=== PATIENT | male | born 1940 | race Caucasian/White ===

== ENCOUNTER → 2017-07-08 | Outpatient (CLI) | payer MEDICARE ==
[2017-07-08 13:17] LABS: Basophils % (A) 0 %; Eosinophils # (A) 0.2 k/uL (0-0.7); Eosinophils % (A) 3 %; HCT 44.3 % (39.0-53.0); Lymphocytes # (A) 0.7 k/uL (1.0-4.8); Lymphocytes % (A) 9 %; MCH 31.7 pg (25.0-35.0); MCHC 31.5 g/dL (31.0-37.0); MCV 100.6 fL (80.0-100.0); Macrocytosis Slight; Mean Platelet Volume 7.2; Monocytes # (A) 0.6 k/uL (0-1.0); Monocytes % (A) 7 %; Neutrophils # (A) 6.5 k/uL (1.3-7.7); Neutrophils % (A) 80 %; Platelet Count 235 k/uL (150-450); RDW 14.3 % (11.5-15.5); WBC 8.2 k/uL (3.8-10.6)
[2017-07-08 13:33] LABS: Albumin 4.2 g/dL (3.5-5.0); Anion Gap 12 mmol/L; Blood Urea Nitrogen 13 mg/dL (9-20); C Reactive Protein 16.4 mg/L (<10.0); Calcium 9.6 mg/dL (8.4-10.2); Carbon Dioxide 26 mmol/L (22-30); Chloride 103 mmol/L (98-107); Glucose 91 mg/dL (74-99); Potassium 4.2 mmol/L (3.5-5.1); Sodium 141 mmol/L (137-145)
[2017-07-08 14:55] LABS: Erythrocyte Sedimentation Rate 19 mm/hr (0-15)
[2017-07-08 21:26] LABS: Hemoglobin A1C 5.5 % (4.0-6.0)
== END | disposition home or self-care (01) ==
LOC: LABWHC1 12:10
PROVIDERS: ATTEND Orthopaedic Surgery
DX: Z01.818 Encounter for other preprocedural examination (principal); E55.9 Vitamin D deficiency, unspecified; N39.0 Urinary tract infection, site not specified; M12.9 Arthropathy, unspecified; D64.9 Anemia, unspecified; Z13.1 Encounter for screening for diabetes mellitus
CPT/HCPCS: 36415; 80048; 82040; 82652; 83036; 85025; 85652; 86140; 87070

== ENCOUNTER → 2019-01-30 | Day surgery (SDC) | payer MEDICARE ==
[2019-01-27 10:17] VITALS: BMI 29.5
[~2019-01-30] MED LIST: CLINDAMYCIN 600 MG in DEXTROSE 5% IN WATER 50 ML IVPB ONE; HYDROcodone/APAP 5-325MG 1 EACH TAB PO ONE; HYDROmorphone 0.5 MG/0.5 ML SYRINGE IVP PRN; LACTATED RINGERS 1,000 ML IV SCH; LIDOCAINE 1% 20 ML VIAL (10MG/ML) FOR IV START SQ ONE; MIDAZOLAM 2 MG/2 ML VIAL IV PRN; MIDAZOLAM 2 MG/2 ML VIAL ONE; OFLOXACIN 0.3% OTIC DROPS 5 ML BTL LEFT EAR ONE; ONDANSETRON 4 MG/2 ML VIAL IVP ONE; PROPOFOL 10 MG/ML 20 ML VIAL IV ONE; Pre Op ABX Message 1 EACH MISC MISCELLANE ONE; fentaNYL (PF) 50 MCG/ML 2 ML AMP ONE
--- NOTE | 2019-01-30 01:24 | HP ---
HISTORY AND PHYSICAL CHIEF COMPLAINT: Fluid in the left ear. HISTORY OF PRESENT ILLNESS: This patient is a 78-year-old male who was recently seen in my office stating that his left ear felt plugged. The patient stated that when he talks, it sounds as if he has his head under water. 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 The patient was tried on a course of antibiotics and oral steroids. Upon returning to the office, clinical examination revealed he still had fluid in the left middle ear space and it was recommended that he undergo a left myringotomy with insertion of ventilation tubes under IV sedation with MAC. PAST MEDICAL HISTORY: Past medical history reveals that the patient has: ALLERGIES: TO PENICILLIN AND IODINE. MEDICATIONS: Current medications include: Duloxetine, lamotrigine, clonazepam. REVIEW OF SYSTEMS: Reveals the cardiovascular is negative. Metabolic/Endocrine is negative and that the remainder of the review of systems is essentially unremarkable. PREVIOUS SURGERIES: Previous surgeries include tonsillectomy, adenoidectomy, left hip replacement, right knee replacement, hemorrhoidectomy, colonoscopy, and bilateral cataract surgery. PHYSICAL EXAMINATION: This patient is a pleasant 78-year-old male who was alert and cooperative. HEENT examination: The patient is normocephalic. Examination of the right ear is unremarkable. Left ear reveals the left tympanic membrane is dull with fluid in the left middle ear space. Pupils equal, round, react to light and accommodation. Extraocular movements within normal limits. Intranasal examination reveals moderate to severe septal deviation with compensatory hypertrophy of the inferior turbinates and a moderate amount of mucus on the mucous membranes and draining down the posterior pharynx. Examination of oropharynx, cranial nerves 2 through 12 and the remainder of the head and neck exam are all within normal limits. Chest/ cardiovascular: Both lung crump are clear to percussion and auscultation. Patient is in regular sinus rhythm. S1, S2 are present without evidence any murmurs S3s or S4. Peripheral pulses are bilaterally symmetrical and within normal limits. Abdomen: There is no evidence any masses megaly or tenderness. Abdomen soft. Skin is unremarkable. Musculoskeletal/neurological and all within normal limits rectal examination exam is deferred at this time because the patient has this done on a regular basis at his family physician's office. The remainder of physical exam is unremarkable. IMPRESSION: Chronic left serous otitis media. PLAN: The patient is scheduled undergo a left myringotomy with insertion of ventilation tubes under IV sedation with MAC in the a.m. Attention RNs in the pre-surgical area: I have ordered for this patient to receive 600 mg of clindamycin and in all directions. Clindamycin IV to be given once an intravenous line has been established. This is because the patient has had a hip replacement and also a knee replacement. If the pharmacy department sends a different medication, I put a different pre-surgical prophylactic antibiotic to the pre-surgical area for this patient, that order should be cancelled and that particular medication should be returned to the pharmacy and make sure that the patient's account is credited appropriately. I have discussed the risks, benefits and alternative therapies for the above-mentioned procedure and for both sedation/analgesia as well as necessary blood product administration, if indicated, as they pertain to this patient. The patient has indicated his or her understanding and acceptance of the risks and procedures discussed. MMMARGE / IVONNE: [id number] /
[2019-01-30 08:59] VITALS: TEMP 97.3
[2019-01-30 11:10] VITALS: BP 92/62; PULSE 68; RESP 17
--- NOTE | 2019-01-31 22:32 | OP ---
OPERATIVE REPORT DATE OF SURGERY: 01/30/2019. PREOPERATIVE DIAGNOSIS: Chronic left serous otitis media. POSTOPERATIVE DIAGNOSIS: Chronic left serous otitis media. ANESTHESIA: General anesthesia. OPERATIVE PROCEDURE: Left myringotomy with insertion of an Activent ventilation tube. SURGEON: Dr. Villa. COMPLICATIONS: None. OPERATIVE PROCEDURE: The patient is placed on operating table in the supine position. After uneventful induction and mask inhalation anesthesia, satisfactory general anesthesia was obtained. Next the patient's left ear was draped in usual customary fashion. Next, using the Zeiss operating microscope and a #3 aural speculum, the left external auditory canal was cleansed of all wax and debris. Next, inspection of the ear revealed the patient had a significant amount of fluid in the left middle ear space and therefore using the myringotomy knife, an incision was made in the anterior inferior quadrant of the left tympanic membrane. The middle ear space was suctioned free of all fluid and a 1.1 mm Activent Herlinda bobbin type ventilation tube was inserted through the previously made myringotomy incision without difficulty. At this point, the procedure was terminated. There were no intraoperative complications. The patient tolerated procedure well and was returned to the recovery room in satisfactory condition. MMODL / IJN: [id number] /
== END | disposition home or self-care (01) ==
LOC: OR 08:27
PROVIDERS: ATTEND Otolaryngology
DX: H65.22 Chronic serous otitis media, left ear (principal); N40.0 Benign prostatic hyperplasia without lower urinary tract symptoms; M06.9 Rheumatoid arthritis, unspecified; F39 Unspecified mood [affective] disorder; K21.9 Gastro-esophageal reflux disease without esophagitis; Z96.651 Presence of right artificial knee joint; Z96.642 Presence of left artificial hip joint; Z97.2 Presence of dental prosthetic device (complete) (partial); Z98.42 Cataract extraction status, left eye; Z98.41 Cataract extraction status, right eye; Z91.041 Radiographic dye allergy status; Z79.899 Other long term (current) drug therapy; Z88.0 Allergy status to penicillin; Z91.048 Other nonmedicinal substance allergy status
CPT/HCPCS: 69436; J2250; J2405; J3010; J2704

== ENCOUNTER → 2020-06-30 | Outpatient (CLI) | payer MEDICARE ==
--- NOTE | 2020-06-30 12:40 | FL ---
EXAMINATION TYPE: FL barium swallow DATE OF EXAM: 06/30/2020 COMPARISON: None HISTORY: Dysphasia TECHNIQUE: Double air-contrast technique is utilized to evaluate the esophagus. FINDINGS: 1.05 minutes of fluoroscopy time Images: 8 Esophagus dilates to normal caliber has normal contour to the gastroesophageal junction. Gastroesopha geal junction opens to normal caliber. There appears to be complete stripping the esophageal bolus th e horizontal drinking position. A few tertiary contractions were evident during the examination marycruz tible with mild presbyesophagus. IMPRESSION: 1. Mild presbyesophagus. 2. No suspicious defect to account for dysphagia.
== END | disposition home or self-care (01) ==
LOC: RADUSWWP 11:06
PROVIDERS: ATTEND Otolaryngology
DX: K22.8 Other specified diseases of esophagus (principal)
CPT/HCPCS: 74220

== ENCOUNTER → 2020-07-20 | Outpatient (CLI) | payer MEDICARE ==
--- NOTE | 2020-07-21 18:46 | MR ---
EXAMINATION TYPE: MR tmj wo con DATE OF EXAM: 07/20/2020 COMPARISON: None HISTORY: George otalgia, subluxation, hearing loss CONTRAST: Performed utilizing 0 mL intravenous Gadavist gadolinium contrast. TECHNIQUE: Multiplanar, multiecho imaging on a 3.0 Emily magnet is performed through the temporomandi bular junctions. Close and open-mouth views were obtained. Findings: Temporomandibular junctions in closed mouth position appear normal. The meniscus is in normal positio n. There is some exaggerated anterior subluxation in the last step wide open mouth position. However, th is subluxes posteriorly normally with closing mouth. There is milder exaggerated in the last step wide open mouth position with the right condyle. This ca ptures the meniscus normally with posterior subluxation with closing mouth. IMPRESSIONS: 1. With wide open mouth position there appears to be exaggerated anterior subluxation anterior to the mandibular junction especially noted on the left but also present on the right. 2. There appears to be recapture of the menisci with closing of the mouth and more normal positioning during the stepwise opening imaging.
== END | disposition home or self-care (01) ==
LOC: RADMRIMAIN 11:37
PROVIDERS: ATTEND Otolaryngology
DX: S03.03XA Dislocation of jaw, bilateral, initial encounter (principal)
CPT/HCPCS: 70336

== ENCOUNTER → 2021-08-30 | Outpatient (CLI) | payer MEDICARE ==
--- NOTE | 2021-08-31 00:06 | MR ---
EXAMINATION TYPE: MR brain and iac wo/w con DATE OF EXAM: 08/30/2021 COMPARISON: None HISTORY: Lightheaded, dizziness, frequent falls. CONTRAST: Standard multiplanar, multisequence MRI departmental protocol images were obtained without contrast a nd with 8.5 mL intravenous Gadavist gadolinium contrast. There is cerebral cortical atrophy. There is no mass effect or midline shift. There is no evidence of intracranial hemorrhage. Brainstem is intact. There is some linear increased signal in the periventr icular white matter adjacent to the ventricles. This measures up to 5 mm in thickness. The corpus cari losum shows mild thinning. There is no evidence of orbital mass. Sella turcica appears normal. The internal auditory canals appear normal. Acoustic nerve and vestibular nerve appear normal. There is no evidence of cerebellopontine angle mass. Cerebellum is intact. Contrast images show no pathologic enhancement. There is increased fluid signal in the right mastoid sinuses consistent with sinusitis. 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 No evidence of cortical infarct. There is evidence for some right-madeline ed mastoiditis.
== END | disposition home or self-care (01) ==
LOC: RADMRIMAIN 15:52
PROVIDERS: ATTEND Otolaryngology
DX: G31.9 Degenerative disease of nervous system, unspecified (principal); G91.9 Hydrocephalus, unspecified
CPT/HCPCS: 70553; A9585

== ENCOUNTER → 2021-11-10 | Outpatient (CLI) | payer MEDICARE ==
[~2021-11-10] MED LIST changes: -CLINDAMYCIN 600 MG in DEXTROSE 5% IN WATER 50 ML IVPB ONE; -HYDROcodone/APAP 5-325MG 1 EACH TAB PO ONE; -HYDROmorphone 0.5 MG/0.5 ML SYRINGE IVP PRN; -LACTATED RINGERS 1,000 ML IV SCH; -LIDOCAINE 1% 20 ML VIAL (10MG/ML) FOR IV START SQ ONE; -MIDAZOLAM 2 MG/2 ML VIAL IV PRN; -MIDAZOLAM 2 MG/2 ML VIAL ONE; -OFLOXACIN 0.3% OTIC DROPS 5 ML BTL LEFT EAR ONE; -ONDANSETRON 4 MG/2 ML VIAL IVP ONE; -PROPOFOL 10 MG/ML 20 ML VIAL IV ONE; -Pre Op ABX Message 1 EACH MISC MISCELLANE ONE; +REGADENOSON 0.4 MG/5 ML SYRINGE IV PRN; -fentaNYL (PF) 50 MCG/ML 2 ML AMP ONE
[2021-11-10 09:23] LABS: ALT 12 U/L (4-49); AST 25 U/L (17-59); African American GFR (CKD) 59 (>60 ml/min/1.73 sqM); Albumin 3.8 g/dL (3.5-5.0); Albumin/Globulin Ratio 1.2; Alkaline Phosphatase 80 U/L (38-126); Anion Gap 12 mmol/L; Blood Urea Nitrogen 21 mg/dL (9-20); Carbon Dioxide 21 mmol/L (22-30); Chloride 108 mmol/L (98-107); Globulin 3.2 g/dL; Glucose 101 mg/dL (74-99); Non-African American GFR(CKD) 51 (>60 ml/min/1.73 sqM); Potassium 4.1 mmol/L (3.5-5.1); Sodium 141 mmol/L (137-145); Total Bilirubin 0.4 mg/dL (0.2-1.3)
--- NOTE | 2021-11-10 12:59 | NM ---
EXAMINATION TYPE: NM stress lexiscan cardiolite DATE OF EXAM: 11/10/2021 COMPARISON: NONE HISTORY: History of tobacco use in the past presents with difficulty breathing and palpitations. Hist ory of family heart attack in dad and prior catheterization per patient. TECHNIQUE: After the intravenous administration of 9.5 mCi Tc 99m Sestamibi - Cardiolite resting SPE CT images acquired 45 minutes post injection. The patient received 0.4mg Lexiscan, 24.8 mCi Tc 99m Sestamibi - Stress images obtained [address] injection FINDINGS: Review of stress and rest SPECT images demonstrates some suggested diminished radiotracer uptake in t he inferior wall mid segment with lateral extension and lateral wall apex on stress and rest images f avoring artifact over old infarct. No convincing evidence for reversible ischemia. Gated analysis sh ows normal wall motion with an estimated left ventricular ejection fraction of 63 %. IMPRESSION: No scintigraphic evidence for reversible ischemia.
[2021-11-10 14:54] LABS: Basophils # (A) 0.12 X 10*3/uL (0.00-0.10); Basophils % (A) 0.9 %; Eosinophils # (A) 0.58 X 10*3/uL (0.04-0.35); Eosinophils % (A) 4.5 %; HCT 36.4 % (39.6-50.0); HGB 11.6 g/dL (13.0-17.0); Immature Grans, Automated 0.5 %; Lymphocytes # (A) 1.39 X 10*3/uL (0.90-5.00); Lymphocytes % (A) 10.9 %; MCH 29.4 pg (27.0-32.0); MCHC 31.9 g/dL (32.0-37.0); MCV 92.4 fL (80.0-97.0); Mean Platelet Volume 10.1 fL (9.5-12.2); Monocytes # (A) 1.08 X 10*3/uL (0.20-1.00); Monocytes % (A) 8.5 %; NRBC Per 100 WBC 0 /100 WBCS (0.0-0.0); Neutrophils # (A) 9.54 X 10*3/uL (1.80-7.70); Neutrophils % (A) 74.7 %; Platelet Count 371 X 10*3/uL (140-440); RBC 3.94 X 10*6/uL (4.40-5.60); RDW 15.1 % (11.5-14.5); WBC 12.78 X 10*3/uL (4.50-10.00)
[2021-11-10 15:13] LABS: Chol/HDL Ratio 6.17 Ratio; LDL Cholesterol,Calculated 105.7 mg/dL (0.0-131.0)
--- NOTE | 2021-11-10 18:17 | CA ---
Lexiscan Nuclear Stress Test Report Name: Topher Talavera Exam Date: 11/10/2021 10:23 Exam Location: [facility] Ht (in): 70 Wt (lb): 203 BSA: 2.10 Ordering Phys: Derick Martinez MD Referring Phys: Michelle,, Technologist: KARELY,, Age: 80 Gender: M : 1940 Procedure CPT: Indications: R06.02 COUGH ICD-10 Codes: Patient History: SOB, PALPITATIONS, FAMILY HISTORY, CATHERIZATION Medications: DULOXETINE,,,,,, FOLIC ACID,,,,,, CLONAZEPAM,,,,,, LEFLUNOMIDE,,,,,, ANTIVERT,,,,,, LAMOTRIGINE,,,,,, VIT D3,,,,,, B12,,,,,, MULTIVITAMIN,,,,, Meds past 24 hrs: Pretest Chest Pain: STRESS TEST Lexiscan Protocol Exercise Duration (min:sec): 01:[address] Depressions (mm): Angina Score: Shine Score: Resting HR (bpm): 77 Peak HR (bpm): 89 Resting BP (mmHg): 128 / 79 Peak BP (mmHg): 120 / 71 MPHR: 142 Target HR: 121 % MPHR: 63 METS: 1.0 Total Dose: Peak Dose: Atropine: Double Product: 21278 BP Response: Stress Termination: Completion of Infusion Stress Symptoms: NAUSEA,CHEST PRESSURE,HEADACHE Stress Summary: ECG ANALYSIS Resting ECG: Stress ECG: CONCLUSIONS Nondiagnostic electrocardiogram stress testing response to Lexiscan Please follow-up on the Cardiolite portion Dr. Giovanni Bunn MD (Electronically Signed) Final Date: 10 Nov 2021 18:16
== END | disposition home or self-care (01) ==
LOC: RADNMMAIN 08:00
PROVIDERS: ATTEND Internal Medicine
DX: R06.02 Shortness of breath (principal)
CPT/HCPCS: 93017; 80061; 80053; 84443; 85025; 78452; A9500; J2785

== ENCOUNTER → 2021-12-15 | Outpatient (CLI) | payer MEDICARE ==
--- NOTE | 2021-12-15 14:54 | US ---
EXAMINATION TYPE: US kidneys/renal and bladder DATE OF EXAM: 12/15/2021 COMPARISON: NONE CLINICAL HISTORY: N18.31 CHRONIC KIDNEY DISEASE, STAGE 3A. EXAM MEASUREMENTS: Right Kidney: 11.1 x 5.5 x 5.2 cm Left Kidney: 10.9 x 5.7 x 5.4 cm Right Kidney: wnl as seen Left Kidney: Superior area, lobulation vs. mass, measured at 2.0 x 2.1 x 2.3cm Bladder: wall at 4mm There is no evidence for hydronephrosis at this point in time. No nephrolithiasis is seen. The urin paulette bladder is anechoic. Bilateral ureteral jets are seen. IMPRESSION: Probable lobulation upper pole left kidney or mass is difficult to exclude. Consider contrast-enhance d CT of the kidneys are further evaluation.
== END | disposition home or self-care (01) ==
LOC: RADUSWWP 13:53
PROVIDERS: ATTEND Internal Medicine
DX: N18.31 Chronic kidney disease, stage 3a (principal)
CPT/HCPCS: 76770

== ENCOUNTER → 2022-01-15 | Outpatient (CLI) | payer MEDICARE ==
--- NOTE | 2022-01-15 12:12 | MR ---
MR kidney with and without contrast HISTORY: Abnormal ultrasound Multiplanar multisequence and postcontrast images obtained through the kidneys, patient received 10 c c Gadavist IV. Correlation to ultrasound kidneys 12/15/2021. There is motion on the exam The upper pole the left kidney showing a questionable mass on ultrasound shows no evident mass. There are some parapelvic cysts within the kidneys. Symmetric excretion is noted. There is no retroperiton eal adenopathy. Circumaortic left renal vein is noted. Adrenal glands are normal. Liver shows multiple T2 bright foci consistent with subcentimeter cysts, l iver is enlarged. Lung bases show no effusion. Spleen is normal. Pancreas shows no abnormality. No abnormal enhancement following contrast administration. Gallbladder is normal. Aorta is not aneurysmal. No evident bowel obstruction. Degenerative disc changes, spinal curvature noted incidentally within the visualized spine. IMPRESSION: No evident solid renal mass.
== END | disposition home or self-care (01) ==
LOC: RADMRIMAIN 08:32
PROVIDERS: ATTEND Internal Medicine
DX: Q63.1 Lobulated, fused and horseshoe kidney (principal)
CPT/HCPCS: 74183; A9585

== ENCOUNTER 2022-04-12 12:51 | Emergency (ER) | payer MEDICARE ==
--- NOTE | 2022-04-12 13:38 | ED ---
Fall HPI - General Chief Complaint: Fall Stated Complaint: fall Time Seen by Provider: 04/12/22 12:58 Source: patient, RN notes reviewed Mode of arrival: wheelchair Limitations: no limitations - History of Present Illness Initial Comments: This a 81-year-old male presents emergency Department chief complaint of a fall. Patient states he fell one week ago going up the steps. He states he fell a few steps complaint left hip pain. Patient had 2 prior surgeries to his left hip states she's been able to get around but states is painful. Patient has s econdary fall striking his head with no loss conscious. His tetanus is up-to-date. Patient states he has had an and table. Patient denies any neck pain on extreme back pain. His complaint right shoulder discomfort in which she fell on the stretcher in the fall. No chest pain no abdominal pain. - Related Data Home Medications Medication Instructions Recorded Confirmed Albuterol Inhaler [Ventolin Hfa 1 - 2 puff INHALATION RT-Q6H PRN 04/12/22 04/12/22 Inhaler] Aspirin EC [Ecotrin Low Dose] 81 mg PO DAILY 04/12/22 04/12/22 Azithromycin [Zithromax] 500 mg PO DIRECTED 04/12/22 04/12/22 Cyanocobalamin (Vitamin B-12) 1,000 mcg PO DAILY 04/12/22 04/12/22 [Vitamin B-12] DULoxetine HCL [Cymbalta] 30 mg PO HS 04/12/22 04/12/22 DULoxetine HCL [Cymbalta] 60 mg PO DAILY 04/12/22 04/12/22 Finasteride [Proscar] 5 mg PO DAILY 04/12/22 04/12/22 Fluticasone Nasal Marshall [Flonase 1 spray EA NOSTRIL BID 04/12/22 04/12/22 Nasal Marshall] Folic Acid 1 mg PO DAILY 04/12/22 04/12/22 Hydrocortisone Pr Cream 1 applic RECTAL BID PRN 04/12/22 04/12/22 [Proctosol-Hc 2.5%] Meclizine [Antivert] 25 mg PO TID PRN 04/12/22 04/12/22 Montelukast [Singulair] 10 mg PO DAILY 04/12/22 04/12/22 Multivit-Min/FA/Lycopen/Lutein 1 tab PO DAILY 04/12/22 04/12/22 [Centrum Silver Men Tablet] Triamcinolone 0.1% Cream [Kenalog 1 applic TOPICAL TID PRN 04/12/22 04/12/22 0.1% Cream] clonazePAM [KlonoPIN] 1 mg PO TID PRN 04/12/22 04/12/22 lamoTRIgine [LaMICtal] 100 mg PO BID 04/12/22 04/12/22 Previous Rx's Medication Instructions Recorded traMADol HCl [Ultram] 50 mg PO Q6H PRN #12 tab 04/12/22 Allergies Allergy/AdvReac Type Severity Reaction Status Date / Time amoxicillin Allergy Anaphylaxis Verified 04/12/22 15:16 ampicillin Allergy Anaphylaxis Verified 04/12/22 15:16 Iodinated Contrast Media Allergy Anaphylaxis Verified 04/12/22 15:16 [Iodinated Contrast Media - IV Dye] Penicillins Allergy Anaphylaxis Verified 04/12/22 15:16 Review of Systems ROS Statement: Those systems with pertinent positive or pertinent negative responses have been documented in the HPI. ROS Other: All systems not noted in ROS Statement are negative. Past Medical History Past Medical History: GERD/Reflux, Pneumonia, Prostate Disorder, Rheumatoid A rthritis (RA) Additional Past Medical History / Comment(s): Hx Pneumonia X3. BPH. DIVERTICULITIS. Wears a brace. History of Any Multi-Drug Resistant Organisms: None Reported Past Surgical History: Joint Replacement, Orthopedic Surgery Additional Past Surgical History / Comment(s): ORIF RIGHT ELBOW. RIGHT KNEE REPLACED. TRAUMA TO HIP/PELVIS FROM FALLING THROUGH A ROOF (LEFT HIP REPLACED/PELVIC FX). 2nd left hip replacement. Bilateral cataracts removed. Past Anesthesia/Blood Transfusion Reactions: Motion Sickness Past Psychological History: Anxiety, Bipolar, Depression Past Alcohol Use History: None Reported Past Drug Use History: None Reported - Past Family History Brother(s) Family Medical History: No Reported History General Exam Limitations: no limitations General appearance: alert, in no apparent distress Head exam: Present: atraumatic, normocephalic. Absent: normal inspection (Abrasion right frontal aspect) Eye exam: Present: normal appearance, PERRL, EOMI. Absent: scleral icterus, conjunctival injection, periorbital swelling ENT exam: Present: normal exam, normal oropharynx, mucous membranes moist Neck exam: Present: normal inspection, full ROM. Absent: tenderness, meningismus, lymphadenopathy Respiratory exam: Present: normal lung sounds bilaterally. Absent: respiratory distress, wheezes, rales, rhonchi, stridor Cardiovascular Exam: Present: regular rate, normal rhythm, normal heart sounds. Absent: systolic murmur, diastolic murmur, rubs, gallop, clicks GI/Abdominal exam: Present: soft, normal bowel sounds. 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 Absent: motor sensory deficit Skin exam: Present: warm, dry, intact, normal color. Absent: rash Course Vital Signs 04/12/22 04/12/22 12:53 13:57 Temperature 96.3 F L Pulse Rate 85 77 Respiratory 16 16 Rate Blood Pressure 83/56 91/67 O2 Sat by Pulse 95 94 L Oximetry Medical Decision Making - Medical Decision Making X-ray and CT were reviewed no acute findings patient had mildly low blood pressure which patient had labs, fluids and has improved. He is able to a mbulate reports discomfort he'll follow-up with his surgeon. Patient will use walker as she's been trying to use a cane. Family room agrees to plan return parameters were discussed. - Lab Data Result diagrams: 04/12/22 14:59 04/12/22 14:59 Lab Results 04/12/22 04/12/22 04/12/22 Range/Units 14:59 14:59 14:59 WBC 9.8 (3.8-10.6) k/uL RBC 3.75 L (4.30-5.90) m/uL Hgb 11.8 L (13.0-17.5) gm/dL Hct 35.0 L (39.0-53.0) % MCV 93.2 (80.0-100.0) fL MCH 31.5 (25.0-35.0) pg MCHC 33.8 (31.0-37.0) g/dL RDW 14.8 (11.5-15.5) % Plt Count 295 (150-450) k/uL MPV 7.7 Neutrophils % 81 % Lymphocytes % 9 % Monocytes % 5 % Eosinophils % 3 % Basophils % 1 % Neutrophils # 7.9 H (1.3-7.7) k/uL Lymphocytes # 0.9 L (1.0-4.8) k/uL Monocytes # 0.5 (0-1.0) k/uL Eosinophils # 0.3 (0-0.7) k/uL Basophils # 0.1 (0-0.2) k/uL Sodium 137 (137-145) mmol/L Potassium 4.2 (3.5-5.1) mmol/L Chloride 105 (98-107) mmol/L Carbon Dioxide 22 (22-30) mmol/L Anion Gap 10 mmol/L BUN 18 (9-20) mg/dL Creatinine 1.71 H (0.66-1.25) mg/dL Est GFR (CKD-EPI)AfAm 43 (>60 ml/min/1.73 sqM) Est GFR (CKD-EPI)NonAf 37 (>60 ml/min/1.73 sqM) Glucose 98 (74-99) mg/dL Plasma Lactic Acid Ajay 1.3 (0.7-2.0) mmol/L Calcium 8.8 (8.4-10.2) mg/dL Total Bilirubin 0.4 (0.2-1.3) mg/dL AST 22 (17-59) U/L ALT 15 (4-49) U/L Alkaline Phosphatase 72 (38-126) U/L Total Protein 6.2 L (6.3-8.2) g/dL Albumin 3.7 (3.5-5.0) g/dL Disposition Clinical Impression: Fall, Contusion of hip, left, Contusion of head Disposition: HOME SELF-CARE Condition: Stable Instructions (If sedation given, give patient instructions): Fall Prevention (ED), Hip Contusion (ED) Additional Instructions: Please return to the Emergency Department if symptoms worsen or any other concerns. Prescriptions: traMADol HCl [Ultram] 50 mg PO Q6H PRN #12 tab PRN Reason: Pain Is patient prescribed a controlled substance at d/c from ED?: No Referrals: Derick Martinez MD [Primary Care Provider] - 1-2 days Time of Disposition: 16:36
--- NOTE | 2022-04-12 14:03 | XR ---
EXAMINATION TYPE: XR chest 2V DATE OF EXAM: 04/12/2022 COMPARISON: CT November 03, 2015 HISTORY: Trauma injury with chest pain TECHNIQUE: Frontal and lateral views of the chest are obtained. FINDINGS: There is mild chronic parenchymal changes bilaterally without suspicious focal air space o pacity, pleural effusion, or pneumothorax seen. The cardiac silhouette size remains within normal li mits. Overlying EKG leads are present. The osseous structures are intact. IMPRESSION: No acute cardiopulmonary process.
--- NOTE | 2022-04-12 14:06 | XR ---
EXAMINATION TYPE: XR Hip LT and AP Pelvis DATE OF EXAM: 04/12/2022 COMPARISON: CT chest abdomen and pelvis November 03, 2015 HISTORY: Fall injury with pain. TECHNIQUE: A single AP view of the pelvis is obtained. Two views of the left hip are obtained. FINDINGS: Metallic hardware from left hip arthroplasty is redemonstrated. Entire femoral component no t included in field of view. There is persistent protrusio acetabuli without acute displaced fracture in pelvis or left hip. Heterotopic ossification at this level is present. Surgical changes along sup erior aspect of the acetabulum are redemonstrated. Sacroiliac joints are symmetric and maintained. Pu bic symphysis is intact. Overlying soft tissue is unremarkable. IMPRESSION: There is no acute fracture or dislocation in the pelvis or left hip.
--- NOTE | 2022-04-12 14:08 | CT ---
EXAMINATION TYPE: CT brain cspine wo con CT DLP: 1556.1 mGycm, Automated exposure control for dose reduction was used. DATE OF EXAM: 04/12/2022 1:51 PM COMPARISON: None.. CLINICAL INDICATION:Male, 81 years old with history of trauma, pain; Fall TECHNIQUE: Brain: Multiple axial CT images of the brain were obtained without IV contrast. Cspine: Axial CT images from the skull base to the inferior aspect of T2 we obtained without intraven ous contrast. Coronal and sagittal reformatted images were also reviewed. FINDINGS: Brain: Extra-axial spaces: No abnormal extra-axial fluid collections. Ventricular system: Within normal limits Cerebral parenchyma: No acute intraparenchymal hemorrhage or mass effect. The guerra-white junction is well differentiated. Scattered hypoattenuating areas are seen within the white matter. Cerebral vol ume loss. Cerebellum: Unremarkable. Mass effect: No evidence of midline shift. Intracranial vasculature: Atherosclerotic calcifications of the intracranial vessels. Soft tissues: Normal. Calvarium/osseous structures: No depressed skull fracture. Paranasal sinuses and mastoid air cells: Opacification of the right mastoid air cells. Paranasal sinu ses are clear. Visualized orbits: Bilateral aphakia Cervical spine: Fracture: None. Osseous structures: Multilevel degenerative disc disease changes with endplate spurring and disc oste ophyte complex's. Multilevel facet arthropathy. Ankylosis of the T1 and T2 vertebral bodies. Vertebral alignment: Grade 1 anterolisthesis of C3 on C4, likely degenerative. Spinal canal/Neural Foramina: Disc osteophyte complexes at C4-C5, C5-C6, C6-C7 with at least mild spi nal canal stenosis. No evidence for significant neural foraminal stenosis. Neck soft tissues: Prevertebral soft tissues are within normal limits. Other: The airway is patent. Paraseptal emphysematous changes. Vascular sclerosis. IMPRESSION: 1. No acute intracranial process. 2. Nonspecific white matter changes, likely secondary to chronic small vessel ischemic disease. 3. No evidence of cervical spine fracture. 4. Moderate multilevel degenerative disc disease. 5. Right mastoid effusion.
[2022-04-12] MEDS ORDERED: SODIUM CHLORIDE 0.9% 1,000 ML IV ONE (14:28)
[2022-04-12 15:07] LABS: Basophils # (A) 0.1 k/uL (0-0.2); Basophils % (A) 1 %; Eosinophils # (A) 0.3 k/uL (0-0.7); Eosinophils % (A) 3 %; HGB 11.8 gm/dL (13.0-17.5); Lymphocytes # (A) 0.9 k/uL (1.0-4.8); Lymphocytes % (A) 9 %; MCH 31.5 pg (25.0-35.0); MCHC 33.8 g/dL (31.0-37.0); MCV 93.2 fL (80.0-100.0); Mean Platelet Volume 7.7; Monocytes # (A) 0.5 k/uL (0-1.0); Monocytes % (A) 5 %; Neutrophils # (A) 7.9 k/uL (1.3-7.7); Neutrophils % (A) 81 %; Platelet Count 295 k/uL (150-450); RBC 3.75 m/uL (4.30-5.90); RDW 14.8 % (11.5-15.5); WBC 9.8 k/uL (3.8-10.6)
[2022-04-12 15:16] LABS: Albumin 3.7 g/dL (3.5-5.0); Calcium 8.8 mg/dL (8.4-10.2); Potassium 4.2 mmol/L (3.5-5.1); Total Bilirubin 0.4 mg/dL (0.2-1.3); Total Protein 6.2 g/dL (6.3-8.2)
[2022-04-12] MEDS ORDERED: MORPHINE SULFATE 2 MG/ML SYRINGE IVP ONE (15:20)
[2022-04-12] MEDS ORDERED: ONDANSETRON 4 MG/2 ML VIAL IVP STA (15:20)
[2022-04-12 17:04] VITALS: BP 126/80; PULSE 84; RESP 18; TEMP 97
[2022-04-12 17:05] LABS: Appearance,Urine Clear (Clear); Bilirubin,Urine Negative (Negative); Blood,Urine Negative (Negative); Color,Urine Yellow; Glucose,Urine (UA) Negative (Negative); Ketones,Urine Negative (Negative); Leukocyte Esterase,Urine Negative (Negative); Nitrite,Urine Negative (Negative); PH, Urine 5.5 (5.0-8.0); Protein,Urine Negative (Negative); Specific Gravity,Urine 1.012 (1.001-1.035); Urobilinogen,Urine <2.0 mg/dL (<2.0)
== END 2022-04-12 17:16 | disposition home or self-care (01) ==
LOC: EC 12:51
DX: S00.93XA Contusion of unspecified part of head, initial encounter (principal); S70.00XA Contusion of unspecified hip, initial encounter; Z88.0 Allergy status to penicillin; Z91.041 Radiographic dye allergy status; W19.XXXA Unspecified fall, initial encounter
CPT/HCPCS: 36415; 80053; 83605; 85025; 81003; 73502; 71046; 72125; 70450; 99285; 96374; 96375; 96361; J2405; J2270

== ENCOUNTER 2022-04-21 18:41 | Observation (INO) | payer MEDICARE ==
[2022-04-21] MEDS ORDERED: SODIUM CHLORIDE 0.9% 500 ML 500 ML IV STA (19:00)
--- NOTE | 2022-04-21 19:24 | XR ---
EXAMINATION TYPE: XR chest 2V DATE OF EXAM: 04/21/2022 COMPARISON: 04/12/2022 HISTORY: Chest pain TECHNIQUE: 2 views FINDINGS: Heart is normal. Lungs are clear of infiltrate. No heart failure. There is some mild subseg mental atelectasis left lung base. There are no hilar masses. Chest leads. Bony thorax is intact. IMPRESSION: There is mild subsegmental atelectasis left lung base which is similar to old exam. No he art failure.
--- NOTE | 2022-04-21 19:46 | ED ---
General Adult HPI - General Chief complaint: Chest Pain Stated complaint: Chest Pains,Dizziness Time Seen by Provider: 04/21/22 18:46 Source: patient, RN notes reviewed, old records reviewed Mode of arrival: ambulatory Limitations: no limitations - History of Present Illness Initial comments: 81-year-old male presenting for evaluation of weakness, and chest pain. Patient states that he's had exertional chest pain today. He also feels somewhat unstea dy on his feet and feels lightheaded. No history of CAD. No abdominal pain nausea vomiting. No fever. - Related Data Home Medications Medication Instructions Recorded Confirmed Aspirin EC [Ecotrin Low Dose] 81 mg PO DAILY 04/12/22 04/21/22 Cyanocobalamin (Vitamin B-12) 1,000 mcg PO DAILY 04/12/22 04/21/22 [Vitamin B-12] DULoxetine HCL [Cymbalta] 30 mg PO DAILY 04/12/22 04/21/22 DULoxetine HCL [Cymbalta] 60 mg PO HS 04/12/22 04/21/22 Folic Acid 1 mg PO DAILY 04/12/22 04/21/22 Meclizine [Antivert] 25 mg PO TID 04/12/22 04/21/22 Multivit-Min/FA/Lycopen/Lutein 1 tab PO DAILY 04/12/22 04/21/22 [Centrum Silver Men Tablet] clonazePAM [KlonoPIN] 1 mg PO BID 04/12/22 04/21/22 lamoTRIgine [LaMICtal] 100 mg PO BID 04/12/22 04/21/22 Acetaminophen Tab [Tylenol] 650 mg PO Q4H PRN 04/21/22 04/21/22 Ibuprofen [Motrin Ib] 400 mg PO Q6H PRN 04/21/22 04/21/22 Vitamin D3(Unknown) 1 tab PO DAILY 04/21/22 04/21/22 methylPREDNISolone [Medrol Dose See Taper PO DAILY 04/21/22 04/21/22 Pack] Allergies Allergy/AdvReac Type Severity Reaction Status Date / Time amoxicillin Allergy Anaphylaxis Verified 04/21/22 20:34 ampicillin Allergy Anaphylaxis Verified 04/21/22 20:34 Iodinated Contrast Media Allergy Anaphylaxis Verified 04/21/22 20:34 [Iodinated Contrast Media - IV Dye] Penicillins Allergy Anaphylaxis Verified 04/21/22 20:34 Review of Systems ROS Statement: Those systems with pertinent positive or pertinent negative responses have been documented in the HPI. ROS Other: All systems not noted in ROS Statement are negative. Past Medical History Past Medical History: GERD/Reflux, Pneumonia, Prostate Disorder, Rheumatoid Arthritis (RA) Additional Past Medical History / Comment(s): Hx Pneumonia X3. BPH. DIVERTICULITIS. Wears a brace. History of Any Multi-Drug Resistant Organisms: None Reported Past Surgical History: Joint Replacement, Orthopedic Surgery Additional Past Surgical History / Comment(s): ORIF RIGHT ELBOW. RIGHT KNEE REPLACED. TRAUMA TO HIP/PELVIS FROM FALLING THROUGH A ROOF (LEFT HIP REPLACED/PELVIC FX). 2nd left hip replacement. Bilateral cataracts removed. Past Anesthesia/Blood Transfusion Reactions: Motion Sickness Past Psychological History: Anxiety, Bipolar, Depression Smoking Status: Never smoker Past Alcohol Use History: None Reported Past Drug Use History: None Reported - Past Family History Brother(s) Family Medical History: No Reported History General Exam Limitations: no limitations General appearance: alert, in no apparent distress Head exam: Present: atraumatic, normocephalic Eye exam: Present: normal appearance, PERRL ENT exam: Present: normal exam Neck exam: Present: normal inspection. Absent: tenderness, meningismus Respiratory exam: Present: normal lung sounds bilaterally. Absent: respiratory distress, wheezes Cardiovascular Exam: Present: regular rate, normal rhythm GI/Abdominal exam: Present: soft. Absent: distended, tenderness Extremities exam: Present: normal inspection, normal capillary refill Neurological exam: Present: alert, oriented X3, CN II-XII intact. Absent: motor sensory deficit Psychiatric exam: Present: normal affect, normal mood Skin exam: Present: warm, dry, intact, pallor Course Vital Signs 04/21/22 18:43 Temperature 97.6 F Pulse Rate 74 Respiratory 20 Rate Blood Pressure 95/67 O2 Sat by Pulse 96 Oximetry EKG Findings - EKG Comments: EKG Findings:: Sinus rhythm left axis rate of 68, [place] interval 193, QRS duration 108, QTC [address] segment elevation. Medical Decision Making - Medical Decision Making 81-year-old male with exertional chest pain, weakness, lightheadedness. Patient is in sinus rhythm without ST segment elevation. Chest x-ray is clear. He has a mild leukocytosis of on certain etiology, and mild anemia. Otherwise laboratory testing is unremarkable, initial troponin negative. Patient will be kept for IV hydration, serial cardiac enzymes, telemetry. Echo will be ordered. Case discussed with sound physician group. - Lab Data Result diagrams: 04/21/22 19:30 04/21/22 19:30 Lab Results 04/21/22 04/21/22 04/21/22 Range/Units 19:30 19:30 19:30 WBC 14.1 H (3.8-10.6) k/uL RBC 3.88 L (4.30-5.90) m/uL Hgb 12.6 L (13.0-17.5) gm/dL Hct 36.4 L (39.0-53.0) % MCV 93.7 (80.0-100.0) fL MCH 32.4 (25.0-35.0) pg MCHC 34.6 (31.0-37.0) g/dL RDW 13.7 (11.5-15.5) % Plt Count 368 (150-450) k/uL MPV 7.3 Neutrophils % 79 % Lymphocytes % 12 % Monocytes % 5 % Eosinophils % 2 % Basophils % 0 % Neutrophils # 11.2 H (1.3-7.7) k/uL Lymphocytes # 1.8 (1.0-4.8) k/uL Monocytes # 0.7 (0-1.0) k/uL Eosinophils # 0.3 (0-0.7) k/uL Basophils # 0.1 (0-0.2) k/uL PT 10.1 (9.0-12.0) sec INR 0.9 (<1.2) APTT 22.1 (22.0-30.0) sec Sodium 137 (137-145) mmol/L Potassium 4.4 (3.5-5.1) mmol/L Chloride 102 (98-107) mmol/L Carbon Dioxide 22 (22-30) mmol/L Anion Gap 13 mmol/L BUN 33 H (9-20) mg/dL Creatinine 1.73 H (0.66-1.25) mg/dL Est GFR (CKD-EPI)AfAm 43 (>60 ml/min/1.73 sqM) Est GFR (CKD-EPI)NonAf 37 (>60 ml/min/1.73 sqM) Glucose 109 H (74-99) mg/dL Calcium 9.2 (8.4-10.2) mg/dL Magnesium 2.3 (1.6-2.3) mg/dL Total Bilirubin 0.2 (0.2-1.3) mg/dL AST 21 (17-59) U/L ALT 15 (4-49) U/L Alkaline Phosphatase 84 (38-126) U/L Troponin I (0.000-0.034) ng/mL NT-Pro-B Natriuret Pep pg/mL Total Protein 6.8 (6.3-8.2) g/dL Albumin 3.9 (3.5-5.0) g/dL 04/21/22 04/21/22 Range/Units 19:30 19:30 WBC (3.8-10.6) k/uL RBC (4.30-5.90) m/uL Hgb (13.0-17.5) gm/dL Hct (39.0-53.0) % MCV (80.0-100.0) fL MCH (25.0-35.0) pg MCHC (31.0-37.0) g/dL RDW (11.5-15.5) % Plt Count (150-450) k/uL MPV Neutrophils % % Lymphocytes % % Monocytes % % Eosinophils % % Basophils % % Neutrophils # (1.3-7.7) k/uL Lymphocytes # (1.0-4.8) k/uL Monocytes # (0-1.0) k/uL Eosinophils # (0-0.7) k/uL Basophils # (0-0.2) k/uL PT (9.0-12.0) sec INR (<1.2) APTT (22.0-30.0) sec Sodium (137-145) mmol/L Potassium (3.5-5.1) mmol/L Chloride (98-107) mmol/L Carbon Dioxide (22-30) mmol/L Anion Gap mmol/L BUN (9-20) mg/dL Creatinine (0.66-1.25) mg/dL Est GFR (CKD-EPI)AfAm (>60 ml/min/1.73 sqM) Est GFR (CKD-EPI)NonAf (>60 ml/min/1.73 sqM) Glucose (74-99) mg/dL Calcium (8.4-10.2) mg/dL Magnesium (1.6-2.3) mg/dL Total Bilirubin (0.2-1.3) mg/dL AST (17-59) U/L ALT (4-49) U/L Alkaline Phosphatase (38-126) U/L Troponin I <0.012 (0.000-0.034) ng/mL NT-Pro-B Natriuret Pep 459 pg/mL Total Protein (6.3-8.2) g/dL Albumin (3.5-5.0) g/dL Disposition Clinical Impression: Chest pain, Weakness Disposition: ADMITTED IP TO THIS [facility] Condition: Stable Is patient prescribed a controlled substance at d/c from ED?: No Referrals: Derick Martinez MD [Primary Care Provider] - 1-2 days Time of Disposition: 21:07
[2022-04-21 19:47] LABS: Basophils # (A) 0.1 k/uL (0-0.2); Basophils % (A) 0 %; Eosinophils # (A) 0.3 k/uL (0-0.7); Eosinophils % (A) 2 %; HCT 36.4 % (39.0-53.0); HGB 12.6 gm/dL (13.0-17.5); Lymphocytes # (A) 1.8 k/uL (1.0-4.8); Lymphocytes % (A) 12 %; MCH 32.4 pg (25.0-35.0); MCHC 34.6 g/dL (31.0-37.0); MCV 93.7 fL (80.0-100.0); Mean Platelet Volume 7.3; Monocytes # (A) 0.7 k/uL (0-1.0); Monocytes % (A) 5 %; Neutrophils # (A) 11.2 k/uL (1.3-7.7); Neutrophils % (A) 79 %; Platelet Count 368 k/uL (150-450); RBC 3.88 m/uL (4.30-5.90); RDW 13.7 % (11.5-15.5); WBC 14.1 k/uL (3.8-10.6)
[2022-04-21 19:57] LABS: Albumin 3.9 g/dL (3.5-5.0); Calcium 9.2 mg/dL (8.4-10.2); Magnesium 2.3 mg/dL (1.6-2.3); Potassium 4.4 mmol/L (3.5-5.1); Total Bilirubin 0.2 mg/dL (0.2-1.3); Total Protein 6.8 g/dL (6.3-8.2)
[2022-04-21 20:21] LABS: INR 0.9 (<1.2); Partial Thromboplastin Time 22.1 sec (22.0-30.0); Prothrombin Time 10.1 sec (9.0-12.0)
[2022-04-21] MEDS ORDERED: ASPIRIN 325 MG TAB PO STA (21:04)
[2022-04-21] MEDS ORDERED: NALOXONE 0.4 MG/ML 1 ML VIAL IV PRN (21:04)
[2022-04-21] MEDS: SODIUM CHLORIDE 0.9% 1,000 ML IV SCH (22:36)
[2022-04-22] MEDS: ACETAMINOPHEN TAB 325 MG TAB PO PRN (00:08)
[2022-04-22] MEDS ORDERED: MORPHINE SULFATE 2 MG/ML SYRINGE IVP STA (01:00)
[2022-04-22] MEDS: lamoTRIgine 100 MG TAB PO SCH ×3 (01:33→21:41)
--- NOTE | 2022-04-22 01:59 | P.HPIM ---
History of Present Illness H&P Date: 04/21/22 Chief Complaint: chest pain 81 year old male with chronic hip pain patient comes in due to sudden onset of chest pain with exertional dyspnea, denies any cardiac history , denies any cardiac workup in he past, denies any fever chills, nuasea or vomiting, denies any cough , abd pain. he reports sudden onset chest pain across his chest was precipitated by activity , associated with feeling dizzy and about to pass out. he was also feeling exertional dyspnea denies any profuse sweating , nausea or vomiting. patient does have some difficulties with memory, denies falling down or head injury. he also reports polyuria , nocturia , and some dysuria , denies any hematuria . in the ED EKG no acute ST changes , CXR no acute changes trops negative WBC elevated 14, no fever creatinine elevated 1.7 Review of Systems Pertinent positives as noted in HPI. All other systems were reviewed and are negative Past Medical History Past Medical History: GERD/Reflux, Pneumonia, Prostate Disorder, Rheumatoid Arthritis (RA) Additional Past Medical History / Comment(s): Hx Pneumonia X3. BPH. DIVERTICULITIS. Wears a brace. History of Any Multi-Drug Resistant Organisms: None Reported Past Surgical History: Joint Replacement, Orthopedic Surgery Additional Past Surgical History / Comment(s): ORIF RIGHT ELBOW. RIGHT KNEE REPLACED. TRAUMA TO HIP/PELVIS FROM FALLING THROUGH A ROOF (LEFT HIP REPLACED/PELVIC FX). 2nd left hip replacement. Bilateral cataracts removed. Past Anesthesia/Blood Transfusion Reactions: Motion Sickness Past Psychological History: Anxiety, Bipolar, Depression Smoking Status: Never smoker Past Alcohol Use History: None Reported Past Drug Use History: None Reported - Past Family History Brother(s) Family Medical History: No Reported History Medications and Allergies Home Medications Medication Instructions Recorded Confirmed Type Aspirin EC [Ecotrin Low Dose] 81 mg PO DAILY 04/12/22 04/21/22 History Cyanocobalamin (Vitamin B-12) 1,000 mcg PO DAILY 04/12/22 04/21/22 History [Vitamin B-12] DULoxetine HCL [Cymbalta] 30 mg PO DAILY 04/12/22 04/21/22 History DULoxetine HCL [Cymbalta] 60 mg PO HS 04/12/22 04/21/22 History Folic Acid 1 mg PO DAILY 04/12/22 04/21/22 History Meclizine [Antivert] 25 mg PO TID 04/12/22 04/21/22 History Multivit-Min/FA/Lycopen/Lutein 1 tab PO DAILY 04/12/22 04/21/22 History [Centrum Silver Men Tablet] clonazePAM [KlonoPIN] 1 mg PO BID 04/12/22 04/21/22 History lamoTRIgine [LaMICtal] 100 mg PO BID 04/12/22 04/21/22 History Acetaminophen Tab [Tylenol] 650 mg PO Q4H PRN 04/21/22 04/21/22 History Ibuprofen [Motrin Ib] 400 mg PO Q6H PRN 04/21/22 04/21/22 History Vitamin D3(Unknown) 1 tab PO DAILY 04/21/22 04/21/22 History methylPREDNISolone [Medrol Dose See Taper PO DAILY 04/21/22 04/21/22 History Pack] Allergies Allergy/AdvReac Type Severity Reaction Status Date / Time amoxicillin Allergy Anaphylaxis Verified 04/21/22 20:34 ampicillin Allergy Anaphylaxis Verified 04/21/22 20:34 Iodinated Contrast Media Allergy Anaphylaxis Verified 04/21/22 20:34 [Iodinated Contrast Media - IV Dye] Penicillins Allergy Anaphylaxis Verified 04/21/22 20:34 Physical Exam Vitals: Vital Signs Temp Pulse Resp BP Pulse Ox 04/21/22 18:43 97.6 F 74 20 95/67 96 Intake and Output 04/21/22 04/21/22 04/21/22 06:59 14:59 22:59 Other: Weight 92.079 kg Constitutional: No acute distress, conversant, pleasant Eyes: Anicteric sclerae, moist conjunctiva, Pupils equal round reactive to light ENMT: NC/AT Oropharynx clear, no erythema, or exudates Neck: Supple, no masses, or JVD No carotid bruits No thyromegaly Lungs: Clear to auscultation Clear to percussion Normal respiratory effort, no accessory muscle use Cardiovascular: Heart regular in rate and rhythm, No murmurs, gallops, or rubs No peripheral edema Abdominal: Soft Nontender, no guarding, rebound or rigidity Abdomen moving with respiration Normoactive bowel sounds No hepatomegaly, No splenomegaly No palpable mass No abdominal wall hernia noted Skin: Normal temperature, tone, texture, turgor No induration No subcutaneous nodules No rash, lesions No ulcers Extremities: No digital cyanosis No clubbing Pedal pulses intact and symmetrical Radial pulses intact and symmetrical No calf tenderness Psychiatric: Alert and oriented to person, place Neuro Muscles Strength 5/5 in all 4 extremities Sensation to light touch grossly present throughout Cranial nerves II-XII grossly intact No focal sensory deficits Lymphatics: no palpable cervical or supraclavicular , or inguinal lymph nodes Results CBC & Chem 7: 04/21/22 19:30 04/21/22 19:30 Labs: Abnormal Lab Results - Last 24 Hours (Table) 04/21/22 04/21/22 Range/Units 19:30 19:30 WBC 14.1 H (3.8-10.6) k/uL RBC 3.88 L (4.30-5.90) m/uL Hgb 12.6 L (13.0-17.5) gm/dL Hct 36.4 L (39.0-53.0) % Neutrophils # 11.2 H (1.3-7.7) k/uL BUN 33 H (9-20) mg/dL Creatinine 1.73 H (0.66-1.25) mg/dL Glucose 109 H (74-99) mg/dL Assessment and Plan Assessment: atypical chest pain rule out ACS near syncope EKG no acute changes CXR no acute pathology trops negative X2 playground monitor monitor vital signs ASA, statin cardiology consult A1c, lipid panel , TSH pain control Acute kidney injury new line avoid nephrotoxic meds IV fluid hydration normal saline Monitor urine output Monitor renal function Elevated white count Chest x-ray no acute pathology No fevers Patient reports urinary symptoms Check UA reflex culture DVT prophylaxis heparin subcu 3 times a day Full code fall precautions
[2022-04-22 04:21] LABS: Appearance,Urine Clear (Clear); Bilirubin,Urine Negative (Negative); Blood,Urine Negative (Negative); Color,Urine Colorless; Glucose,Urine (UA) Negative (Negative); Ketones,Urine Negative (Negative); Leukocyte Esterase,Urine Negative (Negative); Nitrite,Urine Negative (Negative); PH, Urine 5.5 (5.0-8.0); Protein,Urine Negative (Negative); Urobilinogen,Urine <2.0 mg/dL (<2.0)
--- NOTE | 2022-04-22 08:33 | P.CRDCN ---
History of Present Illness Consult date: 04/22/22 Chief complaint: Dizziness and lightheadedness and presyncope History of present illness: This is a 81-year-old gentleman was no significant past medical history who presented to the emergency department complaining of tired and fatigued and also experiencing symptoms of dizziness and lightheadedness and presyncope. Also he has been experiencing chest discomfort. Somewhat he is a poor historian and he does have mild underlying dementia. He does not recall following with any dialysis biomed technician. But in October 2021 he underwent myocardial perfusion imaging stress test came in to be unremarkable for reversibility. This time he presented to the hospital not feeling well. He has been experiencing symptoms of being dizzy and lightheaded with activities and mostly with standing up and sometimes he is about to lose his consciousness with standing up. He did not have clear-cut evidence of syncope. On further questioning he describes also intermittent episodes of chest discomfort in the middle of the chest as it'll kind of discomfort was no radiation and no associated symptoms. The discomfort is sometimes with exertion and sometimes without any exertion. He underwent further investigation including EKG showing sinus rhythm was no significant ST or T-wave abnormalities. Cardiac enzymes came in to be unremarkable. The chest x-ray did not show any acute abnormalities. His pressure has been marginal and has been in the 90s. Currently he is not on any blood pressure medications. The patient stated that he underwent a heart catheterization within the last one to 2 years at [facility]. We will need to obtain a copy of the heart catheterization. Meanwhile I'm going to obtain an orthostatic blood pressure check and also obtain an echocardiogram was Doppler and monitor the patient for arrhythmia Past Medical History Past Medical History: GERD/Reflux, Pneumonia, Prostate Disorder, Rheumatoid Arthritis (RA) Additional Past Medical History / Comment(s): Hx Pneumonia X3. BPH. DIVERTICULITIS. Wears a brace. History of Any Multi-Drug Resistant Organisms: None Reported Past Surgical History: Joint Replacement, Orthopedic Surgery Additional Past Surgical History / Comment(s): ORIF RIGHT ELBOW. RIGHT KNEE REPLACED. TRAUMA TO HIP/PELVIS FROM FALLING THROUGH A ROOF (LEFT HIP REPLACED/PELVIC FX). 2nd left hip replacement. Bilateral cataracts removed. Past Anesthesia/Blood Transfusion Reactions: Motion Sickness Past Psychological History: Anxiety, Bipolar, Depression Smoking Status: Never smoker Past Alcohol Use History: None Reported Past Drug Use History: None Reported - Past Family History Brother(s) Family Medical History: No Reported History Medications and Allergies Home Medications Medication Instructions Recorded Confirmed Type Aspirin EC [Ecotrin Low Dose] 81 mg PO DAILY 04/12/22 04/21/22 History Cyanocobalamin (Vitamin B-12) 1,000 mcg PO DAILY 04/12/22 04/21/22 History [Vitamin B-12] DULoxetine HCL [Cymbalta] 30 mg PO DAILY 04/12/22 04/21/22 History DULoxetine HCL [Cymbalta] 60 mg PO HS 04/12/22 04/21/22 History Folic Acid 1 mg PO DAILY 04/12/22 04/21/22 History Meclizine [Antivert] 25 mg PO TID 04/12/22 04/21/22 History Multivit-Min/FA/Lycopen/Lutein 1 tab PO DAILY 04/12/22 04/21/22 History [Centrum Silver Men Tablet] clonazePAM [KlonoPIN] 1 mg PO BID 04/12/22 04/21/22 History lamoTRIgine [LaMICtal] 100 mg PO BID 04/12/22 04/21/22 History Acetaminophen Tab [Tylenol] 650 mg PO Q4H PRN 04/21/22 04/21/22 History Ibuprofen [Motrin Ib] 400 mg PO Q6H PRN 04/21/22 04/21/22 History Vitamin D3(Unknown) 1 tab PO DAILY 04/21/22 04/21/22 History methylPREDNISolone [Medrol Dose See Taper PO DAILY 04/21/22 04/21/22 History Pack] Allergies Allergy/AdvReac Type Severity Reaction Status Date / Time amoxicillin Allergy Anaphylaxis Verified 04/21/22 20:34 ampicillin Allergy Anaphylaxis Verified 04/21/22 20:34 Iodinated Contrast Media Allergy Anaphylaxis Verified 04/21/22 20:34 [Iodinated Contrast Media - IV Dye] Penicillins Allergy Anaphylaxis Verified 04/21/22 20:34 Physical Exam Vitals: Vital Signs Temp Pulse Pulse Resp BP BP Pulse Ox 04/22/22 02:42 97.5 F L 78 17 145/71 93 L 04/21/22 23:21 97.5 F L 62 18 152/80 96 04/21/22 18:43 97.6 F 74 20 95/67 96 Intake and Output 04/21/22 04/22/22 04/22/22 22:59 06:59 14:59 Output Total 360 Balance -360 Output: Urine 360 Other: # Voids 1 Weight 92.079 kg - Constitutional General appearance: no acute distress - Respiratory Respiratory: bilateral: CTA - Cardiovascular Rhythm: regular Heart sounds: normal: S1, S2 Abnormal Heart Sounds: systolic murmur Results 04/21/22 19:30 04/21/22 19:30 Cardiac Enzymes 04/21/22 04/21/22 04/21/22 Range/Units 19:30 19:30 22:34 AST 21 (17-59) U/L Troponin I <0.012 <0.012 (0.000-0.034) ng/mL 04/22/22 Range/Units 00:52 AST (17-59) U/L Troponin I <0.012 (0.000-0.034) ng/mL Coagulation 04/21/22 Range/Units 19:30 PT 10.1 (9.0-12.0) sec APTT 22.1 (22.0-30.0) sec CBC 04/21/22 Range/Units 19:30 WBC 14.1 H (3.8-10.6) k/uL RBC 3.88 L (4.30-5.90) m/uL Hgb 12.6 L (13.0-17.5) gm/dL Hct 36.4 L (39.0-53.0) % Plt Count 368 (150-450) k/uL Comprehensive Metabolic Panel 04/21/22 Range/Units 19:30 Sodium 137 (137-145) mmol/L Potassium 4.4 (3.5-5.1) mmol/L Chloride 102 (98-107) mmol/L Carbon Dioxide 22 (22-30) mmol/L BUN 33 H (9-20) mg/dL Creatinine 1.73 H (0.66-1.25) mg/dL Glucose 109 H (74-99) mg/dL Calcium 9.2 (8.4-10.2) mg/dL AST 21 (17-59) U/L ALT 15 (4-49) U/L Alkaline Phosphatase 84 (38-126) U/L Total Protein 6.8 (6.3-8.2) g/dL Albumin 3.9 (3.5-5.0) g/dL Current Medications Generic Name Dose Route Start Last Admin Trade Name Freq PRN Reason Stop Dose Admin Acetaminophen 650 mg 04/21/22 21:04 04/22/22 00:08 Acetaminophen Tab 325 Mg Tab PO 650 mg Q6HR PRN Administration Mild Pain or Fever > 100.5 Aspirin 81 mg 04/22/22 09:00 Aspirin 81 Mg PO DAILY [facility] Duloxetine HCl 60 mg 04/22/22 21:00 Duloxetine Hcl 60 Mg Capsule.Dr PO HS ROSSANA Heparin Sodium (Porcine) 5,000 unit 04/22/22 08:00 Heparin Sodium,Porcine/Pf 5,000 Unit/0.5 Ml Syringe SQ Q8HR ROSSANA Sodium Chloride 1,000 mls @ 75 mls/hr 04/21/22 21:15 04/21/22 22:36 Saline 0.9% IV 75 mls/hr .[id number] ROSSANA Administration Lamotrigine 100 mg 04/22/22 01:45 04/22/22 01:33 Lamotrigine 100 Mg Tab PO 100 mg BID ROSSANA Administration Naloxone HCl 0.2 mg 04/21/22 21:04 Naloxone 0.4 Mg/Ml 1 Ml Vial IV Q2M PRN Opioid Reversal Intake and Output 04/21/22 04/22/22 04/22/22 22:59 06:59 14:59 Output Total 360 Balance -360 Output: Urine 360 Other: # Voids 1 Weight 92.079 kg 04/21/22 19:30 04/21/22 19:30 Assessment and Plan Assessment: Assessment Dizziness and lightheadedness and presyncope Marginally low blood pressure Intermittent episodes of chest discomfort Underlying dementia Plan Acute coronary event was ruled out Rule out orthostatic hypotension Rule out severe CAD. Recent stress test came in to be unremarkable. He underwent a heart catheterization according to him recently. We need to get a copy of it Monitor the patient for additional 24 hours Follow-up with the patient
[2022-04-22] MEDS: HEPARIN SODIUM,PORCINE/PF 5,000 UNIT/0.5 ML SYRINGE SQ SCH ×2 (09:08→16:56)
[2022-04-22] MEDS: ASPIRIN 81 MG PO SCH (09:08)
[2022-04-22] MEDS ORDERED: predniSONE 20 MG TAB PO STA (09:14)
--- NOTE | 2022-04-22 11:48 | P.PN ---
Subjective Progress Note Date: 04/22/22 Patient is a 81 yo with GERD, Chronic Hip Pain, BPH, and pneumonia who presented to the hospital with complaints of chest pain and dizziness. In the ER he underwent an extensive evaluation. On arrival he was slightly hypotensive with a blood pressure of 95/67. Initial blood work showed a white blood count of 14.7 and a creatinine of 1. (Up from 1.5 weeks earlier). Initial troponin was negative. EKG was nonischemic. He was placed in observation. Cardiology was consulted. His troponins remained negative. Patient seen and examined at bedside. He denies any current chest pain. He do es complain of hip pain. He states at home he is taking Percocet in the past. That his hip hurts him after a fall. He denies any shortness of breath or dizziness at this time. General: nontoxic, no distress, appears at stated age Derm: warm, dry Head: atraumatic, normocephalic, symmetric Eyes: EOMI, no lid lag, anicteric sclera Mouth: no lip lesion, mucus membranes moist Cardiovascular: S1S2 reg, no murmur, positive posterior tibial pulse bilateral, Lungs: CTA bilateral, no rhonchi, no rales , no accessory muscle use Abdominal: soft, nontender to palpation, no guarding, no appreciable or ganomegaly Ext: no gross muscle atrophy, no edema, no contractures Neuro: CN II-XI grossly intact, no focal neuro deficits Psych: Alert, oriented, appropriate affect Assessment/plan: Patient possible chest pain Hypotension Dizziness. - cardio recs: obtain cath from [facility] and check echo - await TSH, A1C, lipid profile - await orthostatic hypotension - IV fluids Acute kidney injury with possible underlying chronic kidney disease -rise of creatinine of 0.2 over the last week -Hold NSAIDs -Repeart BMP in a.m. Leukocytosis Chronic hip pain -Likely related to outpatient steroid use -Prednisone 1 today -Continue with Tylenol Dementia GERD DVT prophylaxis: Heparin Discussed with: patient, nursing Anticipated discharge: in AM Anticipated discharge place: home A total of 25 minutes was spent on the care of this complex patient more than 50% of the time was spent in counseling and care coordination. Objective - Vital Signs Vital signs: Vital Signs Temp 97.5 F L 04/22/22 02:42 Pulse 80 04/22/22 11:32 Resp 18 04/22/22 11:30 BP 77/55 04/22/22 11:32 Pulse Ox 93 L 04/22/22 02:42 FiO2 Intake & Output 04/21/22 04/22/22 04/22/22 18:59 06:59 18:59 Output Total 360 Balance -360 Weight 92.079 kg 92.079 kg Output: Urine 360 Other: # Voids 1 2 - Labs CBC & Chem 7: 04/21/22 19:30 04/21/22 19:30 Labs: Abnormal Lab Results - Last 24 Hours (Table) 04/21/22 04/21/22 Range/Units 19:30 19:30 WBC 14.1 H (3.8-10.6) k/uL RBC 3.88 L (4.30-5.90) m/uL Hgb 12.6 L (13.0-17.5) gm/dL Hct 36.4 L (39.0-53.0) % Neutrophils # 11.2 H (1.3-7.7) k/uL BUN 33 H (9-20) mg/dL Creatinine 1.73 H (0.66-1.25) mg/dL Glucose 109 H (74-99) mg/dL
[2022-04-22 12:33] LABS: African American GFR (CKD) 46.8 (60.0-200.0); BUN/Creat Ratio 15.69 Ratio (12.00-20.00); Blood Urea Nitrogen 25.1 mg/dL (9.0-27.0); Calcium 8.7 mg/dL (8.7-10.3); Chloride 105 mmol/L (96-109); Chol/HDL Ratio 6.83 Ratio; Glucose 87 mg/dL (70-110); LDL Cholesterol,Calculated 117.4 mg/dL (0.0-131.0); Non-African American GFR(CKD) 40.4 (60.0-200.0); Potassium 4.3 mmol/L (3.5-5.5); Sodium 140 mmol/L (135-145)
[2022-04-22] MEDS: SODIUM CHLORIDE 0.9% 1,000 ML IV SCH (17:57)
[2022-04-22] MEDS: DULoxetine HCL 60 MG CAPSULE.DR PO SCH (21:41)
[2022-04-23] MEDS: SODIUM CHLORIDE 0.9% 1,000 ML IV SCH ×2 (00:33→16:58)
[2022-04-23] MEDS: HEPARIN SODIUM,PORCINE/PF 5,000 UNIT/0.5 ML SYRINGE SQ SCH ×3 (00:34→17:17)
[2022-04-23] MEDS: lamoTRIgine 100 MG TAB PO SCH ×2 (09:04→20:40)
[2022-04-23] MEDS: ASPIRIN 81 MG PO SCH (09:04)
--- NOTE | 2022-04-23 09:33 | P.PN ---
Subjective This is a 81-year-old gentleman was no significant past medical history who presented to the emergency department complaining of tired and fatigued and also experiencing symptoms of dizziness and lightheadedness and presyncope. Also he has been experiencing chest discomfort. Somewhat he is a poor historian and he does have mild underlying dementia. 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 But in October 2021 he underwent myocardial perfusion imaging stress test came in to be unremarkable for reversibility. This time he presented to the hospital not feeling well and dizziness. He has been experiencing symptoms of being dizzy and lightheaded with activities and mostly with standing up and sometimes he is about to lose his consciousness with standing up. He did not have clear-cut evidence of syncope. On further questioning he describes also intermittent episodes of chest discomfort in the middle of the chest as it'll kind of discomfort was no radiation and no associated symptoms. The discomfort is sometimes with exertion and sometimes without any exertion. He underwent further investigation including EKG showing sinus rhythm was no significant ST or T-wave abnormalities. Cardiac enzymes came in to be unremarkable. The patient stated that he underwent a heart catheterization within the last one to 2 years at [facility]. 04/23 Patient seen and examined at bedside, no acute distress. His dizziness has imp roved. He states his dizziness mostly occurs with more activity and is not having it now secondary to being in the hospital. He denies any further chest pain, denies any shortness of breath. Telemetry reviewed patient has been maintained sinus rhythm with heart rates in the 70s. Blood pressures are stable. He was hypotensive yesterday, his blood pressures improved. His orthostatics yesterday were negative. Echocardiogram pending. GENERAL: Well-appearing, well-nourished and in no acute distress. NECK: Supple without JVD or thyromegaly. LUNGS: Breath sounds clear to auscultation bilaterally. Respiration equal and unlabored. No wheezes, rales or rhonchi. HEART: Regular rate and rhythm without murmurs, rubs or gallops. S1 and S2 heard. EXTREMITIES: Normal range of motion, no edema. No clubbing or cyanosis. Peripheral pulses intact. ASSESSMENT Dizziness and lightheadedness and presyncope Marginally low blood pressure, improved Intermittent episodes of chest discomfort, acute coronary syndrome has ruled out, recent Lexiscan stress test negative for reversible ischemia. Underlying dementia Acute kidney injury PLAN Obtain 2D echocardiogram Will review cardiac catheterization report from Jenifer Hinton. Recent stress test came in to be unremarkable. No acute arrhythmia noted on telemetry If echocardiogram with no acute findings and after cardiac catheterization review, hopefully discharge later today based on those findings Recommend close follow up outpatient Nurse Practitioner note has been reviewed, I agree with a documented findings and plan of care. Patient was seen and examined. Objective - Vital Signs Vital signs: Vital Signs Temp 98.1 F 04/23/22 07:28 Pulse 70 04/23/22 07:28 Resp 18 04/23/22 07:28 BP 122/70 04/23/22 07:28 Pulse Ox 94 L 04/23/22 07:28 FiO2 Intake & Output 04/22/22 04/23/22 04/23/22 18:59 06:59 18:59 Intake Total 240 Output Total 400 1135 260 Balance -160 -0730 -260 Intake: Oral 240 Output: Urine 400 1135 260 Other: # Voids 2 - Labs CBC & Chem 7: 04/21/22 19:30 04/22/22 07:35 Labs: Abnormal Lab Results - Last 24 Hours (Table) 04/22/22 Range/Units 07:35 Creatinine 1.6 H (0.6-1.5) mg/dL Est GFR (CKD-EPI)AfAm 46.8 L (60.0-200.0) Est GFR (CKD-EPI)NonAf 40.4 L (60.0-200.0) Triglycerides 194.00 H (0.00-149.00) mg/dL HDL Cholesterol 26.80 L (40.00-60.00) mg/dL
[2022-04-23] MEDS ORDERED: SODIUM CHLORIDE 0.9% 500 ML 500 ML IV ONE (11:50)
[2022-04-23] MEDS: ACETAMINOPHEN TAB 325 MG TAB PO PRN (13:44)
--- NOTE | 2022-04-23 13:50 | P.PN ---
Subjective Progress Note Date: 04/23/22 Patient is a 81 yo with GERD, Chronic Hip Pain, BPH, and pneumonia who presented to the hospital with complaints of chest pain and dizziness. In the ER he underwent an extensive evaluation. On arrival he was slightly hypotensive with a blood pressure of 95/67. Initial blood work showed a white blood count of 14.7 and a creatinine of 1.7 (Up from 1.5 weeks earlier). Initial troponin was negative. EKG was nonischemic. He was placed in observation. Cardiology was consulted. His troponins remained negative. On 04/22 and positive orthostatic vital signs. Patient seen and examined at bedside. He reports he continues to feel dizzy. Denies any recurrent shortness of breath or chest pain. He wants to take a shower. Per nursing daughter would like him to go to rehab as he has fallen 4 times at home General: nontoxic, no distress, appears at stated age Derm: warm, dry Head: atraumatic, normocephalic, symmetric Eyes: EOMI, no lid lag, anicteric sclera Mouth: no lip lesion, mucus membranes moist Cardiovascular: S1S2 reg, no murmur, positive posterior tibial pulse bilateral, Lungs: CTA bilateral, no rhonchi, no rales , no accessory muscle use Abdominal: soft, nontender to palpation, no guarding, no appreciable organomegaly Ext: no gross muscle atrophy, no edema, no contractures Neuro: CN II-XI grossly intact, no focal neuro deficits Psych: Alert, oriented to self and situation, appropriate affect Assessment/plan: Chest pain, resolveed Orthostatic hypotension Dizziness - cardio recs: obtain cath report, check echo - TSH and lipid prolife are within normal - A1C 5.7 -Given additional 500 mL of fluids, place compression stockings, recheck orthostatic vitals - PT/OT consults Acute kidney injury with possible underlying chronic kidney disease, BRUCE improved -rise of creatinine of 0.2 over the last week -Hold NSAIDs -Cr improved Leukocytosis Chronic hip pain -Likely related to outpatient steroid use -Prednisone 1 today -Continue with Tylenol Dementia GERD DVT prophylaxis: Heparin Discussed with: patient, nursing Anticipated discharge: in AM Anticipated discharge place: [facility] A total of 25 minutes was spent on the care of this complex patient more than 50% of the time was spent in counseling and care coordination. Objective - Vital Signs Vital signs: Vital Signs Temp 98.1 F 04/23/22 07:28 Pulse 70 04/23/22 08:00 Resp 18 04/23/22 07:28 BP 122/70 04/23/22 07:28 Pulse Ox 94 L 04/23/22 07:28 FiO2 Intake & Output 04/22/22 04/23/22 04/23/22 18:59 06:59 18:59 Intake Total 240 Output Total 400 1135 260 Balance -533 -9353 -630 Intake: Oral 240 Output: Urine 400 1135 260 Other: # Voids 2 - Labs CBC & Chem 7: 04/21/22 19:30 04/22/22 07:35
--- NOTE | 2022-04-23 17:32 | CA ---
Transthoracic Echo Report Name: Topher Talavera Age: 81 Gender: M : 1940 Exam Date: 04/23/2022 09:20 Exam Location: [facility] Ht (in): 70 Wt (lb): 203 Ordering Physician: Virgli Lemon MD Attending/Referring Phys: [id number], [employer] Avionic Technician Laura Kinsey RDCS Procedure CPT: Indications: cp, syncope Cardiac Hx: Technical Quality: Fair Contrast 1: Total Dose (mL): Contrast 2: Total Dose (mL): MEASUREMENTS (Male / Female) Normal Values 2D ECHO LV Diastolic Diameter PLAX 4.5 cm 4.2 - 5.9 / 3.9 - 5.3 cm LV Systolic Diameter PLAX 2.6 cm IVS Diastolic Thickness 1.4 cm 0.6 - 1.0 / 0.6 - 0.9 cm LVPW Diastolic Thickness 1.2 cm 0.6 - 1.0 / 0.6 - 0.9 cm LV Relative Wall Thickness 0.6 RV Internal Dim ED PLAX 3.0 cm LA Volume 86.6 cm??? 18 - 58 / 22 - 52 cm??? M-MODE Aortic Root Diameter MM 3.5 cm LA Systolic Diameter MM 4.2 cm LA Ao Ratio MM 1.2 AV Cusp Separation MM 1.9 cm DOPPLER AV Peak Velocity 123.8 cm/s AV Peak Gradient 6.1 mmHg LVOT Peak Velocity 94.5 cm/s LVOT Peak Gradient 3.6 mmHg MV Area PHT 2.9 cm??? Mitral E Point Velocity 82.0 cm/s Mitral A Point Velocity 113.0 cm/s Mitral E to A Ratio 0.7 MV Deceleration Time 262.1 ms TR Peak Velocity 215.4 cm/s TR Peak Gradient 18.6 mmHg Right Ventricular Systolic Press 23.2 mmHg FINDINGS Left Ventricle Moderately increased left ventricular wall thickness. Normal left ventricular systolic function with no obvious regional wall motion abnormalities. Left ventricular ejection fraction is estimated at 55-60 %. Right Ventricle Normal right ventricular size and function. Right ventricular systolic pressure within normal limits. Right Atrium Normal right atrial size. Left Atrium Severely increased left atrial volume. Mitral Valve Mitral valve thickened. Mild mitral annular calcification. Moderate mitral regurgitation. Aortic Valve No aortic valve stenosis or regurgitation. Tricuspid Valve Structurally normal tricuspid valve. Mild tricuspid regurgitation. Pulmonic Valve Trace pulmonic regurgitation. Pericardium No pericardial effusion. Aorta Normal size aortic root and proximal ascending aorta. CONCLUSIONS Normal LV systolic function Moderate to severe mitral regurgitation Left atrial enlargement Previewed by: Dr. Gary Figueroa MD (Electronically Signed) Final Date: 23 April 2022 17:31
[2022-04-23] MEDS: DULoxetine HCL 60 MG CAPSULE.DR PO SCH (20:40)
[2022-04-24] MEDS: HEPARIN SODIUM,PORCINE/PF 5,000 UNIT/0.5 ML SYRINGE SQ SCH ×2 (00:20→08:36)
[2022-04-24] MEDS: SODIUM CHLORIDE 0.9% 1,000 ML IV SCH (03:07)
[2022-04-24] MEDS: ASPIRIN 81 MG PO SCH (08:36)
[2022-04-24] MEDS: lamoTRIgine 100 MG TAB PO SCH (08:36)
[2022-04-24] MEDS ORDERED: DULoxetine HCL 30 MG CAPSULE.DR PO SCH (09:00)
[2022-04-24] MEDS ORDERED: FOLIC ACID 1 MG TAB PO SCH (09:00)
[2022-04-24 10:25] LABS: African American GFR (CKD) 43.5 (60.0-200.0); Anion Gap 11.7 mmol/L (10.00-18.00); BUN/Creat Ratio 14.65 Ratio (12.00-20.00); Blood Urea Nitrogen 24.9 mg/dL (9.0-27.0); Carbon Dioxide 22.3 mmol/L (20.0-27.5); Non-African American GFR(CKD) 37.5 (60.0-200.0); Potassium 4.1 mmol/L (3.5-5.5)
--- NOTE | 2022-04-24 11:04 | P.PN ---
Subjective This is a 81-year-old gentleman was no significant past medical history who presented to the emergency department complaining of tired and fatigued and also experiencing symptoms of dizziness and lightheadedness and presyncope. Also he has been experiencing chest discomfort. Somewhat he is a poor historian and he does have mild underlying dementia. 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 But in October 2021 he underwent myocardial perfusion imaging stress test came in to be unremarkable for reversibility. This time he presented to the hospital not feeling well and dizziness. He has been experiencing symptoms of being dizzy and lightheaded with activities and mostly with standing up and sometimes he is about to lose his consciousness with standing up. He did not have clear-cut evidence of syncope. On further questioning he describes also intermittent episodes of chest discomfort in the middle of the chest as it'll kind of discomfort was no radiation and no associated symptoms. The discomfort is sometimes with exertion and sometimes without any exertion. He underwent further investigation including EKG showing sinus rhythm was no significant ST or T-wave abnormalities. Cardiac enzymes came in to be unremarkable. The patient stated that he underwent a heart catheterization within the last one to 2 years at [facility]. 04/24/2022 Patient seen and examined at bedside, no acute distress. His dizziness has improved. He denies any further chest pain, denies any shortness of breath. Telemetry reviewed patient has been maintained sinus rhythm with heart rates in the 70s-80s. Blood pressures are stable. He was hypotensive yesterday, his blood pressures improved. Echocardiogram revealed EF 55-60%, moderate to severe mitral regurgitation. GENERAL: Well-appearing, well-nourished and in no acute distress. NECK: Supple without JVD or thyromegaly. LUNGS: Breath sounds clear to auscultation bilaterally. Respiration equal and unlabored. No wheezes, rales or rhonchi. HEART: Regular rate and rhythm with systolic murmur at apex, No rubs or gallops. S1 and S2 heard. EXTREMITIES: Normal range of motion, no edema. No clubbing or cyanosis. Peripheral pulses intact. ASSESSMENT Dizziness and lightheadedness and presyncope Marginally low blood pressure, improved Intermittent episodes of chest discomfort, acute coronary syndrome has ruled out, recent Lexiscan stress test negative for reversible ischemia. Underlying dementia Acute kidney injury Moderate to severe mitral regurgitation PLAN Recent stress test came in to be unremarkable. No acute arrhythmia noted on telemetry Echocardiogram revealed moderate to severe mitral regurgitation, Consider COLE as an outpatient to evaluate MR Recommend close follow up outpatient From a cardiology perspective, patient can be discharged when cleared by primary and other consultants Nurse Practitioner note has been reviewed, I agree with a documented findings and plan of care. Patient was seen and examined. Objective - Vital Signs Vital signs: Vital Signs Temp 98.1 F 04/24/22 07:00 Pulse 78 04/24/22 07:00 Resp 17 04/24/22 07:00 BP 106/62 04/24/22 07:00 Pulse Ox 93 L 04/24/22 07:00 FiO2 Intake & Output 04/23/22 04/24/22 04/24/22 18:59 06:59 18:59 Intake Total 358 Output Total 820 1225 150 Balance -462 -1225 -150 Intake: Oral 358 Output: Urine 820 1225 150 Other: # Voids 2 - Labs CBC & Chem 7: 04/21/22 19:30 04/24/22 07:09
[2022-04-24] MEDS ORDERED: HYDROcodone/APAP 5-325MG 1 EACH TAB PO PRN (11:05)
--- NOTE | 2022-04-24 11:58 | P.DS ---
Providers Date of admission: 04/21/22 20:14 Expected date of discharge: 04/24/22 Attending physician: Carmelina Berumen MD Consults: 04/21/22 21:04 Consult Physician Routine Consulting Provider: Giovanni Bunn Consult Reason/Comments: CP Do you want consulting provider notified?: Yes Primary care physician: Derick Martinez MD Hospital Course: Discharge Diagnosis: Chest pain, acute coronary event ruled out. . EKG NSR. Troponins negative. An echocardiogram was completed which revealed an EF of 55-60% with moderate to severe mitral regurgitation. Cardiology recommending patient to follow-up outpatient in the office and undergo a COLE to further evaluate mitral valve regurgitation. Orthostatic hypotension, recommend patient wear RIKI hose when out of bed during waking hours. Patient also educated on changing positions slowly from lying to sitting, sitting to standing, and upon standing before walking. Acute kidney injury, stable. Believed to be underlying chronic kidney disease. Mild leukocytosis, believed to be reactive due to outpatient steroid use Rheumatoid arthritis, recommend continuation of supportive care and pain management. Chronic hip pain, continue with home pain medication regimen with Tylenol and naproxen Hospital Course: Patient is a very pleasant 81-year-old male with a past medical history of GERD, Chronic Hip Pain, BPH, diverticulitis, and rheumatoid arthritis. He presented to the hospital on 04/21/22 with complaints of chest pain and dizziness and underwent an extensive evaluation. Patient was initially found to be hypotensive with a blood pressure of 95/67. Initial blood work showed a white blood count of 14.7 and a creatinine of 1.7 (Up from 1.5 weeks earlier). Initial troponin was negative. EKG revealed normal sinus rhythm at 68 bpm with no noted T-wave or ST abnormalities showing no signs of acute ischemia.. He was admitted under our services with consultation to cardiology. Troponins were trended and all resulted negative at less than 0.0123 draws. Lipid profile revealed elevated triglycerides of 194 and low HDL of 26.8. The next morning patient was found to have significant orthostatic hypotension. An echocardiogram was completed which revealed an EF of 55-60% with moderate to severe mitral regurgitation. Cardiology recommending patient to follow-up outpatient in the office and undergo a COLE to further evaluate mitral valve regurgitation. For treatment of orthostatic hypotension, we recommended patient wear RIKI hose when out of bed and during waking hours and remove them prior to going to sleep at night. Patient was also evaluated by physical and occupational therapy recommending return to [facility] facility. Patient educated on the importance of changing positions slowly from lying to sitting, sitting to standing, and upon standing before walking. Medically patient is stable for discharge to [facility] at this time. It is recommended patient follow up outpatient with PCP in 1-2 days and with cardiology in 2 weeks. Physical exam: Patient seen and examined at bedside. Vital signs reviewed and stable. General: Nontoxic, no distress and appears stated age. Derm: Skin warm and dry, normal coloration for ethnicity. Head: Atraumatic, normocephalic and symmetric. Eyes: EOMs intact, no lid lag, and anicteric sclera Mouth: no lip lesions, mucus membranes moist Cardiovascular: regular rate and rhythm with normal S1S2, no murmur, positive posterior tibial pulses bilaterally, and cap refill < 2 seconds. Lungs: Respirations even, regular, and unlabored on room air. Lungs CTA bilaterally, no rhonchi, no rales, no wheezing, and no accessory muscle usage. Abdominal: soft, nontender to palpation, no guarding, no appreciable organomegaly Ext: ROM intact. No gross muscle atrophy, no edema, no contractures Neuro: Speech clear, face symmetrical and CN II-XII grossly intact with no noted focal neuro deficits Psych: Alert and oriented to person, place, time, and situation. Appropriate and pleasant affect. A total of 34 minutes of time were spent preparing this complex discharge summary. Pt was discharged on 04/24/22 11:32 AM. Goldy Guerrero NP rendered care for this patient independently, [facility] and plan as documented in the note above. I did not physically speak with or examine the patient on this date. Patient Condition at Discharge: Stable Plan - Discharge Summary New Discharge Prescriptions: New HYDROcodone/APAP 5-325MG [Windsor 5-325] 1 each PO Q4HR PRN #12 tab PRN Reason: Moderate Pain (Scale 4 To 6) Continue Folic Acid 1 mg PO DAILY Multivit-Min/FA/Lycopen/Lutein [Centrum Silver Men Tablet] 1 tab PO DAILY DULoxetine HCL [Cymbalta] 60 mg PO HS Aspirin EC [Ecotrin Low Dose] 81 mg PO DAILY Ibuprofen [Motrin Ib] 400 mg PO Q6H PRN PRN Reason: Fever And/ Or Pain Vitamin D3(Unknown) 1 tab PO DAILY lamoTRIgine [LaMICtal] 100 mg PO BID DULoxetine HCL [Cymbalta] 30 mg PO DAILY Cyanocobalamin (Vitamin B-12) [Vitamin B-12] 1,000 mcg PO DAILY Acetaminophen Tab [Tylenol] 650 mg PO Q4H PRN PRN Reason: Fever And/ Or Pain Discontinued clonazePAM [KlonoPIN] 1 mg PO BID methylPREDNISolone [Medrol Dose Pack] See Taper PO DAILY Meclizine [Antivert] 25 mg PO TID Discharge Medication List Aspirin EC [Ecotrin Low Dose] 81 mg PO DAILY 04/12/22 [History] Cyanocobalamin (Vitamin B-12) [Vitamin B-12] 1,000 mcg PO DAILY 04/12/22 [History] DULoxetine HCL [Cymbalta] 30 mg PO DAILY 04/12/22 [History] DULoxetine HCL [Cymbalta] 60 mg PO HS 04/12/22 [History] Folic Acid 1 mg PO DAILY 04/12/22 [History] Multivit-Min/FA/Lycopen/Lutein [Centrum Silver Men Tablet] 1 tab PO DAILY 04/12/22 [History] lamoTRIgine [LaMICtal] 100 mg PO BID 04/12/22 [History] Acetaminophen Tab [Tylenol] 650 mg PO Q4H PRN 04/21/22 [History] Ibuprofen [Motrin Ib] 400 mg PO Q6H PRN 04/21/22 [History] Vitamin D3(Unknown) 1 tab PO DAILY 04/21/22 [History] HYDROcodone/APAP 5-325MG [Windsor 5-325] 1 each PO Q4HR PRN #12 tab 04/24/22 [Rx] Follow up Appointment(s)/Referral(s): Giovanni Bunn MD [STAFF PHYSICIAN] - 2 Weeks Derick Martinez MD [Primary Care Provider] - 1-2 days Patient Instructions/Handouts: Hypotension (DC) Activity/Diet/Wound Care/Special Instructions: Activity: As tolerated. Take breaks as needed. Remember to change positions slowly from lying to sitting, sitting to standing, and standing prior to walking. Diet: Heart healthy and carb consistent diet. Avoid salts, or foods with hidden salts such as canned or boxed foods and frozen dinners. Extra salt makes your heart work harder and traps the fluid in your body for longer. Special Instructions: Take all of your medications as directed and remember to keep all of your doctor's appointments and follow-up as needed. Wear compression stockings/RIKI hose during waking hours. Please put on upon awakening in the morning prior to getting out of bed and may remove at night while sleeping. Cardiology recommending follow-up outpatient for a COLE to further evaluate your mitral regurgitation, please schedule appointment with our office as jeremiah mmended. Thank you for allowing us to participate in your care, it was truly a pleasure having you for our patient!!! Discharge Disposition: TRANSFER TO SNF/ECF
[2022-04-24 14:14] VITALS: BP 103/61; PULSE 74; RESP 15; TEMP 98.2
== END 2022-04-24 16:15 ==
LOC: EC 18:41 → 6NMEDSUR 20:14
PROVIDERS: ADMIT Internal Medicine; ATTEND Internal Medicine
DX: R07.89 Other chest pain (principal); I95.1 Orthostatic hypotension; R42 Dizziness and giddiness; N17.9 Acute kidney failure, unspecified; D72.829 Elevated white blood cell count, unspecified; G89.29 Other chronic pain; M25.559 Pain in unspecified hip; F03.90 Unspecified dementia, unspecified severity, without behavioral disturbance, psychotic disturbance, mood disturbance, and anxiety; K21.9 Gastro-esophageal reflux disease without esophagitis; N40.0 Benign prostatic hyperplasia without lower urinary tract symptoms; I10 Essential (primary) hypertension; I34.0 Nonrheumatic mitral (valve) insufficiency; M06.9 Rheumatoid arthritis, unspecified; F41.9 Anxiety disorder, unspecified; F31.9 Bipolar disorder, unspecified; D64.9 Anemia, unspecified; Z79.82 Long term (current) use of aspirin; Z79.899 Other long term (current) drug therapy; Z88.0 Allergy status to penicillin
CPT/HCPCS: 96361 ×2; 96372 ×3; 96374; 99285; 36415; 93005; 93306; 97116; 97162; 97530; 97535; 97166; 83880; 80061; 80053; 80048 ×2; 84443; 83735; 84484 ×2; 85025; 85610; 85730; 81003; 83036; 71046; G0378 ×4; J2270; J7512; J1644 ×3

== ENCOUNTER 2022-06-08 17:55 | Emergency (ER) | payer MEDICARE ==
[2022-06-08 18:33] LABS: Basophils # (A) 0.1 k/uL (0-0.2); Basophils % (A) 0 %; Eosinophils # (A) 0.1 k/uL (0-0.7); Eosinophils % (A) 1 %; HCT 30.6 % (39.0-53.0); Lymphocytes # (A) 0.9 k/uL (1.0-4.8); Lymphocytes % (A) 6 %; MCH 29.7 pg (25.0-35.0); MCHC 32.3 g/dL (31.0-37.0); Mean Platelet Volume 7.4; Monocytes # (A) 0.6 k/uL (0-1.0); Monocytes % (A) 4 %; Neutrophils % (A) 87 %; Platelet Count 514 k/uL (150-450); RBC 3.34 m/uL (4.30-5.90); RDW 13.7 % (11.5-15.5); WBC 14.9 k/uL (3.8-10.6)
--- NOTE | 2022-06-08 18:35 | ED ---
General Adult HPI - General Chief complaint: Chest Pain Stated complaint: Chest Pain Time Seen by Provider: 06/08/22 18:11 Source: patient Mode of arrival: ambulatory - History of Present Illness Initial comments: This patient is a 81-year-old man who presents to have evaluation for number of complaints that been going on since probably around the end of March. The patient has been having generalized weakness and fatigue. He has poor exercise tolerance. Patient becomes lightheaded when these up and moving and he has had a number of falls. The patient and daughter are both giving history. They do not point to anything acute over the past couple of days but note that he just is not feeling well. Onset/Timin -: month(s) Severity scale (1-10): 0 Consistency: intermittent Improves with: none Worsens with: movement Associated Symptoms: weakness Treatments Prior to Arrival: none - Related Data Home Medications Medication Instructions Recorded Confirmed Aspirin EC [Ecotrin Low Dose] 81 mg PO DAILY 04/12/22 06/08/22 Cyanocobalamin (Vitamin B-12) 1,000 mcg PO DAILY 04/12/22 06/08/22 [Vitamin B-12] DULoxetine HCL [Cymbalta] 30 mg PO DAILY 04/12/22 06/08/22 DULoxetine HCL [Cymbalta] 60 mg PO HS 04/12/22 06/08/22 Folic Acid 1 mg PO DAILY 04/12/22 06/08/22 Multivit-Min/FA/Lycopen/Lutein 1 tab PO DAILY 04/12/22 06/08/22 [Centrum Silver Men Tablet] lamoTRIgine [LaMICtal] 100 mg PO BID 04/12/22 06/08/22 Acetaminophen Tab [Tylenol] 650 mg PO Q4H PRN 04/21/22 06/08/22 Ibuprofen [Motrin Ib] 400 mg PO Q6H PRN 04/21/22 06/08/22 Cholecalciferol [Vitamin D3 (25 25 mcg PO DAILY 06/08/22 06/08/22 Mcg = 1000 Iu)] HYDROcodone/APAP 5-325MG [[place] 1 tab PO Q4HR PRN 06/08/22 06/08/22 5-325] Allergies Allergy/AdvReac Type Severity Reaction Status Date / Time amoxicillin Allergy Anaphylaxis Verified 06/08/22 18:04 ampicillin Allergy Anaphylaxis Verified 06/08/22 18:04 Iodinated Contrast Media Allergy Anaphylaxis Verified 06/08/22 18:04 [Iodinated Contrast Media - IV Dye] Penicillins Allergy Anaphylaxis Verified 06/08/22 18:04 Review of Systems ROS Statement: Those systems with pertinent positive or pertinent negative responses have been documented in the HPI. ROS Other: All systems not noted in ROS Statement are negative. Constitutional: Denies: fever, chills Respiratory: Denies: cough, dyspnea, wheezes Cardiovascular: Reports: dyspnea on exertion, syncope (Near syncope). Denies: palpitations, edema Gastrointestinal: Denies: abdominal pain, vomiting, diarrhea, melena, hematochezia Genitourinary: Denies: dysuria, hematuria Musculoskeletal: Denies: back pain Skin: Denies: rash Neurological: Denies: headache, weakness, numbness Past Medical History Past Medical History: GERD/Reflux, Pneumonia, Prostate Disorder, Rheumatoid Arthritis (RA) Additional Past Medical History / Comment(s): Hx Pneumonia X3. BPH. DIVERTICULITIS. Wears a brace. History of Any Multi-Drug Resistant Organisms: None Reported Past Surgical History: Joint Replacement, Orthopedic Surgery Additional Past Surgical History / Comment(s): ORIF RIGHT ELBOW. RIGHT KNEE REPLACED. TRAUMA TO HIP/PELVIS FROM FALLING THROUGH A ROOF (LEFT HIP REPLACED/P ELVIC FX). 2nd left hip replacement. Bilateral cataracts removed. Past Anesthesia/Blood Transfusion Reactions: Motion Sickness Past Psychological History: Anxiety, Bipolar, Depression Smoking Status: Never smoker Past Alcohol Use History: None Reported Past Drug Use History: None Reported - Past Family History Brother(s) Family Medical History: No Reported History General Exam General appearance: alert, in no apparent distress Head exam: Present: atraumatic, normocephalic Eye exam: Present: normal appearance. Absent: scleral icterus, conjunctival injection ENT exam: Present: mucous membranes dry Neck exam: Present: normal inspection Respiratory exam: Present: rales (Bilateral bases). Absent: respiratory distress, wheezes, rhonchi, stridor Cardiovascular Exam: Present: regular rate, normal rhythm, normal heart sounds. Absent: systolic murmur, diastolic murmur, rubs, gallop GI/Abdominal exam: Present: soft. Absent: distended, tenderness, guarding, rebound, rigid, mass Extremities exam: Present: normal inspection, normal capillary refill. Absent: pedal edema, calf tenderness Back exam: Present: normal inspection. Absent: CVA tenderness (R), CVA tenderness (L) Neurological exam: Present: alert Skin exam: Present: warm, dry, intact, pallor. Absent: rash Course Vital Signs 06/08/22 06/08/22 06/08/22 17:59 18:23 19:04 Temperature 97.4 F L Pulse Rate 85 74 75 Respiratory 16 20 16 Rate Blood Pressure 81/50 102/60 110/62 O2 Sat by Pulse 96 98 98 Oximetry 06/08/22 06/08/22 20:00 21:00 Temperature Pulse Rate 70 70 Respiratory 20 20 Rate Blood Pressure 130/60 136/68 O2 Sat by Pulse 98 98 Oximetry EKG Findings - EKG Results: EKG: interpreted by RAMANA, sinus rhythm (Rate 72 bpm), normal axis, normal QRS, normal ST/T, no acute changes Medical Decision Making - Medical Decision Making This patient is 81-year-old man here with a number of complaints the main one be ing that he is very unsteady with walking, lightheaded feeling like he is going to pass out. He has had worsening of anemia. He is found to have Hemoccult positive stool. Case is discussed with admitting physicians here but there is no gastroenterology coverage and therefore patient best served by transfer. Family is accepting of [facility] in their call and will accept the patient's. There is also a minimally elevated troponin but suspect that this is related to the patient's elevated renal function numbers. - Lab Data Result diagrams: 06/08/22 18:21 06/08/22 18:21 Lab Results 06/08/22 06/08/22 06/08/22 Range/Units 18:21 18:21 18:21 WBC 14.9 H (3.8-10.6) k/uL RBC 3.34 L (4.30-5.90) m/uL Hgb 9.9 L D (13.0-17.5) gm/dL Hct 30.6 L (39.0-53.0) % MCV 91.7 D (80.0-100.0) fL MCH 29.7 (25.0-35.0) pg MCHC 32.3 (31.0-37.0) g/dL RDW 13.7 (11.5-15.5) % Plt Count 514 H (150-450) k/uL MPV 7.4 Neutrophils % 87 % Lymphocytes % 6 % Monocytes % 4 % Eosinophils % 1 % Basophils % 0 % Neutrophils # 13.0 H (1.3-7.7) k/uL Lymphocytes # 0.9 L (1.0-4.8) k/uL Monocytes # 0.6 (0-1.0) k/uL Eosinophils # 0.1 (0-0.7) k/uL Basophils # 0.1 (0-0.2) k/uL PT 10.4 (9.0-12.0) sec INR 1.0 (<1.2) APTT 21.1 L (22.0-30.0) sec Sodium 140 (137-145) mmol/L Potassium 4.1 (3.5-5.1) mmol/L Chloride 107 (98-107) mmol/L Carbon Dioxide 21 L (22-30) mmol/L Anion Gap 12 mmol/L BUN 32 H (9-20) mg/dL Creatinine 2.55 H (0.66-1.25) mg/dL Est GFR (CKD-EPI)AfAm 27 (>60 ml/min/1.73 sqM) Est GFR (CKD-EPI)NonAf 23 (>60 ml/min/1.73 sqM) Glucose 101 H (74-99) mg/dL Calcium 9.8 (8.4-10.2) mg/dL Magnesium 2.1 (1.6-2.3) mg/dL Total Bilirubin 0.3 (0.2-1.3) mg/dL AST 25 (17-59) U/L ALT 16 (4-49) U/L Alkaline Phosphatase 75 (38-126) U/L Troponin I (0.000-0.034) ng/mL Total Protein 6.7 (6.3-8.2) g/dL Albumin 3.4 L (3.5-5.0) g/dL Stool Occult Blood (Negative) 06/08/22 06/08/22 Range/Units 18:21 21:14 WBC (3.8-10.6) k/uL RBC (4.30-5.90) m/uL Hgb (13.0-17.5) gm/dL Hct (39.0-53.0) % MCV (80.0-100.0) fL MCH (25.0-35.0) pg MCHC (31.0-37.0) g/dL RDW (11.5-15.5) % Plt Count (150-450) k/uL MPV Neutrophils % % Lymphocytes % % Monocytes % % Eosinophils % % Basophils % % Neutrophils # (1.3-7.7) k/uL Lymphocytes # (1.0-4.8) k/uL Monocytes # (0-1.0) k/uL Eosinophils # (0-0.7) k/uL Basophils # (0-0.2) k/uL PT (9.0-12.0) sec INR (<1.2) APTT (22.0-30.0) sec Sodium (137-145) mmol/L Potassium (3.5-5.1) mmol/L Chloride (98-107) mmol/L Carbon Dioxide (22-30) mmol/L Anion Gap mmol/L BUN (9-20) mg/dL Creatinine (0.66-1.25) mg/dL Est GFR (CKD-EPI)AfAm (>60 ml/min/1.73 sqM) Est GFR (CKD-EPI)NonAf (>60 ml/min/1.73 sqM) Glucose (74-99) mg/dL Calcium (8.4-10.2) mg/dL Magnesium (1.6-2.3) mg/dL Total Bilirubin (0.2-1.3) mg/dL AST (17-59) U/L ALT (4-49) U/L Alkaline Phosphatase (38-126) U/L Troponin I 0.087 H* (0.000-0.034) ng/mL Total Protein (6.3-8.2) g/dL Albumin (3.5-5.0) g/dL Stool Occult Blood Positive (Negative) Disposition Clinical Impression: Weakness, GI bleeding, Elevated troponin I level, [id number] kidney injury Disposition: OTHER INSTITUTION NOT DEFINED Condition: Fair Is patient prescribed a controlled substance at d/c from ED?: No Referrals: Derick Martinez MD [Primary Care Provider] - 1-2 days - Out of Hospital Transfer - Req. Specs Out of Hospital Transfer - Requested Specifics: Other Emergency Center ([facility])
[2022-06-08 18:40] LABS: Albumin 3.4 g/dL (3.5-5.0); Calcium 9.8 mg/dL (8.4-10.2); Magnesium 2.1 mg/dL (1.6-2.3); Potassium 4.1 mmol/L (3.5-5.1); Total Bilirubin 0.3 mg/dL (0.2-1.3); Total Protein 6.7 g/dL (6.3-8.2)
[2022-06-08 18:53] LABS: Partial Thromboplastin Time 21.1 sec (22.0-30.0); Prothrombin Time 10.4 sec (9.0-12.0)
[2022-06-08] MEDS ORDERED: HYDROcodone/APAP 5-325MG 1 EACH TAB PO STA (18:55)
[2022-06-08 19:05] LABS: HGB 9.9 gm/dL (13.0-17.5); MCV 91.7 fL (80.0-100.0)
--- NOTE | 2022-06-08 19:16 | XR ---
EXAMINATION TYPE: XR chest 2V DATE OF EXAM: 06/08/2022 6:56 PM COMPARISON: Chest radiographs from 04/21/2022 TECHNIQUE: XR chest 2V Frontal and lateral views of the chest. CLINICAL INDICATION:Male, 81 years old with history of Chest Pain; FINDINGS: Lungs/Pleura: There is no evidence of pleural effusion, focal consolidation, or pneumothorax. Pulmonary vascularity: Unremarkable. Heart/mediastinum: Cardiomediastinal silhouette is unremarkable. Musculoskeletal: No acute osseous pathology. IMPRESSION: No acute cardiopulmonary disease/process.
[2022-06-08] MEDS ORDERED: SODIUM CHLORIDE 0.9% 500 ML 500 ML IV STA (21:13)
[2022-06-08] MEDS ORDERED: SODIUM CHLORIDE 0.9% 1,000 ML IV STA (21:13)
[2022-06-08 23:12] VITALS: RESP 16
[2022-06-09 00:50] VITALS: BP 128/74; PULSE 76; TEMP 98.4
== END 2022-06-09 00:50 | disposition home or self-care (01) ==
LOC: EC 17:55
DX: R53.1 Weakness (principal); K92.2 Gastrointestinal hemorrhage, unspecified; R77.8 Other specified abnormalities of plasma proteins; N17.9 Acute kidney failure, unspecified; K21.9 Gastro-esophageal reflux disease without esophagitis; M06.9 Rheumatoid arthritis, unspecified; F41.9 Anxiety disorder, unspecified; F31.9 Bipolar disorder, unspecified; Z88.1 Allergy status to other antibiotic agents; Z88.0 Allergy status to penicillin; Z91.041 Radiographic dye allergy status; Z79.82 Long term (current) use of aspirin; Z79.899 Other long term (current) drug therapy
CPT/HCPCS: 36415; 71046; 80053; 82272; 83735; 84484; 85025; 85610; 85730; 93005; 96360; 96361; 99285

== ENCOUNTER 2022-06-17 12:25 | Inpatient (IN) | payer MEDICARE ==
[2022-06-17] MEDS ORDERED: SODIUM CHLORIDE 0.9% 500 ML 500 ML IV STA (12:38)
--- NOTE | 2022-06-17 12:39 | ED ---
General Adult HPI - General Chief complaint: Syncope Stated complaint: Near Syncope,Dizziness Time Seen by Provider: 06/17/22 12:27 Source: patient, EMS Mode of arrival: EMS Limitations: no limitations - History of Present Illness Initial comments: [facility]. Patient states that he had a "hard", painful bowel movement today, then had a near syncopal episode. He states that the prison staff helped get him into his bed, and he states that he then became nauseated and began to vomit. Patient states that his lightheadedness and nausea have since resolved, and he now just feels generally weak and has mild abdominal pain. Patient states that he was recently evaluated at [facility] for a GI bleed. He states that he had a colonoscopy that showed polyps and a hemorrhoid. Patient denies noticing any bloody or melanotic stool today. Patient also denies hematemesis today. Patient denies trauma or injury, fever or chills, headache, focal neuro deficit, chest pain or pressure, dyspnea, cough or cold symptoms, palpitations, syncope/LOC, diarrhea, dysuria/hematuria/urinary frequency/urinary symptoms, decreased urine output, or any other symptoms or complaints. - Related Data Home Medications Medication Instructions Recorded Confirmed Aspirin EC [Ecotrin Low Dose] 81 mg PO DAILY@1400 04/12/22 06/17/22 DULoxetine HCL [Cymbalta] 30 mg PO DAILY@0600 04/12/22 06/17/22 DULoxetine HCL [Cymbalta] 60 mg PO DAILY@1400 04/12/22 06/17/22 Folic Acid 1 mg PO DAILY@139904/12/22 06/17/22 Cholecalciferol [Vitamin D3 (25 25 mcg PO DAILY@1400 06/08/22 06/17/22 Mcg = 1000 Iu)] Acetaminophen [Tylenol Extra 1,000 mg PO Q8H PRN 06/17/22 06/17/22 Strength] Darbepoetin Lucius [Aranesp] 100 mcg SQ TU 06/17/22 06/17/22 Fludrocortisone [Florinef] 0.1 mg PO DAILY@0600 06/17/22 06/17/22 Metoprolol Tartrate [Lopressor] 25 mg PO DAILY 06/17/22 06/17/22 Midodrine [ProAmatine] 5 mg PO TID@0700,1300,1900 06/17/22 06/17/22 Omeprazole 20 mg PO DAILY@0600 06/17/22 06/17/22 lamoTRIgine [LaMICtal Xr] 100 mg PO DAILY@0600 06/17/22 06/17/22 predniSONE 5 mg PO DAILY@0600 06/17/22 06/17/22 Allergies Allergy/AdvReac Type Severity Reaction Status Date / Time amoxicillin Allergy Anaphylaxis Verified 06/17/22 14:33 ampicillin Allergy Anaphylaxis Verified 06/17/22 14:33 Iodinated Contrast Media Allergy Anaphylaxis Verified 06/17/22 14:33 [Iodinated Contrast Media - IV Dye] Penicillins Allergy Anaphylaxis Verified 06/17/22 14:33 Review of Systems ROS Statement: Those systems with pertinent positive or pertinent negative responses have been documented in the HPI. ROS Other: All systems not noted in ROS Statement are negative. Past Medical History Past Medical History: GERD/Reflux, Pneumonia, Prostate Disorder, Rheumatoid Arthritis (RA) Additional Past Medical History / Comment(s): Hx Pneumonia X3. BPH. DIVERTICULITIS. Wears a brace. hypotension. History of Any Multi-Drug Resistant Organisms: None Reported Past Surgical History: Joint Replacement, Orthopedic Surgery Additional Past Surgical History / Comment(s): ORIF RIGHT ELBOW. RIGHT KNEE REPLACED. TRAUMA TO HIP/PELVIS FROM FALLING THROUGH A ROOF (LEFT HIP REPLACED/PELVIC FX). 2nd left hip replacement. Bilateral cataracts removed. Past Anesthesia/Blood Transfusion Reactions: Motion Sickness Past Psychological History: Anxiety, Bipolar, Depression Smoking Status: Never smoker Past Alcohol Use History: None Reported Past Drug Use History: None Reported - Past Family History Brother(s) Family Medical History: No Reported History General Exam Limitations: no limitations General appearance: alert, in no apparent distress Head exam: Present: atraumatic, normocephalic Eye exam: Present: normal appearance, PERRL, EOMI. Absent: nystagmus ENT exam: Present: mucous membranes dry Neck exam: Present: other (Trachea is in midline) Cardiovascular Exam: Present: regular rate, normal rhythm, normal heart sounds, other (Normal radial pulses bilaterally) GI/Abdominal exam: Present: soft, normal bowel sounds, other (Patient has no abdominal tenderness on exam). Absent: distended, tenderness, guarding Extremities exam: Absent: tenderness, pedal edema, calf tenderness Back exam: Absent: CVA tenderness (R), CVA tenderness (L) Neurological exam: Present: alert, oriented X3, CN II-XII intact. Absent: motor sensory deficit Psychiatric exam: Present: normal affect, normal mood Skin exam: Present: warm, dry, intact, normal color Course Vital Signs 06/17/22 06/17/22 12:30 14:31 Temperature 98.1 F Pulse Rate 88 70 Respiratory 18 18 Rate Blood Pressure 95/57 102/62 O2 Sat by Pulse 93 L 97 Oximetry - Reevaluation(s) Reevaluation #1: 06/17/22 15:15 Case, H&P, test results thus far and ED management thus far were discussed with Dr. Ken. He accepts hospital admission. He has no further recommendations at this time. 06/17/22 15:55 Patient denies development of any new symptoms while in the ED. Patient remains alert and breathing comfortably with a normal room air oxygen saturation. Patient is aware of his test results, and he agrees with hospital admission at this time. EKG Findings - EKG Comments: EKG Findings:: ED physician interpretation: Normal sinus rhythm, ventricular rate of 78 bpm, no ectopy, normal WA and QRS intervals, normal QT interval, normal axis, no ST or T-wave abnormality Medical Decision Making - Medical Decision Making I suspect that the patient's near syncopal episode was likely vasovagal in etiology given that he states he became lightheaded while having a hard and painful bowel movement today. However, given the patient's elevated troponin, will admit the patient to the hospital for cardiac monitoring, serial troponins, cardiology consultation and further evaluation/management. Patient's troponin was elevated 9 days ago as well. Will trend the patient's troponins and hold off on anticoagulation at this time. Patient denies having a cough/infectious symptoms. Patient is afebrile. I do not suspect that the patient's chest x-ray findings reflect pneumonia. Patient's viral studies are all negative. Patient's lactic acid level is within normal limits. Patient is also noted to have renal insufficiency on laboratory evaluation. Patient was treated with a dose of aspirin and IV fluids in the ED. Dr. Ken has accepted hospital admission. - Lab Data Result diagrams: 06/17/22 12:40 12/25/22 12:40 Lab Results 06/17/22 06/17/22 06/17/22 Range/Units 12:40 12:40 12:40 WBC 14.8 H (3.8-10.6) k/uL RBC 3.46 L (4.30-5.90) m/uL Hgb 10.5 L (13.0-17.5) gm/dL Hct 32.1 L (39.0-53.0) % MCV 92.7 (80.0-100.0) fL MCH 30.2 (25.0-35.0) pg MCHC 32.6 (31.0-37.0) g/dL RDW 13.8 (11.5-15.5) % Plt Count 491 H (150-450) k/uL MPV 7.4 Neutrophils % 86 % Lymphocytes % 7 % Monocytes % 3 % Eosinophils % 3 % Basophils % 0 % Neutrophils # 12.7 H (1.3-7.7) k/uL Lymphocytes # 1.1 (1.0-4.8) k/uL Monocytes # 0.4 (0-1.0) k/uL Eosinophils # 0.4 (0-0.7) k/uL Basophils # 0.1 (0-0.2) k/uL PT 10.4 (9.0-12.0) sec INR 1.0 (<1.2) APTT 21.3 L (22.0-30.0) sec Sodium 140 (137-145) mmol/L Potassium 4.2 (3.5-5.1) mmol/L Chloride 106 (98-107) mmol/L Carbon Dioxide 25 (22-30) mmol/L Anion Gap 9 mmol/L BUN 26 H (9-20) mg/dL Creatinine 2.04 H (0.66-1.25) mg/dL Est GFR (CKD-EPI)AfAm 35 (>60 ml/min/1.73 sqM) Est GFR (CKD-EPI)NonAf 30 (>60 ml/min/1.73 sqM) Glucose 116 H (74-99) mg/dL Plasma Lactic Acid Ajay (0.7-2.0) mmol/L Calcium 9.6 (8.4-10.2) mg/dL Magnesium 2.2 (1.6-2.3) mg/dL Total Bilirubin 0.3 (0.2-1.3) mg/dL AST 30 (17-59) U/L ALT 22 (4-49) U/L Alkaline Phosphatase 84 (38-126) U/L Troponin I (0.000-0.034) ng/mL Total Protein 6.7 (6.3-8.2) g/dL Albumin 3.3 L (3.5-5.0) g/dL Lipase 126 (23-300) U/L Coronavirus (PCR) (Not Detectd) Influenza Type A RNA (Not Detectd) Influenza Type B (PCR) (Not Detectd) 06/17/22 06/17/22 06/17/22 Range/Units 12:40 14:14 14:14 WBC (3.8-10.6) k/uL RBC (4.30-5.90) m/uL Hgb (13.0-17.5) gm/dL Hct (39.0-53.0) % MCV (80.0-100.0) fL MCH (25.0-35.0) pg MCHC (31.0-37.0) g/dL RDW (11.5-15.5) % Plt Count (150-450) k/uL MPV Neutrophils % % Lymphocytes % % Monocytes % % Eosinophils % % Basophils % % Neutrophils # (1.3-7.7) k/uL Lymphocytes # (1.0-4.8) k/uL Monocytes # (0-1.0) k/uL Eosinophils # (0-0.7) k/uL Basophils # (0-0.2) k/uL PT (9.0-12.0) sec INR (<1.2) APTT (22.0-30.0) sec Sodium (137-145) mmol/L Potassium (3.5-5.1) mmol/L Chloride (98-107) mmol/L Carbon Dioxide (22-30) mmol/L Anion Gap mmol/L BUN (9-20) mg/dL Creatinine (0.66-1.25) mg/dL Est GFR (CKD-EPI)AfAm (>60 ml/min/1.73 sqM) Est GFR (CKD-EPI)NonAf (>60 ml/min/1.73 sqM) Glucose (74-99) mg/dL Plasma Lactic Acid Ajay (0.7-2.0) mmol/L Calcium (8.4-10.2) mg/dL Magnesium (1.6-2.3) mg/dL Total Bilirubin (0.2-1.3) mg/dL AST (17-59) U/L ALT (4-49) U/L Alkaline Phosphatase (38-126) U/L Troponin I 0.065 H* (0.000-0.034) ng/mL Total Protein (6.3-8.2) g/dL Albumin (3.5-5.0) g/dL Lipase (23-300) U/L Coronavirus (PCR) Not Detected (Not Detectd) Influenza Type A RNA Not Detected (Not Detectd) Influenza Type B (PCR) Not Detected (Not Detectd) 06/17/22 Range/Units 14:14 WBC (3.8-10.6) k/uL RBC (4.30-5.90) m/uL Hgb (13.0-17.5) gm/dL Hct (39.0-53.0) % MCV (80.0-100.0) fL MCH (25.0-35.0) pg MCHC (31.0-37.0) g/dL RDW (11.5-15.5) % Plt Count (150-450) k/uL MPV Neutrophils % % Lymphocytes % % Monocytes % % Eosinophils % % Basophils % % Neutrophils # (1.3-7.7) k/uL Lymphocytes # (1.0-4.8) k/uL Monocytes # (0-1.0) k/uL Eosinophils # (0-0.7) k/uL Basophils # (0-0.2) k/uL PT (9.0-12.0) sec INR (<1.2) APTT (22.0-30.0) sec Sodium (137-145) mmol/L Potassium (3.5-5.1) mmol/L Chloride (98-107) mmol/L Carbon Dioxide (22-30) mmol/L Anion Gap mmol/L BUN (9-20) mg/dL Creatinine (0.66-1.25) mg/dL Est GFR (CKD-EPI)AfAm (>60 ml/min/1.73 sqM) Est GFR (CKD-EPI)NonAf (>60 ml/min/1.73 sqM) Glucose (74-99) mg/dL Plasma Lactic Acid Ajay 1.4 (0.7-2.0) mmol/L Calcium (8.4-10.2) mg/dL Magnesium (1.6-2.3) mg/dL Total Bilirubin (0.2-1.3) mg/dL AST (17-59) U/L ALT (4-49) U/L Alkaline Phosphatase (38-126) U/L Troponin I (0.000-0.034) ng/mL Total Protein (6.3-8.2) g/dL Albumin (3.5-5.0) g/dL Lipase (23-300) U/L Coronavirus (PCR) (Not Detectd) Influenza Type A RNA (Not Detectd) Influenza Type B (PCR) (Not Detectd) - Radiology Data Chest x-ray: Patchy interstitial opacities right apex and both lung bases. Correlate for interstitial pneumonitis, atypical pneumonias, or multifocal pneumonia. Disposition Clinical Impression: Near syncope, Vomiting, Renal insufficiency, Elevated troponin Disposition: ADMITTED IP TO THIS HOSP Condition: Stable Is patient prescribed a controlled substance at d/c from ED?: No Time of Disposition: 15:17
[2022-06-17 12:58] LABS: Basophils # (A) 0.1 k/uL (0-0.2); Basophils % (A) 0 %; Eosinophils # (A) 0.4 k/uL (0-0.7); Eosinophils % (A) 3 %; HCT 32.1 % (39.0-53.0); HGB 10.5 gm/dL (13.0-17.5); Lymphocytes # (A) 1.1 k/uL (1.0-4.8); Lymphocytes % (A) 7 %; MCH 30.2 pg (25.0-35.0); MCHC 32.6 g/dL (31.0-37.0); MCV 92.7 fL (80.0-100.0); Mean Platelet Volume 7.4; Monocytes # (A) 0.4 k/uL (0-1.0); Monocytes % (A) 3 %; Neutrophils # (A) 12.7 k/uL (1.3-7.7); Neutrophils % (A) 86 %; Platelet Count 491 k/uL (150-450); RBC 3.46 m/uL (4.30-5.90); RDW 13.8 % (11.5-15.5); WBC 14.8 k/uL (3.8-10.6)
[2022-06-17 13:07] LABS: Albumin 3.3 g/dL (3.5-5.0); Calcium 9.6 mg/dL (8.4-10.2); Magnesium 2.2 mg/dL (1.6-2.3); Potassium 4.2 mmol/L (3.5-5.1); Total Bilirubin 0.3 mg/dL (0.2-1.3); Total Protein 6.7 g/dL (6.3-8.2)
--- NOTE | 2022-06-17 13:25 | XR ---
EXAMINATION TYPE: XR chest 1V portable DATE OF EXAM: 06/17/2022 Comparison: 06/08/2022 Clinical History: 81-year-old male syncope Findings: The heart is upper limits of normal in size. Patchy interstitial opacities right upper lobe and both lung bases. 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 Impression: Patchy interstitial opacities right apex and both lung bases. Correlate for interstitial pneumonitis, atypical pneumonias, or multifocal pneumonia.
[2022-06-17] MEDS ORDERED: MORPHINE SULFATE 4 MG/ML SYRINGE IVP STA (13:29)
[2022-06-17 13:33] LABS: Partial Thromboplastin Time 21.3 sec (22.0-30.0); Prothrombin Time 10.4 sec (9.0-12.0)
[2022-06-17] MEDS ORDERED: SODIUM CHLORIDE 0.9% 500 ML 500 ML IV ONE (13:46)
[2022-06-17] MEDS ORDERED: ASPIRIN 81 MG PO STA (13:49)
[2022-06-17] MEDS ORDERED: NALOXONE 0.4 MG/ML 1 ML VIAL IV PRN (15:17)
[2022-06-17] MEDS ORDERED: ACETAMINOPHEN TAB 500 MG TAB PO PRN (15:21)
--- NOTE | 2022-06-17 15:50 | P.HPIM ---
History of Present Illness H&P Date: 06/17/22 81-year-old male with PMH, chronic kidney disease, anxiety/bipolar/depression, GERD presents the ED from his [facility] for evaluation. Patient reports lightheadedness while having a hard bowel movement. Staffing at the [facility]dc helped him to his bed. While in bed, he had multiple episodes of nausea and vomiting. Patient reports recently being transferred to [facility] where he had a colonoscopy which showed polyps and hemorrhoids. He reports lightheadedness, especially when going from a sitting to a standing position that has been ongoing for many months. He is borderline hypotensive at baseline on Midodrine and Fludrocortisone. He currently denies any headache, lower extremity edema, nausea vomiting, fever or chills, cough, chest pain, shortness of breath, palpitations, changes in urination or bowel habits. No changes in appetite or weight. He denies any dizziness, numbness/weakness/tingling of extremities. In the ED, vital signs are stable. CBC showed a leukocytosis of 14.8 and hemoglobin of 10.5 with platelet count of 491. INR was 1. CMP showed BUN of 26, creatinine of 2.04, glucose 116. Troponin was 0.065. Chest x-ray showed patchy interstitial opacities. Patient is admitted for troponin elevation, rule out acute coronary syndrome with cardiology consultation. Pertinent positives and negatives as discussed in HPI, a complete review of systems was performed and all other systems are negative. General: non toxic, no distress, appears at stated age Derm: warm, dry Head: atraumatic, normocephalic, symmetric Eyes: EOMI, no lid lag, anicteric sclera Mouth: no lip lesion, mucus membranes moist Cardiovascular: S1S2 reg, + murmur, positive posterior tibial pulse bilateral, Lungs: CTA bilateral, no rhonchi, no rales , no accessory muscle use Abdominal: soft, nontender to palpation, no guarding, no appreciable organomegaly Ext: no gross muscle atrophy, no edema, no contractures Neuro: CN II-XI grossly intact, no focal neuro deficits Psych: Alert, oriented, appropriate affect #Presyncope #Moderate to severe mitral regurgitation Likely related to vasovagal. PT and OT will be consulted. Telemetry monitoring. Obtain orthostats. Echocardiogram in 04/14 shows normal EF with moderate to severe mitral regurgitation. Cardiology consulted. #Troponin elevation Unknown significance. Lexiscan 10/2021 negative. Trend troponin/EKG to rule out ACS. Cardiology consulted. #Interstitial opacities Patient is not requiring any supplemental oxygen. No indications for anti biotics. Influenza, COVID-19 ordered. #Leukocytosis WBC count 14.8 with neutrophilia. Unknown significance. No active signs of infection. Repeat CBC tomorrow morning. #Normocytic anemia Hg 10.5. At baseline. Probably related to chronic kidney disease. No active signs of bleeding. No need for transfusion. Repeat CBC tomorrow [email or web address]. Chronic conditions: Chronic kidney disease, anxiety/bipolar/depression, GERD DVT prophylaxis: Heparin Discussed with: Patient, ED physician Anticipated discharge: 1-[address]: Home A total of 30 minutes was spent on the care of this complex patient more than 50 % of the time was spent in counseling and care coordination. Decision maker: , daughter FULL CODE. Past Medical History Past Medical History: GERD/Reflux, Pneumonia, Prostate Disorder, Rheumatoid Arthritis (RA) Additional Past Medical History / Comment(s): Hx Pneumonia X3. BPH. DIVERTICULITIS. Wears a brace. hypotension. History of Any Multi-Drug Resistant Organisms: None Reported Past Surgical History: Joint Replacement, Orthopedic Surgery Additional Past Surgical History / Comment(s): ORIF RIGHT ELBOW. RIGHT KNEE REPLACED. TRAUMA TO HIP/PELVIS FROM FALLING THROUGH A ROOF (LEFT HIP REPLACED/PELVIC FX). 2nd left hip replacement. Bilateral cataracts removed. Past Anesthesia/Blood Transfusion Reactions: Motion Sickness Past Psychological History: Anxiety, Bipolar, Depression Smoking Status: Never smoker Past Alcohol Use History: None Reported Past Drug Use History: None Reported - Past Family History Brother(s) Family Medical History: No Reported History Medications and Allergies Home Medications Medication Instructions Recorded Confirmed Type Aspirin EC [Ecotrin Low Dose] 81 mg PO DAILY@1400 04/12/22 06/17/22 History DULoxetine HCL [Cymbalta] 30 mg PO DAILY@0600 04/12/22 06/17/22 History DULoxetine HCL [Cymbalta] 60 mg PO DAILY@1400 04/12/22 06/17/22 History Folic Acid 1 mg PO DAILY@1400 04/12/22 06/17/22 History Cholecalciferol [Vitamin D3 (25 25 mcg PO DAILY@1400 06/08/22 06/17/22 History Mcg = 1000 Iu)] Acetaminophen [Tylenol Extra 1,000 mg PO Q8H PRN 06/17/22 06/17/22 History Strength] Darbepoetin Lucius [Aranesp] 100 mcg SQ TU 06/17/22 06/17/22 History Fludrocortisone [Florinef] 0.1 mg PO DAILY@0600 06/17/22 06/17/22 History Metoprolol Tartrate [Lopressor] 25 mg PO DAILY 06/17/22 06/17/22 History Midodrine [ProAmatine] 5 mg PO TID@0700,1300,1900 06/17/22 06/17/22 History Omeprazole 20 mg PO DAILY@0600 06/17/22 06/17/22 History lamoTRIgine [LaMICtal Xr] 100 mg PO DAILY@0600 06/17/22 06/17/22 History predniSONE 5 mg PO DAILY@0600 06/17/22 06/17/22 History Allergies Allergy/AdvReac Type Severity Reaction Status Date / Time amoxicillin Allergy Anaphylaxis Verified 06/17/22 14:33 ampicillin Allergy Anaphylaxis Verified 06/17/22 14:33 Iodinated Contrast Media Allergy Anaphylaxis Verified 06/17/22 14:33 [Iodinated Contrast Media - IV Dye] Penicillins Allergy Anaphylaxis Verified 06/17/22 14:33 Physical Exam Vitals: Vital Signs Temp Pulse Resp BP Pulse Ox 06/17/22 14:31 70 18 102/62 97 06/17/22 12:30 98.1 F 88 18 95/57 93 L Intake and Output 06/17/22 06/17/22 06/17/22 06:59 14:59 22:59 Other: Weight 88.451 kg Results CBC & Chem 7: 06/17/22 12:40 06/17/22 12:40 Labs: Abnormal Lab Results - Last 24 Hours (Table) 06/17/22 06/17/22 06/17/22 Range/Units 12:40 12:40 12:40 WBC 14.8 H (3.8-10.6) k/uL RBC 3.46 L (4.30-5.90) m/uL Hgb 10.5 L (13.0-17.5) gm/dL Hct 32.1 L (39.0-53.0) % Plt Count 491 H (150-450) k/uL Neutrophils # 12.7 H (1.3-7.7) k/uL APTT 21.3 L (22.0-30.0) sec BUN 26 H (9-20) mg/dL Creatinine 2.04 H (0.66-1.25) mg/dL Glucose 116 H (74-99) mg/dL Troponin I (0.000-0.034) ng/mL Albumin 3.3 L (3.5-5.0) g/dL 06/17/22 Range/Units 12:40 WBC (3.8-10.6) k/uL RBC (4.30-5.90) m/uL Hgb (13.0-17.5) gm/dL Hct (39.0-53.0) % Plt Count (150-450) k/uL Neutrophils # (1.3-7.7) k/uL APTT (22.0-30.0) sec BUN (9-20) mg/dL Creatinine (0.66-1.25) mg/dL Glucose (74-99) mg/dL Troponin I 0.065 H* (0.000-0.034) ng/mL Albumin (3.5-5.0) g/dL
[2022-06-17 18:39] LABS: Appearance,Urine Clear (Clear); Bilirubin,Urine Negative (Negative); Blood,Urine Negative (Negative); Color,Urine Yellow; Glucose,Urine (UA) Negative (Negative); Hyaline Casts,Urine 3 /lpf (0-2); Ketones,Urine Negative (Negative); Leukocyte Esterase,Urine Small (Negative); Mucus,Urine Rare /hpf; Nitrite,Urine Negative (Negative); Protein,Urine Trace (Negative); RBC,Urine 2 /hpf (0-5); Specific Gravity,Urine 1.016 (1.001-1.035); Urobilinogen,Urine <2.0 mg/dL (<2.0); WBC,Urine 5 /hpf (0-5)
[2022-06-17] MEDS: MIDODRINE 5 MG TAB PO SCH (18:53)
[2022-06-17] MEDS: HEPARIN SODIUM,PORCINE/PF 5,000 UNIT/0.5 ML SYRINGE SQ SCH (20:23)
[2022-06-17] MEDS: MORPHINE SULFATE 4 MG/ML SYRINGE IVP PRN (20:25)
[2022-06-18] MEDS: MORPHINE SULFATE 4 MG/ML SYRINGE IVP PRN ×3 (05:30→14:11)
[2022-06-18] MEDS: PANTOPRAZOLE 40 MG TABLET PO SCH (05:31)
[2022-06-18] MEDS: DULoxetine HCL 30 MG CAPSULE.DR PO SCH (05:31)
[2022-06-18] MEDS: lamoTRIgine 25 MG TAB PO SCH ×2 (05:31→19:34)
[2022-06-18] MEDS: predniSONE 5 MG TAB PO SCH (05:32)
[2022-06-18] MEDS: FLUDROCORTISONE 0.1 MG TAB PO SCH (05:39)
[2022-06-18 06:16] LABS: Albumin 3.1 g/dL (3.5-5.0); Calcium 9.5 mg/dL (8.4-10.2); Total Bilirubin 0.3 mg/dL (0.2-1.3); Total Protein 6.4 g/dL (6.3-8.2)
[2022-06-18 06:24] LABS: Basophils # (A) 0.1 k/uL (0-0.2); Basophils % (A) 0 %; Eosinophils # (A) 0.5 k/uL (0-0.7); Eosinophils % (A) 4 %; HCT 31.3 % (39.0-53.0); Lymphocytes # (A) 1.4 k/uL (1.0-4.8); Lymphocytes % (A) 11 %; MCH 29.9 pg (25.0-35.0); MCV 93.4 fL (80.0-100.0); Mean Platelet Volume 7.9; Monocytes # (A) 0.5 k/uL (0-1.0); Monocytes % (A) 4 %; Neutrophils # (A) 9.8 k/uL (1.3-7.7); Neutrophils % (A) 78 %; Platelet Count 518 k/uL (150-450); RBC 3.35 m/uL (4.30-5.90); RDW 14.2 % (11.5-15.5); WBC 12.6 k/uL (3.8-10.6)
[2022-06-18] MEDS: MIDODRINE 5 MG TAB PO SCH ×3 (07:53→19:34)
[2022-06-18] MEDS: METOPROLOL TARTRATE 25 MG TAB PO SCH (08:51)
[2022-06-18] MEDS: HEPARIN SODIUM,PORCINE/PF 5,000 UNIT/0.5 ML SYRINGE SQ SCH ×2 (08:55→19:35)
--- NOTE | 2022-06-18 10:22 | CONS ---
CONSULTATION CHIEF COMPLAINT: Nausea, vomiting, and not feeling well. HISTORY OF PRESENT ILLNESS: Topher is a 81-year-old gentleman with history of bipolar, anxiety, and depression; chronic renal insufficiency, who is currently in a usp after his presentation to hospital recently with a GI bleed and a colonoscopy. He was in the usp, had headache in the night, got up, went to the bathroom, and had difficulty getting up from there and coming to the bed, had to seek help, who brought them back to his bed, where he had recurrent bouts of vomiting. Following that, they brought him to the emergency room, where he was found to be in renal insufficiency with a creatinine of 2, which is similar to his creatinines during recent admissions. They also did troponins, they are elevated at 0.06, 0.09, and 0.08, which is similar to the troponin that he had in May. Due to this, he is admitted to hospital and I have been consulted. At the time of my evaluation, the patient appears comfortable at rest and is free of symptoms. EKG shows sinus rhythm without any ST-T wave changes. A chest x-ray shows patchy infiltrate. The patient does not really have any other symptoms at this time. He is on aspirin, Florinef, Lopressor, and Protonix, along with prednisone. ALLERGIES: To IV dye, penicillin, ampicillin, and amoxicillin. FAMILY HISTORY: Negative for premature coronary artery disease. SOCIAL HISTORY: Negative for current smoking, EtOH abuse, or drug abuse. REVIEW OF SYSTEMS: 14 out of 14 review of systems have been performed, pertinent are as documented. PHYSICAL EXAMINATION: VITAL SIGNS: Heart rate is 60 beats, blood pressure is 180/80, respiratory rate is 18, O2 sat is 98%. NECK: There is no jugular venous distention. Carotid upstroke is normal. There is no bruit. CHEST: Good air entry bilaterally. HEART: First and second heart sounds. No gallop. No murmur. ABDOMEN: Soft. EXTREMITIES: Did not reveal any edema. Peripheral pulses are felt. ASSESSMENT: 1. Elevated troponin, secondary to renal failure. 2. Chronic renal insufficiency. 3. Nausea, vomiting. PLAN: I will obtain a 2D echo on him to assess his LV function and wall motion. The patient had an echo done in March, that revealed normal LV function. He had a stress test in October of 2021, that did not reveal any ischemia. I will obtain a 2D echo. Other than that, we do not need any other workup at this time. MMODL / IJN: [id number] /
[2022-06-18] MEDS: FOLIC ACID 1 MG TAB PO SCH (14:10)
[2022-06-18] MEDS: ASPIRIN 81 MG PO SCH (14:10)
[2022-06-18] MEDS: DULoxetine HCL 60 MG CAPSULE.DR PO SCH (14:10)
[2022-06-18] MEDS: CHOLECALCIFEROL 25 MCG (1000 IU) TABLET PO SCH (14:10)
--- NOTE | 2022-06-18 17:23 | P.PN ---
Subjective Progress Note Date: 06/18/22 Hospital course: Patient is a very pleasant 81-year-old male with a past medical history of chronic kidney disease, GERD, rheumatoid arthritis, hypotension, and severe mitral regurgitation with orthostatic hypotension on midodrine and Florinef. Patient presented to the emergency department on 06/17/22 from [facility] for evaluation after a near syncopal episode. Patient reported that he while having a difficult bowel movement he began experiencing severe dizziness and lightheadedness followed by multiple episodes of nausea and vomiting. Patient reports that he was not sure how to take the recent medication that he was prescribed the midodrine because he thought it was only 3 times daily as needed so he has not been taking as prescribed at the [place] [facility] because he said the staff told him it can cause high blood pressure if he takes when he does not need it. He underwent full evaluation in the emergency department and upon arrival was found to be hypotensive with blood pressure of 95/57. Labs were completed revealing mild leukocytosis with WBC count of 14.8 and normocytic anemia with hemoglobin of 10.5 at baseline. Renal function slightly elevated with BUN of 26, creatinine 2.04, and GFR of 30 with baseline creatinine of 1.7. Troponin also elevated at 0.065. Urinalysis negative for infection. Covid PCR, influenza A, and influenza B also negative. EKG was completed showing normal sinus rhythm at 70 bpm upon personal review. Chest x-ray reported patchy interstitial opacities the right apex and bilateral lung bases correlating for interstitial pneumonitis. Patient admitted under our services with consultation to cardiology. Troponins trended resulting at 0.065, 0.090, and 0.089. Physical exam: Patient seen and fully evaluated at bedside this morning. Patient reports dizziness/lightheadedness felt when sitting on the toilet prior to arrival in the hospital is the same dizziness/lightheadedness he has been experiencing for the past few months and the reason he was started on midodrine and Florinef. Patient reports he has not been taking the midodrine as instructed because he thought he was supposed to be taking this medication as needed as he reports being informed of this by [facility] staff told him that he cannot take it scheduled because it can cause hypertension. Patient was educated on reasoning for this medication and reasoning for close monitoring of vital signs at nursing facility. Last understanding. General: Nontoxic, no distress and appears stated age. Derm: Skin warm and dry, normal coloration for ethnicity. Head: Atraumatic, normocephalic and symmetric. Eyes: EOMs intact, no lid lag, and anicteric sclera Mouth: no lip lesions, mucus membranes moist Cardiovascular: regular rate and rhythm with normal S1S2, no murmur, positive posterior tibial pulses bilaterally, and cap refill < 2 seconds. Lungs: Respirations even, regular, and unlabored on room air. Lungs CTA bilaterally, no rhonchi, no rales, no wheezing, and no accessory muscle usage. Abdominal: soft, nontender to palpation, no guarding, no appreciable organomegaly Ext: ROM intact. No gross muscle atrophy, no edema, no contractures Neuro: Speech clear, face symmetrical and CN II-XII grossly intact with no noted focal neuro deficits Psych: Alert and oriented to person, place, time, and situation. Appropriate and pleasant affect. Assessment and Plan of Care: Orthostatic hypotension Presyncopal episode with dizziness and lightheadedness Moderate to severe mitral regurgitation Elevated troponins, likely secondary to acute kidney injury on chronic kidney disease -Secondary to vasovagal episode . -Continue Florinef and midodrine as previously prescribed. -Cardiology consulted, appreciate further recommendations. -Recent Treva scan 10/2021 negative . -Continue telemetry monitoring -Monitor orthostatic vitals -PT/OT consulted Acute kidney injury on chronic kidney disease, improved to baseline. Interstitial opacities -Patient asymptomatic denying cough, congestion, or shortness of breath. Patient is not requiring supplemental oxygen. -No indications for antibiotics at this time. -Influenza A, influenza B, and Covid 19 PCR is negative. Leukocytosis , improved with IV fluid hydration. Normocytic anemia , at baseline no need for further interventions. Rheumatoid arthritis -Symptomatic care and pain management with [place]. Chronic conditions: Anxiety, bipolar disorder, depression, and GERD. -Continue daily medication regimen. CODE STATUS: Full code DVT prophylaxis: Heparin Discussed with: Patient, case management and RN Anticipated discharge date: Within the next 24 hours. Patient stable for discharge back to long term facility however per case management requires insurance authorization to return. Anticipated discharge place: Return to SNF A total of 34 minutes was spent on the care of this complex patient more than 50% of the time was spent in counseling and care coordination. Goldy Cesar, TECHNICAL ASSOCIATE rendered care for this patient independently, reviewed the findings and plan as documented in the note above. I did not physically speak with or examine the patient on this date. Objective - Vital Signs Vital signs: Vital Signs Temp 98.1 F 06/17/22 12:30 Pulse 60 06/18/22 07:01 Resp 18 06/18/22 07:01 BP 108/80 06/18/22 07:01 Pulse Ox 98 06/18/22 07:14 FiO2 Intake & Output 06/17/22 06/18/22 06/18/22 18:59 06:59 18:59 Weight 88.451 kg - Labs CBC & Chem 7: 06/18/22 05:15 06/18/22 05:15 Labs: Abnormal Lab Results - Last 24 Hours (Table) 06/17/22 06/17/22 06/17/22 Range/Units 12:40 12:40 12:40 WBC 14.8 H (3.8-10.6) k/uL RBC 3.46 L (4.30-5.90) m/uL Hgb 10.5 L (13.0-17.5) gm/dL Hct 32.1 L (39.0-53.0) % Plt Count 491 H (150-450) k/uL Neutrophils # 12.7 H (1.3-7.7) k/uL APTT 21.3 L (22.0-30.0) sec BUN (9-20) mg/dL Creatinine (0.66-1.25) mg/dL Glucose (74-99) mg/dL Troponin I (0.000-0.034) ng/mL Albumin (3.5-5.0) g/dL Urine Protein Trace H (Negative) Ur Leukocyte Esterase Small H (Negative) Hyaline Casts 3 H (0-2) /lpf Urine Mucus Rare H (None) /hpf 06/17/22 06/17/22 06/17/22 Range/Units 12:40 12:40 17:56 WBC (3.8-10.6) k/uL RBC (4.30-5.90) m/uL Hgb (13.0-17.5) gm/dL Hct (39.0-53.0) % Plt Count (150-450) k/uL Neutrophils # (1.3-7.7) k/uL APTT (22.0-30.0) sec BUN 26 H (9-20) mg/dL Creatinine 2.04 H (0.66-1.25) mg/dL Glucose 116 H (74-99) mg/dL Troponin I 0.065 H* 0.090 H* (0.000-0.034) ng/mL Albumin 3.3 L (3.5-5.0) g/dL Urine Protein (Negative) Ur Leukocyte Esterase (Negative) Hyaline Casts (0-2) /lpf Urine Mucus (None) /hpf 06/17/22 06/18/22 06/18/22 Range/Units 21:06 05:15 05:15 WBC 12.6 H (3.8-10.6) k/uL RBC 3.35 L (4.30-5.90) m/uL Hgb 10.0 L (13.0-17.5) gm/dL Hct 31.3 L (39.0-53.0) % Plt Count 518 H (150-450) k/uL Neutrophils # 9.8 H (1.3-7.7) k/uL APTT (22.0-30.0) sec BUN 24 H (9-20) mg/dL Creatinine 1.77 H (0.66-1.25) mg/dL Glucose (74-99) mg/dL Troponin I 0.089 H* (0.000-0.034) ng/mL Albumin 3.1 L (3.5-5.0) g/dL Urine Protein (Negative) Ur Leukocyte Esterase (Negative) Hyaline Casts (0-2) /lpf Urine Mucus (None) /hpf
[2022-06-18] MEDS: HYDROcodone/APAP 5-325MG 1 EACH TAB PO PRN (19:34)
[2022-06-19] MEDS: HYDROcodone/APAP 5-325MG 1 EACH TAB PO PRN ×5 (02:20→21:35)
[2022-06-19] MEDS: FLUDROCORTISONE 0.1 MG TAB PO SCH (05:04)
[2022-06-19] MEDS: MIDODRINE 5 MG TAB PO SCH ×3 (05:04→18:56)
[2022-06-19] MEDS: predniSONE 5 MG TAB PO SCH (05:04)
[2022-06-19] MEDS: lamoTRIgine 25 MG TAB PO SCH ×2 (05:04→17:35)
[2022-06-19] MEDS: DULoxetine HCL 30 MG CAPSULE.DR PO SCH (05:04)
[2022-06-19] MEDS: PANTOPRAZOLE 40 MG TABLET PO SCH (05:04)
[2022-06-19] MEDS: HEPARIN SODIUM,PORCINE/PF 5,000 UNIT/0.5 ML SYRINGE SQ SCH ×2 (08:13→20:29)
[2022-06-19] MEDS: METOPROLOL TARTRATE 25 MG TAB PO SCH (08:13)
[2022-06-19] MEDS ORDERED: DARBEPOETIN ALFA 100MCG/0.5ML SYRINGE SQ SCH (09:00)
[2022-06-19] MEDS ORDERED: DOCUSATE 100 MG CAP PO STA (12:05)
--- NOTE | 2022-06-19 12:24 | P.PN ---
Subjective Progress Note Date: 06/19/22 Hospital course: Patient is a very pleasant 81-year-old male with a past medical history of chronic kidney disease, GERD, rheumatoid arthritis, hypotension, and severe mitral regurgitation with orthostatic hypotension on midodrine and Florinef. Patient presented to the emergency department on 06/17/22 from [facility] for evaluation after a near syncopal episode. Patient reported that he while having a difficult bowel movement he began experiencing severe dizziness and lightheadedness followed by multiple episodes of nausea and vomiting. Patient reports that he was not sure how to take the recent medication that he was prescribed the midodrine because he thought it was only 3 times daily as needed so he has not been taking as prescribed at the residential because he said the staff told him it can cause high blood pressure if he takes when he does not need it. He underwent full evaluation in the emergency department and upon arrival was found to be hypotensive with blood pressure of 95/57. Labs were completed revealing mild leukocytosis with WBC count of 14.8 and normocytic anemia with hemoglobin of 10.5 at baseline. Renal function slightly elevated with BUN of 26, creatinine 2.04, and GFR of 30 with baseline creatinine of 1.7. Troponin also elevated at 0.065. Urinalysis negative for infection. Covid PCR, influenza A, and influenza B also negative. EKG was completed showing normal sinus rhythm at 70 bpm upon personal review. Chest x-ray reported patchy interstitial opacities the right apex and bilateral lung bases correlating for interstitial pneumonitis. Patient admitted under our services with consultation to cardiology. Troponins trended resulting at 0.065, 0.090, and 0.089. Cardiology evaluated and recommending repeat echocardiogram to reassess LV function. Physical exam: Patient seen and fully evaluated at bedside this morning. Patient appeared to be resting comfortably. He denies having any new complaints or concerns. Cardiology evaluated recommending repeat echocardiogram to reassess LV function in order placed at this time. Patient's vital signs remain at reported baseline with soft BPs and continued positive orthostatics. At this time patient to continue midodrine and Florinef while awaiting repeat echocardiogram results. General: Nontoxic, no distress and appears stated age. Derm: Skin warm and dry, normal coloration for ethnicity. Head: Atraumatic, normocephalic and symmetric. Eyes: EOMs intact, no lid lag, and anicteric sclera Mouth: no lip lesions, mucus membranes moist Cardiovascular: regular rate and rhythm with normal S1S2, no murmur, positive posterior tibial pulses bilaterally, and cap refill < 2 seconds. Lungs: Respirations even, regular, and unlabored on room air. Lungs CTA bilaterally, no rhonchi, no rales, no wheezing, and no accessory muscle usage. Abdominal: soft, nontender to palpation, no guarding, no appreciable organomegaly Ext: ROM intact. No gross muscle atrophy, no edema, no contractures Neuro: Speech clear, face symmetrical and CN II-XII grossly intact with no noted focal neuro deficits Psych: Alert and oriented to person, place, time, and situation. Appropriate and pleasant affect. Assessment and Plan of Care: Orthostatic hypotension Presyncopal episode with dizziness and lightheadedness Moderate to severe mitral regurgitation Elevated troponins, believed to be secondary to acute kidney injury on chronic kidney disease -Secondary to vasovagal episode . -Continue Florinef and midodrine as previously prescribed. -Cardiology following, recommending repeat echocardiogram to reassess LV function. -Recent Treva scan 10/2021 negative. -Recent echocardiogram 04/23/22 revealing normal EF of 55-60% with moderate to severe mitral regurgitation and left atrial enlargement. -Continue telemetry monitoring -Monitor orthostatic vitals -PT/OT consulted Acute kidney injury on chronic kidney disease, improved to baseline. Interstitial opacities -Patient asymptomatic denying cough, congestion, or shortness of breath. Patient is not requiring supplemental oxygen. -No indications for antibiotics at this time. -Influenza A, influenza B, and Covid 19 PCR is negative. Leukocytosis , improved with IV fluid hydration. Normocytic anemia , at baseline no need for further interventions. Rheumatoid arthritis -Symptomatic care and pain management with [place]. Chronic conditions: Anxiety, bipolar disorder, depression, and GERD. -Continue daily medication regimen. CODE STATUS: Full code DVT prophylaxis: Heparin Discussed with: Patient, case management and RN Anticipated discharge date: Within the next 24 hours. Patient stable for discharge back to shelter facility however awaiting echocardiogram completion and per case management requires insurance authorization to return. Anticipated discharge place: Return to SNF A total of 34 minutes was spent on the care of this complex patient more than 50% of the time was spent in counseling and care coordination. Goldy Guerrero NP rendered care for this patient independently, reviewed the findings and plan as documented in the note above. I did not physically speak with or examine the patient on this date. Objective - Vital Signs Vital signs: Vital Signs Temp 98.1 F 06/19/22 08:00 Pulse 63 06/19/22 08:00 Resp 20 06/19/22 08:00 BP 99/58 06/19/22 08:00 Pulse Ox 94 L 06/19/22 08:00 FiO2 Intake & Output 06/18/22 06/19/22 06/19/22 18:59 06:59 18:59 Intake Total 120 Output Total 300 225 Balance -180 -225 Intake: Oral 120 Output: Urine 300 225 Other: Voiding Method Urinal Urinal # Voids 1 - Labs CBC & Chem 7: 06/18/22 05:15 06/18/22 05:15 Labs: Microbiology - Last 24 Hours (Table) 06/17/22 14:14 Blood Culture - Preliminary Blood No Growth after 24 hours 06/17/22 14:05 Blood Culture - Preliminary Blood No Growth after 24 hours
[2022-06-19] MEDS ORDERED: SODIUM CHLORIDE 0.9% 1,000 ML IV SCH (13:00)
[2022-06-19] MEDS: FOLIC ACID 1 MG TAB PO SCH (13:56)
[2022-06-19] MEDS: ASPIRIN 81 MG PO SCH (13:56)
[2022-06-19] MEDS: CHOLECALCIFEROL 25 MCG (1000 IU) TABLET PO SCH (13:56)
[2022-06-19] MEDS: DULoxetine HCL 60 MG CAPSULE.DR PO SCH (13:56)
[2022-06-20] MEDS: HYDROcodone/APAP 5-325MG 1 EACH TAB PO PRN ×4 (01:47→17:05)
[2022-06-20] MEDS: MIDODRINE 5 MG TAB PO SCH ×2 (06:02→16:05)
[2022-06-20] MEDS: DULoxetine HCL 30 MG CAPSULE.DR PO SCH (06:02)
[2022-06-20] MEDS: lamoTRIgine 25 MG TAB PO SCH ×2 (06:02→17:42)
[2022-06-20] MEDS: PANTOPRAZOLE 40 MG TABLET PO SCH (06:02)
[2022-06-20] MEDS: FLUDROCORTISONE 0.1 MG TAB PO SCH (06:05)
[2022-06-20] MEDS: predniSONE 5 MG TAB PO SCH (06:05)
--- NOTE | 2022-06-20 06:11 | PN ---
PROGRESS NOTE SUBJECTIVE: Mr. Talavera is in a sinus rhythm. He is comfortable. He has elevated troponin of unclear etiology. He is doing well overall. He has had multiple issues including bipolar disorder, anxiety, depression, renal insufficiency, and he has had a recent GI bleed and colonoscopy. He had some abdominal discomfort and came in with this complaint. However, abdominal discomfort has improved. I am recommending some laxative for him. Troponin elevation is not suggestive of myocardial injury. Cardiac- jeffries, he is stable. We can increase activity and discharge him. PHYSICAL EXAMINATION: VITALS: Stable. Heart rate is in the 70s, irregular. NECK: No JVD. HEART: S1, S2 heard normally, short systolic murmur. LUNGS: Revealed decent air entry. ABDOMEN: Unchanged. LOWER EXTREMITIES: Unchanged. I will continue to see the patient as needed. MMODL / IJN: [id number] /
[2022-06-20] MEDS: HEPARIN SODIUM,PORCINE/PF 5,000 UNIT/0.5 ML SYRINGE SQ SCH (09:12)
[2022-06-20] MEDS: METOPROLOL TARTRATE 25 MG TAB PO SCH (09:12)
[2022-06-20] MEDS: DULoxetine HCL 60 MG CAPSULE.DR PO SCH (12:58)
[2022-06-20] MEDS: ASPIRIN 81 MG PO SCH (12:58)
[2022-06-20] MEDS: FOLIC ACID 1 MG TAB PO SCH (12:59)
[2022-06-20] MEDS: CHOLECALCIFEROL 25 MCG (1000 IU) TABLET PO SCH (12:59)
--- NOTE | 2022-06-20 14:30 | P.DS ---
Providers Date of admission: 06/17/22 15:17 Expected date of discharge: 06/20/22 Attending physician: Imer Ken MD Consults: 06/17/22 15:17 Consult Physician Urgent Consulting Provider: Giovanni Bunn Consult Reason/Comments: Elevated troponin Do you want consulting provider notified?: Yes Primary care physician: Derick Martinez MD Hospital Course: Discharge Diagnosis: Orthostatic hypotension. Patient to continue to take Florinef 0.1 mg every morning along with midodrine 5 mg 3 times daily as directed. Please do not miss any doses of this medication. Patient is being discharged to rehab and to continue to work with physical therapy to continue to learn how to properly allow his body to adjust to changes in positions and blood pressures safely. Patient will need to follow up with cardiology outpatient as previously discussed for continued monitoring and management of mitral regurgitation. Presyncopal episode with dizziness and lightheadedness. Secondary to orthostatic hypotension and vasovagal episode. Patient instructed to continue medication Florinef and midodrine as previously directed and is being discharged to rehab and to continue to work with physical therapy to continue to learn how to properly allow his body to adjust to changes in positions and blood pressures safely. Moderate to severe mitral regurgitation. Patient will need to follow up with cardiology outpatient as previously discussed for continued monitoring and management of mitral regurgitation. Elevated troponins, believed to be secondary to acute kidney injury on chronic kidney disease. Acute coronary event ruled out. Acute kidney injury on chronic kidney disease stage III, improved to baseline creatinine of 1.7. Interstitial opacities, likely atelectasis. Patient instructed on use of incentive spirometry and to continue use upon discharge. Patient asymptomatic denies any coughing, congestion, or shortness of breath. Influenza A, influenza B, and Covid 19 PCR is negative. Leukocytosis , improved with IV fluid hydration. Normocytic anemia , at baseline no need for further interventions. Rheumatoid arthritis. Continue with symptomatic care and pain management. Chronic conditions: Anxiety, bipolar disorder, depression, and GERD. Continue daily medication regimen, no medication changes made this admission. Hospital Course: Patient is a very pleasant 81-year-old male with a past medical history of chronic kidney disease stage III, GERD, rheumatoid arthritis, hypotension, and severe mitral regurgitation with orthostatic hypotension on midodrine and Florinef. Patient presented to the emergency department on 06/17/22 from [facility] for evaluation after a near syncopal episode. Patient reported that he while having a difficult bowel movement he began experiencing severe dizziness and lightheadedness followed by multiple episodes of nausea and vomiting. Patient reports that he was not sure how to take the recent medication that he was prescribed, midodrine, because he thought it was only 3 times daily as needed so he has not been taking as prescribed at the [facility] because he said the staff told him it can cause high blood pressure if he takes when he does not need it. He underwent full evaluation in the emergency department and upon arrival was found to be hypotensive with blood pressure of 95/57. Labs were completed revealing mild leukocytosis with WBC count of 14.8 and normocytic anemia with hemoglobin of 10.5 at baseline. Renal function slightly elevated revealing an acute kidney injury on stage III chronic kidney disease with BUN of 26, creatinine 2.04, and GFR of 30 with baseline creatinine of 1.7. Troponin also elevated at 0.065. Urinalysis negative for infection. Covid PCR, influenza A, and influenza B also negative. EKG was completed showing normal sinus rhythm at 70 bpm upon personal review. Chest x-ray reported patchy interstitial opacities the right apex and bilateral lung bases correlating for interstitial pneumonitis. Patient admitted under our services with consultation to cardiology. Orthostatic vitals positive for orthostatic hypotension. Troponins trended resulting at 0.065, 0.090, and 0.089. Patient provided with IV fluid hydration. Cardiology evaluated and recommended IV fluid hydration and clearing patient from cardiac perspective for [facility] to [facility]. Medically, patient vital signs remain at reported baseline with soft BPs and continued positive orthostatics. It is recommended patient continue to take Florinef 0.1 mg every morning along with midodrine 5 mg 3 times daily as directed without missing any doses. Patient is medically stable and being discharged to rehab and to continue to work with physical therapy for guidance and supervision while he continues to learn how to properly allow his body to adjust to changes in positions and blood pressures safely. Patient will need to follow up with his PCP in 1-2 days as well as cardiology in 1 week outpatient as previously discussed for continued monitoring and management of mitral regurgitation. Will defer to cardiology upon outpatient follow-up if Florinef should be increased at that time. Physical exam: General: Nontoxic, no distress and appears stated age. Derm: Skin warm and dry, normal coloration for ethnicity. Head: Atraumatic, normocephalic and symmetric. Eyes: EOMs intact, no lid lag, and anicteric sclera Mouth: no lip lesions, mucus membranes moist Cardiovascular: regular rate and rhythm with normal S1S2, no murmur, positive posterior tibial pulses bilaterally, and cap refill < 2 seconds. Lungs: Respirations even, regular, and unlabored on room air. Lungs CTA bilaterally, no rhonchi, no rales, no wheezing, and no accessory muscle usage. Abdominal: soft, nontender to palpation, no guarding, no appreciable organomegaly Ext: ROM intact. No gross muscle atrophy, no edema, no contractures Neuro: Speech clear, face symmetrical and CN II-XII grossly intact with no noted focal neuro deficits Psych: Alert and oriented to person, place, time, and situation. Appropriate and pleasant affect. A total of 39 minutes of time were spent preparing this complex discharge summary. Pt was discharged on 06/20/22 at 1:59 PM. Goldy Guerrero NP rendered care for this patient independently, reviewed the findings and plan as documented in the note above. I did not physically speak with or examine the patient on this date. Patient Condition at Discharge: Stable Plan - Discharge Summary New Discharge Prescriptions: Continue Folic Acid 1 mg PO DAILY@1400 DULoxetine HCL [Cymbalta] 60 mg PO DAILY@1400 Aspirin EC [Ecotrin Low Dose] 81 mg PO DAILY@1400 Cholecalciferol [Vitamin D3 (25 Mcg = 1000 Iu)] 25 mcg PO DAILY@1400 Midodrine [ProAmatine] 5 mg PO TID@0700,1300,1900 Acetaminophen [Tylenol Extra Strength] 1,000 mg PO Q8H PRN PRN Reason: Fever And/ Or Pain predniSONE 5 mg PO DAILY@0600 lamoTRIgine [LaMICtal Xr] 100 mg PO DAILY@0600 Omeprazole 20 mg PO DAILY@0600 Fludrocortisone [Florinef] 0.1 mg PO DAILY@0600 Darbepoetin Lucius [Aranesp] 100 mcg SQ TU DULoxetine HCL [Cymbalta] 30 mg PO DAILY@0600 Metoprolol Tartrate [Lopressor] 25 mg PO DAILY Discharge Medication List Aspirin EC [Ecotrin Low Dose] 81 mg PO DAILY@1400 04/12/22 [History] DULoxetine HCL [Cymbalta] 30 mg PO DAILY@0600 04/12/22 [History] DULoxetine HCL [Cymbalta] 60 mg PO DAILY@1400 04/12/22 [History] Folic Acid 1 mg PO DAILY@1400 04/12/22 [History] Cholecalciferol [Vitamin D3 (25 Mcg = 1000 Iu)] 25 mcg PO DAILY@1400 06/08/22 [History] Acetaminophen [Tylenol Extra Strength] 1,000 mg PO Q8H PRN 06/17/22 [History] Darbepoetin Lucius [Aranesp] 100 mcg SQ TU 06/17/22 [History] Fludrocortisone [Florinef] 0.1 mg PO DAILY@0600 06/17/22 [History] Metoprolol Tartrate [Lopressor] 25 mg PO DAILY 06/17/22 [History] Midodrine [ProAmatine] 5 mg PO TID@0700,1300,1900 06/17/22 [History] Omeprazole 20 mg PO DAILY@0600 06/17/22 [History] lamoTRIgine [LaMICtal Xr] 100 mg PO DAILY@0600 06/17/22 [History] predniSONE 5 mg PO DAILY@0600 06/17/22 [History] Follow up Appointment(s)/Referral(s): Sinan Felix MD [STAFF PHYSICIAN] - 1 Week Derick Martinez MD [Primary Care Provider] - 1-2 days Patient Instructions/Handouts: Syncope (DC), Syncope in Older Adults (DC) Activity/Diet/Wound Care/Special Instructions: Activity: Fall precautions must be in place. Activity as tolerated. Take breaks as needed. Remember to change positions slowly from lying to sitting and from sitting to standing. Isometric exercises involve blane your muscles without actually moving your body. Isometrics squeeze the muscle and push the blood back toward the heart. They are simple to do and can be done lying in bed or seated in a comfortable chair. It's a good idea to do these in bed before getting up to prepare your body for sitting and standing. Transition slowly with your body. Go from lying to sitting on the edge of the bed. Stay there for several minutes, allowing the body to naturally adjust to the change in position. Once you are standing, pause and wait before walking to allow blood pressure to adjust again. If you feel lightheaded at any point, wait for a few minutes in that position to see if it resolves. If not, then return to the prior position as your body isn't adjusting properly. SLOWLY is the santos. Diet: Heart healthy and carb consistent diet. Avoid salts, or foods with hidden salts such as canned or boxed foods and frozen dinners. Extra salt makes your heart work harder and traps the fluid in your body for longer. Special Instructions: Take all of your medications as directed and please do not skip any doses. Remember to keep all of your doctor's appointments and follow-up as needed. Thank you for allowing us to participate in your care, it was truly a pleasure having you for our patient!!! Discharge Disposition: TRANSFER TO SNF/ECF
[2022-06-20 16:21] VITALS: BP 97/51; PULSE 66; RESP 20; TEMP 98.1
== END 2022-06-20 19:40 | DRG 312 ==
LOC: EC 12:25 → 3SCARD 15:17 → 4SSUR 06-18 17:17 → 3SCARD 06-18 17:20 → 6NMEDSUR 06-19 23:02
PROVIDERS: ADMIT Family Medicine; ATTEND Family Medicine
DX: I95.1 Orthostatic hypotension (principal); N17.9 Acute kidney failure, unspecified; J98.11 Atelectasis; F31.9 Bipolar disorder, unspecified; F41.9 Anxiety disorder, unspecified; Z20.822 Contact with and (suspected) exposure to COVID-19; J84.89 Other specified interstitial pulmonary diseases; R79.89 Other specified abnormal findings of blood chemistry; M06.9 Rheumatoid arthritis, unspecified; D64.9 Anemia, unspecified; R11.2 Nausea with vomiting, unspecified; I34.0 Nonrheumatic mitral (valve) insufficiency; K21.9 Gastro-esophageal reflux disease without esophagitis; N18.30 Chronic kidney disease, stage 3 unspecified; N40.0 Benign prostatic hyperplasia without lower urinary tract symptoms; Z87.19 Personal history of other diseases of the digestive system; Z87.01 Personal history of pneumonia (recurrent); Z79.52 Long term (current) use of systemic steroids; Z79.82 Long term (current) use of aspirin; Z79.899 Other long term (current) drug therapy; Z96.642 Presence of left artificial hip joint; Z98.42 Cataract extraction status, left eye; Z98.41 Cataract extraction status, right eye; Z88.1 Allergy status to other antibiotic agents; Z88.0 Allergy status to penicillin; Z91.041 Radiographic dye allergy status
CPT/HCPCS: 36415; 71045; 80053; 81001; 83605; 83690; 83735; 84484; 85025; 85610; 85730; 87040; 87502; 87635; 93005; 94760; 96372; 96376

== ENCOUNTER 2022-10-24 01:27 | Observation (INO) | payer MEDICARE, OTHER ==
[2022-10-24] MEDS ORDERED: TOPICAL SKIN ADHESIVE 1 EACH AMP TOPICAL ONE (02:03)
[2022-10-24] MEDS ORDERED: DIPH,PERTUS(ACELL)TETVAC-LF 0.5 ML VIAL IM ONE (02:12)
--- NOTE | 2022-10-24 02:12 | ED ---
General Adult HPI - General Chief complaint: Fall Stated complaint: Fall on thinners, Head Injury Time Seen by Provider: 10/24/22 01:29 Source: patient Mode of arrival: EMS Limitations: no limitations - History of Present Illness Initial comments: Dictation was produced using [employer] dictation software. please excuse any grammatical, word or spelling errors. Chief Complaint: 81-year-old male presents emergency department because at the [facility] History of Present Illness: Patient 81-year-old male he is at the prison. Patient had suffered multiple falls at the prison. Patient is been a significant fall risk for the last several months. Patient feels like that his legs get weak acutely causing the fall. Suffered 2 through falls. Today he had a fall and landed on his head. Patient denies any loss of consciousness. Suffered a laceration to his forehead. Patient has no pain complaints except for some facial pain. The ROS documented in this emergency department record has been reviewed and confirmed by me. Those systems with pertinent positive or negative responses have been documented in the HPI. All other systems are other negative and/or noncontributory. - Related Data Home Medications Medication Instructions Recorded Confirmed Aspirin EC [Ecotrin Low Dose] 81 mg PO DAILY 04/12/22 08/11/22 DULoxetine HCL [Cymbalta] 60 mg PO HS 04/12/22 08/11/22 Folic Acid 1 mg PO DAILY 04/12/22 08/11/22 Omeprazole 20 mg PO DAILY 06/17/22 08/11/22 Cholecalciferol (Vitamin D3) 125 mcg PO TUFR 08/11/22 08/11/22 [Vitamin D3 (125 MCG = 5,000 IU)] Vitamin B-12(Unknown Dose) 1 tab PO TUFR 08/11/22 08/11/22 lamoTRIgine [LaMICtal] 100 mg PO BID 08/11/22 08/11/22 Previous Rx's Medication Instructions Recorded ALPRAZolam [Xanax] 0.25 mg PO BID PRN #6 tab 08/23/22 Calcium Carbonate [Tums] 500 mg PO QID PRN tab 08/23/22 Fludrocortisone [Florinef] 0.2 mg PO DAILY tab 08/23/22 HYDROcodone/APAP 5-325MG [Ehrenberg 1 each PO Q4HR PRN #18 tab 08/23/22 5-325] Hydrocortisone [Cortef] 10 mg PO BID #60 tab 08/23/22 Midodrine [ProAmatine] 10 mg PO 0600,0800,1230,1730 tab 08/23/22 Sennosides-Docusate Sodium 1 each PO BID tab 08/23/22 [Senokot-S] bisacodyL [Dulcolax] 10 mg RECTAL DAILY PRN suppositor 08/23/22 polyethylene glycoL 3350 [Miralax] 17 gm PO DAILY PRN packet 08/23/22 Allergies Allergy/AdvReac Type Severity Reaction Status Date / Time amoxicillin Allergy Anaphylaxis Verified 10/24/22 01:43 ampicillin Allergy Anaphylaxis Verified 10/24/22 01:43 Iodinated Contrast Media Allergy Anaphylaxis Verified 10/24/22 01:43 [Iodinated Contrast Media - IV Dye] Penicillins Allergy Anaphylaxis, Verified 10/24/22 01:43 Swelling Review of Systems ROS Statement: Those systems with pertinent positive or pertinent negative responses have been documented in the HPI. ROS Other: All systems not noted in ROS Statement are negative. Past Medical History Past Medical History: GERD/Reflux, Hypertension, Pneumonia, Prostate Disorder, Rheumatoid Arthritis (RA) Additional Past Medical History / Comment(s): Hx Pneumonia X3. BPH. DIVERTICULITIS. Wears a brace. hypotension. History of Any Multi-Drug Resistant Organisms: None Reported Past Surgical History: Joint Replacement, Orthopedic Surgery Additional Past Surgical History / Comment(s): ORIF RIGHT ELBOW. RIGHT KNEE REPLACED. TRAUMA TO HIP/PELVIS FROM FALLING THROUGH A ROOF (LEFT HIP REPLACED/PELVIC FX). 2nd left hip replacement. Bilateral cataracts removed. Past Anesthesia/Blood Transfusion Reactions: Motion Sickness Past Psychological History: Anxiety, Bipolar, Depression Smoking Status: Never smoker Past Alcohol Use History: None Reported Past Drug Use History: None Reported - Past Family History Brother(s) Family Medical History: No Reported History General Exam - General Exam Comments Initial Comments: PHYSICAL EXAM: General Impression: Alert and oriented x3, not in acute distress HEENT: Abrasion to the forehead with a complex laceration to the middle of the forehead, total inner upper lip and, extra-ocular movements intact, pupils equal and reactive to light bilaterally, mucous membranes moist. Cardiovascular: Heart regular rate and rhythm Chest: Able to complete full sentences, no retractions, no tachypnea Abdomen: abdomen soft, non-tender, non-distended, no organomegaly Musculoskeletal: Pulses present and equal in all extremities, no peripheral edema Motor: no focal deficits noted Neurological: CN II-XII grossly intact, no focal motor or sensory deficits noted Skin: Intact with no visualized rashes Psych: Normal affect and mood Limitations: no limitations Course Vital Signs 10/24/22 01:30 Temperature 97.1 F L Pulse Rate 65 Respiratory 16 Rate Blood Pressure 104/60 O2 Sat by Pulse 92 L Oximetry Procedures - Laceration Laceration #1 Consent Obtained: verbal consent Indication: other (laceration/abrasion) Site: face Description: stellate, clean Type of Sutures: other (steri strips, dermabond) Size of Sutures: other Patient Tolerated Procedure: well Medical Decision Making - Medical Decision Making Was pt. sent in by a medical professional or institution (Dr. PA, MECHANICAL TEST TECHNICIAN, urgent care, hospital, or prison...) When possible be specific @ -No Did you speak to anyone other than the patient for history (EMS, parent, family, police, friend...)? What history was obtained from this source @ -No Did you review nursing and triage notes (agree or disagree)? Why? @ -I reviewed and agree with nursing and triage notes Were old charts reviewed (outside hosp., previous admission, EMS record, old EKG, old radiological studies, urgent care reports/EKG's, prison records)? Report findings @ -No old charts were reviewed Differential Diagnosis (chest pain, altered mental status, abdominal pain women, abdominal pain men, vaginal bleeding, musculoskeletal, weakness, fever, dyspnea, syncope, headache, dizziness, GI bleed, back pain, seizure, CVA, palpatations, mental health)? @ -Syncope, head injury, unstable neck fracture EKG interpreted by me (3pts min.). @ -My EKG interpretation: Ventricular rate 66, sinus rhythm, NE interval 65, QRS 120, QTC 414. No NE prolongation, no QTC prolongation, no ST or T-wave changes noted. . Overall, this EKG is unremarkable X-rays interpreted by me (1pt min.). @ -None done CT interpreted by me (1pt min.). @ -Computed tomography scan of the head and C-spine shows no acute processes. CT of the lumbar spine shows mildly displaced sacrococcygeal fracture. Patient states that he has history of this. Computed tomography scan the face shows no acute processes. U/S interpreted by me (1pt. min.). @ -None done What testing was considered but not performed or refused? (CT, X-rays, U/S, labs)? Why? @ -None What meds were considered but not given or refused? Why? @ -None Did you discuss the management of the patient with other professionals (professionals i.e. , PA, MECHANICAL TEST TECHNICIAN, lab, RT, psych nurse, social work program coordinator, color grinder, teacher, forest fire management officer, supportive employment case manager)? Give summary @ -Discussed with Dr. Berumen for admission Was smoking cessation discussed for >3mins.? @ -No Was critical care preformed (if so, how long)? @ -No Were there social determinants of health that impacted care today? How? (Homelessness, low income, unemployed, alcoholism, drug addiction, transportation, low edu. Level, literacy, decrease access to med. care, halfway, rehab)? @ -No Was there de-escalation of care discussed even if they declined (Discuss DNR or withdrawal of care, Hospice)? DNR status @ -No What co-morbidities impacted this encounter? (DM, HTN, Smoking, COPD, CAD, Cancer, CVA, ARF, Chemo, Hep., AIDS, mental health diagnosis, sleep apnea, morbid obesity)? @ -Fall risk Was patient admitted / discharged? Hospital course, mention meds given and route, prescriptions, significant lab abnormalities, going to OR and other pertinent info. @ -81-year-old male presents to emergency department after multiple falls suffered at the prison. Vital signs upon arrival are within acceptable limits. Patient does have an abrasion/superficial complex laceration to the forehead. Forward injury repaired with Dermabond. Labs shows depressed hemoglobin which is near his baseline. Patient denies any complaints of bleeding. Patient has elevated renal function likely secondary to dehydration. Patient be admitted observation. Undiagnosed new problem with uncertain prognosis? @ -No Drug Therapy requiring intensive monitoring for toxicity (Heparin, Nitro, Insulin, Cardizem)? @ -No Were any procedures done? @ -No Diagnosis/symptom? Acute, or Chronic, or Acute on Chronic? Uncomplicated (without systemic symptoms) or Complicated (systemic symptoms)? @ -1.acute kidney injury secondary to dehydration, 2. Frequent falls, 3. Anemia Side effects of treatment? @ -No Exacerbation, Progression, or Severe Exacerbation? @ -No Poses a threat to life or bodily function? How? (Chest pain, [place], [place], pneumonia, PE, COPD, DKA, ARF, appy, cholecystitis, CVA, Diverticulitis, Homicidal, Suicidal, threat to staff... and all critical care pts) @ -yes - Lab Data Result diagrams: 10/24/22 02:25 10/24/22 02:25 Lab Results 10/24/22 10/24/22 10/24/22 Range/Units 02:25 02:25 02:25 WBC 13.3 H (3.8-10.6) k/uL RBC 2.96 L (4.30-5.90) m/uL Hgb 8.9 L D (13.0-17.5) gm/dL Hct 26.8 L (39.0-53.0) % MCV 90.6 (80.0-100.0) fL MCH 30.0 (25.0-35.0) pg MCHC 33.1 (31.0-37.0) g/dL RDW 15.4 (11.5-15.5) % Plt Count 426 (150-450) k/uL MPV 7.1 Neutrophils % 80 % Lymphocytes % 10 % Monocytes % 5 % Eosinophils % 4 % Basophils % 0 % Neutrophils # 10.6 H (1.3-7.7) k/uL Lymphocytes # 1.3 (1.0-4.8) k/uL Monocytes # 0.7 (0-1.0) k/uL Eosinophils # 0.5 (0-0.7) k/uL Basophils # 0.0 (0-0.2) k/uL PT 9.9 (9.0-12.0) sec INR 0.9 (<1.2) APTT 21.1 L (22.0-30.0) sec Sodium 136 L (137-145) mmol/L Potassium 4.1 (3.5-5.1) mmol/L Chloride 97 L (98-107) mmol/L Carbon Dioxide 28 (22-30) mmol/L Anion Gap 11 mmol/L BUN 33 H (9-20) mg/dL Creatinine 2.93 H (0.66-1.25) mg/dL Est GFR (CKD-EPI)AfAm 23 (>60 ml/min/1.73 sqM) Est GFR (CKD-EPI)NonAf 19 (>60 ml/min/1.73 sqM) Glucose 105 H (74-99) mg/dL Calcium 9.8 (8.4-10.2) mg/dL Disposition Clinical Impression: Fall Disposition: ADMITTED IP TO THIS HOSP Condition: Fair Referrals: Derick Martinez MD [Primary Care Provider] - 1-2 days Decision Time: 03:43
--- NOTE | 2022-10-24 02:55 | CT ---
EXAM: CT Head and Maxillofacial Without Intravenous Contrast CLINICAL HISTORY: ITS.REASON CT Reason: fall TECHNIQUE: Axial computed tomography images of the head/brain and face without intravenous contrast. CTDI is 12.9 mGy and DLP is 389.35 mGy-cm. This CT exam was performed using one or more of the following dose reduction techniques: automated exposure control, adjustment of the mA and/or kV according to patient size, and/or use of iterative reconstruction technique. COMPARISON: No relevant prior studies available. FINDINGS: Bones/joints: No acute fracture. Severe right TMJ osteoarthrosis. Soft tissues: Frontal scalp swelling. Sinuses: No acute sinusitis. Mastoid air cells: Severe right mastoid effusion and opacification of the middle ear. Orbits: Unremarkable. IMPRESSION: No acute fracture. Correlate with right-sided mastoiditis.
[2022-10-24 02:58] LABS: Calcium 9.8 mg/dL (8.4-10.2); Potassium 4.1 mmol/L (3.5-5.1)
[2022-10-24 03:00] LABS: Basophils % (A) 0 %; Eosinophils # (A) 0.5 k/uL (0-0.7); Eosinophils % (A) 4 %; HCT 26.8 % (39.0-53.0); Lymphocytes # (A) 1.3 k/uL (1.0-4.8); Lymphocytes % (A) 10 %; MCHC 33.1 g/dL (31.0-37.0); MCV 90.6 fL (80.0-100.0); Mean Platelet Volume 7.1; Monocytes # (A) 0.7 k/uL (0-1.0); Monocytes % (A) 5 %; Neutrophils # (A) 10.6 k/uL (1.3-7.7); Neutrophils % (A) 80 %; Platelet Count 426 k/uL (150-450); RBC 2.96 m/uL (4.30-5.90); RDW 15.4 % (11.5-15.5); WBC 13.3 k/uL (3.8-10.6)
--- NOTE | 2022-10-24 03:00 | CT ---
EXAM: CT Lumbar Spine Without Intravenous Contrast CLINICAL HISTORY: ITS.REASON CT Reason: please include sacrum and coccyx TECHNIQUE: Axial computed tomography images of the lumbar spine without intravenous contrast. CTDI is 45.5 mGy and DLP is 1655.6 mGy-cm. This CT exam was performed using one or more of the following dose reduction techniques: automated exposure control, adjustment of the mA and/or kV according to patient size, and/or use of iterative reconstruction technique. COMPARISON: No relevant prior studies available. FINDINGS: Mildly displaced fracture through the sacrococcyx junction seen on the sagittal view. No acute fracture in the lumbar spine. Chronic wedging deformities of T12 and L1. Multilevel degenerative disc disease. Severe stool impaction IMPRESSION: Mildly displaced fracture through the sacrococcyx junction seen on the sagittal view.
[2022-10-24 03:04] LABS: INR 0.9 (<1.2); Partial Thromboplastin Time 21.1 sec (22.0-30.0); Prothrombin Time 9.9 sec (9.0-12.0)
--- NOTE | 2022-10-24 03:06 | CT ---
EXAM: CT Head Without Intravenous Contrast CLINICAL HISTORY: ITS.REASON CT Reason: fall TECHNIQUE: Axial computed tomography images of the head/brain without intravenous contrast. CTDI is 12.9 mGy and DLP is 389.35 mGy-cm. This CT exam was performed using one or more of the following dose reduction techniques: automated exposure control, adjustment of the mA and/or kV according to patient size, and/or use of iterative reconstruction technique. COMPARISON: No relevant prior studies available. FINDINGS: Brain: No hemorrhage or mass effect. Ventricles: No hydrocephalus. Bones/joints: Unremarkable. Soft tissues: Frontal scalp swelling. Sinuses: No air fluid level. Mastoid air cells: Clear. IMPRESSION: No acute hemorrhage, hydrocephalus, or mass effect. EXAM: CT Cervical Spine Without Intravenous Contrast CLINICAL HISTORY: ITS.REASON CT Reason: fall TECHNIQUE: Axial computed tomography images of the cervical spine without intravenous contrast. CTDI is 16.5 mGy and DLP is 518.3 mGy-cm. This CT exam was performed using one or more of the following dose reduction techniques: automated exposure control, adjustment of the mA and/or kV according to patient size, and/or use of iterative reconstruction technique. COMPARISON: No relevant prior studies available. FINDINGS: Vertebrae: No acute fracture. Discs/spinal canal/neural foramina: degenerative changes. Soft tissues: No prevertebral swelling. COPD Mild left pleural effusion. IMPRESSION: No acute fracture or subluxation. Mild left pleural effusion.
[2022-10-24 03:07] LABS: HGB 8.9 gm/dL (13.0-17.5)
[2022-10-24] MEDS ORDERED: SODIUM CHLORIDE 0.9% 1,000 ML IV STA (03:24)
[2022-10-24] MEDS ORDERED: MORPHINE SULFATE 4 MG/ML SYRINGE IV STA (03:36)
[2022-10-24] MEDS ORDERED: NALOXONE 0.4 MG/ML 1 ML VIAL IV PRN (03:43)
[2022-10-24] MEDS: SODIUM CHLORIDE 0.9% 1,000 ML IV SCH ×3 (03:51→18:34)
--- NOTE | 2022-10-24 04:37 | XR ---
EXAM: XR Left Shoulder Complete, 2 or More Views CLINICAL HISTORY: ITS.REASON XR Reason: fall TECHNIQUE: Two or more views of the left shoulder. COMPARISON: No relevant prior studies available. FINDINGS: Bones/joints: No acute fracture. Humeral head is mildly superiorly subluxated, likely from degenerative changes. Mild AC joint osteoarthrosis. Rotator cuff pathology. Soft tissues: Unremarkable. IMPRESSION: No acute osseous abnormalities.
--- NOTE | 2022-10-24 05:01 | XR ---
EXAM: XR Left Wrist Complete, 3 or More Views CLINICAL HISTORY: ITS.REASON XR Reason: fall TECHNIQUE: Frontal, lateral and oblique views of the left wrist. COMPARISON: No relevant prior studies available. FINDINGS: Bones/joints: No acute fracture. No dislocation. Soft tissues: Unremarkable. No radiopaque foreign body. IMPRESSION: No acute osseous abnormalities.
--- NOTE | 2022-10-24 05:01 | XR ---
EXAM: XR Left Elbow Complete, 3 or More Views CLINICAL HISTORY: ITS.REASON XR Reason: fall TECHNIQUE: Frontal, lateral and oblique views of the left elbow. COMPARISON: No relevant prior studies available. IMPRESSION: No displaced fracture identified. But there is joint effusion suggestive of underlying occult fracture or soft tissue injury. Osteoarthrosis.
[2022-10-24] MEDS ORDERED: ALPRAZolam 0.25 MG TAB PO PRN (05:52)
[2022-10-24] MEDS ORDERED: HYDROcodone/APAP 5-325MG 1 EACH TAB PO PRN (05:52)
[2022-10-24] MEDS ORDERED: bisacodyL 10 MG SUPP RECTAL PRN (05:52)
[2022-10-24] MEDS ORDERED: MORPHINE SULFATE 4 MG/ML SYRINGE IVP PRN (05:57)
[2022-10-24] MEDS ORDERED: MIDODRINE 5 MG TAB PO SCH (06:00)
--- NOTE | 2022-10-24 06:25 | P.HPIM ---
History of Present Illness H&P Date: 10/24/22 Chief Complaint: fall 81 year old male with orthostatic hypotension , RA, CKDIII patient is a longterm resident , he has been having frequent falls at the [facility], today sustained a serious fall on his face, with big laceration over his forehead and bleeding and pain. he reports that his legs feels weak and he loses his balance and fall denies any associated LOC, syncope, palpitations, chest pain or trouble breathing . he denies any URI symptoms , fever, chills, changes in urinary or bowel habits. denies any abd pain nausea or vomiting Review of Systems Pertinent positives as noted in HPI. All other systems were reviewed and are negative Past Medical History Past Medical History: GERD/Reflux, Hypertension, Pneumonia, Prostate Disorder, Rheumatoid Arthritis (RA) Additional Past Medical History / Comment(s): Hx Pneumonia X3. BPH. DIVERTICULITIS. Wears a brace. hypotension. Bilateral cataracts History of Any Multi-Drug Resistant Organisms: None Reported Past Surgical History: Joint Replacement, Orthopedic Surgery Additional Past Surgical History / Comment(s): ORIF RIGHT ELBOW. RIGHT KNEE REPLACED. TRAUMA TO HIP/PELVIS FROM FALLING THROUGH A ROOF (LEFT HIP REPLACED/PELVIC FX). 2nd left hip replacement. Bilateral cataracts removed. Past Anesthesia/Blood Transfusion Reactions: Motion Sickness Past Psychological History: Anxiety, Bipolar, Depression Smoking Status: Never smoker Past Alcohol Use History: None Reported Additional Past Alcohol Use History / Comment(s): SMOKED FOR ABOUT 10 YRS, QUIT WHEN A "PACK OF CIGARETTES COST 55 CENTS". 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 - Past Family History Brother(s) Family Medical History: No Reported History Medications and Allergies Home Medications Medication Instructions Recorded Confirmed Type Aspirin EC [Ecotrin Low Dose] 81 mg PO DAILY 04/12/22 08/11/22 History DULoxetine HCL [Cymbalta] 60 mg PO HS 04/12/22 08/11/22 History Folic Acid 1 mg PO DAILY 04/12/22 08/11/22 History Omeprazole 20 mg PO DAILY 06/17/22 08/11/22 History Cholecalciferol (Vitamin D3) 125 mcg PO TUFR 08/11/22 08/11/22 History [Vitamin D3 (125 MCG = 5,000 IU)] Vitamin B-12(Unknown Dose) 1 tab PO TUFR 08/11/22 08/11/22 History lamoTRIgine [LaMICtal] 100 mg PO BID 08/11/22 08/11/22 History ALPRAZolam [Xanax] 0.25 mg PO BID PRN #6 tab 08/23/22 Rx Calcium Carbonate [Tums] 500 mg PO QID PRN tab 08/23/22 Rx Fludrocortisone [Florinef] 0.2 mg PO DAILY tab 08/23/22 Rx HYDROcodone/APAP 5-325MG [[place] 1 each PO Q4HR PRN #18 tab 08/23/22 Rx 5-325] Hydrocortisone [Cortef] 10 mg PO BID #60 tab 08/23/22 Rx Midodrine [ProAmatine] 10 mg PO 0600,0800,1230,1730 tab 08/23/22 Rx bisacodyL [Dulcolax] 10 mg RECTAL DAILY PRN suppositor 08/23/22 Rx polyethylene glycoL 3350 [Miralax] 17 gm PO DAILY PRN packet 08/23/22 Rx Melatonin HS 10/24/22 History Sennosides-Docusate Sodium 8.6 mg PO BID 10/24/22 10/24/22 History [Senokot-S] Allergies Allergy/AdvReac Type Severity Reaction Status Date / Time amoxicillin Allergy Anaphylaxis Verified 10/24/22 01:43 ampicillin Allergy Anaphylaxis Verified 10/24/22 01:43 Iodinated Contrast Media Allergy Anaphylaxis Verified 10/24/22 01:43 [Iodinated Contrast Media - IV Dye] Penicillins Allergy Anaphylaxis, Verified 10/24/22 01:43 Swelling Physical Exam Vitals: Vital Signs Temp Pulse Pulse Resp BP BP Pulse Ox 10/24/22 05:20 98.1 F 70 18 143/76 98 10/24/22 03:45 70 16 117/80 95 10/24/22 01:30 97.1 F L 65 16 104/60 92 L Intake and Output 10/23/22 10/23/22 10/24/22 14:59 22:59 06:59 Other: Weight 90.718 kg Constitutional: No acute distress, conversant, pleasant Eyes: Anicteric sclerae, moist conjunctiva, Pupils equal round reactive to light ENMT: NC/ big laceration on the forehead with swelling Oropharynx clear, no erythema, or exudates Neck: Supple, no masses, or JVD No carotid bruits No thyromegaly Lungs: Clear to auscultation Clear to percussion Normal respiratory effort, no accessory muscle use Cardiovascular: Heart regular in rate and rhythm, No murmurs, gallops, or rubs No peripheral edema Abdominal: Soft No tenderness to deep palpation no guarding, rebound or rigidity Abdomen moving with respiration Normoactive bowel sounds No hepatomegaly, No splenomegaly No palpable mass No abdominal wall hernia noted Skin: Normal temperature, tone, texture, turgor Extremities: No digital cyanosis No clubbing Pedal pulses intact and symmetrical Radial pulses intact and symmetrical No calf tenderness Psychiatric: Alert and oriented to person, place Neuro Muscles Strength 3/5 in bilateral lower extremities , and 4/5 bilateral upper extremities Sensation to light touch grossly present throughout Cranial nerves II-XII grossly intact Lymphatics: no palpable cervical or supraclavicular lymph nodes Results CBC & Chem 7: 10/24/22 02:25 10/24/22 02:25 Labs: Abnormal Lab Results - Last 24 Hours (Table) 10/24/22 10/24/22 10/24/22 Range/Units 02:25 02:25 02:25 WBC 13.3 H (3.8-10.6) k/uL RBC 2.96 L (4.30-5.90) m/uL Hgb 8.9 L D (13.0-17.5) gm/dL Hct 26.8 L (39.0-53.0) % Neutrophils # 10.6 H (1.3-7.7) k/uL APTT 21.1 L (22.0-30.0) sec Sodium 136 L (137-145) mmol/L Chloride 97 L (98-107) mmol/L BUN 33 H (9-20) mg/dL Creatinine 2.93 H (0.66-1.25) mg/dL Glucose 105 H (74-99) mg/dL Thrombosis Risk Factor Assmnt - Choose All That Apply Any of the Below Risk Factors Present?: Yes Each Risk Factor Represents 3 Points: Age 75 years or older Thrombosis Risk Factor Assessment Total Risk Factor Score: 3 Thrombosis Risk Factor Assessment Level: Moderate Risk Assessment and Plan Assessment: 81 year old male with orthostatic hypotension , had a significant fall at the longterm resulted in laceration of the forehead, I discussed the case with ED doc, and I accepted the admission for orthostatic hypotension , dehydration with anticipated length of stay < 2 midnight orthostatic hypotension fall with laceration of the forehead dehydration BRUCE on CKD III avoid nephrotoxic meds resume fludrocortisone and midodrine IVF hydration with 1 L normal saline bolus and then 75 cc per hour fall precautions PT eval wound care follow up labs , renal function and urine output CT brain no intracranial pathology CT spine no acute fracture xray elbow , shoulder, and wrist no acute fractures pain control with morphine 4 mg IVP q4hr prn cr 2.9 bun 33 BRUCE /on CKD WBC 13.3 no focus of infection , most likely reactive Hgb 8.9 no active source of bleeding, chronic anemia full code DVT PPX mechanical
[2022-10-24] MEDS: PANTOPRAZOLE 40 MG TABLET PO SCH (07:05)
[2022-10-24] MEDS: MIDODRINE 5 MG TAB PO SCH ×3 (07:08→17:45)
[2022-10-24] MEDS ORDERED: ACETAMINOPHEN TAB 325 MG TAB PO PRN (07:58)
[2022-10-24] MEDS: HYDROcodone/APAP 5-325MG 1 EACH TAB PO SCH ×4 (08:20→20:31)
[2022-10-24] MEDS: lamoTRIgine 100 MG TAB PO SCH ×2 (08:20→19:55)
[2022-10-24] MEDS: HYDROCORTISONE 10 MG TAB PO SCH ×2 (08:21→19:55)
[2022-10-24] MEDS: FLUDROCORTISONE 0.1 MG TAB PO SCH (08:21)
--- NOTE | 2022-10-24 10:37 | P.PN ---
Progress Note - Text Progress Note Date: 10/24/22 Hospitalist Interval Note Patient seen and examined at bedside. Vital signs reviewed General: non toxic, no distress, appears at stated age Derm: warm, dry Head: Laceration on the forehead, normocephalic, symmetric Eyes: EOMI, no lid lag, anicteric sclera Mouth: no lip lesion, mucus membranes moist Cardiovascular: S1S2 reg, no murmur, positive posterior tibial pulse bilateral, Lungs: CTA bilateral, no rhonchi, no rales , no accessory muscle use Abdominal: soft, nontender to palpation, no guarding, no appreciable organomegaly Ext: no gross muscle atrophy, no edema, no contractures, 4/5 strength in all extremities Neuro: CN II-XI grossly intact, no focal neuro deficits Psych: Alert, oriented, appropriate affect Assessment/Plan: Fall, possibly mechanical History of orthostatic hypertension Forehead laceration Dehydration Leukocytosis Chronic normocytic anemia Acute kidney injury on CKD 3 -Orthostatic vitals pending -Currently on fludrocortisone and midodrine -On 75 mL an hour normal saline -Pain control with Tylenol and oral [place] This is an update note for patient. There is no charge associated with this note.
[2022-10-24 12:34] VITALS: BMI 28.7
[2022-10-24] MEDS: DULoxetine HCL 60 MG CAPSULE.DR PO SCH (19:54)
[2022-10-24] MEDS: MORPHINE SULFATE 4 MG/ML SYRINGE IVP PRN (20:26)
[2022-10-25] MEDS: HYDROcodone/APAP 5-325MG 1 EACH TAB PO SCH ×3 (01:17→09:13)
[2022-10-25] MEDS: MORPHINE SULFATE 4 MG/ML SYRINGE IVP PRN ×4 (02:06→20:19)
[2022-10-25] MEDS: PANTOPRAZOLE 40 MG TABLET PO SCH (05:56)
[2022-10-25] MEDS: MIDODRINE 5 MG TAB PO SCH ×3 (05:58→17:42)
[2022-10-25 07:55] LABS: HCT 25.4 % (39.0-53.0); HGB 7.8 gm/dL (13.0-17.5); MCH 28.9 pg (25.0-35.0); MCHC 30.8 g/dL (31.0-37.0); MCV 93.8 fL (80.0-100.0); Mean Platelet Volume 7.7; Platelet Count 359 k/uL (150-450); RBC 2.71 m/uL (4.30-5.90); RDW 15.3 % (11.5-15.5); WBC 9.6 k/uL (3.8-10.6)
[2022-10-25 08:04] LABS: African American GFR (CKD) 26 (>60 ml/min/1.73 sqM); Anion Gap 9 mmol/L; Blood Urea Nitrogen 26 mg/dL (9-20); Carbon Dioxide 26 mmol/L (22-30); Chloride 103 mmol/L (98-107); Glucose 91 mg/dL (74-99); Non-African American GFR(CKD) 23 (>60 ml/min/1.73 sqM); Potassium 3.8 mmol/L (3.5-5.1); Sodium 138 mmol/L (137-145)
[2022-10-25] MEDS: HYDROCORTISONE 10 MG TAB PO SCH ×2 (09:13→21:21)
[2022-10-25] MEDS: lamoTRIgine 100 MG TAB PO SCH ×2 (09:13→20:58)
[2022-10-25] MEDS: FLUDROCORTISONE 0.1 MG TAB PO SCH (09:13)
--- NOTE | 2022-10-25 14:16 | P.CNOR ---
History of Present Illness - [facility] Consult date: 10/25/22 Consult reason: other (Sacrococcygeal junction fracture) History of present illness: Patient is a 81-year-old male who was brought to [facility] yesterday morning after being transferred from a subacute rehab due to frequent falls and a likelihood injury. Patient was recently admitted to [facility] in mid July 2022, he was in the hospital for about 2 weeks before being discharged to subacute rehab. At that time he was being followed by multiple medical specialties, he has a known diagnosis of orthostatic hypotension, valvular heart disease, and chronic kidney disease. Patient was brought into the hospital for evaluation of a laceration to his forehead along with further workup to the frequent falls. Multiple x-rays were taken during the initial evaluation in the emergency room, he was admitted under internal medicine for further management. Computed tomography scan of the lumbar spine did reveal a sacral coccygeal junction fracture, our orthopedic team was then consulted. Patient was evaluated today at bedside, he is resting comfortably. Patient is very pleasant on exam, he seems to answer all my questions adequately. Patient does have a very extensive orthopedic history. He has a history of a right total knee arthroplasty that was done many years ago. He has a history of a left-sided pelvic/femoral fracture that required multiple surgeries after falling from a significant height. He denies any surgery to his cervical, thoracic or lumbar spine. Patient states that he has been falling quite a bit over the last few months. Patient states that he feels his legs are unstable, but also feels quite lightheaded before he falls. He denies any loss of bowel or bladder function in the last few months. He denies any numbness or tingling in the bilateral upper or lower extremities. He denies any numbness or tingling involving the peroneal or genital region. Patient does admit to discomfort in the left knee, left elbow, left shoulder. X-rays have been done of all those extremities, none reveal any acute fractures or dislocations. Review of Systems Constitutional: Reports as per HPI Past Medical History Past Medical History: GERD/Reflux, Hypertension, Pneumonia, Prostate Disorder, Rheumatoid Arthritis (RA) Additional Past Medical History / Comment(s): Hx Pneumonia X3. BPH. DIVERTICULITIS. Wears a brace. hypotension. Bilateral cataracts History of Any Multi-Drug Resistant Organisms: None Reported Past Surgical History: Joint Replacement, Orthopedic Surgery Additional Past Surgical History / Comment(s): ORIF RIGHT ELBOW. RIGHT KNEE REPLACED. TRAUMA TO HIP/PELVIS FROM FALLING THROUGH A ROOF (LEFT HIP REPLACED/PELVIC FX). 2nd left hip replacement. Bilateral cataracts removed. Past Anesthesia/Blood Transfusion Reactions: Motion Sickness Past Psychological History: Anxiety, Bipolar, Depression Smoking Status: Never smoker Past Alcohol Use History: None Reported Additional Past Alcohol Use History / Comment(s): SMOKED FOR ABOUT 10 YRS, QUIT WHEN A "PACK OF CIGARETTES COST 55 CENTS". 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 - Past Family History Brother(s) Family Medical History: No Reported History Medications and Allergies Home Medications Medication Instructions Recorded Confirmed Type Aspirin EC [Ecotrin Low Dose] 81 mg PO DAILY@0800 04/12/22 10/24/22 History DULoxetine HCL [Cymbalta] 60 mg PO HS@199904/12/22 10/24/22 History Folic Acid 1 mg PO DAILY@1400 04/12/22 10/24/22 History Omeprazole 20 mg PO DAILY@0800 06/17/22 10/24/22 History Cholecalciferol (Vitamin D3) 125 mcg PO TUFR@139908/11/22 10/24/22 History [Vitamin D3 (125 MCG = 5,000 IU)] lamoTRIgine [LaMICtal] 100 mg PO BID@0800,199908/11/22 10/24/22 History ALPRAZolam [Xanax] 0.25 mg PO BID PRN #6 tab 08/23/22 10/24/22 Rx Cyanocobalamin [Vitamin B-12] 500 mcg PO TUFR@139910/24/22 10/24/22 History Docusate [Colace] 100 mg PO BID@0800,199910/24/22 10/24/22 History Fludrocortisone [Florinef] 0.2 mg PO DAILY@0800 10/24/22 10/24/22 History HYDROcodone/APAP 5-325MG [[place] 1 tab PO Q4HR 10/24/22 10/24/22 History 5-325] Hydrocortisone [Cortef] 10 mg PO BID@0800,1600 10/24/22 10/24/22 History Melatonin 3 mg PO HS@199910/24/22 10/24/22 History Midodrine HCl [ProAmatine] 10 mg PO TID@0700,1300,1900 10/24/22 10/24/22 History Sennosides [Senokot] 8.6 mg PO BID@0800,199910/24/22 10/24/22 History guaiFENesin-DM 100-10MG/5ML 10 ml PO Q6H PRN 10/24/22 10/24/22 History [Robitussin DM] Allergies Allergy/AdvReac Type Severity Reaction Status Date / Time amoxicillin Allergy Anaphylaxis Verified 10/24/22 06:33 ampicillin Allergy Anaphylaxis Verified 10/24/22 06:33 Iodinated Contrast Media Allergy Anaphylaxis Verified 10/24/22 06:33 [Iodinated Contrast Media - IV Dye] Penicillins Allergy Anaphylaxis, Verified 10/24/22 06:33 Swelling Physical Examination Gen: AOx3, NAD VSS stable at this time Integument: Obvious laceration noted on the right side of the forehead, there are Steri- Strips and surgical glue in place, no active drainage. No obvious open lesions or sores present throughout the left shoulder or left elbow. Well-healed incision on the lateral aspect of the left lower extremity is present. There is an obvious effusion present over the left knee, there is no open lesions or sores visualized in that area. No obvious open lesions or sores or areas of erythema or appreciated throughout the cervical, thoracic or lumbar spine. Palpation: Patient does have obvious tenderness with palpation of the anterior glenoid humeral joint line of the left shoulder, generalized tenderness throughout the left elbow with palpation. No tenderness with palpation to the cervical or thoracic midline or paraspinal region. The lower lumbar and sacral/coccyx regions does demonstrate tenderness with palpation. Generalized tenderness is present with palpation surrounding the left knee. Patient demonstrates no significant tenderness with palpation to the right upper extremity or right lower extremity. ROM: Full range of motion in all major muscle groups of the right upper extremity. Left upper extremity demonstrates adequate range of motion, he does lack full for elevation and shoulder abduction, likely due to his severe rotator cuff arthropathy in the left shoulder. He also does lack full extension of the left elbow, likely due to severe osteoarthritis. Full range of motion in all major muscle groups of the right lower extremity. Patient does have full range of motion in the left lower extremity besides dorsiflexion, he does note a chronic foot drop since his pelvic/femur injury/surgery. Logroll maneuver the bilateral lower extremities reproduces no groin pain. Sensory Exam: Senory exam to light touch is intact C5-T1 Senosry exam to light touch is intact L2-S1 Motor: 4/5 strength appreciated in the right upper extremity with shoulder elevation, shoulder abduction, elbow extension, elbow flexion, wrist extension, wrist flexion, car escort 4-/5 strength appreciated in the left upper extremity with shoulder abduction and shoulder elevation, 4/5 strength appreciated in the left upper extremity elbow extension, elbow flexion, wrist extension, wrist flexion, car escort 4-/5 strength appreciated in the right lower extremity with hip flexion, knee extension, knee flexion, plantar flexion, dorsiflexion, EHL, FHL 4-/5 strength appreciated in the left lower extremity with hip flexion, knee extension, knee flexion, plantar flexion, EHL, FHL. 3+/5 strength in the left lower extremity with dorsiflexion Reflexes: 2/4 in all UE and LE Negative Paul's bilaterally Negative Babinski bilaterally Negative Clonus bilaterally Special Test: Negative straight leg raise bilaterally Results - Labs Labs: Abnormal Lab Results - Last 24 Hours (Table) 10/25/22 10/25/22 Range/Units 07:29 07:29 RBC 2.71 L (4.30-5.90) m/uL Hgb 7.8 L (13.0-17.5) gm/dL Hct 25.4 L (39.0-53.0) % MCHC 30.8 L (31.0-37.0) g/dL BUN 26 H (9-20) mg/dL Creatinine 2.58 H (0.66-1.25) mg/dL H & H 10/24/22 10/25/22 Range/Units 02:25 07:29 Hgb 8.9 L D 7.8 L (13.0-17.5) gm/dL Hct 26.8 L 25.4 L (39.0-53.0) % Coagulation 10/24/22 Range/Units 02:25 INR 0.9 (<1.2) Result Diagrams: 10/25/22 07:29 10/25/22 07:29 - Diagnostic results Shoulder x-ray: report reviewed, image reviewed (Images x-rays reviewed of the left shoulder, no acute fractures or dislocations. Severe rotator cuff arthropathy is noted of the left shoulder) Elbow x-ray: report reviewed, image reviewed (Left elbow x-rays were reviewed along with reports, images demonstrate no acute fractures or dislocations. Severe resting arthritic changes noted throughout the left elbow) Wrist/Hand x-ray: report reviewed, image reviewed (Left wrist x-rays were revie wed along with report, no acute fractures or dislocations. Left thumb CMC joint arthritis present) Knee x-ray: report reviewed, image reviewed (Reports and images of the left knee x-rays were reviewed, no acute fractures or dislocations. Mild osteoarthritic signs are present.) CT Scan - lumbar: report reviewed, image reviewed (Report and images are reviewed of the lumbar spine. No acute fractures or dislocations present. Multilevel spondylosis along with multilevel facet arthropathy is noted. Sacrococcygeal junction fracture is noted, mild displacement) Assessment and Plan Assessment: Sacrococcygeal junction fracture Multilevel lumbar spondylosis with facet arthropathy Left shoulder severe rotator cuff arthropathy Left elbow severe osteoarthritis Left knee osteoarthritis Plan: I was able to discuss the case, this including no physical exam findings and imaging studies my attending Dr. Lee. No emergent orthopedic spine surgical intervention recommended at this time. With regards to the fracture involving the sacral coccygeal junction region, conservative measures, this including use of Tylenol, anti-inflammatories and low-dose pain medication. Patient can weight-bear as tolerated with regards to this issue. Recommending patient has an aide with him at all times during ambulation due to his fall risk. With regards to the left shoulder/left elbow, recommending follow-up in our outpatient setting with Dr. Pulido for discussion of surgical options. Patient was made aware of the joint replacement would be the optimal treatment plan for his left shoulder and elbow. At this time patient is a poor surgical candidate with his current medical state, recommending optimizing with conservative measures initially. We did discuss the swelling on the left knee and possible options for treatment in the hospital. I did offer him an aspiration with cortisone injection that we can do at bedside, patient did decline. PT/OT evaluation Recommending weight-bear as tolerated with walker at all times with ambulation along with use of an aide or therapist due to his fall risk GI and DVT prophylaxis per primary medical service Other medical specialties recommendations Continue to follow patient during his inpatient stay Time with Patient: Less than 30
[2022-10-25] MEDS: HYDROcodone/APAP 7.5-325MG 1 EACH TAB PO PRN (14:53)
--- NOTE | 2022-10-25 15:17 | XR ---
EXAMINATION TYPE: XR knee complete LT DATE OF EXAM: 10/25/2022 CLINICAL HISTORY: Knee pain. TECHNIQUE: Three views of the left knee are obtained. COMPARISON: None. FINDINGS: Osseous structures are demineralized. There is no acute fracture/dislocation evident in le ft knee. [id number]-[id number]-[id number] tricompartment joint space loss. No significant spurring. Overlying clothi ng or blanket material is present. Moderate to large size suprapatellar joint effusion suspected with increase soft tissue density at this level noted. IMPRESSION: As above.
--- NOTE | 2022-10-25 16:07 | US ---
EXAMINATION TYPE: US renals and bladder DATE OF EXAM: 10/25/2022 COMPARISON: US 08/14/22, MR 01/15/22 CLINICAL INDICATION: Male, 81 years old with history of BRUCE; BRUCE EXAM MEASUREMENTS: Right Kidney: 11.2 x 5.4 x 5.0 cm Left Kidney: Obscured Right Kidney: No hydronephrosis or masses seen Left Kidney: Obscured Bladder: Bladder wall appears to be irregular. Bilateral Jets seen: Right jet was seen during exam. IMPRESSION: 1. No evidence of right obstructive uropathy. 2. Left kidney not visualized, left ureteral jet not visualized.
--- NOTE | 2022-10-25 16:47 | P.PN ---
Subjective Progress Note Date: 10/25/22 (Patient seen at 1130) Patient is a 72-year-old male with a history of orthostatic hypotension, rheumatoid arthritis, and chronic kidney disease stage III who presented to the ER from his detention after having a fall and sustaining a laceration on his face. The ER he underwent extensive evaluation. Imaging: CT [id number] mastoiditis Lumbar spine: Displaced fracture through the sacrococcyx junction Head and cervical spine CT: No acute fracture or subluxation, mild left pleural effusion, no acute hemorrhage/hydrocephalus/mass effect Chest X-ray: No acute process Left wrist: no acute osseous abnormalities Elbow x-ray: Joint effusion suggesting of underlying occult fracture or soft tissue injury Patient seen and examined at bedside. He complains of left shoulder pain, severe buttock pain, and left knee pain. He states he needs constant medications for this pain and is uncomfortable even laying still. He also reported some confusion and difficulty concentrating. Vital signs reviewed General: nontoxic, mild distress secondary to pain, appears at stated age, large laceration with Steri-Strips in place over forehead Cardiovascular: S1S2 reg, no murmur, positive posterior tibial pulse bilateral, Lungs: CTA bilateral, no rhonchi, no rales , no accessory muscle use Abdominal: soft, nontender to palpation, no guarding, no appreciable organomegaly Ext: no gross muscle atrophy, swelling over left knee, no contractures -Pain to palpation over the left lateral ligament -Pain to palpation over left elbow, decreased flexion and extension of the left shoulder Neuro: CN II-XI grossly intact, no focal neuro deficits Psych: Alert, oriented, appropriate affect Assessment: Displaced fracture at the sacrococcyx junction Possible occult fracture left elbow, Severe left shoulder rotatr cuff arthropathy Fall Postconcussive syndrome Anemia, undetermined etiology may be secondary to blood loss versus chronic kidney disease Scalp laceration Orthostatic hypotension Acute kidney injury on chronic kidney disease stage III Baseline creatinine 1.8- 2 Chronic: GERD Hypertension Pneumonia Prostate disorder Data Review: Vital signs reviewed temperature 90.9, pulse 72, respirations 18, blood pressure 145/64, O2 sat 97% on 2 L Urinalysis reviewed White blood cell count normalized at 9.6, hemoglobin 7.8 (down from 8.9), BUN 26, creatinine 2.58 (down from 2.93 with baseline Plan: -Knee x-ray ordered and reviewed-no acute fracture or dislocation mild to moderate tricompartment joint space narrowing with moderate to large suprapatellar joint effusion with increased soft tissue density at this point. -Renal ultrasound ordered and reviewed-left kidney obscured, bladder wall appears to be irregular, no hydronephrosis or mass seen Orthopedic consult ordered and reviewed-conservative management of Sacral Coccygeal fracture , Outpatien follow-up with Dr. Pulido, offered aspiration of hte left knee but patient declined -Continue normal saline at 75 mL per hour, avoid nephrotoxic agents, optimize blood pressure -Continue with Cortef 10 mg twice daily, Florinef 0.2 mg daily, and Wellbutrin 10 mg 3 times daily -Patient did receive DTaP vaccination -He'll need CBC to assess repeat hemoglobin in the morning, repeat basic metabolic profile regarding kidney dysfunction -Check iron studies DVT prophylaxis: SCDS Discussed with: Patient, nursing, Dr. Lee Anticipated discharge date: Pending clinical course Anticipated discharge place: Return to [facility] This dictation was prepared using [employer] voice recognition software. Though every attempt is made to correct errors during during dictation some may still exist. Objective - Vital Signs Vital signs: Vital Signs Temp 97.5 F L 10/25/22 14:00 Pulse 69 10/25/22 14:00 Resp 18 10/25/22 14:00 BP 101/56 10/25/22 14:00 Pulse Ox 94 L 10/25/22 14:00 FiO2 Intake & Output 10/24/22 10/25/22 10/25/22 18:59 06:59 18:59 Intake Total 480 118 Output Total 1600 1100 550 Balance -1600 -620 -432 Weight 90.718 kg 90.718 kg Intake: Oral 480 118 Output: Urine 1600 1100 550 Other: Voiding Method External Catheter External Catheter - Labs CBC & Chem 7: 10/25/22 07:29 10/25/22 07:29 Labs: Abnormal Lab Results - Last 24 Hours (Table) 10/25/22 10/25/22 Range/Units 07:29 07:29 RBC 2.71 L (4.30-5.90) m/uL Hgb 7.8 L (13.0-17.5) gm/dL Hct 25.4 L (39.0-53.0) % MCHC 30.8 L (31.0-37.0) g/dL BUN 26 H (9-20) mg/dL Creatinine 2.58 H (0.66-1.25) mg/dL
[2022-10-25] MEDS: SODIUM CHLORIDE 0.9% 1,000 ML IV SCH (20:01)
[2022-10-25] MEDS: DULoxetine HCL 60 MG CAPSULE.DR PO SCH (20:58)
[2022-10-26] MEDS: MIDODRINE 5 MG TAB PO SCH ×3 (06:11→17:15)
[2022-10-26] MEDS: PANTOPRAZOLE 40 MG TABLET PO SCH (06:12)
[2022-10-26] MEDS: HYDROcodone/APAP 7.5-325MG 1 EACH TAB PO PRN ×2 (06:17→12:08)
[2022-10-26] MEDS: MORPHINE SULFATE 4 MG/ML SYRINGE IVP PRN ×3 (08:12→19:44)
[2022-10-26] MEDS: lamoTRIgine 100 MG TAB PO SCH ×2 (08:38→19:45)
[2022-10-26] MEDS: HYDROCORTISONE 10 MG TAB PO SCH ×2 (08:38→19:45)
[2022-10-26] MEDS: FLUDROCORTISONE 0.1 MG TAB PO SCH (08:38)
--- NOTE | 2022-10-26 09:19 | P.PN ---
Subjective Progress Note Date: 10/26/22 Principal diagnosis: Sacrococcygeal junction fracture Patient seen and examined this morning. Patient is resting comfortably in bed. He states his pain is controlled on current regimen. Patient does demonstrate limited range of motion to the left shoulder and left elbow due to pain and stiffness. He also reports that the swelling of the left knee seems to have improved, along with his ROM of the left knee. Patient understands that he will be following up outpatient in our office regarding his left shoulder and left elbow. He verbalzes that he is not a surgical candidate at this time. Patient has no acute concerns at this time. Objective - Vital Signs Vital signs: Vital Signs Temp 98.4 F 10/26/22 01:02 Pulse 78 10/26/22 01:02 Resp 18 10/26/22 01:02 BP 127/67 10/26/22 01:02 Pulse Ox 93 L 10/26/22 01:02 FiO2 Intake & Output 10/25/22 10/26/22 10/26/22 18:59 06:59 18:59 Intake Total 236 Output Total 550 625 Balance -314 -625 Weight 90.718 kg Intake: Oral 236 Output: Urine 550 625 Other: Voiding Method External Catheter # Voids 2 - Exam Inspection: Negative for any open fractures,laceration noted on the right side of the forehead, there are Steri-Strips and surgical glue in place, no drainage noted. Effusion to the left knee is subsiding. Patient states improvement in pain and ROM. Sensation: Sensation is equal, symmetric, bilaterally intact throughout the upper and lower extremities Palpation: Tenderness to palpation throughout the left shoulder, left elbow and left knee. Range of motion: Patient does have full range of motion bilateral upper and lower extremities on exam, exception is dorsiflexion to left foot due to chronic foot drop Motor: 4-/5 in all major motor groups in the bilateral upper and lower extremities Special tests: Negative Homans bilaterally. Negative Paul bilaterally. Negative clonus bilaterally. Neurovascular: Radial pulse intact, 2+ bilaterally. Cap refill under 3 seconds in digits upper extremities. - Labs CBC & Chem 7: 10/25/22 07:29 10/25/22 07:29 Labs: Abnormal Lab Results - Last 24 Hours (Table) 10/25/22 10/25/22 Range/Units 07:29 07:29 RBC 2.71 L (4.30-5.90) m/uL Hgb 7.8 L (13.0-17.5) gm/dL Hct 25.4 L (39.0-53.0) % MCHC 30.8 L (31.0-37.0) g/dL BUN 26 H (9-20) mg/dL Creatinine 2.58 H (0.66-1.25) mg/dL Assessment and Plan Assessment: Sacrococcygeal junction fracture Multilevel lumbar spondylosis with facet arthropathy Left shoulder severe rotator cuff arthropathy Left elbow severe osteoarthritis Left knee osteoarthritis Plan: -Appreciate team management -Continue with pain management -PT/OT evaluation; Recommending weight-bear as tolerated with walker at all times with ambulation along with use of an aide or therapist due to his fall risk -GI and DVT prophylaxis per primary medical service -Other medical specialties recommendations - With regards to the left shoulder/left elbow, recommending follow-up in our outpatient setting with Dr. Pulido for discussion of surgical options. Patient was made aware of the joint replacement would be the optimal treatment plan for his left shoulder and elbow. At this time patient is a poor surgical candidate with his current medical state, recommending optimizing with conservative measures initially. Orthopedics will be signing off at this time, no further recommendations. Please feel free to reach out with any questions or concerns. -Appreciate consult *I reviewed and discussed this case with my attending Dr. Lee, whom has reviewed this chart and films and is in agreement with assessment and plan of care as outlined above. I have personally seen and examined the patient, performed the documentation and the assessment and plan as written. Number of minutes spent on the visit: 15m.
[2022-10-26 11:02] LABS: HGB 7.4 g/dL (13.0-17.0); MCHC 30.8 g/dL (32.0-37.0); MCV 97.2 fL (80.0-97.0); Mean Platelet Volume 9.9 fL (9.5-12.2); NRBC Per 100 WBC 0 /100 WBCS (0.0-0.0); Platelet Count 307 X 10*3/uL (140-440); RBC 2.47 X 10*6/uL (4.40-5.60); RDW 15.2 % (11.5-14.5); WBC 10.07 X 10*3/uL (4.50-10.00)
[2022-10-26 11:27] LABS: African American GFR (CKD) 27.7 (60.0-200.0); Anion Gap 10.5 mmol/L (10.00-18.00); BUN/Creat Ratio 9.64 Ratio (12.00-20.00); Blood Urea Nitrogen 23.8 mg/dL (9.0-27.0); Calcium 9.3 mg/dL (8.7-10.3); Carbon Dioxide 26.3 mmol/L (20.0-27.5); Magnesium 2.1 mg/dL (1.5-2.4); Non-African American GFR(CKD) 23.9 (60.0-200.0); Phosphorus 4.5 mg/dL (2.4-5.1); Potassium 4.4 mmol/L (3.5-5.5)
[2022-10-26] MEDS: SODIUM CHLORIDE 0.9% 1,000 ML IV SCH ×2 (14:15→23:11)
--- NOTE | 2022-10-26 14:31 | P.PN ---
Subjective Progress Note Date: 10/26/22 Patient is a 72-year-old male with a history of orthostatic hypotension, rheumatoid arthritis, and chronic kidney disease stage III who presented to the ER from his senior care after having a fall and sustaining a laceration on his face. The ER he underwent extensive evaluation. Imaging: CT [id number]-[id number]-xnyey mastoiditis Lumbar spine: Displaced fracture through the sacrococcyx junction Head and cervical spine CT: No acute fracture or subluxation, mild left pleural effusion, no acute hemorrhage/hydrocephalus/mass effect Chest X-ray: No acute process Left wrist: no acute osseous abnormalities Elbow x-ray: Joint effusion suggesting of underlying occult fracture or soft tissue injury -Knee x-ray ordered and reviewed-no acute fracture or dislocation mild to moderate tricompartment joint space narrowing with moderate to large suprapatellar joint effusion with increased soft tissue density at this point. -Renal ultrasound ordered and reviewed-left kidney obscured, bladder wall appears to be irregular, no hydronephrosis or mass seen Patient denies any acute complaints. He denies any overt signs of bleeding. Patient stated that he liked to stay one more day in the hospital. 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 Patient's hemoglobin dropped from 7.8-7.4. Creatinine improved from 2.58-2.5. Plan: Orthopedic consult ordered and reviewed-conservative management of Sacral Coccygeal fracture , Outpatien follow-up with Dr. Pulido, offered aspiration of hte left knee but patient declined -Continue normal saline at 75 mL per hour, avoid nephrotoxic agents, optimize blood pressure -Continue with Cortef 10 mg twice daily, Florinef 0.2 mg daily, and Wellbutrin 10 mg 3 times daily -Patient did receive DTaP vaccination -He'll need CBC to assess repeat hemoglobin in the morning, repeat basic metabolic profile regarding kidney dysfunction -Check iron studies DVT prophylaxis: SCDS Discussed with: Patient, nursing, Dr. Lee Anticipated discharge date: The patient's hemoglobin and creatinine continuing to improve then he will be deemed medically stable for discharge. Anticipated patient will be discharged tomorrow. Anticipated discharge place: Return to [facility] Objective - Vital Signs Vital signs: Vital Signs Temp 97.8 F 10/26/22 07:13 Pulse 67 10/26/22 07:13 Resp 16 10/26/22 07:13 BP 117/57 10/26/22 12:06 Pulse Ox 96 10/26/22 07:13 FiO2 Intake & Output 10/25/22 10/26/22 10/26/22 18:59 06:59 18:59 Intake Total 236 Output Total 550 625 350 Balance -314 -625 -350 Weight 90.718 kg Intake: Oral 236 Output: Urine 550 625 350 Other: Voiding Method External Catheter External Catheter # Voids 2 - Labs CBC & Chem 7: 10/26/22 06:07 10/26/22 06:07 Labs: Abnormal Lab Results - Last 24 Hours (Table) 10/26/22 10/26/22 Range/Units 06:07 06:07 WBC 10.07 H (4.50-10.00) X 10*3/uL RBC 2.47 L (4.40-5.60) X 10*6/uL Hgb 7.4 L (13.0-17.0) g/dL Hct 24.0 L (39.6-50.0) % MCV 97.2 H (80.0-97.0) fL MCHC 30.8 L (32.0-37.0) g/dL RDW 15.2 H (11.5-14.5) % Creatinine 2.5 H (0.6-1.5) mg/dL Est GFR (CKD-EPI)AfAm 27.7 L (60.0-200.0) Est GFR (CKD-EPI)NonAf 23.9 L (60.0-200.0) BUN/Creatinine Ratio 9.64 L (12.00-20.00) Ratio
[2022-10-26] MEDS: DULoxetine HCL 60 MG CAPSULE.DR PO SCH (19:45)
[2022-10-27] MEDS: HYDROcodone/APAP 7.5-325MG 1 EACH TAB PO PRN ×5 (00:10→23:53)
[2022-10-27] MEDS: MORPHINE SULFATE 4 MG/ML SYRINGE IVP PRN ×2 (02:03→07:54)
[2022-10-27] MEDS: PANTOPRAZOLE 40 MG TABLET PO SCH (06:33)
[2022-10-27] MEDS: MIDODRINE 5 MG TAB PO SCH ×3 (06:33→17:13)
[2022-10-27] MEDS: HYDROCORTISONE 10 MG TAB PO SCH ×2 (07:54→19:55)
[2022-10-27] MEDS: lamoTRIgine 100 MG TAB PO SCH ×2 (07:54→19:55)
[2022-10-27] MEDS: FLUDROCORTISONE 0.1 MG TAB PO SCH (07:54)
[2022-10-27 09:18] LABS: Basophils # (A) 0.06 X 10*3/uL (0.00-0.10); Basophils % (A) 0.5 %; Eosinophils # (A) 0.48 X 10*3/uL (0.04-0.35); Eosinophils % (A) 4.2 %; HGB 7.4 g/dL (13.0-17.0); Immature Grans, Automated 0.3 %; Lymphocytes # (A) 1.42 X 10*3/uL (0.90-5.00); Lymphocytes % (A) 12.3 %; MCH 29.8 pg (27.0-32.0); MCHC 30.8 g/dL (32.0-37.0); MCV 96.8 fL (80.0-97.0); Mean Platelet Volume 10.1 fL (9.5-12.2); Monocytes # (A) 0.82 X 10*3/uL (0.20-1.00); Monocytes % (A) 7.1 %; NRBC Per 100 WBC 0 /100 WBCS (0.0-0.0); Neutrophils # (A) 8.68 X 10*3/uL (1.80-7.70); Neutrophils % (A) 75.6 %; Platelet Count 320 X 10*3/uL (140-440); RBC 2.48 X 10*6/uL (4.40-5.60)
[2022-10-27 09:48] LABS: % Iron Saturation 10.71 (15.00-50.00); African American GFR (CKD) 30.2 (60.0-200.0); Anion Gap 10.7 mmol/L (10.00-18.00); BUN/Creat Ratio 10.09 Ratio (12.00-20.00); Blood Urea Nitrogen 23.2 mg/dL (9.0-27.0); Calcium 9.3 mg/dL (8.7-10.3); Carbon Dioxide 27.3 mmol/L (20.0-27.5); Potassium 3.8 mmol/L (3.5-5.5)
[2022-10-27] MEDS: SODIUM CHLORIDE 0.9% 1,000 ML IV SCH (11:47)
--- NOTE | 2022-10-27 13:05 | P.PN ---
Subjective Progress Note Date: 10/27/22 Patient is a 72-year-old male with a history of orthostatic hypotension, rheumatoid arthritis, and chronic kidney disease stage III who presented to the ER from his intermediate after having a fall and sustaining a laceration on his face. The ER he underwent extensive evaluation. Patient was seen this morning. Patient states that he would like to stay in the hospital for another day because he is worried about his blood counts. I assured patient that his blood count is stable today. Patient promised me that he would be amenable to going to the rehab facility tomorrow. I told patient that if his prior authorization goes through today then we'll send him back otherwise will keep him likely to Saturday. Patient was amenable to this plan. Imaging: CT lnzl-ndocl-mubuc mastoiditis Lumbar spine: Displaced fracture through the sacrococcyx junction Head and cervical spine CT: No acute fracture or subluxation, mild left pleural effusion, no acute hemorrhage/hydrocephalus/mass effect Chest X-ray: No acute process Left wrist: no acute osseous abnormalities Elbow x-ray: Joint effusion suggesting of underlying occult fracture or soft tissue injury -Knee x-ray ordered and reviewed-no acute fracture or dislocation mild to moderate tricompartment joint space narrowing with moderate to large suprapatellar joint effusion with increased soft tissue density at this point. 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 Patient's hemoglobin stable this morning at 7.4 Creatinine improved from 2.58 to 2.3. Plan: -Orthopedic consult ordered and reviewed-conservative management of Sacral Coccygeal fracture , Outpatien follow-up with Dr. Pulido, offered aspiration of hte left knee but patient declined -Patient is drinking was so we'll discontinue fluids -Continue with Cortef 10 mg twice daily, Florinef 0.2 mg daily, and Wellbutrin 10 mg 3 times daily -Patient did receive DTaP vaccination -No need to trend labs as his hemoglobin is now stable and creatinine close to baseline. -Patient will need a follow-up with hematology for IV infusions. Patient currently has no overt signs of bleeding. He will need to discuss with his PCP about getting a colonoscopy. -Discussed with case management who said that the prior authorization is not apparent at this time. DVT prophylaxis: SCDS Discussed with: Patient, nursing, case management Anticipated discharge date: Patient is medically stable for discharge. Awaiting for prior authorization. Anticipated discharge place: Return to [facility] Objective - Vital Signs Vital signs: Vital Signs Temp 98.6 F 10/27/22 07:13 Pulse 74 10/27/22 07:13 Resp 16 10/27/22 07:13 BP 146/68 10/27/22 07:13 Pulse Ox 95 10/27/22 07:13 FiO2 Intake & Output 10/26/22 10/27/22 10/27/22 18:59 06:59 18:59 Intake Total 240 Output Total 650 300 Balance -650 -60 Intake: Oral 240 Output: Urine 650 300 Other: Voiding Method External Catheter External Catheter Incontinent - Labs CBC & Chem 7: 10/27/22 06:04 10/27/22 06:04 Labs: Abnormal Lab Results - Last 24 Hours (Table) 10/27/22 10/27/22 Range/Units 06:04 06:04 WBC 11.50 H (4.50-10.00) X 10*3/uL RBC 2.48 L (4.40-5.60) X 10*6/uL Hgb 7.4 L (13.0-17.0) g/dL Hct 24.0 L (39.6-50.0) % MCHC 30.8 L (32.0-37.0) g/dL RDW 15.0 H (11.5-14.5) % Neutrophils # 8.68 H (1.80-7.70) X 10*3/uL Eosinophils # 0.48 H (0.04-0.35) X 10*3/uL Creatinine 2.3 H (0.6-1.5) mg/dL Est GFR (CKD-EPI)AfAm 30.2 L (60.0-200.0) Est GFR (CKD-EPI)NonAf 26.0 L (60.0-200.0) BUN/Creatinine Ratio 10.09 L (12.00-20.00) Ratio Iron 21 L (65-175) ug/dL TIBC 196 L (228-460) ug/dL % Saturation 10.71 L (15.00-50.00) Transferrin 140.0 L (204.0-354.0) mg/dL
[2022-10-27] MEDS: DOCUSATE 100 MG CAP PO SCH ×2 (14:16→19:57)
[2022-10-27] MEDS: DULoxetine HCL 60 MG CAPSULE.DR PO SCH (19:55)
[2022-10-28] MEDS: PANTOPRAZOLE 40 MG TABLET PO SCH (06:27)
[2022-10-28] MEDS: HYDROcodone/APAP 7.5-325MG 1 EACH TAB PO PRN ×3 (06:27→19:33)
[2022-10-28] MEDS: MIDODRINE 5 MG TAB PO SCH ×3 (06:27→16:59)
[2022-10-28] MEDS: HYDROCORTISONE 10 MG TAB PO SCH ×2 (09:47→19:32)
[2022-10-28] MEDS: DOCUSATE 100 MG CAP PO SCH ×2 (09:47→19:31)
[2022-10-28] MEDS: FLUDROCORTISONE 0.1 MG TAB PO SCH (09:47)
[2022-10-28] MEDS: lamoTRIgine 100 MG TAB PO SCH ×2 (09:47→19:31)
--- NOTE | 2022-10-28 10:14 | P.PN ---
Subjective Progress Note Date: 10/28/22 Patient is a 72-year-old male with a history of orthostatic hypotension, rheumatoid arthritis, and chronic kidney disease stage III who presented to the ER from his detention after having a fall and sustaining a laceration on his face. The ER he underwent extensive evaluation. Patient was seen this morning. Patient states that he would like to stay in the hospital for another day because he is worried about his blood counts. I assured patient that his blood count is stable today. Patient promised me that he would be amenable to going to the rehab facility tomorrow. I told patient that if his prior authorization goes through today then we'll send him back otherwise will keep him likely to Saturday. Patient was amenable to this plan. Imaging: CT [id number]-qcyed-xzpfu mastoiditis Lumbar spine: Displaced fracture through the sacrococcyx junction Head and cervical spine CT: No acute fracture or subluxation, mild left pleural effusion, no acute hemorrhage/hydrocephalus/mass effect Chest X-ray: No acute process Left wrist: no acute osseous abnormalities Elbow x-ray: Joint effusion suggesting of underlying occult fracture or soft tissue injury -Knee x-ray ordered and reviewed-no acute fracture or dislocation mild to moderate tricompartment joint space narrowing with moderate to large suprapatellar joint effusion with increased soft tissue density at this point. 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 Plan: -Orthopedic consult ordered and reviewed-conservative management of Sacral Coccygeal fracture , Outpatien follow-up with Dr. Pulido, offered aspiration of hte left knee but patient declined -Patient is drinking was so we'll discontinue fluids -Continue with Cortef 10 mg twice daily, Florinef 0.2 mg daily, and Wellbutrin 10 mg 3 times daily -Patient did receive DTaP vaccination -No need to trend labs as his hemoglobin is now stable and creatinine close to baseline. -Patient will need a follow-up with hematology for IV infusions. Patient currently has no overt signs of bleeding. He will need to discuss with his PCP about getting a colonoscopy. -Discussed with case management who said that the prior authorization is not apparent at this time. DVT prophylaxis: SCDS Discussed with: Patient, nursing, case management Anticipated discharge date: Patient is medically stable for discharge. Awaiting for prior authorization. Anticipated discharge place: Return to [facility] Objective - Vital Signs Vital signs: Vital Signs Temp 98.4 F 10/28/22 07:25 Pulse 73 10/28/22 07:25 Resp 15 10/28/22 07:25 BP 126/65 10/28/22 07:25 Pulse Ox 95 10/28/22 07:25 FiO2 Intake & Output 10/27/22 10/28/22 10/28/22 18:59 06:59 18:59 Output Total 1000 800 Balance -1000 -800 Output: Urine 1000 800 Other: Voiding Method Incontinent Incontinent Incontinent - Labs CBC & Chem 7: 10/27/22 06:04 10/27/22 06:04
[2022-10-28] MEDS: DULoxetine HCL 60 MG CAPSULE.DR PO SCH (19:31)
[2022-10-29] MEDS: HYDROcodone/APAP 7.5-325MG 1 EACH TAB PO PRN ×3 (01:58→14:08)
[2022-10-29] MEDS: CALCIUM CARBONATE 500 MG CHEWABLE PO PRN ×2 (01:58→14:11)
[2022-10-29] MEDS: MIDODRINE 5 MG TAB PO SCH ×2 (05:49→12:33)
[2022-10-29] MEDS: PANTOPRAZOLE 40 MG TABLET PO SCH (05:49)
[2022-10-29 07:24] VITALS: RESP 16; TEMP 98
[2022-10-29] MEDS: lamoTRIgine 100 MG TAB PO SCH (07:43)
[2022-10-29] MEDS: FLUDROCORTISONE 0.1 MG TAB PO SCH (07:44)
[2022-10-29] MEDS: HYDROCORTISONE 10 MG TAB PO SCH ×2 (07:44→07:49)
[2022-10-29] MEDS: DOCUSATE 100 MG CAP PO SCH (07:44)
[2022-10-29 12:33] VITALS: BP 132/67; PULSE 83
--- NOTE | 2022-10-29 13:39 | P.DS ---
Providers Date of admission: 10/24/22 03:44 Attending physician: Carmelina Berumen MD Consults: 10/25/22 11:34 Consult Physician Routine Consulting Provider: Chapo Lee Consult Reason/Comments: Scaral and coccyx fracture Do you want consulting provider notified?: Yes Primary care physician: Derick Martinez MD Hospital Course: Discharge Diagnosis: Displaced fracture at the sacrococcyx junction Possible occult fracture left elbow, Severe left shoulder rotatr cuff arthropathy Fall Postconcussive syndrome -Iron Deficiency anemia Scalp laceration Orthostatic hypotension Acute kidney injury on chronic kidney disease stage III Baseline creatinine 1.8- 2 Chronic: GERD Hypertension Pneumonia Prostate disorder Hospital Course: Patient is a 72-year-old male with a history of orthostatic hypotension, rheumatoid arthritis, and chronic kidney disease stage III who presented to the ER from his half-way after having a fall and sustaining a laceration on his face. In the ER he underwent extensive evaluation. Patient was found to have a sacral coccygeal fracture. Orthopedic surgery recommended weightbearing as tolerated. Patient also has left shoulder severe rotator cuff arthropathy. Orthopedic surgery recommended follow-up with Dr. Pulido. Patient also has severe left elbow osteoarthritis and also left knee osteoarthritis. Again orthopedic surgery recommending outpatient follow-up. Patient also found to have acute blood loss anemia. Iron panel consistent with iron deficiency anemia. Patient's hemoglobin was monitored. He had no overt signs of bleeding. At the time of discharge patient's hemoglobin was stable. Patient also found to have acute kidney injury. He was given fluids. His creat inine improved to his baseline. Patient was then deemed stable for discharge back to his [facility] facility. Patient seen and examined at bedside on 10/29/2022.[] Vital signs reviewed and stable. General examination - Alert and Oriented 3 in NAD Heart - + S1S2 no murmurs Lungs - Clear to auscultation Abdomen soft NT ND +ve BS Extremities - No edema MINUTE CLERK - Moving all 4 extremities spontaneously Psych - Calm and cooperative A total of [33] minutes of time were spent preparing this complex discharge summary . Patient Condition at Discharge: Fair Plan - Discharge Summary New Discharge Prescriptions: New HYDROcodone/APAP 7.5-325MG [[place] 7.5-325] 1 each PO Q6HR PRN tab PRN Reason: Moderate Pain (Scale 4 To 6) Continue Folic Acid 1 mg PO DAILY@1400 DULoxetine HCL [Cymbalta] 60 mg PO HS@1999 Aspirin EC [Ecotrin Low Dose] 81 mg PO DAILY@0800 Omeprazole 20 mg PO DAILY@0800 ALPRAZolam [Xanax] 0.25 mg PO BID PRN #6 tab PRN Reason: Anxiety Hydrocortisone [Cortef] 10 mg PO BID@0800,1600 Midodrine HCl [ProAmatine] 10 mg PO TID@0700,1300,1900 guaiFENesin-DM 100-10MG/5ML [Robitussin DM] 10 ml PO Q6H PRN PRN Reason: Cough Sennosides [Senokot] 8.6 mg PO BID@799,1999 Docusate [Colace] 100 mg PO BID@799,1999 Cyanocobalamin [Vitamin B-12] 500 mcg PO TUFR@1400 Cholecalciferol (Vitamin D3) [Vitamin D3 (125 MCG = 5,000 IU)] 125 mcg PO TUFR@1400 lamoTRIgine [LaMICtal] 100 mg PO BID@08,1999 Melatonin 3 mg PO HS@1999 Fludrocortisone [Florinef] 0.2 mg PO DAILY@0800 Discontinued HYDROcodone/APAP 5-325MG [[place] 5-325] 1 tab PO Q4HR Discharge Medication List Aspirin EC [Ecotrin Low Dose] 81 mg PO DAILY@0800 04/12/22 [History] DULoxetine HCL [Cymbalta] 60 mg PO HS@199904/12/22 [History] Folic Acid 1 mg PO DAILY@1400 04/12/22 [History] Omeprazole 20 mg PO DAILY@0800 06/17/22 [History] Cholecalciferol (Vitamin D3) [Vitamin D3 (125 MCG = 5,000 IU)] 125 mcg PO TUFR@1400 08/11/22 [History] lamoTRIgine [LaMICtal] 100 mg PO BID@0800,199908/11/22 [History] ALPRAZolam [Xanax] 0.25 mg PO BID PRN #6 tab 08/23/22 [Rx] Cyanocobalamin [Vitamin B-12] 500 mcg PO TUFR@1400 10/24/22 [History] Docusate [Colace] 100 mg PO BID@0800,199910/24/22 [History] Fludrocortisone [Florinef] 0.2 mg PO DAILY@0800 10/24/22 [History] Hydrocortisone [Cortef] 10 mg PO BID@0800,1600 10/24/22 [History] Melatonin 3 mg PO HS@199910/24/22 [History] Midodrine HCl [ProAmatine] 10 mg PO TID@0700,1300,1900 10/24/22 [History] Sennosides [Senokot] 8.6 mg PO BID@08,199910/24/22 [History] guaiFENesin-DM 100-10MG/5ML [Robitussin DM] 10 ml PO Q6H PRN 10/24/22 [History] HYDROcodone/APAP 7.5-325MG [[place] 7.5-325] 1 each PO Q6HR PRN tab 10/27/22 [Rx] Follow up Appointment(s)/Referral(s): Derick Martinez MD [Primary Care Provider[facility] - As Needed Thierry Pulido MD [STAFF PHYSICIAN] - 1 Week Discharge Disposition: TRANSFER TO SNF/ECF
== END 2022-10-29 15:43 ==
LOC: EC 01:27 → 4SSUR 03:44
PROVIDERS: ADMIT Internal Medicine; ATTEND Internal Medicine
DX: S32.2XXA Fracture of coccyx, initial encounter for closed fracture (principal); S32.10XA Unspecified fracture of sacrum, initial encounter for closed fracture; N17.9 Acute kidney failure, unspecified; S01.81XA Laceration without foreign body of other part of head, initial encounter; F07.81 Postconcussional syndrome; D62 Acute posthemorrhagic anemia; I12.9 Hypertensive chronic kidney disease with stage 1 through stage 4 chronic kidney disease, or unspecified chronic kidney disease; E11.22 Type 2 diabetes mellitus with diabetic chronic kidney disease; I95.1 Orthostatic hypotension; N18.30 Chronic kidney disease, stage 3 unspecified; E86.0 Dehydration; M47.816 Spondylosis without myelopathy or radiculopathy, lumbar region; M17.12 Unilateral primary osteoarthritis, left knee; M19.012 Primary osteoarthritis, left shoulder; M19.022 Primary osteoarthritis, left elbow; K21.9 Gastro-esophageal reflux disease without esophagitis; N40.0 Benign prostatic hyperplasia without lower urinary tract symptoms; D50.9 Iron deficiency anemia, unspecified; M06.9 Rheumatoid arthritis, unspecified; H70.91 Unspecified mastoiditis, right ear; K57.90 Diverticulosis of intestine, part unspecified, without perforation or abscess without bleeding; M25.462 Effusion, left knee; F10.21 Alcohol dependence, in remission; I38 Endocarditis, valve unspecified; F31.9 Bipolar disorder, unspecified; F41.9 Anxiety disorder, unspecified; W19.XXXA Unspecified fall, initial encounter; Y92.129 Unspecified place in nursing home as the place of occurrence of the external cause; Z91.81 History of falling; Z23 Encounter for immunization; Z87.81 Personal history of (healed) traumatic fracture; Z87.01 Personal history of pneumonia (recurrent); Z79.82 Long term (current) use of aspirin; Z79.899 Other long term (current) drug therapy; Z88.0 Allergy status to penicillin; Z91.041 Radiographic dye allergy status; Z98.42 Cataract extraction status, left eye; Z98.41 Cataract extraction status, right eye
CPT/HCPCS: 96376 ×4; 12011; 90471; 96374; 99285; 36415; 94760 ×3; 93005; 97116; 97530 ×3; 97162; 97535 ×3; 97166; 80048 ×4; 83540; 83550; 83735; 84100; 85025 ×2; 85027 ×2; 85610; 85730; 73030; 73070; 73110; 73562; 76770; 72125; 72131; 70486; 70450; 90715; G0378 ×6; J2270 ×4

== ENCOUNTER 2022-12-26 11:54 | Inpatient (IN) | payer MEDICARE, OTHER ==
[2022-12-26 12:37] LABS: Basophils # (A) 0.1 k/uL (0-0.2); Basophils % (A) 0 %; Eosinophils # (A) 0.1 k/uL (0-0.7); Eosinophils % (A) 0 %; HCT 27.4 % (39.0-53.0); HGB 8.5 gm/dL (13.0-17.5); Hypochromasia Slight; Lymphocytes # (A) 0.9 k/uL (1.0-4.8); Lymphocytes % (A) 2 %; MCHC 31.2 g/dL (31.0-37.0); MCV 96.1 fL (80.0-100.0); Mean Platelet Volume 7.5; Monocytes # (A) 0.7 k/uL (0-1.0); Monocytes % (A) 2 %; Neutrophils # (A) 33.4 k/uL (1.3-7.7); Neutrophils % (A) 95 %; Platelet Count 617 k/uL (150-450); RBC 2.85 m/uL (4.30-5.90); RDW 14.7 % (11.5-15.5); WBC 35.3 k/uL (3.8-10.6)
[2022-12-26] MEDS ORDERED: SODIUM CHLORIDE 0.9% 500 ML 500 ML IV ONE ×2 (12:43→13:58)
[2022-12-26] MEDS ORDERED: LEVOFLOXACIN 500MG-D5W PMX 500 MG in DEXTROSE/WATER 1 100ML.BAG IVPB STA (12:43)
[2022-12-26 12:52] LABS: INR 0.9 (<1.2); Prothrombin Time 9.7 sec (9.0-12.0)
[2022-12-26 13:01] LABS: Partial Thromboplastin Time 20.1 sec (22.0-30.0)
--- NOTE | 2022-12-26 13:06 | ED ---
General Adult HPI - General Chief complaint: Altered Mental Status Stated complaint: sob Time Seen by Provider: 12/26/22 11:58 Source: patient, family, EMS, RN notes reviewed, old records reviewed Mode of arrival: EMS Limitations: no limitations - History of Present Illness Initial comments: 82-year-old male presenting with hypoxia, confusion, concern for fluid overload. Patient was noted to be hypoxic today he has received IV fluid throughout the week reported as 4 L over the course of the week. His roommate currently has pneumonia. The patient is unable to give a detailed history but the daughter is at bedside. Patient has had a decline over the past several days. - Related Data Home Medications Medication Instructions Recorded Confirmed Aspirin EC [Ecotrin Low Dose] 81 mg PO DAILY@0800 04/12/22 10/24/22 DULoxetine HCL [Cymbalta] 60 mg PO HS@199904/12/22 10/24/22 Folic Acid 1 mg PO DAILY@1400 04/12/22 10/24/22 Omeprazole 20 mg PO DAILY@0800 06/17/22 10/24/22 Cholecalciferol (Vitamin D3) 125 mcg PO TUFR@1400 08/11/22 10/24/22 [Vitamin D3 (125 MCG = 5,000 IU)] lamoTRIgine [LaMICtal] 100 mg PO BID@0800,199908/11/22 10/24/22 Cyanocobalamin [Vitamin B-12] 500 mcg PO TUFR@1400 10/24/22 10/24/22 Docusate [Colace] 100 mg PO BID@0800,199910/24/22 10/24/22 Fludrocortisone [Florinef] 0.2 mg PO DAILY@0800 10/24/22 10/24/22 Hydrocortisone [Cortef] 10 mg PO BID@0800,1600 10/24/22 10/24/22 Melatonin 3 mg PO HS@199910/24/22 10/24/22 Midodrine HCl [ProAmatine] 10 mg PO TID@0700,1300,1900 10/24/22 10/24/22 Sennosides [Senokot] 8.6 mg PO BID@0800,199910/24/22 10/24/22 guaiFENesin-DM 100-10MG/5ML 10 ml PO Q6H PRN 10/24/22 10/24/22 [Robitussin DM] Previous Rx's Medication Instructions Recorded ALPRAZolam [Xanax] 0.25 mg PO BID PRN #6 tab 08/23/22 HYDROcodone/APAP 7.5-325MG [[place] 1 each PO Q6HR PRN tab 10/27/22 7.5-325] Allergies Allergy/AdvReac Type Severity Reaction Status Date / Time amoxicillin Allergy Anaphylaxis Verified 12/26/22 14:05 ampicillin Allergy Anaphylaxis Verified 12/26/22 14:05 Iodinated Contrast Media Allergy Anaphylaxis Verified 12/26/22 14:05 [Iodinated Contrast Media - IV Dye] Penicillins Allergy Anaphylaxis, Verified 12/26/22 14:05 Swelling Review of Systems ROS Statement: Those systems with pertinent positive or pertinent negative responses have been documented in the HPI. ROS Other: All systems not noted in ROS Statement are negative. Past Medical History Past Medical History: GERD/Reflux, Hypertension, Pneumonia, Prostate Disorder, Rheumatoid Arthritis (RA) Additional Past Medical History / Comment(s): Hx Pneumonia X3. BPH. DIVERTICULITIS. Wears a brace. hypotension. Bilateral cataracts History of Any Multi-Drug Resistant Organisms: None Reported Past Surgical History: Joint Replacement, Orthopedic Surgery Additional Past Surgical History / Comment(s): ORIF RIGHT ELBOW. RIGHT KNEE REPLACED. TRAUMA TO HIP/PELVIS FROM FALLING THROUGH A ROOF (LEFT HIP REPLACED/PELVIC FX). 2nd left hip replacement. Bilateral cataracts removed. Past Anesthesia/Blood Transfusion Reactions: Motion Sickness Past Psychological History: Anxiety, Bipolar, Depression Smoking Status: Never smoker Past Alcohol Use History: None Reported Past Drug Use History: None Reported - Past Family History Brother(s) Family Medical History: No Reported History General Exam Limitations: no limitations General appearance: lethargic Head exam: Present: atraumatic, normocephalic Eye exam: Present: normal appearance, PERRL Respiratory exam: Present: rhonchi, decreased breath sounds. Absent: respiratory distress, rales Cardiovascular Exam: Present: regular rate, normal rhythm GI/Abdominal exam: Present: soft. Absent: distended, tenderness Extremities exam: Present: normal inspection, normal capillary refill. Absent: pedal edema Neurological exam: Present: alert. Absent: oriented X3 Psychiatric exam: Present: normal affect, normal mood Skin exam: Present: pallor Course Vital Signs 12/26/22 12/26/22 12/26/22 12:08 12:32 13:00 Temperature 99.9 F H 98.6 F Pulse Rate 89 86 86 Respiratory 18 20 18 Rate Blood Pressure 105/68 74/50 79/50 O2 Sat by Pulse 93 L 93 L 94 L Oximetry 12/26/22 13:48 Temperature Pulse Rate 93 Respiratory 18 Rate Blood Pressure 73/49 O2 Sat by Pulse 96 Oximetry Medical Decision Making - Medical Decision Making Was pt. sent in by a medical professional or institution (, PA, DIRECTOR CORRECTIONAL AGENCY, urgent care, hospital, or fci...) When possible be specific @ -No Did you speak to anyone other than the patient for history (EMS, parent, family, police, friend...)? What history was obtained from this source @ -[Paramedics, patient's daughter Did you review nursing and triage notes (agree or disagree)? Why? @ -I reviewed and agree with nursing and triage notes Were old charts reviewed (outside hosp., previous admission, EMS record, old EKG, old radiological studies, urgent care reports/EKG's, fci records)? Report findings @ -No old charts were reviewed Differential Diagnosis (chest pain, altered mental status, abdominal pain women, abdominal pain men, vaginal bleeding, weakness, fever, dyspnea, syncope, headache, dizziness, GI bleed, back pain, seizure, CVA, palpatations, mental health, musculoskeletal)? @ -Differential Dyspnea: Coronary syndrome, arrhythmia, tamponade, asthma, COPD, pulmonary embolism, pneumonia, pneumothorax, pulmonary effusion, anaphylaxis, diabetic ketoacidosis, flailed chest, pulmonary contusion, diaphragmatic rupture, anemia, neuromuscular, this is not meant to be an all-inclusive list. EKG interpreted by me (3pts min.). @ -[Sinus rhythm rate of 89, UT interval 147, QRS duration 94, QTC 4:[address] segment elevation X-rays interpreted by me (1pt min.). @ -X-ray showing near complete opacification of the left hemithorax CT interpreted by me (1pt min.). @ -CT ordered, pulmonology will follow-up wit U/S interpreted by me (1pt. min.). @ -None done What testing was considered but not performed or refused? (CT, X-rays, U/S, labs)? Why? @ -None What meds were considered but not given or refused? Why? @ -None Did you discuss the management of the patient with other professionals (professionals i.e. , PA, DIRECTOR CORRECTIONAL AGENCY, lab, RT, psych nurse, criminal justice social worker, change coordinator, teacher, cash management officer, child support case officer)? Give summary @ -[Case discussed with [facility] and Dr. Hernandez covering for pulmonology Was smoking cessation discussed for >3mins.? @ -No Was critical care preformed (if so, how long)? @ -Yes, 35 min Were there social determinants of health that impacted care today? How? ( Homelessness, low income, unemployed, alcoholism, drug addiction, transportation, low edu. Level, literacy, decrease access to med. care, senior living, rehab)? @ -No Was there de-escalation of care discussed even if they declined (Discuss DNR or withdrawal of care, Hospice)? DNR status @ -No What co-morbidities impacted this encounter? (DM, HTN, Smoking, COPD, CAD, Cancer, CVA, ARF, Chemo, Hep., AIDS, mental health diagnosis, sleep apnea, morbid obesity)? @ -Multiple comorbidities Was patient admitted / discharged? Hospital course, mention meds given and route, prescriptions, significant lab abnormalities, going to OR and other pertinent info. @ -[82-year-old male presenting with hypoxia, confusion. Patient is hypotensive upon arrival. He has a chest x-ray showing near complete opacification the left hemithorax accommodation of pneumonia and parapneumonic effusion. He started on Levaquin and vancomycin in the emergency department. He has a severe anaphylactic penicillin ALLERGY. He is also an acute on chronic renal failure and has an elevated troponin which I suspect is from demand, and renal failure. Patient receives IV fluid, IV antibiotics and IV steroids in the emergency department. He will be admitted to internal medicine with pulmonology on consult. Undiagnosed new problem with uncertain prognosis? @ -No Drug Therapy requiring intensive monitoring for toxicity (Heparin, Nitro, Insul in, Cardizem)? @ -No Were any procedures done? @ -No Diagnosis/symptom? @ -Pneumonia, sepsis, parapneumonic effusion Acute, or Chronic, or Acute on Chronic? @ -Acute Uncomplicated (without systemic symptoms) or Complicated (systemic symptoms)? @ -default Side effects of treatment? @ -No Exacerbation, Progression, or Severe Exacerbation? @ -No Poses a threat to life or bodily function? How? (Chest pain, [place], [place], pneumonia, PE, COPD, DKA, ARF, appy, cholecystitis, CVA, Diverticulitis, Homicidal, Suicidal, threat to staff... and all critical care pts) @ -Yes, hypoxia, sepsis - Lab Data Result diagrams: 12/26/22 12:19 12/26/22 12:19 Lab Results 12/26/22 12/26/22 12/26/22 Range/Units 12:19 12:19 12:19 WBC 35.3 H (3.8-10.6) k/uL RBC 2.85 L (4.30-5.90) m/uL Hgb 8.5 L (13.0-17.5) gm/dL Hct 27.4 L (39.0-53.0) % MCV 96.1 (80.0-100.0) fL MCH 30.0 (25.0-35.0) pg MCHC 31.2 (31.0-37.0) g/dL RDW 14.7 (11.5-15.5) % Plt Count 617 H (150-450) k/uL MPV 7.5 Neutrophils % 95 % Lymphocytes % 2 % Monocytes % 2 % Eosinophils % 0 % Basophils % 0 % Neutrophils # 33.4 H (1.3-7.7) k/uL Lymphocytes # 0.9 L (1.0-4.8) k/uL Monocytes # 0.7 (0-1.0) k/uL Eosinophils # 0.1 (0-0.7) k/uL Basophils # 0.1 (0-0.2) k/uL Manual Slide Review Performed Toxic Granulation Present Hypochromasia Slight PT 9.7 (9.0-12.0) sec INR 0.9 (<1.2) APTT 20.1 L (22.0-30.0) sec Sodium 135 L (137-145) mmol/L Potassium 4.6 (3.5-5.1) mmol/L Chloride 100 (98-107) mmol/L Carbon Dioxide 21 L (22-30) mmol/L Anion Gap 14 mmol/L BUN 41 H (9-20) mg/dL Creatinine 3.71 H (0.66-1.25) mg/dL Est GFR (CKD-EPI)AfAm 17 (>60 ml/min/1.73 sqM) Est GFR (CKD-EPI)NonAf 15 (>60 ml/min/1.73 sqM) Glucose 104 H (74-99) mg/dL Plasma Lactic Acid Aajy (0.7-2.0) mmol/L Calcium 9.3 (8.4-10.2) mg/dL Magnesium 2.2 (1.6-2.3) mg/dL Total Bilirubin 0.7 (0.2-1.3) mg/dL AST 18 (17-59) U/L ALT 12 (4-49) U/L Alkaline Phosphatase 77 (38-126) U/L Troponin I (0.000-0.034) ng/mL Total Protein 6.0 L (6.3-8.2) g/dL Albumin 2.7 L (3.5-5.0) g/dL 12/26/22 12/26/22 Range/Units 12:19 12:19 WBC (3.8-10.6) k/uL RBC (4.30-5.90) m/uL Hgb (13.0-17.5) gm/dL Hct (39.0-53.0) % MCV (80.0-100.0) fL MCH (25.0-35.0) pg MCHC (31.0-37.0) g/dL RDW (11.5-15.5) % Plt Count (150-450) k/uL MPV Neutrophils % % Lymphocytes % % Monocytes % % Eosinophils % % Basophils % % Neutrophils # (1.3-7.7) k/uL Lymphocytes # (1.0-4.8) k/uL Monocytes # (0-1.0) k/uL Eosinophils # (0-0.7) k/uL Basophils # (0-0.2) k/uL Manual Slide Review Toxic Granulation Hypochromasia PT (9.0-12.0) sec INR (<1.2) APTT (22.0-30.0) sec Sodium (137-145) mmol/L Potassium (3.5-5.1) mmol/L Chloride (98-107) mmol/L Carbon Dioxide (22-30) mmol/L Anion Gap mmol/L BUN (9-20) mg/dL Creatinine (0.66-1.25) mg/dL Est GFR (CKD-EPI)AfAm (>60 ml/min/1.73 sqM) Est GFR (CKD-EPI)NonAf (>60 ml/min/1.73 sqM) Glucose (74-99) mg/dL Plasma Lactic Acid Ajay 2.0 (0.7-2.0) mmol/L Calcium (8.4-10.2) mg/dL Magnesium (1.6-2.3) mg/dL Total Bilirubin (0.2-1.3) mg/dL AST (17-59) U/L ALT (4-49) U/L Alkaline Phosphatase (38-126) U/L Troponin I 0.292 H* (0.000-0.034) ng/mL Total Protein (6.3-8.2) g/dL Albumin (3.5-5.0) g/dL Critical Care Time Critical Care Time: Yes Total Critical Care Time: 35 Disposition Clinical Impression: Pneumonia, Sepsis Disposition: ADMITTED IP TO THIS [facility] Condition: Stable Is patient prescribed a controlled substance at d/c from ED?: No Referrals: Derick Martinez MD [Primary Care Provider] - 1-2 days Time of Disposition: 14:15
[2022-12-26 13:09] LABS: Toxic Granulation Present
[2022-12-26 13:13] LABS: ALT 12 U/L (4-49); African American GFR (CKD) 17 (>60 ml/min/1.73 sqM); Albumin 2.7 g/dL (3.5-5.0); Anion Gap 14 mmol/L; Blood Urea Nitrogen 41 mg/dL (9-20); Calcium 9.3 mg/dL (8.4-10.2); Carbon Dioxide 21 mmol/L (22-30); Chloride 100 mmol/L (98-107); Glucose 104 mg/dL (74-99); Non-African American GFR(CKD) 15 (>60 ml/min/1.73 sqM); Sodium 135 mmol/L (137-145); Total Bilirubin 0.7 mg/dL (0.2-1.3)
--- NOTE | 2022-12-26 13:36 | XR ---
EXAMINATION TYPE: XR chest 1V portable DATE OF EXAM: 12/26/2022 1:28 PM COMPARISON: Chest radiographs from 08/11/2022 TECHNIQUE: XR chest 1V portable Portable AP radiograph of the chest. CLINICAL INDICATION:Male, 82 years old with history of april; FINDINGS: Patient is rotated which limits evaluation. Lungs/Pleura: Right lung is clear. Significant opacification of the left lung with patchy regions of aeration demonstrated within these superior portion and midportion. No pneumothorax. Pulmonary vascularity: Unremarkable. Heart/mediastinum: Cardiomediastinal silhouette is unremarkable. Musculoskeletal: No acute osseous pathology. Bilateral shoulder arthropathy. IMPRESSION: Near complete opacification of the left lung likely related to combination of pneumonia/atelectasis a nd pleural effusion. Continued follow-up is recommended.
[2022-12-26 13:38] LABS: AST 18 U/L (17-59); Alkaline Phosphatase 77 U/L (38-126); Magnesium 2.2 mg/dL (1.6-2.3); Potassium 4.6 mmol/L (3.5-5.1)
[2022-12-26] MEDS ORDERED: HYDROCORTISONE SUCCINATE 100 MG/2 ML VIAL IV STA (13:58)
[2022-12-26] MEDS ORDERED: VANCOMYCIN IV PER PHARMACY 1 EACH MISC MISCELLANE PRN (14:04)
[2022-12-26] MEDS ORDERED: NALOXONE 0.4 MG/ML 1 ML VIAL IV PRN (14:05)
[2022-12-26] MEDS ORDERED: VANCOMYCIN 1,500 MG in SODIUM CHLORIDE 0.9% 500 ML 500 ML IVPB STA (14:12)
[2022-12-26] MEDS: SODIUM CHLORIDE 0.9% 1,000 ML IV SCH ×2 (14:32→23:15)
--- NOTE | 2022-12-26 15:22 | CT ---
EXAMINATION TYPE: CT chest wo con CT DLP: 563.1 mGycm, Automated exposure control for dose reduction was used. DATE OF EXAM: 12/26/2022 3:04 PM COMPARISON: Chest radiograph from same day. CT lumbar spine 10/24/2022. CLINICAL INDICATION:Male, 82 years old with history of Pneumonia/effusion; PHH, Pneumonia/effusion TECHNIQUE: Multiple axial images were obtained through the chest without IV contrast. Lack of IV or o ral contrast limits evaluation of solid and hollow organ viscera. . Coronal and sagittal reformats re viewed. FINDINGS: LUNGS/ PLEURA: Large loculated left pleural effusion and there are surrounding atelectasis identified with partial atelectasis of the right upper lobe and lingula with complete atelectasis of the left l ower lobe. Consolidation with air bronchograms identified within the left upper lobe and lingula. Tra ce right pleural effusion with associated atelectasis. Biapical paraseptal emphysematous changes. AIRWAY: Patent and unremarkable.. HEART: Size within normal limits. Trace pericardial fluid. MEDIASTINUM: No gross evidence of adenopathy. VASCULATURE: No aortic aneurysm. 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 MUSCULOSKELETAL: No acute osseous abnormalities. Chronic anterior wedge compression deformity of the T12 and L1 vertebral bodies. Grade 1 anterolisthesis of C7 on T1. Bilateral shoulder arthropathy. SOFT TISSUES/LYMPH NODES: Unremarkable. LOWER NECK: No significant findings. UPPER ABDOMEN: No significant findings. IMPRESSION: 1. Large loculated left pleural effusion with partial atelectasis/consolidation involving the left up per lobe and lingula. There is complete atelectasis of the left lower lobe. 2. Trace right pleural effusion with associated atelectasis. 3. Mild COPD changes. 4. 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
[2022-12-26] MEDS ORDERED: bisacodyL 10 MG SUPP RECTAL PRN (15:45)
--- NOTE | 2022-12-26 15:56 | P.CNPUL ---
History of Present Illness Consult date: 12/26/22 Requesting physician: Virgil Lemon Reason for consult: dyspnea, abnormal CXR/CT Chief complaint: Shortness of breath History of present illness: This is an 82-year-old male patient with a known history of gastroesophageal reflux disease, hypertension, rheumatoid arthritis, lifelong nonsmoker, bipolar disorder, anxiety/depression. He was brought in to the emergency room this morning from [facility] for hypoxia confusion and had been receiving IV fluids over 4 L the past week. Chest x-ray reveals near complete opacification of the left lung. Computed tomography scan of the chest reveals a large loculated left pleural effusion with partial atelectasis/consolidation involving the left upper lobe and lingula. There is complete atelectasis of the left lower lobe. He is currently maintaining O2 saturations in the 90s on 3 L/m per nasal cannula. He is afebrile. Somewhat hypotensive. White count 35.3. Hemoglobin 8.5. Platelets 617. Sodium 135. Potassium 4.6. Bicarb 21. BUN 41. Creatinine 3.71. Glucose 104. Troponin 0.292. ProBNP 5420. The patient is a poor historian. Most of the information is taken from his family at the bedside. He is currently receiving normal saline at 130 ML's per hour. He is given a dose of vancomycin. Review of Systems ROS unobtainable: due to mental status Past Medical History Past Medical History: GERD/Reflux, Hypertension, Pneumonia, Prostate Disorder, Rheumatoid Arthritis (RA) Additional Past Medical History / Comment(s): Hx Pneumonia X3. BPH. DIVERTICULITIS. Wears a brace. hypotension. Bilateral cataracts History of Any Multi-Drug Resistant Organisms: None Reported Past Surgical History: Joint Replacement, Orthopedic Surgery Additional Past Surgical History / Comment(s): ORIF RIGHT ELBOW. RIGHT KNEE REPLACED. TRAUMA TO HIP/PELVIS FROM FALLING THROUGH A ROOF (LEFT HIP REPLACED/PELVIC FX). 2nd left hip replacement. Bilateral cataracts removed. Past Anesthesia/Blood Transfusion Reactions: Motion Sickness Past Psychological History: Anxiety, Bipolar, Depression Smoking Status: Never smoker Past Alcohol Use History: None Reported Past Drug Use History: None Reported - Past Family History Brother(s) Family Medical History: No Reported History Medications and Allergies Home Medications Medication Instructions Recorded Confirmed Type Aspirin EC [Ecotrin Low Dose] 81 mg PO DAILY@0800 04/12/22 12/26/22 History DULoxetine HCL [Cymbalta] 60 mg PO HS@199904/12/22 12/26/22 History Folic Acid 1 mg PO DAILY@139904/12/22 12/26/22 History Omeprazole 20 mg PO DAILY@0800 06/17/22 12/26/22 History lamoTRIgine [LaMICtal] 100 mg PO BID@0800,199908/11/22 12/26/22 History ALPRAZolam [Xanax] 0.25 mg PO BID PRN #6 tab 08/23/22 12/26/22 Rx Cyanocobalamin [Vitamin B-12] 500 mcg PO HS 10/24/22 12/26/22 History Docusate [Colace] 100 mg PO BID@0800,199910/24/22 12/26/22 History Fludrocortisone [Florinef] 0.2 mg PO DAILY@0800 10/24/22 12/26/22 History Hydrocortisone [Cortef] 10 mg PO BID@0800,1600 10/24/22 12/26/22 History Melatonin 3 mg PO HS@199910/24/22 12/26/22 History Midodrine HCl [ProAmatine] 10 mg PO TID@0700,1300,1900 10/24/22 12/26/22 History Sennosides [Senokot] 8.6 mg PO BID@0800,199910/24/22 12/26/22 History Cholecalciferol [Vitamin D3 (25 50 mcg PO HS 12/26/22 12/26/22 History Mcg = 1000 Iu)] DULoxetine HCL [Cymbalta] 30 mg PO DAILY@0700 12/26/22 12/26/22 History Ferrous Sulfate [Feosol] 325 mg PO DAILY@139912/26/22 12/26/22 History HYDROcodone/APAP 5-325MG [[place] 1 tab PO Q12H PRN 12/26/22 12/26/22 History 5-325] HYDROcodone/APAP 5-325MG [[place] 1 tab PO QID@05,11,17,12/26/22 12/26/22 History 5-325] Healthshake 1 dose PO TID@0700,1100,1700 12/26/22 12/26/22 History Magnesium Hydroxide [Milk of 2,400 mg PO DAILY PRN 12/26/22 12/26/22 History Magnesia] Tamsulosin HCl [Flomax] 0.4 mg PO HS 12/26/22 12/26/22 History bisacodyL 10 mg RECTAL DAILY PRN 12/26/22 12/26/22 History polyethylene glycoL 3350 [Miralax] 17 gm PO DAILY@0700 12/26/22 12/26/22 History Allergies Allergy/AdvReac Type Severity Reaction Status Date / Time amoxicillin Allergy Anaphylaxis Verified 12/26/22 14:05 ampicillin Allergy Anaphylaxis Verified 12/26/22 14:05 Iodinated Contrast Media Allergy Anaphylaxis Verified 12/26/22 14:05 [Iodinated Contrast Media - IV Dye] Penicillins Allergy Anaphylaxis, Verified 12/26/22 14:05 Swelling Physical Exam Vitals: Vital Signs Temp Pulse Resp BP Pulse Ox 12/26/22 15:35 82 18 86/51 93 L 12/26/22 14:47 84 17 91/57 94 L 12/26/22 14:32 96 19 80/54 93 L 12/26/22 14:10 98.7 F 94 18 92/54 93 L 12/26/22 13:48 93 18 73/49 96 12/26/22 13:00 86 18 79/50 94 L 12/26/22 12:32 98.6 F 86 20 74/50 93 L 12/26/22 12:08 99.9 F H 89 18 105/68 93 L Intake and Output 12/26/22 12/26/22 12/26/22 06:59 14:59 22:59 Other: Weight 81.647 kg GENERAL EXAM: Alert, confused 82-year-old male on 3 L nasal cannula, fairly comfortable in no apparent distress. HEAD: Normocephalic. EYES: Normal reaction of pupils, equal size. NOSE: Clear with pink turbinates. THROAT: No erythema or exudates. NECK: No masses, no JVD. CHEST: No chest wall deformity. LUNGS: Equal air entry with rhonchi and crackles of the left lung, dullness, diminished. CVS: S1 and S2 normal with no audible murmur, regular rhythm. ABDOMEN: No hepatosplenomegaly, normal bowel sounds, no guarding or rigidity. SPINE: No scoliosis or deformity SKIN: No rashes CENTRAL NERVOUS SYSTEM: No focal deficits, tone is normal in all 4 extremities. EXTREMITIES: There is no peripheral edema. No clubbing, no cyanosis. Peripheral pulses are intact. Results - Laboratory Findings CBC and BMP: 12/26/22 12:19 12/26/22 12:19 PT/INR, D-dimer PT 9.7 sec (9.0-12.0) 12/26/22 12:19 INR 0.9 (<1.2) 12/26/22 12:19 Abnormal lab findings: Abnormal Labs 12/26/22 12/26/22 12/26/22 12:19 12:19 12:19 WBC 35.3 H RBC 2.85 L Hgb 8.5 L Hct 27.4 L Plt Count 617 H Neutrophils # 33.4 H Lymphocytes # 0.9 L APTT 20.1 L Sodium 135 L Carbon Dioxide 21 L BUN 41 H Creatinine 3.71 H Glucose 104 H Troponin I Total Protein 6.0 L Albumin 2.7 L 12/26/22 12:19 WBC RBC Hgb Hct Plt Count Neutrophils # Lymphocytes # APTT Sodium Carbon Dioxide BUN Creatinine Glucose Troponin I 0.292 H* Total Protein Albumin - Diagnostic Findings Chest x-ray: image reviewed CT scan - chest: image reviewed Assessment and Plan Assessment: Acute hypoxemic respiratory failure secondary to a large left pleural effusion with near complete opacification of the left lung, suspect healthcare acquired pneumonia Leukocytosis secondary to above Acute renal failure Troponin leak Hypotension Lifelong nonsmoker History of esophageal reflux disease History of hypertension History of rheumatoid arthritis History of anxiety/depression History of bipolar disorder [facility] resident Plan: The patient was seen and evaluated Chest x-ray, CAT scan, labs and medications reviewed Obtain an ultrasound of the left chest If significant free-flowing fluid will plan for thoracentesis Obtain a pro-calcitonin Continue vancomycin Continue fluid resuscitation We will continue to follow and make further recommendations based on his clinical status I have personally seen and examined the patient, performed the documentation and the assessment and plan as written. Number of minutes spent on the visit: 20.
[2022-12-26] MEDS ORDERED: LEVOFLOXACIN 750MG-D5W PMX 750 MG in DEXTROSE/WATER 1 150ML.BAG IVPB SCH (16:00)
[2022-12-26] MEDS: HEPARIN SODIUM,PORCINE/PF 5,000 UNIT/0.5 ML SYRINGE SQ SCH (16:19)
--- NOTE | 2022-12-26 16:46 | P.HPIM ---
History of Present Illness H&P Date: 12/26/22 Patient is a 82-year-old male with history of orthostatic hypotension, chronic kidney disease, GERD, hypertension, prostate disorder presenting from nursing facility with worsening mentation and hypoxia. He claims that his roommate also has pneumonia. He currently has significant productive cough. He does have sternal chest pain with cough. He denies any abdominal pain, urinary or bowel complaints. He does have chills, denies any fevers. He is currently bedbound at home. Denies any smoking, alcohol use, or illicit drug use. In the ED, initial temperature was 99.9, pulse 89, respiratory rate 18, blood pressure 105/68, saturating at 92% on 4 L. Blood pressure did go down up to 73/49. WBC 35.3, hemoglobin 8.5, sodium 135, bicarb 21, anion gap 14, creatinine 3.71 up from baseline, troponin 0.92, proBNP 5000. Chest x-ray independently interpreted shows white out lung on the left side. Chest CT shows large loculated left-sided pleural effusion, trace right-sided pleural effusion. Ectatic ascending thoracic aorta at 2.8 cm. Patient was given another milligram of IV cortisone and IV levofloxacin, and liters normal saline, and IV vancomycin in the ED. Pulmonology also consulted. He is being admitted for severe sepsis secondary to pneumonia. Pertinent positives and negatives as discussed in HPI, a complete review of systems was performed and all other systems are negative. Patient seen and examined at bedside. Vital signs reviewed General: nontoxic, no distress, appears at stated age Derm: warm, dry Head: atraumatic, normocephalic, symmetric Eyes: EOMI, no lid lag, anicteric sclera, pupils equal round reactive to light ENT: Nose and ears atraumatic Neck: No thyromegaly, supple Mouth: no lip lesion, mucus membranes moist Cardiovascular: S1S2 reg, no murmur, no edema Lungs: clear to auscultation bilateral, no rhonchi, no rales, no wheeze, no accessory muscle use Abdominal: soft, nontender to palpation, no guarding, no appreciable organomegaly Ext: no gross muscle atrophy, muscle strength muscle strength 5 out of 5 in all 4 extremities, no contractures Neuro: CN II-XII grossly intact Psych: Alert, oriented, appropriate affect Assessment/Plan: Active: Severe sepsis secondary to community-acquired pneumonia Acute kidney injury on chronic kidney disease History of orthostatic hypotension on chronic steroids -Chest x-ray independently interpreted, shows white out lung on the left side, chest CT shows a large left-sided loculated pleural effusion -Pulmonology consulted -Patient may need thoracentesis -Blood cultures, sputum cultures, urine Legionella ordered -Pro calcitonin ordered -Given stress dose steroid dose in the ED, continue fludrocortisone and hydrocortisone, and midodrine -Continue IV fluids at 1 30 mL an hour -Renal ultrasound ordered -CBC and BMP tomorrow Chronic: Depression seizure hx? The patient is admitted with an anticipated greater than 2 midnight stay as inpatient status for evaluation of severe sepsis. Surrogate decision-maker: Spouse CODE STATUS: Full code DVT prophylaxis: Subcu heparin Anticipated discharge date: Pending clinical course Anticipated discharge place: Pending clinical course A total of 65 minutes was spent on the care of this complex patient more than 50% of the time was spent in counseling and care coordination. Past Medical History Past Medical History: GERD/Reflux, Hypertension, Pneumonia, Prostate Disorder, Rheumatoid Arthritis (RA) Additional Past Medical History / Comment(s): Hx Pneumonia X3. BPH. DIVERTICULITIS. Wears a brace. hypotension. Bilateral cataracts History of Any Multi-Drug Resistant Organisms: None Reported Past Surgical History: Joint Replacement, Orthopedic Surgery Additional Past Surgical History / Comment(s): ORIF RIGHT ELBOW. RIGHT KNEE REPLACED. TRAUMA TO HIP/PELVIS FROM FALLING THROUGH A ROOF (LEFT HIP REPLACED/PELVIC FX). 2nd left hip replacement. Bilateral cataracts removed. Past Anesthesia/Blood Transfusion Reactions: Motion Sickness Past Psychological History: Anxiety, Bipolar, Depression Smoking Status: Never smoker Past Alcohol Use History: None Reported Past Drug Use History: None Reported - Past Family History Brother(s) Family Medical History: No Reported History Medications and Allergies Home Medications Medication Instructions Recorded Confirmed Type Aspirin EC [Ecotrin Low Dose] 81 mg PO DAILY@0800 04/12/22 12/26/22 History DULoxetine HCL [Cymbalta] 60 mg PO HS@199904/12/22 12/26/22 History Folic Acid 1 mg PO DAILY@1400 04/12/22 12/26/22 History Omeprazole 20 mg PO DAILY@0800 06/17/22 12/26/22 History lamoTRIgine [LaMICtal] 100 mg PO BID@0800,199908/11/22 12/26/22 History ALPRAZolam [Xanax] 0.25 mg PO BID PRN #6 tab 08/23/22 12/26/22 Rx Cyanocobalamin [Vitamin B-12] 500 mcg PO HS 10/24/22 12/26/22 History Docusate [Colace] 100 mg PO BID@0800,199910/24/22 12/26/22 History Fludrocortisone [Florinef] 0.2 mg PO DAILY@0800 10/24/22 12/26/22 History Hydrocortisone [Cortef] 10 mg PO BID@0800,1600 10/24/22 12/26/22 History Melatonin 3 mg PO HS@199910/24/22 12/26/22 History Midodrine HCl [ProAmatine] 10 mg PO TID@0700,1300,1900 10/24/22 12/26/22 History Sennosides [Senokot] 8.6 mg PO BID@0800,199910/24/22 12/26/22 History Cholecalciferol [Vitamin D3 (25 50 mcg PO HS 12/26/22 12/26/22 History Mcg = 1000 Iu)] DULoxetine HCL [Cymbalta] 30 mg PO DAILY@0700 12/26/22 12/26/22 History Ferrous Sulfate [Feosol] 325 mg PO DAILY@1400 12/26/22 12/26/22 History HYDROcodone/APAP 5-325MG [[place] 1 tab PO Q12H PRN 12/26/22 12/26/22 History 5-325] HYDROcodone/APAP 5-325MG [[place] 1 tab PO QID@05,,,12/26/22 12/26/22 History 5-325] Healthshake 1 dose PO TID@0700,1100,1700 12/26/22 12/26/22 History Magnesium Hydroxide [Milk of 2,400 mg PO DAILY PRN 12/26/22 12/26/22 History Magnesia] Tamsulosin HCl [Flomax] 0.4 mg PO HS 12/26/22 12/26/22 History bisacodyL 10 mg RECTAL DAILY PRN 12/26/22 12/26/22 History polyethylene glycoL 3350 [Miralax] 17 gm PO DAILY@0700 12/26/22 12/26/22 History Allergies Allergy/AdvReac Type Severity Reaction Status Date / Time amoxicillin Allergy Anaphylaxis Verified 12/26/22 14:05 ampicillin Allergy Anaphylaxis Verified 12/26/22 14:05 Iodinated Contrast Media Allergy Anaphylaxis Verified 12/26/22 14:05 [Iodinated Contrast Media - IV Dye] Penicillins Allergy Anaphylaxis, Verified 12/26/22 14:05 Swelling Physical Exam Vitals: Vital Signs Temp Pulse Resp BP Pulse Ox 12/26/22 15:35 82 18 86/51 93 L 12/26/22 14:47 84 17 91/57 94 L 12/26/22 14:32 96 19 80/54 93 L 12/26/22 14:10 98.7 F 94 18 92/54 93 L 12/26/22 13:48 93 18 73/49 96 12/26/22 13:00 86 18 79/50 94 L 12/26/22 12:32 98.6 F 86 20 74/50 93 L 12/26/22 12:08 99.9 F H 89 18 105/68 93 L Intake and Output 12/26/22 12/26/22 12/26/22 06:59 14:59 22:59 Other: Weight 81.647 kg Results CBC & Chem 7: 12/26/22 12:19 12/26/22 12:19 Labs: Abnormal Lab Results - Last 24 Hours (Table) 12/26/22 12/26/22 12/26/22 Range/Units 12:19 12:19 12:19 WBC 35.3 H (3.8-10.6) k/uL RBC 2.85 L (4.30-5.90) m/uL Hgb 8.5 L (13.0-17.5) gm/dL Hct 27.4 L (39.0-53.0) % Plt Count 617 H (150-450) k/uL Neutrophils # 33.4 H (1.3-7.7) k/uL Lymphocytes # 0.9 L (1.0-4.8) k/uL APTT 20.1 L (22.0-30.0) sec Sodium 135 L (137-145) mmol/L Carbon Dioxide 21 L (22-30) mmol/L BUN 41 H (9-20) mg/dL Creatinine 3.71 H (0.66-1.25) mg/dL Glucose 104 H (74-99) mg/dL Troponin I (0.000-0.034) ng/mL Total Protein 6.0 L (6.3-8.2) g/dL Albumin 2.7 L (3.5-5.0) g/dL 12/26/22 Range/Units 12:19 WBC (3.8-10.6) k/uL RBC (4.30-5.90) m/uL Hgb (13.0-17.5) gm/dL Hct (39.0-53.0) % Plt Count (150-450) k/uL Neutrophils # (1.3-7.7) k/uL Lymphocytes # (1.0-4.8) k/uL APTT (22.0-30.0) sec Sodium (137-145) mmol/L Carbon Dioxide (22-30) mmol/L BUN (9-20) mg/dL Creatinine (0.66-1.25) mg/dL Glucose (74-99) mg/dL Troponin I 0.292 H* (0.000-0.034) ng/mL Total Protein (6.3-8.2) g/dL Albumin (3.5-5.0) g/dL
[2022-12-26] MEDS: HYDROCORTISONE 10 MG TAB PO SCH (16:51)
--- NOTE | 2022-12-26 16:59 | US ---
EXAMINATION TYPE: US chest DATE OF EXAM: 12/26/2022 COMPARISON: CT chest 12/26/2021, radiograph same day. CLINICAL INDICATION: Male, 82 years old with history of Left pleural effusion; TECHNIQUE: Targeted ultrasound of the posterior lower left hemithorax EXAM MEASUREMENTS: Left Pleural Effusion pocket size: 9.4 cm Left skin surface to fluid distance: 3.0 cm Left side marked for possible thoracentesis outside the dept. Pulmonologists are able to review the images in the patient?s EMR. IMPRESSIONS: Left-sided pleural effusion marked for possible thoracentesis.
[2022-12-26] MEDS ORDERED: ALPRAZolam 0.25 MG TAB PO PRN (17:12)
[2022-12-26] MEDS ORDERED: HYDROcodone/APAP 5-325MG 1 EACH TAB PO PRN (17:12)
[2022-12-26] MEDS: MIDODRINE 5 MG TAB PO SCH (18:29)
[2022-12-26 18:54] LABS: ABG Base Excess -2.2 mmol/L; ABG HCO3 22 mmol/L (21-25); ABG Oxygen Saturation 91.4 % (94-97); ABG PCO2 35 mmHg (35-45); ABG PH 7.42 (7.35-7.45); ABG PO2 60 mmHg (83-108); ABG TCO2 23 mmol/L (19-24)
--- NOTE | 2022-12-26 18:55 | US ---
EXAMINATION TYPE: US kidneys/renal and bladder DATE OF EXAM: 12/26/2022 COMPARISON: 10/25/22 CLINICAL INDICATION: Male, 82 years old with history of BRUCE; BRUCE, hx of renal stones EXAM MEASUREMENTS: Right Kidney: 11.2 x 6.2 x 5.5 cm Left Kidney: 11.7 x 5.5 x 5.7 cm Right Kidney: No hydronephrosis or masses seen Left Kidney: Mild hydronephrosis visualized Bladder: Irregular wall seen. Possible layer of debris seen Bilateral Jets seen: No IMPRESSION: 1. Mild left hydronephrosis. No right obstructive uropathy. 2. Increased echotexture to kidneys suggestive of medical renal disease. 3. There are bladder trabeculations possibly secondary to urinary stasis in the setting of bladder o utlet obstruction. Correlate with urinalysis.
[2022-12-26] MEDS: MELATONIN 3 MG TABLET PO SCH (20:31)
[2022-12-26] MEDS: DULoxetine HCL 60 MG CAPSULE.DR PO SCH (20:31)
[2022-12-26] MEDS: CYANOCOBALAMIN 500 MCG TAB PO SCH (20:32)
[2022-12-26] MEDS: TAMSULOSIN 0.4 MG CAP.ER.24H PO SCH (20:32)
[2022-12-26] MEDS: DOCUSATE 100 MG CAP PO SCH (20:32)
[2022-12-26] MEDS: lamoTRIgine 100 MG TAB PO SCH (20:32)
[2022-12-26] MEDS: CHOLECALCIFEROL 25 MCG (1000 IU) TABLET PO SCH (20:35)
[2022-12-27] MEDS: HEPARIN SODIUM,PORCINE/PF 5,000 UNIT/0.5 ML SYRINGE SQ SCH ×3 (03:52→15:55)
[2022-12-27 04:38] LABS: Basophils % (A) 0 %; Eosinophils % (A) 0 %; HCT 23.8 % (39.0-53.0); HGB 7.3 gm/dL (13.0-17.5); Hypochromasia Slight; Lymphocytes # (A) 0.9 k/uL (1.0-4.8); Lymphocytes % (A) 3 %; MCH 29.6 pg (25.0-35.0); MCHC 30.5 g/dL (31.0-37.0); MCV 97.1 fL (80.0-100.0); Mean Platelet Volume 7.5; Monocytes # (A) 0.7 k/uL (0-1.0); Monocytes % (A) 2 %; Neutrophils # (A) 28.6 k/uL (1.3-7.7); Neutrophils % (A) 94 %; Platelet Count 573 k/uL (150-450); RBC 2.45 m/uL (4.30-5.90); RDW 14.5 % (11.5-15.5)
[2022-12-27 04:43] LABS: WBC 30.3 k/uL (3.8-10.6)
[2022-12-27 04:51] LABS: African American GFR (CKD) 15 (>60 ml/min/1.73 sqM); Anion Gap 11 mmol/L; Blood Urea Nitrogen 43 mg/dL (9-20); Calcium 8.7 mg/dL (8.4-10.2); Carbon Dioxide 21 mmol/L (22-30); Chloride 102 mmol/L (98-107); Glucose 114 mg/dL (74-99); Non-African American GFR(CKD) 13 (>60 ml/min/1.73 sqM); Potassium 4.4 mmol/L (3.5-5.1); Sodium 134 mmol/L (137-145)
[2022-12-27] MEDS: SODIUM CHLORIDE 0.9% 1,000 ML IV SCH ×3 (06:52→21:19)
[2022-12-27] MEDS: DULoxetine HCL 30 MG CAPSULE.DR PO SCH (06:52)
[2022-12-27] MEDS: MIDODRINE 5 MG TAB PO SCH ×3 (06:52→18:08)
[2022-12-27] MEDS ORDERED: VANCOMYCIN 1,500 MG in SODIUM CHLORIDE 0.9% 500 ML 500 ML IVPB ONE (09:00)
[2022-12-27] MEDS: lamoTRIgine 100 MG TAB PO SCH ×2 (09:44→21:16)
[2022-12-27] MEDS: PANTOPRAZOLE 40 MG TABLET PO SCH (09:44)
[2022-12-27] MEDS: DOCUSATE 100 MG CAP PO SCH ×2 (09:44→21:18)
[2022-12-27] MEDS: FLUDROCORTISONE 0.1 MG TAB PO SCH (09:46)
[2022-12-27] MEDS: HYDROCORTISONE 10 MG TAB PO SCH ×2 (09:46→15:55)
[2022-12-27] MEDS: HYDROcodone/APAP 5-325MG 1 EACH TAB PO PRN ×3 (10:08→21:16)
[2022-12-27] MEDS: ASPIRIN 81 MG PO SCH (10:10)
[2022-12-27] MEDS ORDERED: ALPRAZolam 0.5 MG TAB PO STA (11:00)
--- NOTE | 2022-12-27 11:42 | P.NPCON ---
History of Present Illness - Reason for Consult acute renal failure - History of Present Illness Patient is an 82-year-old male with history of chronic kidney disease, hypertension, gastroesophageal reflux disease who was admitted to the hospital from extended care facility with mental status changes. Patient is not able to provide a detailed history. Patient had low-grade temperature on admission at 99.9F. White cell count significantly elevated at 35,000. Blood pressure is low with systolic in the 70s on initial admission. Currently maintained on IV fluids. Post void residual was 435 mL but patient was able to void almost the whole amount. Maintained on midodrine and Florinef for chronic hypotension as outpatient. No NSAIDs noted on med list. Review of Systems As per HPI Past Medical History Past Medical History: GERD/Reflux, Pneumonia, Prostate Disorder, Rheumatoid Arthritis (RA) Additional Past Medical History / Comment(s): Hx Pneumonia X3. BPH. DIVERTICULITIS. Wears a brace. hypotension. Bilateral cataracts History of Any Multi-Drug Resistant Organisms: None Reported Past Surgical History: Joint Replacement, Orthopedic Surgery Additional Past Surgical History / Comment(s): ORIF RIGHT ELBOW. RIGHT KNEE REPLACED. TRAUMA TO HIP/PELVIS FROM FALLING THROUGH A ROOF (LEFT HIP REPLACED/PELVIC FX). 2nd left hip replacement. Bilateral cataracts removed. Past Anesthesia/Blood Transfusion Reactions: Motion Sickness Past Psychological History: Anxiety, Bipolar, Depression Smoking Status: Former smoker Past Alcohol Use History: None Reported Additional Past Alcohol Use History / Comment(s): SMOKED FOR ABOUT 10 YRS, QUIT WHEN A "PACK OF CIGARETTES COST 55 CENTS". 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 - Past Family History Brother(s) Family Medical History: No Reported History Medications and Allergies Home Medications Medication Instructions Recorded Confirmed Type Aspirin EC [Ecotrin Low Dose] 81 mg PO DAILY@0800 04/12/22 12/26/22 History DULoxetine HCL [Cymbalta] 60 mg PO HS@199904/12/22 12/26/22 History Folic Acid 1 mg PO DAILY@1400 04/12/22 12/26/22 History Omeprazole 20 mg PO DAILY@0800 06/17/22 12/26/22 History lamoTRIgine [LaMICtal] 100 mg PO BID@0800,199908/11/22 12/26/22 History ALPRAZolam [Xanax] 0.25 mg PO BID PRN #6 tab 08/23/22 12/26/22 Rx Cyanocobalamin [Vitamin B-12] 500 mcg PO HS 10/24/22 12/26/22 History Docusate [Colace] 100 mg PO BID@0800,199910/24/22 12/26/22 History Fludrocortisone [Florinef] 0.2 mg PO DAILY@0800 10/24/22 12/26/22 History Hydrocortisone [Cortef] 10 mg PO BID@0800,1600 10/24/22 12/26/22 History Melatonin 3 mg PO HS@199910/24/22 12/26/22 History Midodrine HCl [ProAmatine] 10 mg PO TID@0700,1300,1900 10/24/22 12/26/22 History Sennosides [Senokot] 8.6 mg PO BID@0800,199910/24/22 12/26/22 History Cholecalciferol [Vitamin D3 (25 50 mcg PO HS 12/26/22 12/26/22 History Mcg = 1000 Iu)] DULoxetine HCL [Cymbalta] 30 mg PO DAILY@0700 12/26/22 12/26/22 History Ferrous Sulfate [Feosol] 325 mg PO DAILY@1400 12/26/22 12/26/22 History HYDROcodone/APAP 5-325MG [[place] 1 tab PO Q12H PRN 12/26/22 12/26/22 History 5-325] HYDROcodone/APAP 5-325MG [[place] 1 tab PO QID@05,,,12/26/22 12/26/22 History 5-325] Healthshake 1 dose PO TID@0700,1100,1700 12/26/22 12/26/22 History Magnesium Hydroxide [Milk of 2,400 mg PO DAILY PRN 12/26/22 12/26/22 History Magnesia] Tamsulosin HCl [Flomax] 0.4 mg PO HS 12/26/22 12/26/22 History bisacodyL 10 mg RECTAL DAILY PRN 12/26/22 12/26/22 History polyethylene glycoL 3350 [Miralax] 17 gm PO DAILY@0700 12/26/22 12/26/22 History Allergies Allergy/AdvReac Type Severity Reaction Status Date / Time amoxicillin Allergy Anaphylaxis Verified 12/26/22 14:05 ampicillin Allergy Anaphylaxis Verified 12/26/22 14:05 Iodinated Contrast Media Allergy Anaphylaxis Verified 12/26/22 14:05 [Iodinated Contrast Media - IV Dye] Penicillins Allergy Anaphylaxis, Verified 12/26/22 14:05 Swelling Physical Exam Vitals: Vital Signs Temp Pulse Pulse Resp BP BP Pulse Ox 12/27/22 08:26 97.4 F L 80 17 104/55 93 L 12/27/22 04:00 86 20 101/63 94 L 12/27/22 02:00 86 20 12/27/22 00:00 78 16 100/58 92 L 12/26/22 21:15 98.0 F 77 20 93/48 95 12/26/22 20:35 68 47 H 93/59 94 L 12/26/22 20:16 98.0 F 89 17 82/52 94 L 12/26/22 18:26 98.6 F 79 18 104/53 93 L 12/26/22 17:00 81 18 87/56 92 L 12/26/22 16:40 98.3 F 12/26/22 16:21 87 18 93/53 94 L 12/26/22 15:35 82 18 86/51 93 L 12/26/22 14:47 84 17 91/57 94 L 12/26/22 14:32 96 19 80/54 93 L 12/26/22 14:10 98.7 F 94 18 92/54 93 L 12/26/22 13:48 93 18 73/49 96 12/26/22 13:00 86 18 79/50 94 L 12/26/22 12:32 98.6 F 86 20 74/50 93 L 12/26/22 12:08 99.9 F H 89 18 105/68 93 L Intake and Output 12/26/22 12/27/22 12/27/22 22:59 06:59 14:59 Output Total 248 710 Balance -248 -710 Output: Urine 275 Post Void Residual 248 435 Other: # Voids 1 Weight 81.647 kg Patient is awake, comfortable, in no acute distress Unable to communicate much Examination of the heart S1 and S2 Examination of the lungs bilateral breath sounds are heard Abdomen is soft nontender Examination of lower extremities shows no significant edema 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 Results - Lab Results Most recent lab results ABG pH 7.42 (7.35-7.45) 12/26/22 18:50 ABG pCO2 35 mmHg (35-45) 12/26/22 18:50 ABG pO2 60 mmHg (83-108) L 12/26/22 18:50 ABG HCO3 22 mmol/L (21-25) 12/26/22 18:50 ABG O2 Saturation 91.4 % (94-97) L 12/26/22 18:50 Calcium 8.7 mg/dL (8.4-10.2) 12/27/22 04:05 Magnesium 2.2 mg/dL (1.6-2.3) 12/26/22 12:19 12/27/22 04:06 12/27/22 04:05 Assessment and Plan Assessment: 1. Acute kidney injury, mostly ATN associated with low blood pressure and hypotension as well as underlying infection. Currently nonoliguric. Repeat post void bladder scan for urine retention. No nephrotoxic agents on board. Check UA. Ultrasound shows mild left hydronephrosis with a regular bladder cortes possibly related to bladder outlet obstruction. 2. 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 Etiology is nephrosclerosis 3. Left lung pneumonia with chest x-ray showing near complete opacification of the left lung. 4. History of orthostatic hypotension maintained on Florinef and midodrine as o utpatient along with Cortef 5. Anemia rule out iron deficiency. No active bleeding noted. Plan: Repeat post void residual Continue with IV fluids Repeat labs in a.m. Check iron profile May continue with vancomycin with close monitoring of levels. Thank you for the consultation. We will continue to follow the patient with you during his hospitalization.
--- NOTE | 2022-12-27 12:42 | P.PN ---
Subjective Progress Note Date: 12/27/22 Principal diagnosis: Shortness of breath. This is an 82-year-old male patient with a known history of gastroesophageal reflux disease, hypertension, rheumatoid arthritis, lifelong nonsmoker, bipolar disorder, anxiety/depression. He was brought in to the emergency room this morn ing from [facility] for hypoxia confusion and had been receiving IV fluids over 4 L the past week. Chest x-ray reveals near complete opacification of the left lung. Computed tomography scan of the chest reveals a large loculated left pleural effusion with partial atelectasis/consolidation involving the left upper lobe and lingula. There is complete atelectasis of the left lower lobe. He is currently maintaining O2 saturations in the 90s on 3 L/m per nasal cannula. He is afebrile. Somewhat hypotensive. White count 35.3. Hemoglobin 8.5. Platelets 617. Sodium 135. Potassium 4.6. Bicarb 21. BUN 41. Creatinine 3.71. Glucose 104. Troponin 0.292. ProBNP 5420. The patient is a poor historian. Most of the information is taken from his family at the bedside. He is currently receiving normal saline at 130 ML's per hour. He is given a dose of vancomycin. Progress note dated 12/27/2022. 82-year-old male seen in the emergency department yesterday. He has a known history of GERD, hypertension, rheumatoid arthritis, I probably disorder, anxiety/depression, and was brought to the emergency room from a local custodial, because of hypoxia, confusion, and a chest x-ray which showed a possible pneumonia. In addition, there was a left-sided pleural effusion. Clinically, the patient appears reasonably stable. He is getting saline at 130 mL an hour, is on 3 L of oxygen. His pro-calcitonin level was 1.19. He was placed on vancomycin and Levaquin. The patient's ultrasound did reveal a right-sided pleural effusion, and we've asked interventional radiology to consider ultrasound-guided drainage. White count 30.3, hemoglobin 7.3, hematocrit 23.8, and platelet count 573,000. Sodium 134, potassium 4.4, chlorides 102, CO2 21, BUN 43, creatinine 4.11. Troponins were 0.292, 0.287, and 0.240. N-terminal proBNP was elevated at 5420. Objective - Vital Signs Vital signs: Vital Signs Temp 97.4 F L 12/27/22 08:26 Pulse 80 12/27/22 08:26 Resp 17 12/27/22 08:26 BP 104/55 12/27/22 08:26 Pulse Ox 93 L 12/27/22 08:26 FiO2 Intake & Output 12/26/22 12/27/22 12/27/22 18:59 06:59 18:59 Output Total 958 Balance -958 Weight 81.647 kg 81.647 kg Output: Urine 275 Post Void Residual 683 Other: # Voids 1 - Exam No acute distress, oriented 3. Currently on 3 L of oxygen. No overt respiratory distress. HEENT examination is grossly unremarkable. Mucous membranes are moist. No oral lesions. Neck supple. Full range of motion. No adenopathy thyromegaly or neck vein d istention. Cardiovascular examination reveals regular rhythm rate. S1-S2 normal. No S3 or S4. No discernible murmur noted. Heart sounds are distant. Heart rate 80 bpm. Lungs reveal diminished left-sided breath sounds. Scattered rhonchi are noted. No wheezes. No crackles. Saturations are mid 90s, on 3 L. Abdomen soft bowel sounds are heard. No masses or tenderness. Extremities are intact. No cyanosis clubbing or edema. Skin is without rash or lesion. Neurologic examination is brief but nonfocal. - Labs CBC & Chem 7: 12/27/22 04:06 12/27/22 04:05 Labs: Abnormal Lab Results - Last 24 Hours (Table) 12/26/22 12/26/22 12/26/22 Range/Units 12:19 12:19 12:19 WBC 35.3 H (3.8-10.6) k/uL RBC 2.85 L (4.30-5.90) m/uL Hgb 8.5 L (13.0-17.5) gm/dL Hct 27.4 L (39.0-53.0) % MCHC (31.0-37.0) g/dL Plt Count 617 H (150-450) k/uL Neutrophils # 33.4 H (1.3-7.7) k/uL Lymphocytes # 0.9 L (1.0-4.8) k/uL APTT 20.1 L (22.0-30.0) sec ABG pO2 (83-108) mmHg ABG O2 Saturation (94-97) % Sodium 135 L (137-145) mmol/L Carbon Dioxide 21 L (22-30) mmol/L BUN 41 H (9-20) mg/dL Creatinine 3.71 H (0.66-1.25) mg/dL Glucose 104 H (74-99) mg/dL Troponin I (0.000-0.034) ng/mL Total Protein 6.0 L (6.3-8.2) g/dL Albumin 2.7 L (3.5-5.0) g/dL Procalcitonin (0.02-0.09) ng/mL 12/26/22 12/26/22 12/26/22 Range/Units 12:19 12:19 18:50 WBC (3.8-10.6) k/uL RBC (4.30-5.90) m/uL Hgb (13.0-17.5) gm/dL Hct (39.0-53.0) % MCHC (31.0-37.0) g/dL Plt Count (150-450) k/uL Neutrophils # (1.3-7.7) k/uL Lymphocytes # (1.0-4.8) k/uL APTT (22.0-30.0) sec ABG pO2 60 L (83-108) mmHg ABG O2 Saturation 91.4 L (94-97) % Sodium (137-145) mmol/L Carbon Dioxide (22-30) mmol/L BUN (9-20) mg/dL Creatinine (0.66-1.25) mg/dL Glucose (74-99) mg/dL Troponin I 0.292 H* (0.000-0.034) ng/mL Total Protein (6.3-8.2) g/dL Albumin (3.5-5.0) g/dL Procalcitonin 1.19 H (0.02-0.09) ng/mL 12/26/22 12/27/22 12/27/22 Range/Units 23:23 04:05 04:05 WBC (3.8-10.6) k/uL RBC (4.30-5.90) m/uL Hgb (13.0-17.5) gm/dL Hct (39.0-53.0) % MCHC (31.0-37.0) g/dL Plt Count (150-450) k/uL Neutrophils # (1.3-7.7) k/uL Lymphocytes # (1.0-4.8) k/uL APTT (22.0-30.0) sec ABG pO2 (83-108) mmHg ABG O2 Saturation (94-97) % Sodium 134 L (137-145) mmol/L Carbon Dioxide 21 L (22-30) mmol/L BUN 43 H (9-20) mg/dL Creatinine 4.11 H (0.66-1.25) mg/dL Glucose 114 H (74-99) mg/dL Troponin I 0.287 H* 0.240 H* (0.000-0.034) ng/mL Total Protein (6.3-8.2) g/dL Albumin (3.5-5.0) g/dL Procalcitonin (0.02-0.09) ng/mL 12/27/22 Range/Units 04:06 WBC 30.3 H (3.8-10.6) k/uL RBC 2.45 L (4.30-5.90) m/uL Hgb 7.3 L (13.0-17.5) gm/dL Hct 23.8 L (39.0-53.0) % MCHC 30.5 L (31.0-37.0) g/dL Plt Count 573 H (150-450) k/uL Neutrophils # 28.6 H (1.3-7.7) k/uL Lymphocytes # 0.9 L (1.0-4.8) k/uL APTT (22.0-30.0) sec ABG pO2 (83-108) mmHg ABG O2 Saturation (94-97) % Sodium (137-145) mmol/L Carbon Dioxide (22-30) mmol/L BUN (9-20) mg/dL Creatinine (0.66-1.25) mg/dL Glucose (74-99) mg/dL Troponin I (0.000-0.034) ng/mL Total Protein (6.3-8.2) g/dL Albumin (3.5-5.0) g/dL Procalcitonin (0.02-0.09) ng/mL Assessment and Plan Assessment: Acute hypoxemic respiratory failure secondary to a large left pleural effusion with near complete opacification of the left lung, suspect healthcare acquired pneumonia. Leukocytosis secondary to above. Acute renal failure. Troponin leak. Hypotension. Lifelong nonsmoker. History of esophageal reflux disease. History of hypertension. History of rheumatoid arthritis. History of anxiety/depression. History of bipolar disorder. long-term resident. Plan: Plan dated 12/27/2022. The results of the chest x-ray, CAT scan, an ultrasound of the chest, reviewed, and we decided that interventional radiology should consider a ultrasound guided left thoracentesis. The patient appears clinically stable on 3 L of oxygen. Labs and x-rays are reviewed. The patient was placed on vancomycin and Levaquin. The pro-calcitonin level was elevated at 1.19. The patient remains on 3 L of oxygen. We will continue to follow the patient and make recommendations along the way. Time with Patient: Less than 30
--- NOTE | 2022-12-27 13:18 | P.PN ---
Subjective Progress Note Date: 12/27/22 Hospital Course: 82-year-old male with history of orthostatic hypotension, chronic kidney disease, GERD, hypertension, prostate disorder presenting from nursing facility with worsening mentation and hypoxia. In the ED, initial temperature was 99.9, pulse 89, respiratory rate 18, blood pressure 105/68, saturating at 92% on 4 L. Blood pressure did go down up to 73/49. WBC 35.3, hemoglobin 8.5, sodium 135, bicarb 21, anion gap 14, creatinine 3.71 up from baseline, troponin 0.92, proBNP 5000. Chest x-ray independently interpreted shows white out lung on the left side. Chest CT shows large loculated left-sided pleural effusion, trace right- sided pleural effusion. Ectatic ascending thoracic aorta at 2.8 cm. Patient was given another milligram of IV cortisone and IV levofloxacin, and liters normal saline, and IV vancomycin in the ED. Pulmonology also consulted. He is being admitted for severe sepsis secondary to pneumonia. Renal function worsening. Nephrology consulted. Pulmonology also following. Subjective: Patient seen and examined at bedside. No acute events overnight. He has been having reduced urine output, bladder scan shows urinary retention. Denies any bowel movements. Continues to have shortness of breath, and chest pain with cough. Pertinent positives and negatives as discussed above, a complete review of systems was performed and all other systems are negative. Vitals Signs Reviewed. General: nontoxic, no distress, appears at stated age Derm: warm, dry Head: atraumatic, normocephalic, symmetric Eyes: EOMI, no lid lag, anicteric sclera Mouth: no lip lesion, mucus membranes moist Cardiovascular: S1S2 reg, no murmur Lungs: Decreased breath sounds on the left, no accessory muscle use, supplemental oxygen Abdominal: soft, nontender to palpation, no guarding, no appreciable organomegaly Ext: no gross muscle atrophy, no edema, no contractures Neuro: CN II-XI grossly intact, no focal neuro deficits Psych: Alert, oriented, appropriate affect Data Reviewed Today: Pertinent Labs: WBC 30.3, hemoglobin 7.3, platelets 573, sodium 134, creatinine 4.11, troponin peaked at 0.292 Imaging: Renal ultrasound shows mild left hydronephrosis, no right obstructive uropathy, likely urinary stasis in the setting of bladder alert obstruction Assessment and Plan: Severe sepsis secondary to community-acquired pneumonia Elevated troponin, likely demand ischemia Acute kidney injury on chronic kidney disease Urinary retention History of orthostatic hypotension on chronic steroids -Pulmonology note reviewed, continue antibiotics -On IV vancomycin, monitor for renal toxicity, insulin oxygen -Patient may need thoracentesis -Blood cultures, sputum cultures, urine Legionella pending -Pro calcitonin elevated -continue fludrocortisone and hydrocortisone, and midodrine -Continue IV fluids at 1 30 mL an hour -Place urinary catheter -Nephrology note reviewed, continue antibiotics -CBC and BMP tomorrow Chronic: Depression Bipolar disorder DVT ppx: Subcu heparin Code status: Full code Anticipated discharge place: Pending clinical course Anticipated discharge time: Pending clinical course Objective - Vital Signs Vital signs: Vital Signs Temp 97.4 F L 12/27/22 08:26 Pulse 80 12/27/22 08:26 Resp 17 12/27/22 08:26 BP 104/55 12/27/22 08:26 Pulse Ox 93 L 12/27/22 08:26 FiO2 Intake & Output 12/26/22 12/27/22 12/27/22 18:59 06:59 18:59 Output Total 958 400 Balance -958 -400 Weight 81.647 kg 81.647 kg Output: Urine 275 400 Post Void Residual 683 Other: # Voids 1 - Labs CBC & Chem 7: 12/27/22 04:06 12/27/22 04:05 Labs: Abnormal Lab Results - Last 24 Hours (Table) 12/26/22 12/26/22 12/26/22 Range/Units 12:19 12:19 12:19 WBC (3.8-10.6) k/uL RBC (4.30-5.90) m/uL Hgb (13.0-17.5) gm/dL Hct (39.0-53.0) % MCHC (31.0-37.0) g/dL Plt Count (150-450) k/uL Neutrophils # (1.3-7.7) k/uL Lymphocytes # (1.0-4.8) k/uL ABG pO2 (83-108) mmHg ABG O2 Saturation (94-97) % Sodium 135 L (137-145) mmol/L Carbon Dioxide 21 L (22-30) mmol/L BUN 41 H (9-20) mg/dL Creatinine 3.71 H (0.66-1.25) mg/dL Glucose 104 H (74-99) mg/dL Troponin I 0.292 H* (0.000-0.034) ng/mL Total Protein 6.0 L (6.3-8.2) g/dL Albumin 2.7 L (3.5-5.0) g/dL Procalcitonin 1.19 H (0.02-0.09) ng/mL 12/26/22 12/26/22 12/27/22 Range/Units 18:50 23:23 04:05 WBC (3.8-10.6) k/uL RBC (4.30-5.90) m/uL Hgb (13.0-17.5) gm/dL Hct (39.0-53.0) % MCHC (31.0-37.0) g/dL Plt Count (150-450) k/uL Neutrophils # (1.3-7.7) k/uL Lymphocytes # (1.0-4.8) k/uL ABG pO2 60 L (83-108) mmHg ABG O2 Saturation 91.4 L (94-97) % Sodium 134 L (137-145) mmol/L Carbon Dioxide 21 L (22-30) mmol/L BUN 43 H (9-20) mg/dL Creatinine 4.11 H (0.66-1.25) mg/dL Glucose 114 H (74-99) mg/dL Troponin I 0.287 H* (0.000-0.034) ng/mL Total Protein (6.3-8.2) g/dL Albumin (3.5-5.0) g/dL Procalcitonin (0.02-0.09) ng/mL 12/27/22 12/27/22 Range/Units 04:05 04:06 WBC 30.3 H (3.8-10.6) k/uL RBC 2.45 L (4.30-5.90) m/uL Hgb 7.3 L (13.0-17.5) gm/dL Hct 23.8 L (39.0-53.0) % MCHC 30.5 L (31.0-37.0) g/dL Plt Count 573 H (150-450) k/uL Neutrophils # 28.6 H (1.3-7.7) k/uL Lymphocytes # 0.9 L (1.0-4.8) k/uL ABG pO2 (83-108) mmHg ABG O2 Saturation (94-97) % Sodium (137-145) mmol/L Carbon Dioxide (22-30) mmol/L BUN (9-20) mg/dL Creatinine (0.66-1.25) mg/dL Glucose (74-99) mg/dL Troponin I 0.240 H* (0.000-0.034) ng/mL Total Protein (6.3-8.2) g/dL Albumin (3.5-5.0) g/dL Procalcitonin (0.02-0.09) ng/mL
--- NOTE | 2022-12-27 15:15 | US ---
Ultrasound-guided therapeutic and diagnostic thoracentesis DATE OF EXAM: 12/27/2022 CLINICAL HISTORY: Left pleural effusion The procedure was discussed with the patient. The risks, complications, benefits, and alternatives we re discussed and any questions were answered. Informed consent was obtained. The patient was placed supine on the ultrasound table and prepped and draped in the usual sterile fas hion. All elements of maximal barrier and sterile technique were utilized. Under ultrasound guidance, access into the pleural space was obtained, via the thoracentesis catheter system and direct ultrasound guidance. Ap proximately 0.75 liters of straw-colored fluid was removed. The patient was stable throughout the procedure and remained stable upon discharge from Department of Radiology. IMPRESSION: 1. Successful therapeutic and diagnostic thoracentesis under ultrasound guidance.
--- NOTE | 2022-12-27 15:41 | XR ---
EXAMINATION TYPE: XR chest 1V portable DATE OF EXAM: 12/27/2022 3:33 PM COMPARISON: Chest radiographs from 12/26/2022 TECHNIQUE: XR chest 1V portable Frontal view of the chest. CLINICAL INDICATION:Male, 82 years old with history of POST thoracentesis; FINDINGS: The examination with the right costophrenic angle not included in the [id number]. Lungs/Pleura: There is again significant opacification of the left lung with regions of atelectasis/a eration in the left upper lobe . No pneumothorax. Pulmonary vascularity: Pulmonary vascular congestion. Heart/mediastinum: Cardiomediastinal silhouette is partially obscured due to overlying and adjacent o pacities. Musculoskeletal: No acute osseous pathology. IMPRESSION: Status postthoracentesis with no pneumothorax identified. There is continued large opacification of t he left hemithorax related to effusion with atelectasis/consolidation. Pulmonary vascular congestion identified.
[2022-12-27] MEDS: FOLIC ACID 1 MG TAB PO SCH (15:55)
[2022-12-27] MEDS: FERROUS SULFATE 325 MG TAB PO SCH (15:55)
[2022-12-27] MEDS: CYANOCOBALAMIN 500 MCG TAB PO SCH (21:16)
[2022-12-27] MEDS: DULoxetine HCL 60 MG CAPSULE.DR PO SCH (21:18)
[2022-12-27] MEDS: MELATONIN 3 MG TABLET PO SCH (21:18)
[2022-12-27] MEDS: TAMSULOSIN 0.4 MG CAP.ER.24H PO SCH (21:18)
[2022-12-27] MEDS: CHOLECALCIFEROL 25 MCG (1000 IU) TABLET PO SCH (21:18)
[2022-12-28] MEDS: HEPARIN SODIUM,PORCINE/PF 5,000 UNIT/0.5 ML SYRINGE SQ SCH ×4 (00:05→23:57)
[2022-12-28] MEDS: SODIUM CHLORIDE 0.9% 1,000 ML IV SCH ×2 (00:07→14:10)
[2022-12-28 02:37] LABS: Amylase, Fluid Source Pleural Fluid; Amylase,Body Fluid 62 U/L; LDH, Body Fluid Source Pleural Fluid; T. Protein, Body Fluid Source Pleural Fluid; Total Protein, Body Fluid >3600 mg/dL
[2022-12-28 03:38] LABS: Glucose, BF Source Pleural fluid; Glucose, Body Fluid <2 mg/dL
[2022-12-28 04:28] LABS: Appearance,BF Cloudy (Clear)
[2022-12-28 06:54] LABS: Basophils % (A) 0 %; Eosinophils # (A) 0.1 k/uL (0-0.7); Eosinophils % (A) 0 %; HCT 24.2 % (39.0-53.0); HGB 7.5 gm/dL (13.0-17.5); Hypochromasia Marked; Lymphocytes # (A) 0.9 k/uL (1.0-4.8); Lymphocytes % (A) 5 %; MCH 30.7 pg (25.0-35.0); MCHC 30.8 g/dL (31.0-37.0); MCV 99.7 fL (80.0-100.0); Macrocytosis Slight; Mean Platelet Volume 7.2; Monocytes # (A) 0.5 k/uL (0-1.0); Monocytes % (A) 3 %; Neutrophils # (A) 17.3 k/uL (1.3-7.7); Neutrophils % (A) 91 %; Platelet Count 541 k/uL (150-450); RBC 2.43 m/uL (4.30-5.90); RDW 14.5 % (11.5-15.5); WBC 18.9 k/uL (3.8-10.6)
[2022-12-28 07:10] LABS: African American GFR (CKD) 16 (>60 ml/min/1.73 sqM); Anion Gap 8 mmol/L; Blood Urea Nitrogen 45 mg/dL (9-20); Calcium 8.5 mg/dL (8.4-10.2); Carbon Dioxide 21 mmol/L (22-30); Chloride 106 mmol/L (98-107); Glucose 88 mg/dL (74-99); Non-African American GFR(CKD) 14 (>60 ml/min/1.73 sqM); Potassium 3.8 mmol/L (3.5-5.1); Sodium 135 mmol/L (137-145)
[2022-12-28] MEDS: MIDODRINE 5 MG TAB PO SCH ×3 (07:22→18:26)
[2022-12-28] MEDS: lamoTRIgine 100 MG TAB PO SCH ×2 (07:23→21:13)
[2022-12-28] MEDS: ASPIRIN 81 MG PO SCH (07:23)
[2022-12-28] MEDS: DOCUSATE 100 MG CAP PO SCH ×2 (07:23→21:13)
[2022-12-28] MEDS: PANTOPRAZOLE 40 MG TABLET PO SCH (07:23)
[2022-12-28] MEDS: DULoxetine HCL 30 MG CAPSULE.DR PO SCH (07:23)
[2022-12-28] MEDS: FLUDROCORTISONE 0.1 MG TAB PO SCH (07:23)
[2022-12-28] MEDS: HYDROCORTISONE 10 MG TAB PO SCH ×2 (07:23→16:03)
[2022-12-28] MEDS: HYDROcodone/APAP 5-325MG 1 EACH TAB PO PRN ×4 (07:36→23:57)
[2022-12-28] MEDS: LEVOFLOXACIN 500MG-D5W PMX 500 MG in DEXTROSE/WATER 1 100ML.BAG IVPB SCH (09:33)
[2022-12-28] MEDS ORDERED: VANCOMYCIN 1,500 MG in SODIUM CHLORIDE 0.9% 500 ML 500 ML IVPB ONE (10:00)
--- NOTE | 2022-12-28 10:59 | P.PN ---
Subjective Patient is seen for follow-up for acute kidney injury. Currently maintained on IV fluids. Renal function has improved. Trying to increase oral intake. Random vancomycin level at 15.6 Objective - Vital Signs Vital signs: Vital Signs Temp 98.7 F 12/28/22 07:20 Pulse 86 12/28/22 07:20 Resp 18 12/28/22 07:20 BP 105/56 12/28/22 07:20 Pulse Ox 91 L 12/28/22 07:20 FiO2 Intake & Output 12/27/22 12/28/22 12/28/22 18:59 06:59 18:59 Output Total 400 500 Balance -400 -500 Weight 81.647 kg Output: Urine 400 500 Other: Voiding Method Indwelling Catheter Indwelling Catheter Indwelling Catheter # Bowel Movements 0 - Exam Patient is awake, comfortable, in no acute distress Unable to communicate much Examination of the heart S1 and S2 Examination of the lungs bilateral breath sounds are heard Abdomen is soft nontender Examination of lower extremities shows no significant edema [employer] exam shows patient is able to move all 4 extremities. - Labs CBC & Chem 7: 12/28/22 06:28 12/28/22 06:28 Labs: Abnormal Lab Results - Last 24 Hours (Table) 12/27/22 12/28/22 12/28/22 Range/Units 13:55 06:28 06:28 WBC 18.9 H (3.8-10.6) k/uL RBC 2.43 L (4.30-5.90) m/uL Hgb 7.5 L (13.0-17.5) gm/dL Hct 24.2 L (39.0-53.0) % MCHC 30.8 L (31.0-37.0) g/dL Plt Count 541 H (150-450) k/uL Neutrophils # 17.3 H (1.3-7.7) k/uL Lymphocytes # 0.9 L (1.0-4.8) k/uL Sodium 135 L (137-145) mmol/L Carbon Dioxide 21 L (22-30) mmol/L BUN 45 H (9-20) mg/dL Creatinine 3.86 H (0.66-1.25) mg/dL Fluid Appearance Cloudy A (Clear) Microbiology - Last 24 Hours (Table) 12/26/22 12:25 Blood Culture - Preliminary Blood 12/26/22 12:10 Blood Culture - Preliminary Blood Assessment and Plan Assessment: 1. Acute kidney injury, mostly ATN associated with low blood pressure and hypotension as well as underlying infection. Currently nonoliguric. Posey catheter placed for urine retention. No nephrotoxic agents on board. Check UA. Ultrasound shows mild left hydronephrosis with a regular bladder cortes possibly related to bladder outlet obstruction. 2. 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 Etiology is nephrosclerosis 3. Left lung pneumonia with chest x-ray showing near complete opacification of the left lung. 4. History of orthostatic hypotension maintained on Florinef and midodrine as outpatient along with Cortef 5. Anemia rule out iron deficiency. No active bleeding noted. Plan: Continue with Posey catheter Continue with IV fluids, decrease rate Repeat labs in a.m. Check iron profile May continue with vancomycin with close monitoring of levels.
--- NOTE | 2022-12-28 11:46 | P.PN ---
Subjective Progress Note Date: 12/28/22 Hospital Course: 82-year-old male with history of orthostatic hypotension, chronic kidney diseas e, GERD, hypertension, prostate disorder presenting from nursing facility with worsening mentation and hypoxia. In the ED, initial temperature was 99.9, pulse 89, respiratory rate 18, blood pressure 105/68, saturating at 92% on 4 L. Blood pressure did go down up to 73/49. WBC 35.3, hemoglobin 8.5, sodium 135, bicarb 21, anion gap 14, creatinine 3.71 up from baseline, troponin 0.92, proBNP 5000. Chest x-ray independently interpreted shows white out lung on the left side. Chest CT shows large loculated left-sided pleural effusion, trace right-sided pleural effusion. Ectatic ascending thoracic aorta at 2.8 cm. Patient was given another milligram of IV cortisone and IV levofloxacin, and liters normal saline, and IV vancomycin in the ED. Pulmonology also consulted. He is being admitted for severe sepsis secondary to pneumonia. Renal function worsening. Nephrology consulted. Pulmonology also following. He is now status post thoracentesis, exudative. Subjective: Patient seen and examined at bedside. No acute events overnight. Shortness of breath and cough has improved. Has a Posey catheter in place. Pertinent positives and negatives as discussed above, a complete review of systems was performed and all other systems are negative. Vitals Signs Reviewed. General: nontoxic, no distress, appears at stated age Derm: warm, dry Head: atraumatic, normocephalic, symmetric Eyes: EOMI, no lid lag, anicteric sclera Mouth: no lip lesion, mucus membranes moist Cardiovascular: S1S2 reg, no murmur Lungs: Decreased breath sounds on the left, no accessory muscle use, suppleme ntal oxygen Abdominal: soft, nontender to palpation, no guarding, no appreciable organomegaly Ext: no gross muscle atrophy, no edema, no contractures Neuro: CN II-XI grossly intact, no focal neuro deficits Psych: Alert, oriented 2, appropriate affect Data Reviewed Today: Pertinent Labs: WBC 18.9, hemoglobin 7.5, sodium 135, creatinine 3.86 Imaging: No new imaging today Assessment and Plan: Severe sepsis secondary to community-acquired pneumonia Parapneumonic effusion Elevated troponin, likely demand ischemia Acute kidney injury on chronic kidney disease Urinary retention History of orthostatic hypotension on chronic steroids -Pulmonology following, continue antibiotics -0.75 L taken out during thoracentesis, exudative in nature, cultures pending -On IV vancomycin, monitor for renal toxicity, insulin oxygen -Blood cultures, sputum cultures, urine Legionella pending -Pro calcitonin elevated -continue fludrocortisone and hydrocortisone, and midodrine -Continue IV fluids at 70 mL an hour -Urinary catheter in place -Nephrology note reviewed, continue antibiotics -CBC and BMP tomorrow Chronic: Depression Bipolar disorder DVT ppx: Subcu heparin Code status: Full code Anticipated discharge place: Pending clinical course Anticipated discharge time: Pending clinical course Objective - Vital Signs Vital signs: Vital Signs Temp 98.7 F 12/28/22 07:20 Pulse 86 12/28/22 07:20 Resp 18 12/28/22 07:20 BP 105/56 12/28/22 07:20 Pulse Ox 91 L 12/28/22 07:20 FiO2 Intake & Output 12/27/22 12/28/22 12/28/22 18:59 06:59 18:59 Output Total 400 500 Balance -400 -500 Weight 81.647 kg Output: Urine 400 500 Other: Voiding Method Indwelling Catheter Indwelling Catheter Indwelling Catheter # Bowel Movements 0 - Labs CBC & Chem 7: 12/28/22 06:28 12/28/22 06:28 Labs: Abnormal Lab Results - Last 24 Hours (Table) 12/27/22 12/28/22 12/28/22 Range/Units 13:55 06:28 06:28 WBC 18.9 H (3.8-10.6) k/uL RBC 2.43 L (4.30-5.90) m/uL Hgb 7.5 L (13.0-17.5) gm/dL Hct 24.2 L (39.0-53.0) % MCHC 30.8 L (31.0-37.0) g/dL Plt Count 541 H (150-450) k/uL Neutrophils # 17.3 H (1.3-7.7) k/uL Lymphocytes # 0.9 L (1.0-4.8) k/uL Sodium 135 L (137-145) mmol/L Carbon Dioxide 21 L (22-30) mmol/L BUN 45 H (9-20) mg/dL Creatinine 3.86 H (0.66-1.25) mg/dL Fluid Appearance Cloudy A (Clear) Microbiology - Last 24 Hours (Table) 12/26/22 12:25 Blood Culture - Preliminary Blood 12/26/22 12:10 Blood Culture - Preliminary Blood
[2022-12-28] MEDS: FERROUS SULFATE 325 MG TAB PO SCH (12:37)
[2022-12-28] MEDS: FOLIC ACID 1 MG TAB PO SCH (12:37)
[2022-12-28] MEDS ORDERED: ALPRAZolam 0.5 MG TAB PO STA (14:05)
--- NOTE | 2022-12-28 14:14 | P.PN ---
Subjective Progress Note Date: 12/28/22 Principal diagnosis: Shortness of breath. This is an 82-year-old male patient with a known history of gastroesophageal reflux disease, hypertension, rheumatoid arthritis, lifelong nonsmoker, bipolar disorder, anxiety/depression. He was brought in to the emergency room this morn ing from [facility] for hypoxia confusion and had been receiving IV fluids over 4 L the past week. Chest x-ray reveals near complete opacification of the left lung. Computed tomography scan of the chest reveals a large loculated left pleural effusion with partial atelectasis/consolidation involving the left upper lobe and lingula. There is complete atelectasis of the left lower lobe. He is currently maintaining O2 saturations in the 90s on 3 L/m per nasal cannula. He is afebrile. Somewhat hypotensive. White count 35.3. Hemoglobin 8.5. Platelets 617. Sodium 135. Potassium 4.6. Bicarb 21. BUN 41. Creatinine 3.71. Glucose 104. Troponin 0.292. ProBNP 5420. The patient is a poor historian. Most of the information is taken from his family at the bedside. He is currently receiving normal saline at 130 ML's per hour. He is given a dose of vancomycin. Progress note dated 12/27/2022. 82-year-old male seen in the emergency department yesterday. He has a known history of GERD, hypertension, rheumatoid arthritis, I probably disorder, anxiety/depression, and was brought to the emergency room from a local group home, because of hypoxia, confusion, and a chest x-ray which showed a possible pneumonia. In addition, there was a left-sided pleural effusion. Clinically, the patient appears reasonably stable. He is getting saline at 130 mL an hour, is on 3 L of oxygen. His pro-calcitonin level was 1.19. He was placed on vancomycin and Levaquin. The patient's ultrasound did reveal a right-sided pleural effusion, and we've asked interventional radiology to consider ultrasound-guided drainage. White count 30.3, hemoglobin 7.3, hematocrit 23.8, and platelet count 573,000. Sodium 134, potassium 4.4, chlorides 102, CO2 21, BUN 43, creatinine 4.11. Troponins were 0.292, 0.287, and 0.240. N-terminal proBNP was elevated at 5420. Progress note dated 12/28/2022. 82-year-old male seen today in room 369. The patient continues on Levaquin and vancomycin. The patient had a left-sided thoracentesis performed by interventional radiology. 750 mL of straw colored fluid was removed. We will asked him to consider doing a pigtail catheter placement, given the fact that the fluid was an exudate, with a high LDH and high protein, the fact that the patient had primarily polymorphonuclear neutrophils in the fluid, and the fluid glucose was only 2. Currently, the patient's on 3 L. He is coughing up purulent sputum. Currently, the patient is on 3 L of oxygen. Not receiving any IV fluids. White count 18.9, which is down from 30.3. Hemoglobin 7.5, he matocrit 24.2, with a platelet count of 541,000. Sodium 135, potassium 3.8, chlorides 106, CO2 21, BUN 45, and creatinine 3.86. The fluid analysis revealed it to be cloudy, with 98% PMNs and 2% lymphocytes. A glucose of less than 2, a total protein of greater than 3.6 g, and an LDH which was 616. Objective - Vital Signs Vital signs: Vital Signs Temp 98.7 F 12/28/22 07:20 Pulse 78 12/28/22 11:00 Resp 18 12/28/22 11:00 BP 113/57 12/28/22 11:00 Pulse Ox 94 L 12/28/22 11:48 FiO2 Intake & Output 12/27/22 12/28/22 12/28/22 18:59 06:59 18:59 Output Total 400 500 Balance -400 -500 Weight 81.647 kg 81.647 kg Output: Urine 400 500 Other: Voiding Method Indwelling Catheter Indwelling Catheter Indwelling Catheter # Bowel Movements 0 - Exam No acute distress, oriented 3. Currently on 3 L of oxygen. No overt respiratory distress. HEENT examination is grossly unremarkable. Mucous membranes are moist. No oral lesions. Neck supple. Full range of motion. No adenopathy thyromegaly or neck vein distention. Cardiovascular examination reveals regular rhythm rate. S1-S2 normal. No S3 or S4. No discernible murmur noted. Heart sounds are distant. Heart rate 78 bpm. Lungs reveal diminished left-sided breath sounds. Scattered rhonchi are noted. No wheezes. No crackles. Saturations are mid 94% on 3 L. Abdomen soft bowel sounds are heard. No masses or tenderness. Extremities are intact. No cyanosis clubbing or edema. Skin is without rash or lesion. Neurologic examination is brief but nonfocal. - Labs CBC & Chem 7: 12/28/22 06:28 12/28/22 06:28 Labs: Abnormal Lab Results - Last 24 Hours (Table) 12/27/22 12/28/22 12/28/22 Range/Units 13:55 06:28 06:28 WBC 18.9 H (3.8-10.6) k/uL RBC 2.43 L (4.30-5.90) m/uL Hgb 7.5 L (13.0-17.5) gm/dL Hct 24.2 L (39.0-53.0) % MCHC 30.8 L (31.0-37.0) g/dL Plt Count 541 H (150-450) k/uL Neutrophils # 17.3 H (1.3-7.7) k/uL Lymphocytes # 0.9 L (1.0-4.8) k/uL Sodium 135 L (137-145) mmol/L Carbon Dioxide 21 L (22-30) mmol/L BUN 45 H (9-20) mg/dL Creatinine 3.86 H (0.66-1.25) mg/dL Fluid Appearance Cloudy A (Clear) Microbiology - Last 24 Hours (Table) 12/26/22 12:25 Blood Culture - Preliminary Blood 12/26/22 12:10 Blood Culture - Preliminary Blood Assessment and Plan Assessment: Acute hypoxemic respiratory failure secondary to a large left pleural effusion with near complete opacification of the left lung, suspect healthcare acquired pneumonia, with associated complicated parapneumonic effusion/empyema. Leukocytosis secondary to above. Acute renal failure. Troponin leak. Hypotension. Lifelong nonsmoker. History of esophageal reflux disease. History of hypertension. History of rheumatoid arthritis. History of anxiety/depression. History of bipolar disorder. longterm resident. Plan: Plan dated 12/27/2022. The results of the chest x-ray, CAT scan, an ultrasound of the chest, reviewed, and we decided that interventional radiology should consider a ultrasound guided left thoracentesis. The patient appears clinically stable on 3 L of oxygen. Labs and x-rays are reviewed. The patient was placed on vancomycin and Levaquin . The pro-calcitonin level was elevated at 1.19. The patient remains on 3 L of oxygen. We will continue to follow the patient and make recommendations along the way. Plan dated 12/28/2022. The patient's left chest was drained by interventional radiology. The patient's fluid is an exudate, is complicated, and may represent an empyema, given the predominance of PMNs, and the very low glucose. We will ask interventional radiology to consider placing a pigtail catheter. Labs, x-rays, medications are reviewed. The patient continues on Levaquin and vancomycin. Prognosis is certainly guarded. The patient did have some relief, after the thoracentesis. Time with Patient: Less than 30
[2022-12-28] MEDS: CYANOCOBALAMIN 500 MCG TAB PO SCH (21:13)
[2022-12-28] MEDS: TAMSULOSIN 0.4 MG CAP.ER.24H PO SCH (21:13)
[2022-12-28] MEDS: MELATONIN 3 MG TABLET PO SCH (21:13)
[2022-12-28] MEDS: DULoxetine HCL 60 MG CAPSULE.DR PO SCH (21:13)
[2022-12-28] MEDS: CHOLECALCIFEROL 25 MCG (1000 IU) TABLET PO SCH (21:14)
[2022-12-29 04:10] LABS: Basophils % (A) 0 %; Eosinophils # (A) 0.1 k/uL (0-0.7); Eosinophils % (A) 1 %; HCT 22.7 % (39.0-53.0); HGB 7.1 gm/dL (13.0-17.5); Hypochromasia Marked; Lymphocytes # (A) 0.9 k/uL (1.0-4.8); Lymphocytes % (A) 6 %; MCH 31.1 pg (25.0-35.0); MCHC 31.2 g/dL (31.0-37.0); MCV 99.5 fL (80.0-100.0); Mean Platelet Volume 7.4; Monocytes # (A) 0.6 k/uL (0-1.0); Monocytes % (A) 4 %; Neutrophils % (A) 90 %; Platelet Count 552 k/uL (150-450); RBC 2.28 m/uL (4.30-5.90); RDW 14.6 % (11.5-15.5); WBC 16.8 k/uL (3.8-10.6)
[2022-12-29 04:40] LABS: African American GFR (CKD) 17 (>60 ml/min/1.73 sqM); Anion Gap 8 mmol/L; Blood Urea Nitrogen 46 mg/dL (9-20); Calcium 8.4 mg/dL (8.4-10.2); Carbon Dioxide 18 mmol/L (22-30); Chloride 107 mmol/L (98-107); Glucose 101 mg/dL (74-99); Non-African American GFR(CKD) 15 (>60 ml/min/1.73 sqM); Potassium 3.4 mmol/L (3.5-5.1); Sodium 133 mmol/L (137-145)
[2022-12-29] MEDS: SODIUM CHLORIDE 0.9% 1,000 ML IV SCH ×2 (05:19→20:38)
[2022-12-29] MEDS: MIDODRINE 5 MG TAB PO SCH ×3 (06:17→18:16)
[2022-12-29] MEDS: DULoxetine HCL 30 MG CAPSULE.DR PO SCH (06:17)
[2022-12-29] MEDS: HYDROcodone/APAP 5-325MG 1 EACH TAB PO PRN ×3 (06:17→20:33)
[2022-12-29] MEDS ORDERED: POTASSIUM CHLORIDE ER 20 MEQ TAB.ER PO STA (08:45)
[2022-12-29] MEDS: ASPIRIN 81 MG PO SCH (09:09)
[2022-12-29] MEDS: HEPARIN SODIUM,PORCINE/PF 5,000 UNIT/0.5 ML SYRINGE SQ SCH ×3 (09:10→23:57)
[2022-12-29] MEDS: lamoTRIgine 100 MG TAB PO SCH ×2 (09:10→20:33)
[2022-12-29] MEDS: PANTOPRAZOLE 40 MG TABLET PO SCH (09:10)
[2022-12-29] MEDS: DOCUSATE 100 MG CAP PO SCH ×2 (09:10→20:33)
[2022-12-29] MEDS: HYDROCORTISONE 10 MG TAB PO SCH ×2 (09:11→18:16)
[2022-12-29] MEDS: FLUDROCORTISONE 0.1 MG TAB PO SCH (09:11)
--- NOTE | 2022-12-29 09:52 | P.PN ---
Subjective Patient is seen in follow-up for acute kidney injury on chronic kidney disease. Renal function slightly better. Resting in bed. Denies chest pain or shortness of breath. No vomiting or diarrhea. Oral intake 4. Vital signs are stable. General: No acute distress. HEENT: Head exam is unremarkable. On nasal cannula. LUNGS: No audible rhonchi or wheezes. HEART: Rate and Rhythm are regular. ABDOMEN: Nontender. EXTREMITITES: No edema. Objective - Vital Signs Vital signs: Vital Signs Temp 98.7 F 12/29/22 08:45 Pulse 87 12/29/22 08:45 Resp 16 12/29/22 08:45 BP 110/57 12/29/22 08:45 Pulse Ox 94 L 12/29/22 08:45 FiO2 Intake & Output 12/28/22 12/29/22 12/29/22 18:59 06:59 18:59 Intake Total 118 1620 Output Total 1000 500 100 Balance -882 1120 -100 Weight 81.647 kg 68.5 kg Intake: Intake, IV Titration 840 Amount Sodium Chloride 0.9% 1, 840 000 ml @ 70 mls/hr IV . [id number] [facility] Rx#:[id number] Oral 118 780 Output: Chest Tube Drainage 500 100 Pleural Catheter Left 500 100 Posterior Chest Urine 500 500 Uretheral (Posey) 200 Other: Voiding Method Indwelling Catheter Indwelling Catheter - Labs CBC & Chem 7: 12/29/22 03:56 12/29/22 03:56 Labs: Abnormal Lab Results - Last 24 Hours (Table) 12/29/22 12/29/22 Range/Units 03:56 03:56 WBC 16.8 H (3.8-10.6) k/uL RBC 2.28 L (4.30-5.90) m/uL Hgb 7.1 L (13.0-17.5) gm/dL Hct 22.7 L (39.0-53.0) % Plt Count 552 H (150-450) k/uL Neutrophils # 15.0 H (1.3-7.7) k/uL Lymphocytes # 0.9 L (1.0-4.8) k/uL Sodium 133 L (137-145) mmol/L Potassium 3.4 L (3.5-5.1) mmol/L Carbon Dioxide 18 L (22-30) mmol/L BUN 46 H (9-20) mg/dL Creatinine 3.70 H (0.66-1.25) mg/dL Glucose 101 H (74-99) mg/dL Microbiology - Last 24 Hours (Table) 12/27/22 13:55 Gram Stain - Preliminary Pleural Fluid 12/26/22 12:25 Blood Culture - Preliminary Blood 12/26/22 12:10 Blood Culture - Preliminary Blood Assessment and Plan Plan: Assessment: 1. Acute kidney injury secondary to ATN secondary to hypotension and infection. Also has Posey catheter for urinary retention. Mild left hydronephrosis noted on ultrasound. Creatinine fairly stable at 3.7 today. UA from July 2022 fairly benign. 2. Chronic kidney disease stage IIIB/4 with baseline creatinine in the range of 1.7 and 1.9. 3. Pneumonia on antibiotics. Underwent thoracentesis this admission. 4. Metabolic acidosis secondary to acute kidney injury and IV fluids. 5. Hypokalemia from poor intake. 6. Chronic hypotension maintained on Cortef, Florinef as well as midodrine. 7. Anemia of chronic kidney disease. Rule out iron deficiency. 8. Urinary retention. Has Posey catheter. On Flomax. Urology consulted. Plan: Maintain IV fluids. Replace potassium. Check iron studies. Add oral bicarb. Avoid nephrotoxins. Continue to monitor renal function and urine output.
--- NOTE | 2022-12-29 11:49 | P.PN ---
Subjective Progress Note Date: 12/29/22 Principal diagnosis: Shortness of breath. This is an 82-year-old male patient with a known history of gastroesophageal reflux disease, hypertension, rheumatoid arthritis, lifelong nonsmoker, bipolar disorder, anxiety/depression. He was brought in to the emergency room this morn ing from [facility] for hypoxia confusion and had been receiving IV fluids over 4 L the past week. Chest x-ray reveals near complete opacification of the left lung. Computed tomography scan of the chest reveals a large loculated left pleural effusion with partial atelectasis/consolidation involving the left upper lobe and lingula. There is complete atelectasis of the left lower lobe. He is currently maintaining O2 saturations in the 90s on 3 L/m per nasal cannula. He is afebrile. Somewhat hypotensive. White count 35.3. Hemoglobin 8.5. Platelets 617. Sodium 135. Potassium 4.6. Bicarb 21. BUN 41. Creatinine 3.71. Glucose 104. Troponin 0.292. ProBNP 5420. The patient is a poor historian. Most of the information is taken from his family at the bedside. He is currently receiving normal saline at 130 ML's per hour. He is given a dose of vancomycin. Progress note dated 12/27/2022. 82-year-old male seen in the emergency department yesterday. He has a known history of GERD, hypertension, rheumatoid arthritis, I probably disorder, anxiety/depression, and was brought to the emergency room from a local [facility], because of hypoxia, confusion, and a chest x-ray which showed a possible pneumonia. In addition, there was a left-sided pleural effusion. Clinically, the patient appears reasonably stable. He is getting saline at 130 mL an hour, is on 3 L of oxygen. His pro-calcitonin level was 1.19. He was placed on vancomycin and Levaquin. The patient's ultrasound did reveal a right-sided pleural effusion, and we've asked interventional radiology to consider ultrasound-guided drainage. White count 30.3, hemoglobin 7.3, hematocrit 23.8, and platelet count 573,000. Sodium 134, potassium 4.4, chlorides 102, CO2 21, BUN 43, creatinine 4.11. Troponins were 0.292, 0.287, and 0.240. N-terminal proBNP was elevated at 5420. Progress note dated 12/28/2022. 82-year-old male seen today in room 369. The patient continues on Levaquin and vancomycin. The patient had a left-sided thoracentesis performed by interventional radiology. 750 mL of straw colored fluid was removed. We will asked him to consider doing a pigtail catheter placement, given the fact that the fluid was an exudate, with a high LDH and high protein, the fact that the patient had primarily polymorphonuclear neutrophils in the fluid, and the fluid glucose was only 2. Currently, the patient's on 3 L. He is coughing up purulent sputum. Currently, the patient is on 3 L of oxygen. Not receiving any IV fluids. White count 18.9, which is down from 30.3. Hemoglobin 7.5, he matocrit 24.2, with a platelet count of 541,000. Sodium 135, potassium 3.8, chlorides 106, CO2 21, BUN 45, and creatinine 3.86. The fluid analysis revealed it to be cloudy, with 98% PMNs and 2% lymphocytes. A glucose of less than 2, a total protein of greater than 3.6 g, and an LDH which was 616. Progress note dated 12/29/2022. 82-year-old male seen in room 369. The patient continues on antibiotics in the form of Levaquin and vancomycin. He is getting saline at 70 mL an hour. He is getting nasal O2 at 3 L. Yesterday, interventional radiology placed a small bore catheter into the left pleural space. The patient has had significant drainage. The catheter is noted to be on to suction. Laboratory data today includes a white count of 16.8, hemoglobin 7.1, hematocrit 22.7, and a platelet count of 552,000. Sodium 133, potassium 3.4, chlorides 107, CO2 18, BUN 46, and creatinine 3.70. The fluid was cloudy, and is clearly an exudate. 98% of the white blood cells are PMNs. The glucose of the fluid was very low, less than 2, suggesting an empyema. Objective - Vital Signs Vital signs: Vital Signs Temp 98.7 F 12/29/22 08:45 Pulse 87 12/29/22 08:45 Resp 16 12/29/22 08:45 BP 110/57 12/29/22 08:45 Pulse Ox 94 L 12/29/22 08:45 FiO2 Intake & Output 12/28/22 12/29/22 12/29/22 18:59 06:59 18:59 Intake Total 118 1620 Output Total 1000 500 100 Balance -882 1120 -100 Weight 81.647 kg 68.5 kg Intake: Intake, IV Titration 840 Amount Sodium Chloride 0.9% 1, 840 000 ml @ 70 mls/hr IV . [id number] [facility] Rx#:[id number] Oral 118 780 Output: Chest Tube Drainage 500 100 Pleural Catheter Left 500 100 Posterior Chest Urine 500 500 Uretheral (Posey) 200 Other: Voiding Method Indwelling Catheter Indwelling Catheter - Exam No acute distress, oriented 3. Currently on 3 L of oxygen. No overt respiratory distress. HEENT examination is grossly unremarkable. Mucous membranes are moist. No oral lesions. Neck supple. Full range of motion. No adenopathy thyromegaly or neck vein distention. Cardiovascular examination reveals regular rhythm rate. S1-S2 normal. No S3 or S4. No discernible murmur noted. Heart sounds are distant. Heart rate 87 bpm. Lungs reveal diminished left-sided breath sounds. Scattered rhonchi are noted. No wheezes. No crackles. Saturations are 95 % on 3 L. Left-sided chest tube is noted. Abdomen soft bowel sounds are heard. No masses or tenderness. Extremities are intact. No cyanosis clubbing or edema. Skin is without rash or lesion. Neurologic examination is brief but nonfocal. - Labs CBC & Chem 7: 12/29/22 03:56 12/29/22 03:56 Labs: Abnormal Lab Results - Last 24 Hours (Table) 12/29/22 12/29/22 Range/Units 03:56 03:56 WBC 16.8 H (3.8-10.6) k/uL RBC 2.28 L (4.30-5.90) m/uL Hgb 7.1 L (13.0-17.5) gm/dL Hct 22.7 L (39.0-53.0) % Plt Count 552 H (150-450) k/uL Neutrophils # 15.0 H (1.3-7.7) k/uL Lymphocytes # 0.9 L (1.0-4.8) k/uL Sodium 133 L (137-145) mmol/L Potassium 3.4 L (3.5-5.1) mmol/L Carbon Dioxide 18 L (22-30) mmol/L BUN 46 H (9-20) mg/dL Creatinine 3.70 H (0.66-1.25) mg/dL Glucose 101 H (74-99) mg/dL Microbiology - Last 24 Hours (Table) 12/27/22 13:55 Gram Stain - Preliminary Pleural Fluid 12/26/22 12:25 Blood Culture - Preliminary Blood 12/26/22 12:10 Blood Culture - Preliminary Blood Assessment and Plan Assessment: Acute hypoxemic respiratory failure secondary to a large left pleural effusion with near complete opacification of the left lung, suspect healthcare acquired pneumonia, with associated complicated parapneumonic effusion/empyema. S/P left sided chest tube, placed, 12/28/2022. Leukocytosis secondary to above. Acute renal failure. Troponin leak. Hypotension. Lifelong nonsmoker. History of esophageal reflux disease. History of hypertension. History of rheumatoid arthritis. History of anxiety/depression. History of bipolar disorder. residential resident. Plan: Plan dated 12/27/2022. The results of the chest x-ray, CAT scan, an ultrasound of the chest, reviewed, and we decided that interventional radiology should consider a ultrasound guided left thoracentesis. The patient appears clinically stable on 3 L of oxygen. Labs and x-rays are reviewed. The patient was placed on vancomycin and Levaquin. The pro-calcitonin level was elevated at 1.19. The patient remains on 3 L of oxygen. We will continue to follow the patient and make recommendations along the way. Plan dated 12/28/2022. The patient's left chest was drained by interventional radiology. The patient's fluid is an exudate, is complicated, and may represent an empyema, given the predominance of PMNs, and the very low glucose. We will ask interventional radiology to consider placing a pigtail catheter. Labs, x-rays, medications are reviewed. The patient continues on Levaquin and vancomycin. Prognosis is certainly guarded. The patient did have some relief, after the thoracentesis. Plan dated 12/29/2022. Interventional radiology was kind enough to place a left-sided chest tube. The patient is currently on Levaquin and vancomycin. Cultures are currently pending or negative. The fluid was clearly exudative, and likely an empyema. Additional recommendations and suggestions are forthcoming. Prognosis is guarded. We will continue to follow the patient and make recommendations along the way. Time with Patient: Less than 30
--- NOTE | 2022-12-29 12:06 | P.PN ---
Subjective Progress Note Date: 12/29/22 Hospital Course: 82-year-old male with history of orthostatic hypotension, chronic kidney disease, GERD, hypertension, prostate disorder presenting from nursing facility with worsening mentation and hypoxia. In the ED, initial temperature was 99.9, pulse 89, respiratory rate 18, blood pressure 105/68, saturating at 92% on 4 L. Blood pressure did go down up to 73/49. WBC 35.3, hemoglobin 8.5, sodium 135, bicarb 21, anion gap 14, creatinine 3.71 up from baseline, troponin 0.92, proBNP 5000. Chest x-ray independently interpreted shows white out lung on the left side. Chest CT shows large loculated left-sided pleural effusion, trace right- sided pleural effusion. Ectatic ascending thoracic aorta at 2.8 cm. Patient was given another milligram of IV cortisone and IV levofloxacin, and liters normal saline, and IV vancomycin in the ED. Pulmonology also consulted. He is being admitted for severe sepsis secondary to pneumonia. Renal function worsening. Nephrology consulted. Pulmonology also following. He is now status post thoracentesis, exudative. Now s/p chest tube. Subjective: Patient seen and examined at bedside. No acute events overnight. Shortness of breath and cough has improved after chest tube placement. Has a Posey catheter in place. Pertinent positives and negatives as discussed above, a complete review of systems was performed and all other systems are negative. Vitals Signs Reviewed. General: nontoxic, no distress, appears at stated age Derm: warm, dry Head: atraumatic, normocephalic, symmetric Eyes: EOMI, no lid lag, anicteric sclera Mouth: no lip lesion, mucus membranes moist Cardiovascular: S1S2 reg, no murmur Lungs: Decreased breath sounds on the left, no accessory muscle use, supplemental oxygen, chest tube in place Abdominal: soft, nontender to palpation, no guarding, no appreciable organomegaly Ext: no gross muscle atrophy, no edema, no contractures Neuro: CN II-XI grossly intact, no focal neuro deficits Psych: Alert, oriented 2, appropriate affect Data Reviewed Today: Pertinent Labs: WBC 16.8, hemoglobin 7.1, sodium 133, potassium 3.4, creatinine 3.7 Imaging: No new imaging today Cultures pending Assessment and Plan: Severe sepsis secondary to community-acquired pneumonia Parapneumonic effusion, likely empyema Elevated troponin, likely demand ischemia Acute kidney injury on chronic kidney disease Urinary retention History of orthostatic hypotension on chronic steroids -Pulmonology note reviewed, continue antibiotics, continue chest tube -On IV vancomycin, monitor for renal toxicity -Also on IV Levaquin -continue fludrocortisone and hydrocortisone, and midodrine -Continue IV fluids at 70 mL an hour -Urinary catheter in place -Nephrology note reviewed, oral bicarbonate and -CBC and BMP tomorrow Chronic: Depression Bipolar disorder DVT ppx: Subcu heparin Code status: Full code Anticipated discharge place: Pending clinical course Anticipated discharge time: Pending clinical course Objective - Vital Signs Vital signs: Vital Signs Temp 98.7 F 12/29/22 08:45 Pulse 87 12/29/22 08:45 Resp 16 12/29/22 08:45 BP 110/57 12/29/22 08:45 Pulse Ox 94 L 12/29/22 08:45 FiO2 Intake & Output 12/28/22 12/29/22 12/29/22 18:59 06:59 18:59 Intake Total 118 1620 Output Total 1000 500 100 Balance -882 1120 -100 Weight 81.647 kg 68.5 kg Intake: Intake, IV Titration 840 Amount Sodium Chloride 0.9% 1, 840 000 ml @ 70 mls/hr IV . [id number] [facility] Rx#:[id number] Oral 118 780 Output: Chest Tube Drainage 500 100 Pleural Catheter Left 500 100 Posterior Chest Urine 500 500 Uretheral (Posey) 200 Other: Voiding Method Indwelling Catheter Indwelling Catheter - Labs CBC & Chem 7: 12/29/22 03:56 12/29/22 03:56 Labs: Abnormal Lab Results - Last 24 Hours (Table) 12/29/22 12/29/22 Range/Units 03:56 03:56 WBC 16.8 H (3.8-10.6) k/uL RBC 2.28 L (4.30-5.90) m/uL Hgb 7.1 L (13.0-17.5) gm/dL Hct 22.7 L (39.0-53.0) % Plt Count 552 H (150-450) k/uL Neutrophils # 15.0 H (1.3-7.7) k/uL Lymphocytes # 0.9 L (1.0-4.8) k/uL Sodium 133 L (137-145) mmol/L Potassium 3.4 L (3.5-5.1) mmol/L Carbon Dioxide 18 L (22-30) mmol/L BUN 46 H (9-20) mg/dL Creatinine 3.70 H (0.66-1.25) mg/dL Glucose 101 H (74-99) mg/dL Microbiology - Last 24 Hours (Table) 12/27/22 13:55 Gram Stain - Preliminary Pleural Fluid 12/26/22 12:25 Blood Culture - Preliminary Blood 12/26/22 12:10 Blood Culture - Preliminary Blood
--- NOTE | 2022-12-29 12:25 | XR ---
EXAMINATION TYPE: XR chest 1V portable DATE OF EXAM: 12/29/2022 12:17 PM COMPARISON: Chest radiographs from 12/27/2022 TECHNIQUE: XR chest 1V portable Portable AP radiograph of the chest. CLINICAL INDICATION:Male, 82 years old with history of Left-sided empyema.; FINDINGS: Lungs/Pleura: Blunting is clear. There is again significant opacification of the left lung with regio ns of aeration in the left upper lung. No pneumothorax. Pulmonary vascularity: Unremarkable. Heart/mediastinum: Cardiomediastinal silhouette is partially obscured due to overlying and adjacent o pacities. Musculoskeletal: No acute osseous pathology. IMPRESSION: Similar marked opacification of the left lung with aeration of the left upper lung. This is again rel ated to known effusion with atelectasis/consolidation.
[2022-12-29] MEDS: FERROUS SULFATE 325 MG TAB PO SCH (13:12)
[2022-12-29] MEDS: FOLIC ACID 1 MG TAB PO SCH (13:12)
[2022-12-29] MEDS: SODIUM BICARBONATE TAB 650 MG TAB PO SCH ×2 (13:14→20:47)
--- NOTE | 2022-12-29 16:00 | P.GSCN ---
History of Present Illness Consult date: 12/29/22 History of present illness: 82 yo male in the hospital with pneumonia. He was having some problems emptying his bladder [pvr 248 & 435]. A catheter was placed. He develkoped some hematuria and we were asked to see the patient. Historically the patient states that he has had problems voiding. He has not been on flomax until this hospitalization. There was not a urine test done prior to the catheter. He denies hematuria. He did have a ua in july that didnt show any blood. The urine in the catheter is light tea colored. Review of Systems All systems: negative - Constitutional Denies fever, Denies weight loss - EENT Eyes: denies blurred vision Ears, nose, mouth and throat: Denies dysphagia - Cardiovascular Denies chest pain, Denies shortness of breath - Respiratory Denies cough, Denies 7 - Gastrointestinal Reports as per HPI - Genitourinary Denies dysuria, Denies hematuria - Integumentary Denies rash, Denies unusual bruising - Neurological Denies headaches, Denies syncope - Hematologic/Lymphatic Denies easy bleeding, Denies easy bruising Past Medical History Past Medical History: GERD/Reflux, Pneumonia, Prostate Disorder, Rheumatoid Arthritis (RA) Additional Past Medical History / Comment(s): Hx Pneumonia X3. BPH. DIVERTICULITIS. Wears a brace. hypotension. Bilateral cataracts History of Any Multi-Drug Resistant Organisms: None Reported Past Surgical History: Joint Replacement, Orthopedic Surgery Additional Past Surgical History / Comment(s): ORIF RIGHT ELBOW. RIGHT KNEE REPLACED. TRAUMA TO HIP/PELVIS FROM FALLING THROUGH A ROOF (LEFT HIP REPLACED/PELVIC FX). 2nd left hip replacement. Bilateral cataracts removed. Past Anesthesia/Blood Transfusion Reactions: Motion Sickness Past Psychological History: Anxiety, Bipolar, Depression Smoking Status: Former smoker Past Alcohol Use History: None Reported Additional Past Alcohol Use History / Comment(s): SMOKED FOR ABOUT 10 YRS, QUIT WHEN A "PACK OF CIGARETTES COST 55 CENTS". 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 - Past Family History Brother(s) Family Medical History: No Reported History Medications and Allergies Home Medications Medication Instructions Recorded Confirmed Type Aspirin EC [Ecotrin Low Dose] 81 mg PO DAILY@0800 04/12/22 12/26/22 History DULoxetine HCL [Cymbalta] 60 mg PO HS@199904/12/22 12/26/22 History Folic Acid 1 mg PO DAILY@139904/12/22 12/26/22 History Omeprazole 20 mg PO DAILY@0800 06/17/22 12/26/22 History lamoTRIgine [LaMICtal] 100 mg PO BID@0800,199908/11/22 12/26/22 History ALPRAZolam [Xanax] 0.25 mg PO BID PRN #6 tab 08/23/22 12/26/22 Rx Cyanocobalamin [Vitamin B-12] 500 mcg PO HS 10/24/22 12/26/22 History Docusate [Colace] 100 mg PO BID@0800,199910/24/22 12/26/22 History Fludrocortisone [Florinef] 0.2 mg PO DAILY@0800 10/24/22 12/26/22 History Hydrocortisone [Cortef] 10 mg PO BID@0800,1600 10/24/22 12/26/22 History Melatonin 3 mg PO HS@199910/24/22 12/26/22 History Midodrine HCl [ProAmatine] 10 mg PO TID@0700,1300,1900 10/24/22 12/26/22 History Sennosides [Senokot] 8.6 mg PO BID@0800,199910/24/22 12/26/22 History Cholecalciferol [Vitamin D3 (25 50 mcg PO HS 12/26/22 12/26/22 History Mcg = 1000 Iu)] DULoxetine HCL [Cymbalta] 30 mg PO DAILY@0700 12/26/22 12/26/22 History Ferrous Sulfate [Feosol] 325 mg PO DAILY@1400 12/26/22 12/26/22 History HYDROcodone/APAP 5-325MG [[place] 1 tab PO Q12H PRN 12/26/22 12/26/22 History 5-325] HYDROcodone/APAP 5-325MG [[place] 1 tab PO QID@05,11,17,12/26/22 12/26/22 History 5-325] Healthshake 1 dose PO TID@0700,1100,1700 12/26/22 12/26/22 History Magnesium Hydroxide [Milk of 2,400 mg PO DAILY PRN 12/26/22 12/26/22 History Magnesia] Tamsulosin HCl [Flomax] 0.4 mg PO HS 12/26/22 12/26/22 History bisacodyL 10 mg RECTAL DAILY PRN 12/26/22 12/26/22 History polyethylene glycoL 3350 [Miralax] 17 gm PO DAILY@0700 12/26/22 12/26/22 History Allergies Allergy/AdvReac Type Severity Reaction Status Date / Time amoxicillin Allergy Anaphylaxis Verified 12/26/22 14:05 ampicillin Allergy Anaphylaxis Verified 12/26/22 14:05 Iodinated Contrast Media Allergy Anaphylaxis Verified 12/26/22 14:05 [Iodinated Contrast Media - IV Dye] Penicillins Allergy Anaphylaxis, Verified 12/26/22 14:05 Swelling Surgical - Exam Vital Signs Temp Pulse Resp BP Pulse Ox 99.9 F H 89 18 105/68 93 L 12/26/22 12:08 12/26/22 12:08 12/26/22 12:08 12/26/22 12:08 12/26/22 12:08 - General well developed, well nourished, no distress - Eyes normal ocular movement, no icteric - ENT no hearing loss, no congestion - Neck no masses, trachea midline - Respiratory normal respiratory effort, clear to auscultation - Abdomen Abdomen: soft, non tender, no guarding, no rigid, no rebound - Genitourinary indwelling catheter with light tea colored urine. - Integumentary no rash, no abnormal pigmentation - Neurologic no disoriented, no combative - Psychiatric oriented to time, oriented to person, oriented to place, speech is normal, memor y intact Results - Labs 12/29/22 03:56 12/29/22 03:56 Abnormal Lab Results - Last 24 Hours (Table) 12/29/22 12/29/22 Range/Units 03:56 03:56 WBC 16.8 H (3.8-10.6) k/uL RBC 2.28 L (4.30-5.90) m/uL Hgb 7.1 L (13.0-17.5) gm/dL Hct 22.7 L (39.0-53.0) % Plt Count 552 H (150-450) k/uL Neutrophils # 15.0 H (1.3-7.7) k/uL Lymphocytes # 0.9 L (1.0-4.8) k/uL Sodium 133 L (137-145) mmol/L Potassium 3.4 L (3.5-5.1) mmol/L Carbon Dioxide 18 L (22-30) mmol/L BUN 46 H (9-20) mg/dL Creatinine 3.70 H (0.66-1.25) mg/dL Glucose 101 H (74-99) mg/dL Microbiology - Last 24 Hours (Table) 12/27/22 13:55 Gram Stain - Preliminary Pleural Fluid 12/26/22 12:25 Blood Culture - Preliminary Blood 12/26/22 12:10 Blood Culture - Preliminary Blood Diabetes panel 12/29/22 Range/Units 03:56 Sodium 133 L (137-145) mmol/L Potassium 3.4 L (3.5-5.1) mmol/L Chloride 107 (98-107) mmol/L Carbon Dioxide 18 L (22-30) mmol/L BUN 46 H (9-20) mg/dL Creatinine 3.70 H (0.66-1.25) mg/dL Glucose 101 H (74-99) mg/dL Calcium 8.4 (8.4-10.2) mg/dL Calcium panel 12/29/22 Range/Units 03:56 Calcium 8.4 (8.4-10.2) mg/dL Pituitary panel 12/29/22 Range/Units 03:56 Sodium 133 L (137-145) mmol/L Potassium 3.4 L (3.5-5.1) mmol/L Chloride 107 (98-107) mmol/L Carbon Dioxide 18 L (22-30) mmol/L BUN 46 H (9-20) mg/dL Creatinine 3.70 H (0.66-1.25) mg/dL Glucose 101 H (74-99) mg/dL Calcium 8.4 (8.4-10.2) mg/dL Adrenal panel 12/29/22 Range/Units 03:56 Sodium 133 L (137-145) mmol/L Potassium 3.4 L (3.5-5.1) mmol/L Chloride 107 (98-107) mmol/L Carbon Dioxide 18 L (22-30) mmol/L BUN 46 H (9-20) mg/dL Creatinine 3.70 H (0.66-1.25) mg/dL Glucose 101 H (74-99) mg/dL Calcium 8.4 (8.4-10.2) mg/dL Assessment and Plan Assessment: Impression: pneumonia. incomplete bladder emptying Plan: the patient should continue with the catheter and flomax until he is mobile and feeling better. At that time the catheter can be removed for a voiding trial
[2022-12-29] MEDS: MELATONIN 3 MG TABLET PO SCH (20:32)
[2022-12-29] MEDS: DULoxetine HCL 60 MG CAPSULE.DR PO SCH (20:33)
[2022-12-29] MEDS: CYANOCOBALAMIN 500 MCG TAB PO SCH (20:33)
[2022-12-29] MEDS: TAMSULOSIN 0.4 MG CAP.ER.24H PO SCH (20:33)
[2022-12-29] MEDS: CHOLECALCIFEROL 25 MCG (1000 IU) TABLET PO SCH (20:33)
[2022-12-29] MEDS: ALPRAZolam 0.25 MG TAB PO PRN (21:31)
[2022-12-29 23:49] LABS: % Iron Saturation 18.1 (15.00-50.00)
[2022-12-30] MEDS: HYDROcodone/APAP 5-325MG 1 EACH TAB PO PRN ×4 (01:11→18:40)
[2022-12-30] MEDS: DULoxetine HCL 30 MG CAPSULE.DR PO SCH (06:45)
[2022-12-30] MEDS: MIDODRINE 5 MG TAB PO SCH ×3 (06:45→18:41)
[2022-12-30 06:59] LABS: HCT 24.9 % (39.0-53.0); HGB 7.6 gm/dL (13.0-17.5); Hypochromasia Marked; MCH 30.6 pg (25.0-35.0); MCHC 30.5 g/dL (31.0-37.0); MCV 100.3 fL (80.0-100.0); Macrocytosis Slight; Mean Platelet Volume 7.7; Neutrophils % (A) 89 %; Platelet Count 558 k/uL (150-450); RBC 2.49 m/uL (4.30-5.90); RDW 14.6 % (11.5-15.5); WBC 15.1 k/uL (3.8-10.6)
[2022-12-30 07:00] LABS: Basophils % (A) 0 %; Eosinophils # (A) 0.2 k/uL (0-0.7); Eosinophils % (A) 1 %; Lymphocytes # (A) 0.9 k/uL (1.0-4.8); Lymphocytes % (A) 6 %; Monocytes # (A) 0.6 k/uL (0-1.0); Monocytes % (A) 4 %; Neutrophils # (A) 13.4 k/uL (1.3-7.7)
[2022-12-30 07:12] LABS: Magnesium 2.1 mg/dL (1.6-2.3)
[2022-12-30 07:16] LABS: African American GFR (CKD) 16 (>60 ml/min/1.73 sqM); Anion Gap 9 mmol/L; Blood Urea Nitrogen 45 mg/dL (9-20); Calcium 8.6 mg/dL (8.4-10.2); Carbon Dioxide 18 mmol/L (22-30); Chloride 109 mmol/L (98-107); Glucose 95 mg/dL (74-99); Non-African American GFR(CKD) 14 (>60 ml/min/1.73 sqM); Sodium 136 mmol/L (137-145)
--- NOTE | 2022-12-30 07:17 | XR ---
EXAMINATION TYPE: XR chest 1V DATE OF EXAM: 12/30/2022 6:50 AM COMPARISON: Chest radiographs from 12/29/2022 TECHNIQUE: XR chest 1V Frontal view of the chest. CLINICAL INDICATION:Male, 82 years old with history of F/U L pleural effusion; FINDINGS: Lungs/Pleura: The right lung is clear. There is again significant opacification of the left lung with regions of aeration in the left upper lung. There is no aeration within the left midlung. No pneumot horax. Pulmonary vascularity: Unremarkable. Heart/mediastinum: Cardiomediastinal silhouette is partially obscured due to overlying and adjacent o pacities. Musculoskeletal: No acute osseous pathology. Lines/Tubes. Left pleural pigtail catheter identified. IMPRESSION: Large loculated left pleural effusion redemonstrated with improved aeration of the left midlung. Left pleural pigtail remains in place. No pneumothorax.
[2022-12-30 07:18] LABS: Vancomycin,Random 17.4 ug/mL
[2022-12-30] MEDS ORDERED: ALTEPLASE 10 MG in SODIUM CHLORIDE 0.9% 50 ML IRRIGATION ONE (07:41)
[2022-12-30] MEDS ORDERED: DORNASE ALFA 5 MG in SODIUM CHLORIDE 0.9% 50 ML IRRIGATION ONE (07:41)
[2022-12-30] MEDS ORDERED: VANCOMYCIN 1,500 MG in SODIUM CHLORIDE 0.9% 500 ML 500 ML IVPB ONE (08:00)
[2022-12-30] MEDS: DOCUSATE 100 MG CAP PO SCH ×2 (08:16→20:08)
[2022-12-30] MEDS: SODIUM BICARBONATE TAB 650 MG TAB PO SCH ×2 (08:16→20:08)
[2022-12-30] MEDS: PANTOPRAZOLE 40 MG TABLET PO SCH (08:16)
[2022-12-30] MEDS: LEVOFLOXACIN 500MG-D5W PMX 500 MG in DEXTROSE/WATER 1 100ML.BAG IVPB SCH (08:16)
[2022-12-30] MEDS: ASPIRIN 81 MG PO SCH (08:16)
[2022-12-30] MEDS: lamoTRIgine 100 MG TAB PO SCH ×2 (08:16→20:08)
[2022-12-30] MEDS: SODIUM CHLORIDE 0.9% 1,000 ML IV SCH ×2 (08:17→22:42)
[2022-12-30] MEDS: HEPARIN SODIUM,PORCINE/PF 5,000 UNIT/0.5 ML SYRINGE SQ SCH (08:17)
[2022-12-30] MEDS: HYDROCORTISONE 10 MG TAB PO SCH ×2 (08:18→15:41)
[2022-12-30] MEDS: FLUDROCORTISONE 0.1 MG TAB PO SCH (08:18)
--- NOTE | 2022-12-30 08:36 | P.GSCN ---
History of Present Illness Consult date: 12/30/22 Reason for Consult: Large left-sided pleural effusion, status post pigtail placement by interventional radiology, consulted for alteplase/dornase pleural instillation Requesting physician: Virgil Hernandez History of present illness: This is an 82-year-old gentleman who follows on an outpatient basis first primary care service with Dr. Derick Martinez. He has a past medical history significant for hypertension, prostate disorder, rheumatoid arthritis, GERD, hypotension with multiple fall from standing, bipolar disorder, anxiety/depression, pneumonia 3 and a remote history of nicotine dependence in which he quit smoking around 40 years ago. The patient presented to the hospital here at [facility] on December 26 via EMS with altered mental status, hypoxia, confusion and concerns for fluid overload. The patient reports he was having complaints of shortness of breath and a persistent cough with green sputum, although he is somewhat of a poor historian. He denies any recent fever, chills, nausea, vomiting, diarrhea, constipation, headache, chest pain, chest pressure, palpitations, presyncope or syncope. A 12-lead EKG was completed in the emergency department which showed normal sinus rhythm with sinus arrhythmia, nonspecific ST and T-wave abnormality with a heart rate of 89 BPM. A chest x-ray was completed which showed near-complete opacification of the left lung likely related to combination of pneumonia/atelectasis and pleural effusion. Subsequently, for further evaluation a computed tomography scan of the chest was completed which demonstrated a large loculated left pleural eff usion with partial atelectasis/consolidation involving the left upper lobe and lingula. It also demonstrated complete atelectasis of the left lower lobe, trace right pleural effusion with associated atelectasis, mild COPD changes and ectasia of the ascending thoracic aorta measuring up to 3.8 cm. Due to the findings of a large loculated left pleural effusion and ultrasound of the chest was completed which demonstrated a large pleural effusion pocket size of 9.4 cm. Interventional radiology was consulted and the patient underwent an ultrasound guided therapeutic and diagnostic thoracentesis on 12/27/2022 with approximately 0.75 L of straw-colored fluid removed. On 12/28/2022 the patient underwent a placement of a left pleural pigtail catheter by interventional radiology. Subsequently, due to the patient's loculated pleural effusion and subsequent pigtail catheter placement cardiothoracic surgery was consulted for further evaluation and treatment recommendations including alteplase/dornase instillation per the pigtail catheter. Review of Systems A 14 point review of systems was completed and was negative except as mentioned in the HPI. Past Medical History Past Medical History: GERD/Reflux, Hypertension, Pneumonia, Prostate Disorder, Rheumatoid Arthritis (RA) Additional Past Medical History / Comment(s): Hx Pneumonia X3. BPH. DIVERTICULITIS. Wears a brace. hypotension. Bilateral cataracts History of Any Multi-Drug Resistant Organisms: None Reported Past Surgical History: Joint Replacement, Orthopedic Surgery Additional Past Surgical History / Comment(s): ORIF RIGHT ELBOW. RIGHT KNEE REPLACED. TRAUMA TO HIP/PELVIS FROM FALLING THROUGH A ROOF (LEFT HIP REPLACED/PELVIC FX). 2nd left hip replacement. Bilateral cataracts removed. Past Anesthesia/Blood Transfusion Reactions: Motion Sickness Past Psychological History: Anxiety, Bipolar, Depression Smoking Status: Former smoker (Quit smoking over 40 years ago) Past Alcohol Use History: None Reported Additional Past Alcohol Use History / Comment(s): SMOKED FOR ABOUT 10 YRS, QUIT WHEN A "PACK OF CIGARETTES COST 55 CENTS". 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 - Past Family History Brother(s) Family Medical History: No Reported History Father Family Medical History: COPD Medications and Allergies Home Medications Medication Instructions Recorded Confirmed Type Aspirin EC [Ecotrin Low Dose] 81 mg PO DAILY@0800 04/12/22 12/26/22 History DULoxetine HCL [Cymbalta] 60 mg PO HS@199904/12/22 12/26/22 History Folic Acid 1 mg PO DAILY@1400 04/12/22 12/26/22 History Omeprazole 20 mg PO DAILY@0800 06/17/22 12/26/22 History lamoTRIgine [LaMICtal] 100 mg PO BID@0800,199908/11/22 12/26/22 History ALPRAZolam [Xanax] 0.25 mg PO BID PRN #6 tab 08/23/22 12/26/22 Rx Cyanocobalamin [Vitamin B-12] 500 mcg PO HS 10/24/22 12/26/22 History Docusate [Colace] 100 mg PO BID@0800,199910/24/22 12/26/22 History Fludrocortisone [Florinef] 0.2 mg PO DAILY@0800 10/24/22 12/26/22 History Hydrocortisone [Cortef] 10 mg PO BID@0800,1600 10/24/22 12/26/22 History Melatonin 3 mg PO HS@199910/24/22 12/26/22 History Midodrine HCl [ProAmatine] 10 mg PO TID@0700,1300,1900 10/24/22 12/26/22 History Sennosides [Senokot] 8.6 mg PO BID@0800,199910/24/22 12/26/22 History Cholecalciferol [Vitamin D3 (25 50 mcg PO HS 12/26/22 12/26/22 History Mcg = 1000 Iu)] DULoxetine HCL [Cymbalta] 30 mg PO DAILY@0700 12/26/22 12/26/22 History Ferrous Sulfate [Feosol] 325 mg PO DAILY@1400 12/26/22 12/26/22 History HYDROcodone/APAP 5-325MG [[place] 1 tab PO Q12H PRN 12/26/22 12/26/22 History 5-325] HYDROcodone/APAP 5-325MG [[place] 1 tab PO QID@05,11,,12/26/22 12/26/22 History 5-325] Healthshake 1 dose PO TID@0700,1100,1700 12/26/22 12/26/22 History Magnesium Hydroxide [Milk of 2,400 mg PO DAILY PRN 12/26/22 12/26/22 History Magnesia] Tamsulosin HCl [Flomax] 0.4 mg PO 12/26/22 12/26/22 History bisacodyL 10 mg RECTAL DAILY PRN 12/26/22 12/26/22 History polyethylene glycoL 3350 [Miralax] 17 gm PO DAILY@0700 12/26/22 12/26/22 History Allergies Allergy/AdvReac Type Severity Reaction Status Date / Time amoxicillin Allergy Anaphylaxis Verified 12/26/22 14:05 ampicillin Allergy Anaphylaxis Verified 12/26/22 14:05 Iodinated Contrast Media Allergy Anaphylaxis Verified 12/26/22 14:05 [Iodinated Contrast Media - IV Dye] Penicillins Allergy Anaphylaxis, Verified 12/26/22 14:05 Swelling Surgical - Exam Vital Signs Temp Pulse Resp BP Pulse Ox 99.9 F H 89 18 105/68 93 L 12/26/22 12:08 12/26/22 12:08 12/26/22 12:08 12/26/22 12:08 12/26/22 12:08 - General 82-year-old gentleman lying in bed on the cardiac stepdown unit, he appears comfortable, in no acute apparent distress, is a poor historian well developed, no distress, no pain, chronically ill - Eyes PERRL, normal ocular movement, no pale, no icteric - ENT normal pinna, normal nares, normal mucosa, no hearing loss, no congestion, poor longterm - Neck Neck is supple, no lymphadenopathy no masses, no bruits, trachea midline, no venous distension - Respiratory Lung sounds essentially clear throughout, diminished to his left lobes, few scattered crackles. No rhonchi or wheezes. Respirations are symmetrical and nonlabored. Currently on 3 L nasal cannula of oxygen with oxygen saturations 94%. Left chest pigtail catheter in place to low continuous wall suction -20 cm H2O. No air leak is present. Draining serous colored drainage. - Cardiovascular Regular rhythm and rate. S1 and S2 present, negative for S3, gallop or murmur. - Abdomen Abdomen is soft, nontender and nondistended. Active bowel sounds present in all 4 abdominal quadrants. No guarding or rigidity. No organomegaly appreciated. - Genitourinary Posey catheter in place for urinary retention - Rectum Deferred - Integumentary Dressing to left chest pigtail catheter, clean, dry and intact no rash, no growths, no abnormal pigmentation - Neurologic No focal deficits - Musculoskeletal Limited range of motion to his left arm, generalized weakness and debility - Psychiatric Periods of forgetfulness oriented to person, oriented to place Results - Labs 12/30/22 05:36 12/30/22 05:36 Abnormal Lab Results - Last 24 Hours (Table) 12/29/22 12/30/22 12/30/22 Range/Units 03:56 05:36 05:36 WBC 15.1 H (3.8-10.6) k/uL RBC 2.49 L (4.30-5.90) m/uL Hgb 7.6 L (13.0-17.5) gm/dL Hct 24.9 L (39.0-53.0) % MCV 100.3 H (80.0-100.0) fL MCHC 30.5 L (31.0-37.0) g/dL Plt Count 558 H (150-450) k/uL Neutrophils # 13.4 H (1.3-7.7) k/uL Lymphocytes # 0.9 L (1.0-4.8) k/uL Sodium 136 L (137-145) mmol/L Chloride 109 H (98-107) mmol/L Carbon Dioxide 18 L (22-30) mmol/L BUN 45 H (9-20) mg/dL Creatinine 3.81 H (0.66-1.25) mg/dL Iron 19 L (65-175) UG/DL TIBC 105 L (228-460) UG/DL Transferrin 75.3 L (204.0-354.0) mg/dL Ferritin 475.0 H (22.0-322.0) ng/mL Microbiology - Last 24 Hours (Table) 12/26/22 12:25 Blood Culture - Preliminary Blood 12/26/22 12:10 Blood Culture - Preliminary Blood Diabetes panel 12/30/22 Range/Units 05:36 Sodium 136 L (137-145) mmol/L Potassium 4.0 (3.5-5.1) mmol/L Chloride 109 H (98-107) mmol/L Carbon Dioxide 18 L (22-30) mmol/L BUN 45 H (9-20) mg/dL Creatinine 3.81 H (0.66-1.25) mg/dL Glucose 95 (74-99) mg/dL Calcium 8.6 (8.4-10.2) mg/dL Calcium panel 12/30/22 Range/Units 05:36 Calcium 8.6 (8.4-10.2) mg/dL Pituitary panel 12/30/22 Range/Units 05:36 Sodium 136 L (137-145) mmol/L Potassium 4.0 (3.5-5.1) mmol/L Chloride 109 H (98-107) mmol/L Carbon Dioxide 18 L (22-30) mmol/L BUN 45 H (9-20) mg/dL Creatinine 3.81 H (0.66-1.25) mg/dL Glucose 95 (74-99) mg/dL Calcium 8.6 (8.4-10.2) mg/dL Adrenal panel 12/30/22 Range/Units 05:36 Sodium 136 L (137-145) mmol/L Potassium 4.0 (3.5-5.1) mmol/L Chloride 109 H (98-107) mmol/L Carbon Dioxide 18 L (22-30) mmol/L BUN 45 H (9-20) mg/dL Creatinine 3.81 H (0.66-1.25) mg/dL Glucose 95 (74-99) mg/dL Calcium 8.6 (8.4-10.2) mg/dL - Imaging Chest x-ray: report reviewed, image reviewed CT scan - chest: report reviewed, image reviewed Assessment and Plan Assessment: Large loculated left pleural effusion with near complete opacification of the left lung, status post left-sided thoracentesis and subsequent placement of left-sided pigtail catheter by interventional radiology Possible healthcare acquired pneumonia, with associated complicated parapneumonic effusion/empyema Acute hypoxic respiratory failure, secondary to large left pleural effusion Leukocytosis, secondary to above Acute renal failure, creatinine 3.81 today History of hypertension History of hypotension, status post fall from standing Rheumatoid arthritis GERD History of bipolar disorder History of anxiety/depression Incomplete bladder emptying, Posey catheter in place Remote history of smoking dependence, quit smoking over 40 years ago Plan: The patient was seen and examined at his bedside on the third floor cardiac stepdown unit. His chart and diagnostics were reviewed. His case was discussed in detail with Dr. Matteo Wallaec from cardiothoracic surgery. We will instill alteplase/dornase per his left pleural pigtail catheter. No surgical intervention is warranted at this time. We will continue to monitor daily chest x-rays and monitor for resolution in his left pleural effusion. Keep left pleural chest tube in place for now to low continuous wall suction -20 cm H2O. Continue to record strict inaccurate I's and O's from the left pleural pigtail catheter. Medical management and other comorbidities per primary care service and other consultants. More recommendations to follow based on patient's clinical course. Thank you Dr. Hernandez for this consult and we will look for to working with you in the care of this patient. I have personally seen and examined the patient, performed the documentation and the assessment and plan as written. 30 minutes spent on the visit . Matthew VAZQUEZ
--- NOTE | 2022-12-30 10:24 | P.PN ---
Subjective Patient is seen in follow-up for acute kidney injury on chronic kidney disease. Renal function fairly stable. Resting in bed. Denies chest pain or shortness of breath. No vomiting or diarrhea. Oral intake poor. Vital signs are stable. General: No acute distress. HEENT: Head exam is unremarkable. On nasal cannula. LUNGS: No audible rhonchi or wheezes. Left sided chest tube noted. HEART: Rate and Rhythm are regular. ABDOMEN: Nontender. EXTREMITITES: No edema. Objective - Vital Signs Vital signs: Vital Signs Temp 97.7 F 12/30/22 08:00 Pulse 87 12/30/22 08:05 Resp 20 12/30/22 08:00 BP 106/64 12/30/22 08:00 Pulse Ox 94 L 12/30/22 08:15 FiO2 Intake & Output 12/29/22 12/30/22 12/30/22 18:59 06:59 18:59 Intake Total 400 1030 Output Total 540 855 Balance -140 175 Intake: Intake, IV Titration 490 Amount Sodium Chloride 0.9% 1, 490 000 ml @ 70 mls/hr IV . [id number] Rx#:[id number] Oral 400 540 Output: Chest Tube Drainage 140 280 Pleural Catheter Left 140 280 Posterior Chest Urine 400 575 Uretheral (Posey) 575 Other: Voiding Method Indwelling Catheter Indwelling Catheter - Labs CBC & Chem 7: 12/30/22 05:36 12/30/22 05:36 Labs: Abnormal Lab Results - Last 24 Hours (Table) 12/29/22 12/30/22 12/30/22 Range/Units 03:56 05:36 05:36 WBC 15.1 H (3.8-10.6) k/uL RBC 2.49 L (4.30-5.90) m/uL Hgb 7.6 L (13.0-17.5) gm/dL Hct 24.9 L (39.0-53.0) % MCV 100.3 H (80.0-100.0) fL MCHC 30.5 L (31.0-37.0) g/dL Plt Count 558 H (150-450) k/uL Neutrophils # 13.4 H (1.3-7.7) k/uL Lymphocytes # 0.9 L (1.0-4.8) k/uL Sodium 136 L (137-145) mmol/L Chloride 109 H (98-107) mmol/L Carbon Dioxide 18 L (22-30) mmol/L BUN 45 H (9-20) mg/dL Creatinine 3.81 H (0.66-1.25) mg/dL Iron 19 L (65-175) UG/DL TIBC 105 L (228-460) UG/DL Transferrin 75.3 L (204.0-354.0) mg/dL Ferritin 475.0 H (22.0-322.0) ng/mL Microbiology - Last 24 Hours (Table) 12/27/22 13:55 Gram Stain - Preliminary Pleural Fluid Body Fluid Culture - Preliminary Streptococcus viridans group 12/26/22 12:25 Blood Culture - Preliminary Blood 12/26/22 12:10 Blood Culture - Preliminary Blood Assessment and Plan Plan: Assessment: 1. Acute kidney injury secondary to ATN secondary to severe sepsis. Also has Posey catheter for urinary retention. Mild left hydronephrosis noted on ultrasound. Creatinine fairly stable at 3.8 today. UA from July 2022 fairly benign. 2. Chronic kidney disease stage IIIB/4 with baseline creatinine in the range of 1.7-1.9. 3. Pneumonia on antibiotics. Underwent thoracentesis this admission. He has a left-sided chest tube. 4. Metabolic acidosis secondary to acute kidney injury and IV fluids. On oral bicarb. 5. Hypokalemia from poor intake. Replaced. Better. 6. Chronic hypotension maintained on Cortef, Florinef as well as midodrine. 7. Anemia of chronic kidney disease. Iron deficiency noted. 8. Urinary retention. Has Posey catheter. On Flomax. Urology following. Plan: Maintain IV fluids. Add IV iron. Increase dose of oral bicarb. Avoid nephrotoxins. Continue to monitor renal function and urine output. Monitor vancomycin levels. Dose to be adjusted for renal function.
[2022-12-30 11:02] LABS: Amorphous Sediment,Urine Occasional /hpf; Appearance,Urine Turbid (Clear); Bilirubin,Urine Negative (Negative); Blood,Urine Large (Negative); Color,Urine Red; Glucose,Urine (UA) Negative (Negative); Ketones,Urine Negative (Negative); Leukocyte Esterase,Urine Large (Negative); Nitrite,Urine Negative (Negative); PH, Urine 5.5 (5.0-8.0); Protein,Urine 2+ (Negative); RBC,Urine >182 /hpf (0-5); Specific Gravity,Urine 1.014 (1.001-1.035); Urobilinogen,Urine <2.0 mg/dL (<2.0); WBC,Urine 44 /hpf (0-5)
--- NOTE | 2022-12-30 11:13 | P.PN ---
Subjective Progress Note Date: 12/30/22 Principal diagnosis: Shortness of breath. This is an 82-year-old male patient with a known history of gastroesophageal reflux disease, hypertension, rheumatoid arthritis, lifelong nonsmoker, bipolar disorder, anxiety/depression. He was brought in to the emergency room this morn ing from [facility] for hypoxia confusion and had been receiving IV fluids over 4 L the past week. Chest x-ray reveals near complete opacification of the left lung. Computed tomography scan of the chest reveals a large loculated left pleural effusion with partial atelectasis/consolidation involving the left upper lobe and lingula. There is complete atelectasis of the left lower lobe. He is currently maintaining O2 saturations in the 90s on 3 L/m per nasal cannula. He is afebrile. Somewhat hypotensive. White count 35.3. Hemoglobin 8.5. Platelets 617. Sodium 135. Potassium 4.6. Bicarb 21. BUN 41. Creatinine 3.71. Glucose 104. Troponin 0.292. ProBNP 5420. The patient is a poor historian. Most of the information is taken from his family at the bedside. He is currently receiving normal saline at 130 ML's per hour. He is given a dose of vancomycin. Progress note dated 12/27/2022. 82-year-old male seen in the emergency department yesterday. He has a known history of GERD, hypertension, rheumatoid arthritis, I probably disorder, anxiety/depression, and was brought to the emergency room from a local care home, because of hypoxia, confusion, and a chest x-ray which showed a possible pneumonia. In addition, there was a left-sided pleural effusion. Clinically, the patient appears reasonably stable. He is getting saline at 130 mL an hour, is on 3 L of oxygen. His pro-calcitonin level was 1.19. He was placed on vancomycin and Levaquin. The patient's ultrasound did reveal a right-sided pleural effusion, and we've asked interventional radiology to consider ultrasound-guided drainage. White count 30.3, hemoglobin 7.3, hematocrit 23.8, and platelet count 573,000. Sodium 134, potassium 4.4, chlorides 102, CO2 21, BUN 43, creatinine 4.11. Troponins were 0.292, 0.287, and 0.240. N-terminal proBNP was elevated at 5420. Progress note dated 12/28/2022. 82-year-old male seen today in room 369. The patient continues on Levaquin and vancomycin. The patient had a left-sided thoracentesis performed by interventional radiology. 750 mL of straw colored fluid was removed. We will asked him to consider doing a pigtail catheter placement, given the fact that the fluid was an exudate, with a high LDH and high protein, the fact that the patient had primarily polymorphonuclear neutrophils in the fluid, and the fluid glucose was only 2. Currently, the patient's on 3 L. He is coughing up purulent sputum. Currently, the patient is on 3 L of oxygen. Not receiving any IV fluids. White count 18.9, which is down from 30.3. Hemoglobin 7.5, he matocrit 24.2, with a platelet count of 541,000. Sodium 135, potassium 3.8, chlorides 106, CO2 21, BUN 45, and creatinine 3.86. The fluid analysis revealed it to be cloudy, with 98% PMNs and 2% lymphocytes. A glucose of less than 2, a total protein of greater than 3.6 g, and an LDH which was 616. Progress note dated 12/29/2022. 82-year-old male seen in room 369. The patient continues on antibiotics in the form of Levaquin and vancomycin. He is getting saline at 70 mL an hour. He is getting nasal O2 at 3 L. Yesterday, interventional radiology placed a small bore catheter into the left pleural space. The patient has had significant drainage. The catheter is noted to be on to suction. Laboratory data today includes a white count of 16.8, hemoglobin 7.1, hematocrit 22.7, and a platelet count of 552,000. Sodium 133, potassium 3.4, chlorides 107, CO2 18, BUN 46, and creatinine 3.70. The fluid was cloudy, and is clearly an exudate. 98% of the white blood cells are PMNs. The glucose of the fluid was very low, less than 2, suggesting an empyema. Progress note dated 12/30/2022. 82-year-old male seen in room 369. The patient continues on Levaquin and vancomycin. Cultures are thus far negative. He is getting 3 L of oxygen by nasal cannula. He is also getting saline at 70 mL an hour. We asked cardiothoracic surgery to see him, so that they can instill, TPA, and alpha dornase, into the chest tube, inserted by interventional radiology. Today's chest x-ray looks a bit better. White count 15.1, hemoglobin 7.6, hematocrit 24.9, and platelet count 558,000. Sodium 136, potassium 4, chlorides 109, CO2 18, BUN 45, and creatinine 3.81. The pleural fluid is showing evidence of Streptococcus viridans. Sensitivities are currently pending. Objective - Vital Signs Vital signs: Vital Signs Temp 97.7 F 12/30/22 08:00 Pulse 87 12/30/22 08:05 Resp 20 12/30/22 08:00 BP 106/64 12/30/22 08:00 Pulse Ox 94 L 12/30/22 08:15 FiO2 Intake & Output 12/29/22 12/30/22 12/30/22 18:59 06:59 18:59 Intake Total 400 1030 Output Total 540 855 100 Balance -140 175 -100 Intake: Intake, IV Titration 490 Amount Sodium Chloride 0.9% 1, 490 000 ml @ 70 mls/hr IV . [id number] [facility] Rx#:[id number] Oral 400 540 Output: Chest Tube Drainage 140 280 100 Pleural Catheter Left 140 280 100 Posterior Chest Urine 400 575 Uretheral (Posey) 575 Other: Voiding Method Indwelling Catheter Indwelling Catheter - Exam No acute distress, oriented 3. Currently on 3 L of oxygen. No overt respiratory distress. HEENT examination is grossly unremarkable. Mucous membranes are moist. No oral lesions. Neck supple. Full range of motion. No adenopathy thyromegaly or neck vein distention. Cardiovascular examination reveals regular rhythm rate. S1-S2 normal. No S3 or S4. No discernible murmur noted. Heart sounds are distant. Heart rate 82 bpm. Lungs reveal diminished left-sided breath sounds. Scattered rhonchi are noted. No wheezes. No crackles. Saturations are 94 % on 3 L. Left-sided chest tube is noted. Abdomen soft bowel sounds are heard. No masses or tenderness. Extremities are intact. No cyanosis clubbing or edema. Skin is without rash or lesion. Neurologic examination is brief but nonfocal. - Labs CBC & Chem 7: 12/30/22 05:36 12/30/22 05:36 Labs: Abnormal Lab Results - Last 24 Hours (Table) 12/29/22 12/30/22 12/30/22 Range/Units 03:56 05:36 05:36 WBC 15.1 H (3.8-10.6) k/uL RBC 2.49 L (4.30-5.90) m/uL Hgb 7.6 L (13.0-17.5) gm/dL Hct 24.9 L (39.0-53.0) % MCV 100.3 H (80.0-100.0) fL MCHC 30.5 L (31.0-37.0) g/dL Plt Count 558 H (150-450) k/uL Neutrophils # 13.4 H (1.3-7.7) k/uL Lymphocytes # 0.9 L (1.0-4.8) k/uL Sodium 136 L (137-145) mmol/L Chloride 109 H (98-107) mmol/L Carbon Dioxide 18 L (22-30) mmol/L BUN 45 H (9-20) mg/dL Creatinine 3.81 H (0.66-1.25) mg/dL Iron 19 L (65-175) UG/DL TIBC 105 L (228-460) UG/DL Transferrin 75.3 L (204.0-354.0) mg/dL Ferritin 475.0 H (22.0-322.0) ng/mL Urine Protein (Negative) Urine Blood (Negative) Ur Leukocyte Esterase (Negative) Urine RBC (0-5) /hpf Urine WBC (0-5) /hpf Amorphous Sediment (None) /hpf 12/30/22 Range/Units 10:35 WBC (3.8-10.6) k/uL RBC (4.30-5.90) m/uL Hgb (13.0-17.5) gm/dL Hct (39.0-53.0) % MCV (80.0-100.0) fL MCHC (31.0-37.0) g/dL Plt Count (150-450) k/uL Neutrophils # (1.3-7.7) k/uL Lymphocytes # (1.0-4.8) k/uL Sodium (137-145) mmol/L Chloride (98-107) mmol/L Carbon Dioxide (22-30) mmol/L BUN (9-20) mg/dL Creatinine (0.66-1.25) mg/dL Iron (65-175) UG/DL TIBC (228-460) UG/DL Transferrin (204.0-354.0) mg/dL Ferritin (22.0-322.0) ng/mL Urine Protein 2+ H (Negative) Urine Blood Large H (Negative) Ur Leukocyte Esterase Large H (Negative) Urine RBC >182 H (0-5) /hpf Urine WBC 44 H (0-5) /hpf Amorphous Sediment Occasional H (None) /hpf Microbiology - Last 24 Hours (Table) 12/27/22 13:55 Gram Stain - Preliminary Pleural Fluid Body Fluid Culture - Preliminary Streptococcus viridans group 12/26/22 12:25 Blood Culture - Preliminary Blood 12/26/22 12:10 Blood Culture - Preliminary Blood Assessment and Plan Assessment: Acute hypoxemic respiratory failure secondary to a large left pleural effusion with near complete opacification of the left lung, suspect healthcare acquired pneumonia, with associated complicated parapneumonic effusion/empyema. Streptococcus viridans empyema. S/P left sided chest tube, placed, 12/28/2022. Leukocytosis secondary to above. Acute renal failure. Troponin leak. Hypotension. Lifelong nonsmoker. History of esophageal reflux disease. History of hypertension. History of rheumatoid arthritis. History of anxiety/depression. History of bipolar disorder. [facility] resident. Plan: Plan dated 12/27/2022. The results of the chest x-ray, CAT scan, an ultrasound of the chest, reviewed, and we decided that interventional radiology should consider a ultrasound guided left thoracentesis. The patient appears clinically stable on 3 L of oxygen. Labs and x-rays are reviewed. The patient was placed on vancomycin and Levaquin. The pro-calcitonin level was elevated at 1.19. The patient remains on 3 L of oxygen. We will continue to follow the patient and make recommendations along the way. Plan dated 12/28/2022. The patient's left chest was drained by interventional radiology. The patient's fluid is an exudate, is complicated, and may represent an empyema, given the p redominance of PMNs, and the very low glucose. We will ask interventional radiology to consider placing a pigtail catheter. Labs, x-rays, medications are reviewed. The patient continues on Levaquin and vancomycin. Prognosis is certainly guarded. The patient did have some relief, after the thoracentesis. Plan dated 12/29/2022. Interventional radiology was kind enough to place a left-sided chest tube. The patient is currently on Levaquin and vancomycin. Cultures are currently pending or negative. The fluid was clearly exudative, and likely an empyema. Additional recommendations and suggestions are forthcoming. Prognosis is guarded. We will continue to follow the patient and make recommendations along the way. Plan dated 12/30/2022. Cardiothoracic surgery, was kind enough, to instill TPA, and alpha dornase, into the patient's left-sided chest tube. Pleural fluid cultures show evidence of Streptococcus viridans. The patient continues on 3 L of oxygen. The patient also continues on Levaquin and vancomycin. We will continue to follow. The patient should have a daily chest x-ray. Prognosis is guarded. Time with Patient: Less than 30
--- NOTE | 2022-12-30 11:40 | P.PN ---
Subjective Progress Note Date: 12/30/22 Hospital Course: 82-year-old male with history of orthostatic hypotension, chronic kidney disease, GERD, hypertension, prostate disorder presenting from nursing facility with worsening mentation and hypoxia. In the ED, initial temperature was 99.9, pulse 89, respiratory rate 18, blood pressure 105/68, saturating at 92% on 4 L. Blood pressure did go down up to 73/49. WBC 35.3, hemoglobin 8.5, sodium 135, bicarb 21, anion gap 14, creatinine 3.71 up from baseline, troponin 0.92, proBNP 5000. Chest x-ray independently interpreted shows white out lung on the left side. Chest CT shows large loculated left-sided pleural effusion, trace right- sided pleural effusion. Ectatic ascending thoracic aorta at 2.8 cm. Patient was given another milligram of IV cortisone and IV levofloxacin, and liters normal saline, and IV vancomycin in the ED. Pulmonology also consulted. He is being admitted for severe sepsis secondary to pneumonia. Renal function worsening. Nephrology consulted. Pulmonology also following. He is now status post thoracentesis, exudative. Now s/p chest tube. Cardio thoracic surgery following. Subjective: Patient seen and examined at bedside. No acute events overnight. Shortness of breath and cough has improved after chest tube placement. Has a Posey catheter in place. Has been having some dark urine, and some clots in the Posey bag. Pertinent positives and negatives as discussed above, a complete review of systems was performed and all other systems are negative. Vitals Signs Reviewed. General: nontoxic, no distress, appears at stated age Derm: warm, dry Head: atraumatic, normocephalic, symmetric Eyes: EOMI, no lid lag, anicteric sclera Mouth: no lip lesion, mucus membranes moist Cardiovascular: S1S2 reg, no murmur Lungs: Decreased breath sounds on the left, no accessory muscle use, supplemental oxygen, chest tube in place Abdominal: soft, nontender to palpation, no guarding, no appreciable organomegaly Ext: no gross muscle atrophy, no edema, no contractures Neuro: CN II-XI grossly intact, no focal neuro deficits Psych: Alert, oriented 2, appropriate affect Data Reviewed Today: Pertinent Labs: WBC 15.1, hemoglobin 7.6, platelets 558, sodium 136, creatinine 3.81, urinalysis shows large blood Imaging: Chest x-ray and apparently interpreted, shows left-sided pleural effusion which is slightly better compared to admission Sputum culture showing strep viridans, sensitivities pending, blood cultures negative Assessment and Plan: Severe sepsis secondary to community-acquired pneumonia complicated by empyema Status post left-sided chest tube Elevated troponin, likely demand ischemia Acute kidney injury on chronic kidney disease Urinary retention Kory hematuria Acute on chronic anemia, likely blood loss, blood count stable History of orthostatic hypotension on chronic steroids -Pulmonology note reviewed, continue current management -On IV vancomycin, monitor for renal toxicity -Also on IV Levaquin -continue fludrocortisone and hydrocortisone, and midodrine -Nephrology note reviewed, continue IV fluids, started on IV iron, oral bicarbonate dose increased -Cardiothoracic note reviewed, instilled TPA -Urology also following -CBC and BMP tomorrow Chronic: Depression Bipolar disorder DVT ppx: SCDs Code status: Full code Anticipated discharge place: Pending clinical course Anticipated discharge time: Pending clinical course Objective - Vital Signs Vital signs: Vital Signs Temp 97.7 F 12/30/22 08:00 Pulse 87 12/30/22 08:05 Resp 20 12/30/22 08:00 BP 106/64 12/30/22 08:00 Pulse Ox 94 L 12/30/22 08:15 FiO2 Intake & Output 12/29/22 12/30/22 12/30/22 18:59 06:59 18:59 Intake Total 400 1030 Output Total 540 855 100 Balance -140 175 -100 Intake: Intake, IV Titration 490 Amount Sodium Chloride 0.9% 1, 490 000 ml @ 70 mls/hr IV . [id number] [facility] Rx#:[id number] Oral 400 540 Output: Chest Tube Drainage 140 280 100 Pleural Catheter Left 140 280 100 Posterior Chest Urine 400 575 Uretheral (Posey) 575 Other: Voiding Method Indwelling Catheter Indwelling Catheter - Labs CBC & Chem 7: 12/30/22 05:36 12/30/22 05:36 Labs: Abnormal Lab Results - Last 24 Hours (Table) 12/29/22 12/30/22 12/30/22 Range/Units 03:56 05:36 05:36 WBC 15.1 H (3.8-10.6) k/uL RBC 2.49 L (4.30-5.90) m/uL Hgb 7.6 L (13.0-17.5) gm/dL Hct 24.9 L (39.0-53.0) % MCV 100.3 H (80.0-100.0) fL MCHC 30.5 L (31.0-37.0) g/dL Plt Count 558 H (150-450) k/uL Neutrophils # 13.4 H (1.3-7.7) k/uL Lymphocytes # 0.9 L (1.0-4.8) k/uL Sodium 136 L (137-145) mmol/L Chloride 109 H (98-107) mmol/L Carbon Dioxide 18 L (22-30) mmol/L BUN 45 H (9-20) mg/dL Creatinine 3.81 H (0.66-1.25) mg/dL Iron 19 L (65-175) UG/DL TIBC 105 L (228-460) UG/DL Transferrin 75.3 L (204.0-354.0) mg/dL Ferritin 475.0 H (22.0-322.0) ng/mL Urine Protein (Negative) Urine Blood (Negative) Ur Leukocyte Esterase (Negative) Urine RBC (0-5) /hpf Urine WBC (0-5) /hpf Amorphous Sediment (None) /hpf 12/30/22 Range/Units 10:35 WBC (3.8-10.6) k/uL RBC (4.30-5.90) m/uL Hgb (13.0-17.5) gm/dL Hct (39.0-53.0) % MCV (80.0-100.0) fL MCHC (31.0-37.0) g/dL Plt Count (150-450) k/uL Neutrophils # (1.3-7.7) k/uL Lymphocytes # (1.0-4.8) k/uL Sodium (137-145) mmol/L Chloride (98-107) mmol/L Carbon Dioxide (22-30) mmol/L BUN (9-20) mg/dL Creatinine (0.66-1.25) mg/dL Iron (65-175) UG/DL TIBC (228-460) UG/DL Transferrin (204.0-354.0) mg/dL Ferritin (22.0-322.0) ng/mL Urine Protein 2+ H (Negative) Urine Blood Large H (Negative) Ur Leukocyte Esterase Large H (Negative) Urine RBC >182 H (0-5) /hpf Urine WBC 44 H (0-5) /hpf Amorphous Sediment Occasional H (None) /hpf Microbiology - Last 24 Hours (Table) 12/27/22 13:55 Gram Stain - Preliminary Pleural Fluid Body Fluid Culture - Preliminary Streptococcus viridans group 12/26/22 12:25 Blood Culture - Preliminary Blood 12/26/22 12:10 Blood Culture - Preliminary Blood
[2022-12-30] MEDS: ALPRAZolam 0.25 MG TAB PO PRN ×2 (11:51→20:08)
[2022-12-30] MEDS: SODIUM FERRIC GLUCONAT-SUCROSE 125 MG in SODIUM CHLORIDE 0.9% 100 ML IVPB SCH (13:59)
[2022-12-30] MEDS: FOLIC ACID 1 MG TAB PO SCH (14:03)
[2022-12-30] MEDS: ACETAMINOPHEN TAB 325 MG TAB PO PRN ×2 (14:03→20:08)
[2022-12-30] MEDS: TAMSULOSIN 0.4 MG CAP.ER.24H PO SCH (20:08)
[2022-12-30] MEDS: MELATONIN 3 MG TABLET PO SCH (20:08)
[2022-12-30] MEDS: DULoxetine HCL 60 MG CAPSULE.DR PO SCH (20:08)
[2022-12-30] MEDS: CYANOCOBALAMIN 500 MCG TAB PO SCH (20:08)
[2022-12-30] MEDS: CHOLECALCIFEROL 25 MCG (1000 IU) TABLET PO SCH (20:08)
[2022-12-30] MEDS: MORPHINE SULFATE 4 MG/ML SYRINGE IVP PRN (23:57)
[2022-12-31] MEDS: IPRATROPIUM-ALBUTEROL 3 ML NEB INHALATION PRN ×3 (00:28→20:20)
[2022-12-31] MEDS ORDERED: SODIUM CHLORIDE 0.9% 1,000 ML IV ONE (04:47)
[2022-12-31] MEDS: SODIUM CHLORIDE 0.9% 1,000 ML IV SCH (04:54)
[2022-12-31] MEDS: DULoxetine HCL 30 MG CAPSULE.DR PO SCH (06:17)
[2022-12-31] MEDS: MIDODRINE 5 MG TAB PO SCH ×3 (06:17→18:33)
[2022-12-31] MEDS: DOCUSATE 100 MG CAP PO SCH ×2 (08:05→21:05)
[2022-12-31] MEDS: ASPIRIN 81 MG PO SCH (08:05)
[2022-12-31] MEDS: HYDROCORTISONE 10 MG TAB PO SCH (08:05)
[2022-12-31] MEDS: ALPRAZolam 0.25 MG TAB PO PRN ×2 (08:05→21:05)
[2022-12-31] MEDS: PANTOPRAZOLE 40 MG TABLET PO SCH (08:06)
[2022-12-31] MEDS: lamoTRIgine 100 MG TAB PO SCH ×2 (08:06→21:05)
[2022-12-31] MEDS: FLUDROCORTISONE 0.1 MG TAB PO SCH (08:06)
[2022-12-31] MEDS: SODIUM BICARBONATE TAB 650 MG TAB PO SCH ×2 (08:06→21:05)
--- NOTE | 2022-12-31 08:15 | XR ---
EXAMINATION TYPE: XR chest 1V portable DATE OF EXAM: 12/31/2022 6:47 AM COMPARISON: Chest radiographs from 12/30/2022 TECHNIQUE: XR chest 1V portable Frontal view of the chest. CLINICAL INDICATION:Male, 82 years old with history of Left pleural effusion; FINDINGS: Lungs/Pleura: Interval increase in left pleural effusion with decreased aeration of the left lung. No evidence of pneumothorax. There is blunting of the right costophrenic angle. Pulmonary vascularity: Unremarkable. Heart/mediastinum: Cardiomediastinal silhouette is partially obscured due to overlying and adjacent o pacities. Musculoskeletal: No acute osseous pathology. Other findings: None Lines/Tubes:Left thoracotomy tube is present without evidence of pneumothorax. IMPRESSION: Interval worsening of left sided pleural effusion with catheter in similar position. There is decreas ed aeration of the left lung on today's exam.
[2022-12-31] MEDS: SODIUM FERRIC GLUCONAT-SUCROSE 125 MG in SODIUM CHLORIDE 0.9% 100 ML IVPB SCH (08:17)
[2022-12-31 08:23] LABS: Basophils % (A) 0 %; Eosinophils # (A) 0.1 k/uL (0-0.7); Eosinophils % (A) 1 %; HCT 23.5 % (39.0-53.0); HGB 7.2 gm/dL (13.0-17.5); Hypochromasia Marked; Lymphocytes # (A) 0.8 k/uL (1.0-4.8); Lymphocytes % (A) 3 %; MCH 30.2 pg (25.0-35.0); MCHC 30.6 g/dL (31.0-37.0); MCV 98.8 fL (80.0-100.0); Mean Platelet Volume 7.4; Monocytes # (A) 1.2 k/uL (0-1.0); Monocytes % (A) 5 %; Neutrophils # (A) 21.4 k/uL (1.3-7.7); Neutrophils % (A) 90 %; Platelet Count 565 k/uL (150-450); RBC 2.38 m/uL (4.30-5.90); RDW 14.8 % (11.5-15.5); WBC 23.7 k/uL (3.8-10.6)
[2022-12-31 08:29] LABS: African American GFR (CKD) 16 (>60 ml/min/1.73 sqM); Anion Gap 9 mmol/L; Blood Urea Nitrogen 45 mg/dL (9-20); Calcium 8.5 mg/dL (8.4-10.2); Carbon Dioxide 18 mmol/L (22-30); Chloride 110 mmol/L (98-107); Glucose 101 mg/dL (74-99); Magnesium 1.9 mg/dL (1.6-2.3); Non-African American GFR(CKD) 14 (>60 ml/min/1.73 sqM); Potassium 3.8 mmol/L (3.5-5.1); Sodium 137 mmol/L (137-145)
--- NOTE | 2022-12-31 09:13 | US ---
Ultrasound-guided left chest tube insertion DATE OF EXAM: 12/28/2022 CLINICAL HISTORY: Loculated left pleural effusion The procedure was discussed with the patient. The risks, complications, benefits, and alternatives we re discussed and any questions were answered. Informed consent was obtained. The patient was placed supine on the ultrasound table and prepped and draped in the usual sterile fas hion. All elements of maximal barrier and sterile technique were utilized. Under ultrasound guidance, access into the Left pleural space was obtained, via the 21-gauge needle and there is conversion to an 0.035 system w ith placement of a 8 English drainage catheter under direct ultrasound guidance. Continued imaging dem onstrated ideal placement of the catheter. The patient was stable throughout the procedure and remained stable upon discharge from Department of Radiology. IMPRESSION: 1. Successful ultrasound-guided left chest tube insertion for pleural effusion.
[2022-12-31] MEDS: guaiFENesin 600 MG TABLET.ER PO SCH ×2 (09:30→21:07)
[2022-12-31] MEDS: HYDROcodone/APAP 5-325MG 1 EACH TAB PO PRN ×2 (09:39→16:40)
[2022-12-31 10:38] LABS: ABG Base Excess -6.1 mmol/L; ABG HCO3 19 mmol/L (21-25); ABG Oxygen Saturation 91.8 % (94-97); ABG PCO2 31 mmHg (35-45); ABG PH 7.39 (7.35-7.45); ABG TCO2 20 mmol/L (19-24); Allen Test Performed? Yes
[2022-12-31] MEDS ORDERED: SODIUM BICARB 8.4% 50 ML SYR (1 MEQ/ML) IV STA (10:39)
[2022-12-31 10:41] LABS: ABG PO2 58 mmHg (83-108)
--- NOTE | 2022-12-31 10:42 | P.PN ---
Subjective Patient is seen in follow-up for acute kidney injury on chronic kidney disease. Renal function fairly stable. Resting in bed. Feels more short of breath today. No vomiting or diarrhea. Oral intake poor. Vital signs are stable. General: No acute distress. HEENT: Head exam is unremarkable. On nasal cannula. LUNGS: No audible rhonchi or wheezes. Left sided chest tube noted. HEART: Rate and Rhythm are regular. ABDOMEN: Nontender. EXTREMITITES: No edema. Objective - Vital Signs Vital signs: Vital Signs Temp 98.7 F 12/31/22 08:00 Pulse 82 12/31/22 08:37 Resp 20 12/31/22 08:00 BP 80/47 12/31/22 09:32 Pulse Ox 94 L 12/31/22 08:00 FiO2 Intake & Output 12/30/22 12/31/22 12/31/22 18:59 06:59 18:59 Intake Total 720 100 Output Total 1975 275 Balance -1255 -275 100 Intake: Oral 720 100 Output: Chest Tube Drainage 1125 75 Pleural Catheter Left 1125 75 Posterior Chest Urine 850 200 Uretheral (Posey) 200 Other: Voiding Method Indwelling Catheter Indwelling Catheter Indwelling Catheter - Labs CBC & Chem 7: 12/31/22 07:27 12/31/22 07:27 Labs: Abnormal Lab Results - Last 24 Hours (Table) 12/30/22 12/31/22 12/31/22 Range/Units 10:35 07:27 07:27 WBC 23.7 H (3.8-10.6) k/uL RBC 2.38 L (4.30-5.90) m/uL Hgb 7.2 L (13.0-17.5) gm/dL Hct 23.5 L (39.0-53.0) % MCHC 30.6 L (31.0-37.0) g/dL Plt Count 565 H (150-450) k/uL Neutrophils # 21.4 H (1.3-7.7) k/uL Lymphocytes # 0.8 L (1.0-4.8) k/uL Monocytes # 1.2 H (0-1.0) k/uL Chloride 110 H (98-107) mmol/L Carbon Dioxide 18 L (22-30) mmol/L BUN 45 H (9-20) mg/dL Creatinine 3.90 H (0.66-1.25) mg/dL Glucose 101 H (74-99) mg/dL Urine Protein 2+ H (Negative) Urine Blood Large H (Negative) Ur Leukocyte Esterase Large H (Negative) Urine RBC >182 H (0-5) /hpf Urine WBC 44 H (0-5) /hpf Amorphous Sediment Occasional H (None) /hpf Microbiology - Last 24 Hours (Table) 12/30/22 12:30 Gram Stain - Preliminary Sputum 12/27/22 13:55 Anaerobic Culture - Preliminary Pleural Fluid 12/27/22 13:55 Gram Stain - Preliminary Pleural Fluid Body Fluid Culture - Preliminary Streptococcus viridans group Assessment and Plan Plan: Assessment: 1. Acute kidney injury secondary to ATN secondary to severe sepsis. Also has Posey catheter for urinary retention. Mild left hydronephrosis noted on ultrasound. Creatinine fairly stable at 3.9 today. UA from July 2022 fairly benign. 2. Chronic kidney disease stage IIIB/4 with baseline creatinine in the range of 1.7-1.9. 3. Pneumonia on antibiotics. Underwent thoracentesis this admission. He has a left-sided chest tube. Chest x-ray from today shows worsening left-sided pleural effusion. 4. Metabolic acidosis secondary to acute kidney injury and IV fluids. On oral bicarb. 5. Hypokalemia from poor intake. Replaced. Stable. 6. Chronic hypotension maintained on Cortef, Florinef as well as midodrine. 7. Anemia of chronic kidney disease. Iron deficiency noted. 8. Urinary retention. Has Posey catheter. On Flomax. Urology following. Plan: Hep-Lock IV fluids. Patient received liter bolus last night due to hypotension. Maintain IV iron. Add Aranesp. 2 A of sodium bicarb IV push today. Avoid nephrotoxins. Continue to monitor renal function and urine output. Monitor vancomycin levels. Dose to be adjusted for renal function.
[2022-12-31] MEDS: HYDROCORTISONE SUCCINATE 100 MG/2 ML VIAL IV SCH ×3 (10:48→23:31)
[2022-12-31] MEDS ORDERED: DARBEPOETIN ALFA 40 MCG/0.4 ML SYRINGE SQ SCH (11:00)
[2022-12-31] MEDS ORDERED: DORNASE ALFA 5 MG in SODIUM CHLORIDE 0.9% 50 ML IRRIGATION ONE (11:24)
[2022-12-31] MEDS ORDERED: ALTEPLASE 10 MG in SODIUM CHLORIDE 0.9% 50 ML IRRIGATION ONE (11:24)
--- NOTE | 2022-12-31 11:28 | P.PN ---
Subjective Progress Note Date: 12/31/22 This is an 82-year-old male patient with a known history of gastroesophageal reflux disease, hypertension, rheumatoid arthritis, lifelong nonsmoker, bipolar disorder, anxiety/depression. He was brought in to the emergency room this morning from [facility] for hypoxia confusion and had been receiving IV fluids over 4 L the past week. Chest x-ray reveals near complete opacification of the left lung. Computed tomography scan of the chest reveals a large loculated left pleural effusion with partial atelectasis/consolidation involving the left upper lobe and lingula. There is complete atelectasis of the left lower lobe. He is currently maintaining O2 saturations in the 90s on 3 L/m per nasal cannula. He is afebrile. Somewhat hypotensive. White count 35.3. Hemoglobin 8.5. Platelets 617. Sodium 135. Potassium 4.6. Bicarb 21. BUN 41. Creatinine 3.71. Glucose 104. Troponin 0.292. ProBNP 5420. The patient is a poor historian. Most of the information is taken from his family at the bedside. He is currently receiving normal saline at 130 ML's per hour. He is given a dose of vancomycin. Progress note dated 12/27/2022. 82-year-old male seen in the emergency department yesterday. He has a known history of GERD, hypertension, rheumatoid arthritis, I probably disorder, anxiety/depression, and was brought to the emergency room from a local half-way, because of hypoxia, confusion, and a chest x-ray which showed a possible pneumonia. In addition, there was a left-sided pleural effusion. Clinically, the patient appears reasonably stable. He is getting saline at 130 mL an hour, is on 3 L of oxygen. His pro-calcitonin level was 1.19. He was placed on vancomycin and Levaquin. The patient's ultrasound did reveal a right-sided pleural effusion, and we've asked interventional radiology to consider ultrasound-guided drainage. White count 30.3, hemoglobin 7.3, hematocrit 23.8, and platelet count 573,000. Sodium 134, potassium 4.4, chlorides 102, CO2 21, BUN 43, creatinine 4.11. Troponins were 0.292, 0.287, and 0.240. N-terminal proBNP was elevated at 5420. Progress note dated 12/28/2022. 82-year-old male seen today in room 369. The patient continues on Levaquin and vancomycin. The patient had a left-sided thoracentesis performed [facility]. 750 mL of straw colored fluid was removed. We will asked him to consider doing a pigtail catheter placement, given the fact that the fluid was an exudate, with a high LDH and high protein, the fact that the patient had primarily polymorphonuclear neutrophils in the fluid, and the fluid glucose was only 2. Currently, the patient's on 3 L. He is coughing up purulent sputum. Currently, the patient is on 3 L of oxygen. Not receiving any IV fluids. White count 18.9, which is down from 30.3. Hemoglobin 7.5, hematocrit 24.2, with a platelet count of 541,000. Sodium 135, potassium 3.8, chlorides 106, CO2 21, BUN 45, and creatinine 3.86. The fluid analysis revealed it to be cloudy, with 98% PMNs and 2% lymphocytes. A glucose of less than 2, a total protein of greater than 3.6 g, and an LDH which was 616. Progress note dated 12/29/2022. 82-year-old male seen in room 369. The patient continues on antibiotics in the form of Levaquin and vancomycin. He is getting saline at 70 mL an hour. He is getting nasal O2 at 3 L. Yesterday, interventional radiology placed a small bore catheter into the left pleural space. The patient has had significant drainage. The catheter is noted to be on to suction. Laboratory data today includes a white count of 16.8, hemoglobin 7.1, hematocrit 22.7, and a platelet count of 552,000. Sodium 133, potassium 3.4, chlorides 107, CO2 18, BUN 46, and creatinine 3.70. The fluid was cloudy, and is clearly an exudate. 98% of the white blood cells are PMNs. The glucose of the fluid was very low, less than 2, suggesting an empyema. Progress note dated 12/30/2022. 82-year-old male seen in room 369. The patient continues on Levaquin and vancomycin. Cultures are thus far negative. He is getting 3 L of oxygen by nasal cannula. He is also getting saline at 70 mL an hour. We asked cardiothoracic surgery to see him, so that they can instill, TPA, and alpha dornase, into the chest tube, inserted by interventional radiology. Today's chest x-ray looks a bit better. White count 15.1, hemoglobin 7.6, hematocrit 24.9, and platelet count 558,000. Sodium 136, potassium 4, chlorides 109, CO2 18, BUN 45, and creatinine 3.81. The pleural fluid is showing evidence of Streptococcus viridans. Sensitivities are currently pending. On today's evaluation of 12/31/2022, the patient is being seen for a follow-up. Earlier this morning, the patient coughed out a big chunk of mucus plugging dark greenish yellowish in color. The pleural fluid samples from earlier on 12/27/2022 was consistent with strep viridans and the patient is currently on antibiotics and is currently on IV Levaquin and vancomycin. The vancomycin trough level was 17.4 from yesterday. The white cell count is still elevated at 23.7 with a hemoglobin of 7.2. The BUN is at 45 with a creatinine of 3.9. Earlier this morning, the patient was found to be quite lethargic and weak and at that point the blood gas was done that showed also a pH of 7.39 with a pCO2 of 31 and pO2 of 58 and this was on FiO2 of 32%. He remains hemodynamically stable. Is afebrile for now. He is on 3 L of oxygen by nasal cannula. The last alteplase therapy to his left chest was done yesterday and the output since then has been in the order of 1.8 L of purulent material. Nevertheless, the chest x-ray shows interval worsening of the left sided opacity with volume loss atelectasis and some residual fluid present. There is a concern for mucous plug obstructing left lower lobe bronchus and getting lung reexpansion. Objective - Vital Signs Vital signs: Vital Signs Temp 98.7 F 12/31/22 08:00 Pulse 82 12/31/22 08:37 Resp 20 12/31/22 08:00 BP 80/47 12/31/22 09:32 Pulse Ox 94 L 12/31/22 08:00 FiO2 Intake & Output 12/30/22 12/31/22 12/31/22 18:59 06:59 18:59 Intake Total 720 100 Output Total 1975 275 Balance -1255 -275 100 Intake: Oral 720 100 Output: Chest Tube Drainage 1125 75 Pleural Catheter Left 1125 75 Posterior Chest Urine 850 200 Uretheral (Posey) 200 Other: Voiding Method Indwelling Catheter Indwelling Catheter Indwelling Catheter - Exam No acute distress, oriented 3. Currently on 3 L of oxygen. No overt respiratory distress. HEENT examination is grossly unremarkable. Mucous membranes are moist. No oral lesions. Neck supple. Full range of motion. No adenopathy thyromegaly or neck vein distention. Cardiovascular examination reveals regular rhythm rate. S1-S2 normal. No S3 or S4. No discernible murmur noted. Heart sounds are distant. Lungs reveal diminished left-sided breath sounds. Scattered rhonchi are noted. No wheezes. No crackles. Left-sided chest tube is noted. Abdomen soft bowel sounds are heard. No masses or tenderness. Extremities are intact. No cyanosis clubbing or edema. Skin is without rash or lesion. Neurologic examination is brief but nonfocal. - Labs CBC & Chem 7: 12/31/22 07:27 12/31/22 07:27 Labs: Abnormal Lab Results - Last 24 Hours (Table) 12/31/22 12/31/22 12/31/22 Range/Units 07:27 07:27 10:35 WBC 23.7 H (3.8-10.6) k/uL RBC 2.38 L (4.30-5.90) m/uL Hgb 7.2 L (13.0-17.5) gm/dL Hct 23.5 L (39.0-53.0) % MCHC 30.6 L (31.0-37.0) g/dL Plt Count 565 H (150-450) k/uL Neutrophils # 21.4 H (1.3-7.7) k/uL Lymphocytes # 0.8 L (1.0-4.8) k/uL Monocytes # 1.2 H (0-1.0) k/uL ABG pCO2 31 L (35-45) mmHg ABG pO2 58 L* (83-108) mmHg ABG HCO3 19 L (21-25) mmol/L ABG O2 Saturation 91.8 L (94-97) % Chloride 110 H (98-107) mmol/L Carbon Dioxide 18 L (22-30) mmol/L BUN 45 H (9-20) mg/dL Creatinine 3.90 H (0.66-1.25) mg/dL Glucose 101 H (74-99) mg/dL Microbiology - Last 24 Hours (Table) 12/30/22 12:30 Gram Stain - Preliminary Sputum 12/27/22 13:55 Anaerobic Culture - Preliminary Pleural Fluid 12/27/22 13:55 Gram Stain - Preliminary Pleural Fluid Body Fluid Culture - Preliminary Streptococcus viridans group Assessment and Plan Plan: Acute hypoxemic respiratory failure secondary to a large left pleural effusion with near complete opacification of the left lung, suspect healthcare acquired pneumonia, with associated complicated parapneumonic effusion/empyema. Cultures from the pleural fluid are positive for Streptococcus viridans empyema. Maintain on a combination of Levaquin and vancomycin S/P left sided chest tube, placed, 12/28/2022. Leukocytosis secondary to above. Acute renal failure. Troponin leak. Hypotension. Lifelong nonsmoker. History of esophageal reflux disease. History of hypertension. History of rheumatoid arthritis. History of anxiety/depression. History of bipolar disorder. [facility] resident. Plan: Continue daily alteplase treatment. The last alteplase therapy was yesterday and another dose will be given today Output since the last treatment was 1.8 L Pleural fluid that showed strep viridans The patient is on a combination of Levaquin and vancomycin Complete opacification of the left lung lobe the patient may benefit from bronchoscopy specialties cough and thick purulent mucous plugs. This may be contributing to his failure for left lung reexpansion. Obtain a follow-up noncontrast CAT scan of the chest today Keep the patient today's of Oxymizer nasal cannula Keep the pigtail catheter in place Thoracic surgeries on the case We'll continue to follow Full code
[2022-12-31] MEDS: ACETAMINOPHEN TAB 325 MG TAB PO PRN ×2 (11:35→18:33)
--- NOTE | 2022-12-31 13:23 | CT ---
EXAMINATION TYPE: CT chest wo con DATE OF EXAM: 12/31/2022 COMPARISON: 12/26/2022 HISTORY: Pleural effusion CT DLP: 479.0 mGycm. Automated Exposure Control for Dose Reduction was Utilized. TECHNIQUE: CT scan of the thorax is performed without IV contrast. FINDINGS: LUNGS: Large loculated left pleural effusion and there are surrounding atelectasis identified with pa rtial atelectasis of the right upper lobe and lingula with complete atelectasis of the left lower lob e. Consolidation with air bronchograms identified within the left upper lobe and lingula. Trace right pleural effusion with associated atelectasis. Biapical paraseptal emphysematous changes. There appea rs to be narrowing of the right lingular segment bronchus and lower lobe bronchus. The amount of pleu ral fluid on the left has reduced in size relative to the previous exam. There is mild progression of consolidation and pleural fluid on the right. Chest tube is nicely situated within the left sided fl uid collection. Tiny amount of air within the pleural space likely related to the chest tube catheter . . MEDIASTINUM: Lack of IV contrast is noted to limit evaluation for mediastinal and especially hilar ad enopathy. There are no definitive greater than 1 cm hilar or mediastinal lymph nodes. Heart is mildly enlarged with mild coronary artery calcification small pericardial effusion. Atherosclerotic change of the aorta which is stable in caliber. OTHER: Hypertrophic degenerative changes of the spine. Chronic appearing superior endplate compressio n fracture in the thoracolumbar junction is stable. Bilateral shoulder arthropathy. Small hiatal junie ia. IMPRESSION: 1. There is interval mild reduction in the amount of pleural fluid within the large left-sided pleura l effusion. Chest tube is in good position. 2. Mild progression of small right pleural effusion and right-sided basilar consolidation relative to prior exam. 3. Suspect narrowing of the left lingular segment and lower lobe bronchi. 4. Are area of consolidation in the left lung could be on the basis of postobstructive atelectasis. P neumonia or neoplasm not excluded.
[2022-12-31] MEDS: FOLIC ACID 1 MG TAB PO SCH (14:11)
--- NOTE | 2022-12-31 17:34 | P.PN ---
Subjective Progress Note Date: 12/31/22 (delayed charting seen at 1015) Patient is an 82-year-old male with history of orthostatic hypotension chronically on steroids (possible adrenal insufficiency), chronic kidney disease, GERD, hypertension, prostate disorder presenting from nursing facility with worsening mentation and hypoxia. In the emergency department he underwent an extensive evaluation. Initial vital signs were remarkable for temperature 99.9 and O2 sat of 92% on 4 L. Blood pressure did go down up to 73/49. Labs were remarkable for WBC 35.3, hemoglobin 8.5, sodium 135, bicarb 21, anion gap 14, creatinine 3.71 up from baseline, troponin 0.92, proBNP 5000. Chest x-ray demonstrated white out lung on the left side. Follow-up chest CT demonstrated large loculated left-sided pleural effusion, trace right-sided pleural effusion. Ectatic ascending thoracic aorta at 2.8 cm. Patient was given IV cortisone, IV levofloxacin, Vanco IV fluids in the ED. He was admitted for [facility] sepsis with a Pulmonology consult. Renal function worsened and nephrology was consulted. He underwent thoracentesis which showed exudative pleural effusion. Interventional radiology was consulted and the patient had a pigtail catheter placed on 12/28/22. Catheter was placed to suction. Cultures came back as strep viridans Cardiothoracic surgery was consulted as he continued to have opacification of the left hemithorax compared TPA instilled on 12/30/22. Patient seen and examined at bedside. He complains of worsening shortness of breath and feeling as though he is suffocating. He reports pain all over and feeling like he is going to . He does feel dizzy and as though he would pass out. During our conversation he has difficulty staying awake Vital signs reviewed General: nontoxic, no distress, ill-appearing, obese Cardiovascular: S1S2 reg, no murmur, positive posterior tibial pulse bilateral, Lungs: Absent breath sounds left, no rhonchi, no rales , no accessory muscle use or conversational dyspnea, chest tube in place left hemithorax with both purulent and serosanguineous drainage noted in chest tube chamber Abdominal: soft, nontender to palpation, no guarding, no appreciable organomegaly Ext: no gross muscle atrophy, 1+ edema b/l lower extremities, no contractures Neuro: CN II-XI grossly intact, no focal neuro deficits Psych: Alert, oriented, appropriate affect Assessment/Plan: Strep. Viridans empyema s/p Pig tail cath 12/28/22 Sepsis Acute hypoxic respiratory failure -With increasing white blood cell count continue on Levaquin 500 mg IV every 48 hours and vancomycin. Day #6 of antibiotics -Close monitoring of creatinine and vancomycin troughs given acute kidney injury -Case discussed with Dr. Dunaway. Repeat CT chest. Consider bronchoscopy. -Continue with when necessary albuterol and Mucinex Elevated troponin -Probable type II non-STEMI due to sepsis and BRUCE -Check echocardiogram -Continue with aspirin 81 mg daily Hypotension -History of orthostatic hypotension, suspect adrenal insufficiency -Given decreasing blood pressures will transition from oral Cortef to Solu- Cortef 50 mg IV every 8 hours, continue with Florinef and Midodrin -Follow blood pressures BRUCE Urinary retention, milka hematuria -Nephrology note reviewed: Continue with oral sodium bicarb, add Aronoff, Hep- Lock fluids, avoid hypo-tension -Patient was evaluated by urology. Continue catheter and Flomax until patient is more mobile Acute on chronic anemia -Patient with a T sat of 18 and ferritin of 475, consistent with possible acute blood loss anemia in conjunction with anemia of chronic disease -Continue with IV iron 3 doses -Follow CBC HX: RA Bipolar disorder HTN Imaging: A.m. chest x-ray reviewed by myself which shows complete opacification of left hemithorax with pigtail catheter in place Data Review: Vitals reviewed by myself with an hand temperature of 98.7, pulse 90, respirations 20, blood pressure 95/56, O2 sat 94% on 3 L Labs reviewed and remarkable for white blood cell count 23.7, hemoglobin 7.2, hematocrit 23.5, O2 sat 565, chloride 110, carbon dioxide 18, BUN 45, creatinine 3.9 DVT prophylaxis: Start Heparin 5,000 units q8 hours Anticipated discharge date: Pending Clinical Course Anticipated discharge place: Pending Clinical Course This dictation was prepared using [employer] voice recognition software. Though every attempt is made to correct errors during dictation some may still exist. Objective - Vital Signs Vital signs: Vital Signs Temp 98.1 F 12/31/22 11:30 Pulse 97 12/31/22 11:30 Resp 20 12/31/22 11:30 BP 98/58 12/31/22 11:30 Pulse Ox 94 L 12/31/22 11:30 FiO2 Intake & Output 12/30/22 12/31/22 12/31/22 18:59 06:59 18:59 Intake Total 720 100 Output Total 4511 519 2639 Balance -8271 -645 -6813 Intake: Oral 720 100 Output: Chest Tube Drainage 1125 75 1585 Pleural Catheter Left 1125 75 1585 Posterior Chest Urine 850 200 Uretheral (Posey) 200 Other: Voiding Method Indwelling Catheter Indwelling Catheter Indwelling Catheter - Labs CBC & Chem 7: 12/31/22 07:27 12/31/22 07:27 Labs: Abnormal Lab Results - Last 24 Hours (Table) 12/31/22 12/31/22 12/31/22 Range/Units 07:27 07:27 10:35 WBC 23.7 H (3.8-10.6) k/uL RBC 2.38 L (4.30-5.90) m/uL Hgb 7.2 L (13.0-17.5) gm/dL Hct 23.5 L (39.0-53.0) % MCHC 30.6 L (31.0-37.0) g/dL Plt Count 565 H (150-450) k/uL Neutrophils # 21.4 H (1.3-7.7) k/uL Lymphocytes # 0.8 L (1.0-4.8) k/uL Monocytes # 1.2 H (0-1.0) k/uL ABG pCO2 31 L (35-45) mmHg ABG pO2 58 L* (83-108) mmHg ABG HCO3 19 L (21-25) mmol/L ABG O2 Saturation 91.8 L (94-97) % Chloride 110 H (98-107) mmol/L Carbon Dioxide 18 L (22-30) mmol/L BUN 45 H (9-20) mg/dL Creatinine 3.90 H (0.66-1.25) mg/dL Glucose 101 H (74-99) mg/dL Microbiology - Last 24 Hours (Table) 12/26/22 12:25 Blood Culture - Final Blood 12/26/22 12:10 Blood Culture - Final Blood 12/27/22 13:55 Gram Stain - Final Pleural Fluid Body Fluid Culture - Final Streptococcus viridans group 12/30/22 12:30 Gram Stain - Preliminary Sputum 12/27/22 13:55 Anaerobic Culture - Preliminary Pleural Fluid
[2022-12-31] MEDS: HEPARIN SODIUM,PORCINE/PF 5,000 UNIT/0.5 ML SYRINGE SQ SCH ×2 (18:33→23:31)
[2022-12-31] MEDS: CYANOCOBALAMIN 500 MCG TAB PO SCH (21:05)
[2022-12-31] MEDS: DULoxetine HCL 60 MG CAPSULE.DR PO SCH (21:05)
[2022-12-31] MEDS: MELATONIN 3 MG TABLET PO SCH (21:05)
[2022-12-31] MEDS: CHOLECALCIFEROL 25 MCG (1000 IU) TABLET PO SCH (21:05)
[2022-12-31] MEDS: TAMSULOSIN 0.4 MG CAP.ER.24H PO SCH (21:05)
[2023-01-01] MEDS: HYDROcodone/APAP 5-325MG 1 EACH TAB PO PRN ×3 (04:27→23:51)
[2023-01-01] MEDS: MIDODRINE 5 MG TAB PO SCH ×3 (06:21→18:02)
[2023-01-01] MEDS: DULoxetine HCL 30 MG CAPSULE.DR PO SCH (06:22)
--- NOTE | 2023-01-01 07:02 | P.PN ---
Subjective Progress Note Date: 12/31/22 Principal diagnosis: Large left-sided pleural effusion, suspected healthcare acquired pneumonia, acute kidney injury secondary to ATN secondary to severe sepsis. Past medical history significant for chronic kidney disease stage IIIB with a baseline creatinine of 1.7 1.9, hypertension, prostate disorder, rheumatoid arthritis, GERD, hypotension with multiple fall from standing, bipolar disorder, anxiety/depression, pneumonia 3 and a remote history of nicotine dependence in which he quit smoking around 40 years ago. POD #3 placement of left pleural pigtail catheter by interventional radiology. The patient was seen and examined in follow-up today 12/31/2022 at his bedside on the cardiac stepdown unit. Currently he is lying in bed, is awake, alert, oriented 3 and is in no acute apparent distress. He does have periods of forgetfulness. Complaining of shortness of breath and generalized pain, mainly to his left pigtail catheter insertion site. Oxygen saturations are 95% on 3 L nasal cannula. Left chest pigtail catheter remains in place to low continuous wall suction -20 cm H2O. No air leak is present. Alteplase/dornase pleural instillation first dose was administered yesterday 12/30/2022 with 450 mL of cloudy serous drainage in the last 8 hours and 1850 mL in the last 24 hours. T- max temperature in the last 24 hours is 99F. He is receiving Levaquin and vancomycin for antibiotic coverage. Chest x-ray report this morning shows interval worsening of left-sided pleural effusion with catheter in similar position, a decreased aeration of the left lung on today's exam. Objective - Vital Signs Vital signs: Vital Signs Temp 98.7 F 12/31/22 08:00 Pulse 82 12/31/22 08:37 Resp 20 12/31/22 08:00 BP 95/56 12/31/22 08:00 Pulse Ox 94 L 12/31/22 08:00 FiO2 Intake & Output 12/30/22 12/31/22 12/31/22 18:59 06:59 18:59 Intake Total 720 Output Total 1975 275 Balance -1255 -275 Intake: Oral 720 Output: Chest Tube Drainage 1125 75 Pleural Catheter Left 1125 75 Posterior Chest Urine 850 200 Uretheral (Posey) 200 Other: Voiding Method Indwelling Catheter Indwelling Catheter Indwelling Catheter - Exam CONSTITUTIONAL: Laying in bed on the cardiac stepdown unit, cooperative, no acute distress RESPIRATORY: Lungs sounds diminished bilaterally, left greater than right. Respirations are symmetrical, nonlabored. Currently on 3 L nasal cannula with oxygen saturation 95%. Strong cough. CARDIOVASCULAR: S1, S2 present. Regular rate and rhythm, sinus rhythm on telemetry, heart rate 91 BPM. Palpable peripheral pulses bilaterally. No edema present. No calf pain or tenderness. GASTROINTESTINAL: Abdomen soft, nontender, nondistended. Active bowel sounds present 4 quadrants. Tolerating diet. Passing flatus. GENITOURINARY: Posey catheter for urinary retention, marginal urine output and last 8 hours with 200 mL INTEGUMENTARY: Skin is warm and dry with evidence of good perfusion. Left chest pigtail catheter insertion site dressing is clean, dry and intact. NEUROLOGIC: No focal deficits. MUSKULOSKELETAL: Limited range of motion to his left arm. PSYCHIATRIC: Alert and oriented to person place and time, appropriate affect, periods of forgetfulness INVASIVE LINES AND TUBES: Left pigtail chest tube remains in place to low continuous wall suction -20 cm H2O. No air leak is present. 450 mL cloudy serous drainage overnight, 1850 mL in the last 24 hours. - Allied health notes Allied health notes reviewed: nursing - Labs CBC & Chem 7: 12/31/22 07:27 12/31/22 07:27 Labs: Abnormal Lab Results - Last 24 Hours (Table) 12/30/22 12/31/22 12/31/22 Range/Units 10:35 07:27 07:27 WBC 23.7 H (3.8-10.6) k/uL RBC 2.38 L (4.30-5.90) m/uL Hgb 7.2 L (13.0-17.5) gm/dL Hct 23.5 L (39.0-53.0) % MCHC 30.6 L (31.0-37.0) g/dL Plt Count 565 H (150-450) k/uL Neutrophils # 21.4 H (1.3-7.7) k/uL Lymphocytes # 0.8 L (1.0-4.8) k/uL Monocytes # 1.2 H (0-1.0) k/uL Chloride 110 H (98-107) mmol/L Carbon Dioxide 18 L (22-30) mmol/L BUN 45 H (9-20) mg/dL Creatinine 3.90 H (0.66-1.25) mg/dL Glucose 101 H (74-99) mg/dL Urine Protein 2+ H (Negative) Urine Blood Large H (Negative) Ur Leukocyte Esterase Large H (Negative) Urine RBC >182 H (0-5) /hpf Urine WBC 44 H (0-5) /hpf Amorphous Sediment Occasional H (None) /hpf Microbiology - Last 24 Hours (Table) 12/27/22 13:55 Anaerobic Culture - Preliminary Pleural Fluid 12/27/22 13:55 Gram Stain - Preliminary Pleural Fluid Body Fluid Culture - Preliminary Streptococcus viridans group - Imaging and Cardiology Chest x-ray: report reviewed, image reviewed Assessment and Plan Assessment: Large loculated left pleural effusion with near complete opacification of the left lung, status post left-sided thoracentesis and subsequent placement of left-sided pigtail catheter by interventional radiology, one dose of alteplase/dornase pleural instillation, instilled yesterday 12/30/2022 Possible healthcare acquired pneumonia, with associated complicated parapneumonic effusion/empyema Acute hypoxic respiratory failure, secondary to large left pleural effusion Leukocytosis, secondary to above Acute renal failure, creatinine 3.90 today Chronic kidney disease stage IIIB, baseline creatinine in the range of 1.7 1.9 History of hypertension History of hypotension, status post fall from standing Rheumatoid arthritis GERD History of bipolar disorder History of anxiety/depression Incomplete bladder emptying, Posey catheter in place Remote history of smoking dependence, quit smoking over 40 years ago Plan: We will instill a second dose of all to place/dornase pleural instillation through his left pleural pigtail catheter today. Encourage use of incentive spirometry 10 times every hour while awake. Antibiotic management and recommendations per primary care and pulmona ry/critical care medicine. Continue to record strict inaccurate I's and O's from left chest pigtail catheter. Increase activity as tolerated. Out of bed for all meals. Pleural fluid cytology remains pending. More recommendations to follow based on patient's clinical course. Time with Patient: Greater than 30
--- NOTE | 2023-01-01 07:54 | P.PN ---
Subjective Progress Note Date: 01/01/23 Principal diagnosis: Large left-sided pleural effusion, suspected healthcare acquired pneumonia, acute kidney injury secondary to ATN secondary to severe sepsis. Past medical history significant for chronic kidney disease stage IIIB with a baseline creatinine of 1.7-1.9, hypertension, prostate disorder, rheumatoid arthritis, GERD, hypotension with multiple fall from standing, bipolar disorder, anxiety/depression, pneumonia 3 and a remote history of nicotine dependence in which he quit smoking around 40 years ago. POD #4 placement of left pleural pigtail catheter by interventional radiology. The patient was seen and examined in follow-up today 01/01/2023 at his bedside on the cardiac stepdown unit. The patient is lying in bed, his head is elevated, is awake, alert, and oriented [address] The patient denies any complaints of pain at this time and reports that his breathing feels improved today and is not having the shortness of breath like he was having yesterday. Oxygen saturations are 94% on 3 L nasal cannula and he is achieving 9665-0236 mL on his incentive spirometry with encouragement. A computed tomography scan of his chest was completed yesterday which the report demonstrated an interval mild reduction in the amount of pleural fluid within the large left-sided pleural effusion, chest tube is in good position, mild progression of a small right pleural effusion and right-sided basilar consolidation compared to his prior exam, suspected narrowing of the left lingular segment and lower lobe bronchi, and an area of consolidation in the left lung which could be secondary to postobstructive atelectasis, pneumonia or neoplasm not excluded. He is been afebrile the last 24 hours with a T-max temperature 98.8F. Pleural fluid Gram stain culture shows positive for Streptococcus viridans group, he remains on Levaquin and vancomycin for antibiotic coverage. Left chest pigtail catheter remains in place to low continuous wall suction -20 cm H2O. No air leak is present, draining thick cloudy serosanguineous purulent drainage with 160 mL output in the last 8 hours and 1.7 L output in the last 24 hours. Chest x-ray was reviewed. Objective - Vital Signs Vital signs: Vital Signs Temp 98.8 F 12/31/22 20:00 Pulse 87 01/01/23 04:00 Resp 18 01/01/23 04:00 BP 110/65 01/01/23 04:00 Pulse Ox 94 L 01/01/23 04:00 FiO2 Intake & Output 12/31/22 01/01/23 01/01/23 18:59 06:59 18:59 Intake Total 100 100 Output Total 1920 470 Balance -1820 -370 Intake: Oral 100 100 Output: Chest Tube Drainage 1645 70 Pleural Catheter Left 1645 70 Posterior Chest Urine 275 400 Other: Voiding Method Indwelling Catheter Indwelling Catheter - Exam CONSTITUTIONAL: Laying in bed on the cardiac stepdown unit, cooperative, no acute distress RESPIRATORY: Lungs sounds diminished bilaterally, left greater than right. Respirations are symmetrical, nonlabored. Currently on 3 L nasal cannula with oxygen saturation 94%. Strong cough. CARDIOVASCULAR: S1, S2 present. Regular rate and rhythm, sinus rhythm on telemetry, heart rate 91 BPM. Palpable peripheral pulses bilaterally. No edema present. No calf pain or tenderness. GASTROINTESTINAL: Abdomen soft, nontender, nondistended. Active bowel sounds present 4 quadrants. Tolerating diet. Passing flatus. GENITOURINARY: Posey catheter for urinary retention, urine output and last 8 hours with 400 mL. INTEGUMENTARY: Skin is warm and dry with evidence of good perfusion. Left chest pigtail catheter insertion site dressing is clean, dry and intact. NEUROLOGIC: No focal deficits. MUSKULOSKELETAL: Limited range of motion to his left arm, chronic. PSYCHIATRIC: Alert and oriented to person place and time, appropriate affect, periods of forgetfulness INVASIVE LINES AND TUBES: Left pigtail chest tube remains in place to low continuous wall suction -20 cm H2O. No air leak is present. 160 mL cloudy serosanguineous purulent drainage overnight, 1710 mL in the last 24 hours. - Allied health notes Allied health notes reviewed: nursing - Labs CBC & Chem 7: 12/31/22 07:27 12/31/22 07:27 Labs: Abnormal Lab Results - Last 24 Hours (Table) 12/31/22 12/31/22 12/31/22 Range/Units 07: 07: 10:35 WBC 23.7 H (3.8-10.6) k/uL RBC 2.38 L (4.30-5.90) m/uL Hgb 7.2 L (13.0-17.5) gm/dL Hct 23.5 L (39.0-53.0) % MCHC 30.6 L (31.0-37.0) g/dL Plt Count 565 H (150-450) k/uL Neutrophils # 21.4 H (1.3-7.7) k/uL Lymphocytes # 0.8 L (1.0-4.8) k/uL Monocytes # 1.2 H (0-1.0) k/uL ABG pCO2 31 L (35-45) mmHg ABG pO2 58 L* (83-108) mmHg ABG HCO3 19 L (21-25) mmol/L ABG O2 Saturation 91.8 L (94-97) % Chloride 110 H (98-107) mmol/L Carbon Dioxide 18 L (22-30) mmol/L BUN 45 H (9-20) mg/dL Creatinine 3.90 H (0.66-1.25) mg/dL Glucose 101 H (74-99) mg/dL Microbiology - Last 24 Hours (Table) 12/26/22 12:25 Blood Culture - Final Blood 12/26/22 12:10 Blood Culture - Final Blood 12/27/22 13:55 Gram Stain - Final Pleural Fluid Body Fluid Culture - Final Streptococcus viridans group 12/30/22 12:30 Gram Stain - Preliminary Sputum - Imaging and Cardiology Chest x-ray: report reviewed, image reviewed Assessment and Plan Assessment: Large loculated left pleural effusion with near complete opacification of the left lung, status post left-sided thoracentesis and subsequent placement of left-sided pigtail catheter by interventional radiology, two doses of alteplase/dornase pleural instillation, as been instilled Possible healthcare acquired pneumonia, with associated complicated parapneumonic effusion/empyema Acute hypoxic respiratory failure, secondary to large left pleural effusion Leukocytosis, secondary to above Acute renal failure Chronic kidney disease stage IIIB, baseline creatinine in the range of 1.7-1.9 History of hypertension History of hypotension, status post fall from standing Rheumatoid arthritis GERD History of bipolar disorder History of anxiety/depression Incomplete bladder emptying, Posey catheter in place Remote history of smoking dependence, quit smoking over 40 years ago Plan: We will instill a third dose of all to place/dornase pleural instillation through his left pleural pigtail catheter today. Encourage use of incentive spirometry 10 times every hour while awake. Antibiotic management and recommendations per primary care and pulmonary/ critical care medicine. Currently on Levaquin and vancomycin. Continue to record strict inaccurate I's and O's from left chest pigtail catheter. Increase activity as tolerated. Pleural fluid Gram stain showing Streptococcus Viridans group. More recommendations to follow based on patient's clinical course. Time with Patient: Less than 30
--- NOTE | 2023-01-01 08:15 | XR ---
EXAMINATION TYPE: XR chest 1V portable DATE OF EXAM: 01/01/2023 Comparison: 12/31/2022 Clinical History: 82-year-old male with loculated left pleural effusion Findings: Ongoing moderate to large left pleural effusion. A pigtail pleural catheter remains at the left base. Aeration shows slight improvement at the upper limits. There may be slight increase in a small right pleural effusion now. Left heart margin remains obscured by adjacent pleural parenchymal opacity. Ch ronic full-thickness rotator cuff tear on the left. Impression: 1. Left basilar pigtail pleural catheter remains in place. Slight interval decrease in the moderate t o large left pleural effusion now with some improving aeration in the left upper lobe. 2. Increasing small right pleural effusion now.
[2023-01-01] MEDS ORDERED: DORNASE ALFA 5 MG in SODIUM CHLORIDE 0.9% 50 ML IRRIGATION ONE (08:30)
[2023-01-01] MEDS ORDERED: ALTEPLASE 10 MG in SODIUM CHLORIDE 0.9% 50 ML IRRIGATION ONE (08:30)
[2023-01-01] MEDS: DOCUSATE 100 MG CAP PO SCH ×2 (08:42→20:37)
[2023-01-01] MEDS: FLUDROCORTISONE 0.1 MG TAB PO SCH (08:42)
[2023-01-01] MEDS: SODIUM BICARBONATE TAB 650 MG TAB PO SCH ×2 (08:42→20:37)
[2023-01-01] MEDS: PANTOPRAZOLE 40 MG TABLET PO SCH (08:43)
[2023-01-01] MEDS: HEPARIN SODIUM,PORCINE/PF 5,000 UNIT/0.5 ML SYRINGE SQ SCH ×3 (08:43→23:51)
[2023-01-01] MEDS: ASPIRIN 81 MG PO SCH (08:43)
[2023-01-01] MEDS: LEVOFLOXACIN 500MG-D5W PMX 500 MG in DEXTROSE/WATER 1 100ML.BAG IVPB SCH (08:43)
[2023-01-01] MEDS: HYDROCORTISONE SUCCINATE 100 MG/2 ML VIAL IV SCH ×3 (08:43→23:51)
[2023-01-01] MEDS: lamoTRIgine 100 MG TAB PO SCH ×2 (08:43→20:37)
[2023-01-01] MEDS: guaiFENesin 600 MG TABLET.ER PO SCH ×2 (08:43→20:38)
[2023-01-01 09:27] LABS: HCT 25.6 % (39.0-53.0); HGB 7.7 gm/dL (13.0-17.5); Hypochromasia Moderate; MCH 29.8 pg (25.0-35.0); MCHC 30.1 g/dL (31.0-37.0); MCV 99.1 fL (80.0-100.0); Macrocytosis Slight; Mean Platelet Volume 7.6; Platelet Count 667 k/uL (150-450); RBC 2.59 m/uL (4.30-5.90); WBC 24.5 k/uL (3.8-10.6)
[2023-01-01] MEDS: SODIUM FERRIC GLUCONAT-SUCROSE 125 MG in SODIUM CHLORIDE 0.9% 100 ML IVPB SCH (09:58)
[2023-01-01] MEDS ORDERED: FUROSEMIDE 10 MG/ML 4 ML VIAL IV STA (10:53)
--- NOTE | 2023-01-01 10:53 | P.PN ---
Subjective Patient is seen in follow-up for acute kidney injury on chronic kidney disease. Morning labs pending. Resting in bed. Dyspnea is improved. No vomiting or diarrhea. Oral intake poor. Vital signs are stable. General: No acute distress. HEENT: Head exam is unremarkable. On nasal cannula. LUNGS: No audible rhonchi or wheezes. Left sided chest tube noted. HEART: Rate and Rhythm are regular. ABDOMEN: Nontender. EXTREMITITES: No edema. Objective - Vital Signs Vital signs: Vital Signs Temp 97.8 F 01/01/23 08:00 Pulse 91 01/01/23 08:00 Resp 20 01/01/23 08:00 BP 111/60 01/01/23 08:00 Pulse Ox 95 01/01/23 08:00 FiO2 Intake & Output 12/31/22 01/01/23 01/01/23 18:59 06:59 18:59 Intake Total 100 100 0 Output Total 1920 470 240 Balance -1820 -370 -240 Intake: Oral 100 100 0 Output: Chest Tube Drainage 1645 70 40 Pleural Catheter Left 1645 70 40 Posterior Chest Urine 275 400 200 Other: Voiding Method Indwelling Catheter Indwelling Catheter Indwelling Catheter - Labs CBC & Chem 7: 01/01/23 09:13 12/31/22 07:27 Labs: Abnormal Lab Results - Last 24 Hours (Table) 01/01/23 01/01/23 Range/Units 09:13 09:13 WBC 24.5 H (3.8-10.6) k/uL RBC 2.59 L (4.30-5.90) m/uL Hgb 7.7 L (13.0-17.5) gm/dL Hct 25.6 L (39.0-53.0) % MCHC 30.1 L (31.0-37.0) g/dL Plt Count 667 H (150-450) k/uL Troponin I 0.462 H* (0.000-0.034) ng/mL Microbiology - Last 24 Hours (Table) 12/30/22 12:30 Gram Stain - Final Sputum Sputum Culture - Final 12/27/22 13:55 Anaerobic Culture - Final Pleural Fluid 12/26/22 12:25 Blood Culture - Final Blood 12/26/22 12:10 Blood Culture - Final Blood 12/27/22 13:55 Gram Stain - Final Pleural Fluid Body Fluid Culture - Final Streptococcus viridans group Assessment and Plan Plan: Assessment: 1. Acute kidney injury secondary to ATN secondary to severe sepsis. Also has Posey catheter for urinary retention. Mild left hydronephrosis noted on ultrasound. Creatinine fairly stable at 3.9 today. UA from July 2022 fairly benign. 2. Chronic kidney disease stage IIIB/4 with baseline creatinine in the range of 1.7-1.9. 3. Pneumonia on antibiotics. Underwent thoracentesis this admission. He has a left-sided chest tube. Chest x-ray from today shows worsening left-sided pleural effusion. 4. Metabolic acidosis secondary to acute kidney injury and IV fluids. On oral bicarb. 5. Hypokalemia from poor intake. Replaced. Stable. 6. Chronic hypotension maintained on Cortef, Florinef as well as midodrine. Stable. 7. Anemia of chronic kidney disease. Iron deficiency noted. On Aranesp. 8. Urinary retention. Has Posey catheter. On Flomax. Urology following. Plan: Off IV fluids. Lasix 40 mg IV once today. Encouraged oral intake. Maintain IV iron. Avoid nephrotoxins. Continue to monitor renal function and urine output. Monitor vancomycin levels. Dose to be adjusted for renal function. Follow-up echocardiogram.
[2023-01-01 10:59] LABS: African American GFR (CKD) 14 (>60 ml/min/1.73 sqM); Anion Gap 8 mmol/L; Blood Urea Nitrogen 53 mg/dL (9-20); Calcium 8.5 mg/dL (8.4-10.2); Carbon Dioxide 20 mmol/L (22-30); Chloride 110 mmol/L (98-107); Glucose 129 mg/dL (74-99); Magnesium 2.1 mg/dL (1.6-2.3); Non-African American GFR(CKD) 12 (>60 ml/min/1.73 sqM); Potassium 3.8 mmol/L (3.5-5.1); Sodium 138 mmol/L (137-145)
[2023-01-01 11:34] VITALS: BMI 22.9
[2023-01-01] MEDS: FOLIC ACID 1 MG TAB PO SCH (13:14)
[2023-01-01] MEDS: ALPRAZolam 0.25 MG TAB PO PRN ×2 (13:16→23:51)
[2023-01-01] MEDS: ACETAMINOPHEN TAB 325 MG TAB PO PRN (13:17)
--- NOTE | 2023-01-01 13:31 | P.PN ---
Subjective Progress Note Date: 01/01/23 This is an 82-year-old male patient with a known history of gastroesophageal reflux disease, hypertension, rheumatoid arthritis, lifelong nonsmoker, bipolar disorder, anxiety/depression. He was brought in to the emergency room this morning from [facility] for hypoxia confusion and had been receiving IV fluids over 4 L the past week. Chest x-ray reveals near complete opacification of the left lung. Computed tomography scan of the chest reveals a large loculated left pleural effusion with partial atelectasis/consolidation involving the left upper lobe and lingula. There is complete atelectasis of the left lower lobe. He is currently maintaining O2 saturations in the 90s on 3 L/m per nasal cannula. He is afebrile. Somewhat hypotensive. White count 35.3. Hemoglobin 8.5. Platelets 617. Sodium 135. Potassium 4.6. Bicarb 21. BUN 41. Creatinine 3.71. Glucose 104. Troponin 0.292. ProBNP 5420. The patient is a poor historian. Most of the information is taken from his family at the bedside. He is currently receiving normal saline at 130 ML's per hour. He is given a dose of vancomycin. Progress note dated 12/27/2022. 82-year-old male seen in the emergency department yesterday. He has a known history of GERD, hypertension, rheumatoid arthritis, I probably disorder, anxiety/depression, and was brought to the emergency room from a local longterm, because of hypoxia, confusion, and a chest x-ray which showed a possible pneumonia. In addition, there was a left-sided pleural effusion. Clinically, the patient appears reasonably stable. He is getting saline at 130 mL an hour, is on 3 L of oxygen. His pro-calcitonin level was 1.19. He was placed on vancomycin and Levaquin. The patient's ultrasound did reveal a right-sided pleural effusion, and we've asked interventional radiology to consider ultrasound-guided drainage. White count 30.3, hemoglobin 7.3, hematocrit 23.8, and platelet count 573,000. Sodium 134, potassium 4.4, chlorides 102, CO2 21, BUN 43, creatinine 4.11. Troponins were 0.292, 0.287, and 0.240. N-terminal proBNP was elevated at 5420. Progress note dated 12/28/2022. 82-year-old male seen today in room 369. The patient continues on Levaquin and vancomycin. [facility] mL of straw colored fluid was removed. We will asked him to consider doing a pigtail catheter placement, given the fact that the fluid was an exudate, with a high LDH and high protein, the fact that the patient had primarily polymorphonuclear neutrophils in the fluid, and the fluid glucose was only 2. Currently, the patient's on 3 L. He is coughing up purulent sputum. Currently, the patient is on 3 L of oxygen. Not receiving any IV fluids. White count 18.9, which is down from 30.3. Hemoglobin 7.5, hematocrit 24.2, with a platelet count of 541,000. Sodium 135, potassium 3.8, chlorides 106, CO2 21, BUN 45, and creatinine 3.86. The fluid analysis revealed it to be cloudy, with 98% PMNs and 2% lymphocytes. A glucose of less than 2, a total protein of greater than 3.6 g, and an LDH which was 616. Progress note dated 12/29/2022. 82-year-old male seen in room 369. The patient continues on antibiotics in the form of Levaquin and vancomycin. He is getting saline at 70 mL an hour. He is getting nasal O2 at 3 L. Yesterday, interventional radiology placed a small bore catheter into the left pleural space. The patient has had significant drainage. The catheter is noted to be on to suction. Laboratory data today includes a white count of 16.8, hemoglobin 7.1, hematocrit 22.7, and a platelet count of 552,000. Sodium 133, potassium 3.4, chlorides 107, CO2 18, BUN 46, and creatinine 3.70. The fluid was cloudy, and is clearly an exudate. 98% of the white blood cells are PMNs. The glucose of the fluid was very low, less than 2, suggesting an empyema. Progress note dated 12/30/2022. 82-year-old male seen in room 369. The patient continues on Levaquin and vancomycin. Cultures are thus far negative. He is getting 3 L of oxygen by nasal cannula. He is also getting saline at 70 mL an hour. We asked cardiothoracic surgery to see him, so that they can instill, TPA, and alpha dornase, into the chest tube, inserted by interventional radiology. Today's chest x-ray looks a bit better. White count 15.1, hemoglobin 7.6, hematocrit 24.9, and platelet count 558,000. Sodium 136, potassium 4, chlorides 109, CO2 18, BUN 45, and creatinine 3.81. The pleural fluid is showing evidence of Streptococcus viridans. Sensitivities are currently pending. On today's evaluation of 12/31/2022, the patient is being seen for a follow-up. Earlier this morning, the patient coughed out a big chunk of mucus plugging dark greenish yellowish in color. The pleural fluid samples from earlier on 12/27/2022 was consistent with strep viridans and the patient is currently on antibiotics and is currently on IV Levaquin and vancomycin. The vancomycin trough level was 17.4 from yesterday. The white cell count is still elevated at 23.7 with a hemoglobin of 7.2. The BUN is at 45 with a creatinine of 3.9. Earlier this morning, the patient was found to be quite lethargic and weak and at that point the blood gas was done that showed also a pH of 7.39 with a pCO2 of 31 and pO2 of 58 and this was on FiO2 of 32%. He remains hemodynamically stable. Is afebrile for now. He is on 3 L of oxygen by nasal cannula. The last alteplase therapy to his left chest was done yesterday and the output since then has been in the order of 1.8 L of purulent material. Nevertheless, the chest x-ray shows interval worsening of the left sided opacity with volume loss atelectasis and some residual fluid present. There is a concern for mucous plug obstructing left lower lobe bronchus and getting lung reexpansion. On 01/01/2023, the patient is being seen for a follow-up. The patient is a. His Left Chest. The Patient Is Lying down Comfortably in Bed. Is Currently on 3 L of Oxygen by Nasal Cannula. A Repeat CAT Scan of the Chest was done yesterday and it demonstrated interval reduction in the pleural fluid on the left. The pigtail catheter is in a good location. There is persistent consolidation and this is mainly on the left. Small right basal consolidation is also present. Repeat chest x-ray from today shows partial reexpansion of the left upper lobe. The patient was cough and also mucous plugs yesterday. The cough has subsided today. Initial plan was to bronchoscope this patient for airway inspection and this will be postponed total tomorrow. Noted the pleural fluid was positive for Streptococcus viridans and the patient remains on a combination of Levaquin and vancomycin. Noted the patient is receiving alteplase treatment for his pigtail catheter. The pigtail catheter was also tested to wall suction at -20 cm. The output has been 1.7 L over the past 24 hours. In terms of blood work, the white cell count remains elevated at 24 with a hemoglobin of 7.7. Sodium is at 138 potassium is at 3.8. A 53 with a creatinine of 4.2. Troponins at 0.4. Vancomycin trough was 20. Oral intake is poor. Objective - Vital Signs Vital signs: Vital Signs Temp 98.8 F 12/31/22 20:00 Pulse 87 01/01/23 04:00 Resp 18 01/01/23 04:00 BP 110/65 01/01/23 04:00 Pulse Ox 94 L 01/01/23 04:00 FiO2 Intake & Output 12/31/22 01/01/23 01/01/23 18:59 06:59 18:59 Intake Total 100 100 0 Output Total 1920 470 240 Balance -1820 -370 -240 Intake: Oral 100 100 0 Output: Chest Tube Drainage 1645 70 40 Pleural Catheter Left 1645 70 40 Posterior Chest Urine 275 400 200 Other: Voiding Method Indwelling Catheter Indwelling Catheter - Exam No acute distress, oriented 3. Currently on 3 L of oxygen. No overt respiratory distress. HEENT examination is grossly unremarkable. Mucous membranes are moist. No oral lesions. Neck supple. Full range of motion. No adenopathy thyromegaly or neck vein distention. Cardiovascular examination reveals regular rhythm rate. S1-S2 normal. No S3 or S4. No discernible murmur noted. Heart sounds are distant. Lungs reveal diminished left-sided breath sounds. Scattered rhonchi are noted. No wheezes. No crackles. Left-sided chest tube is noted. Abdomen soft bowel sounds are heard. No masses or tenderness. Extremities are intact. No cyanosis clubbing or edema. Skin is without rash or lesion. Neurologic examination is brief but nonfocal. - Labs CBC & Chem 7: 01/01/23 09:13 01/01/23 09:13 Labs: Abnormal Lab Results - Last 24 Hours (Table) 12/31/22 01/01/23 01/01/23 Range/Units 10:35 09:13 09:13 WBC 24.5 H (3.8-10.6) k/uL RBC 2.59 L (4.30-5.90) m/uL Hgb 7.7 L (13.0-17.5) gm/dL Hct 25.6 L (39.0-53.0) % MCHC 30.1 L (31.0-37.0) g/dL Plt Count 667 H (150-450) k/uL ABG pCO2 31 L (35-45) mmHg ABG pO2 58 L* (83-108) mmHg ABG HCO3 19 L (21-25) mmol/L ABG O2 Saturation 91.8 L (94-97) % Troponin I 0.462 H* (0.000-0.034) ng/mL Microbiology - Last 24 Hours (Table) 12/30/22 12:30 Gram Stain - Final Sputum Sputum Culture - Final 12/27/22 13:55 Anaerobic Culture - Final Pleural Fluid 12/26/22 12:25 Blood Culture - Final Blood 12/26/22 12:10 Blood Culture - Final Blood 12/27/22 13:55 Gram Stain - Final Pleural Fluid Body Fluid Culture - Final Streptococcus viridans group Assessment and Plan Plan: Acute hypoxemic respiratory failure secondary to a large left pleural effusion with near complete opacification of the left lung, suspect healthcare acquired pneumonia, with associated complicated parapneumonic effusion/empyema. Cultures from the pleural fluid are positive for Streptococcus viridans empyema. Maintain on a combination of Levaquin and vancomycin. The patient is showing some partial elevation of the left upper lobe on today's chest x-ray. The amount of pleural fluid in the left has dropped significantly. There is some located effusion left lung base along with ongoing consolidation. The patient has already received 2 doses of alteplase/dornase and a third dose will be applied today. Output is adequate from the pigtail catheter. Chest x-ray was reviewed. CAT scan of the chest was also reviewed. S/P left sided chest tube, placed, 12/28/2022. Leukocytosis secondary to above. The white cell count remains persistently elevated. Acute renal failure, on top of chronic kidney disease stage IIIB at baseline. Troponin leak secondary to above, currently free of any chest pain Hypotension, recovered Lifelong nonsmoker. History of esophageal reflux disease. History of hypertension. History of rheumatoid arthritis. History of anxiety/depression. History of bipolar disorder. senior living resident. Plan: Continue daily alteplase treatment. The third dose of alteplase will be offered today Output since the last treatment was 1.7 Pleural fluid that showed strep viridans The patient is on a combination of Levaquin and vancomycin Repeat chest x-ray shows some partial reiteration of the left upper lobe Monitor pleural fluid is loculated small in the CAT scan findings, reviewed the CAT scan and there is interval reduction in the amount of pleural fluid and there is also development of small right-sided pleural effusion. It was suspected of the left lower lobe bronchus is quite narrowed and the patient will need a bronchoscopy and airway inspection. Keep the patient on oxygen at 3 L Keep the pigtail catheter in place Thoracic surgeries on the case Lasix 40 mg IV push 1 IV iron Vancomycin levels are adequate We'll continue to follow Full code Possible bronchoscopy tomorrow depending on his condition. A repeat chest x-ray be obtained tomorrow
[2023-01-01 16:51] LABS: Albumin 1.8 d/dL (3.8-4.9); Protein, Total 4.3 d/dL (6.2-8.2)
--- NOTE | 2023-01-01 16:55 | P.PN ---
Subjective Progress Note Date: 01/01/23 (delayed charting seen at 1030) Patient is an 82-year-old male with history of orthostatic hypotension chronically on steroids (possible adrenal insufficiency), chronic kidney disease, GERD, hypertension, prostate disorder presenting from nursing facility with worsening mentation and hypoxia. In the emergency department he underwent an extensive evaluation. Initial vital signs were remarkable for temperature 99.9 and O2 sat of 92% on 4 L. Blood pressure did go down up to 73/49. Labs were remarkable for WBC 35.3, hemoglobin 8.5, sodium 135, bicarb 21, anion gap 14, creatinine 3.71 up from baseline, troponin 0.92, proBNP 5000. Chest x-ray demonstrated white out lung on the left side. Follow-up chest CT demonstrated large loculated left-sided pleural effusion, trace right-sided pleural effusion. Ectatic ascending thoracic aorta at 2.8 cm. Patient was given IV cortisone, IV levofloxacin, Vanco IV fluids in the ED. He was admitted for [facility] sepsis with a Pulmonology consult. Renal function worsened and nephrology was consulted. He underwent thoracentesis which showed exudative pleural effusion. Interventional radiology was consulted and the patient had a pigtail catheter placed on 12/28/22. Catheter was placed to suction. Cultures came back as strep viridans, Cardiothoracic surgery was consulted as he continued to have opacification of the left hemithorax compared TPA instilled on 12/30/22, 12/31 and 01/01. Patient seen and examined at bedside. He is feeling anxious about having a bronch, breathing is slightly better than yesterday. Vital signs reviewed General: nontoxic, no distress, ill-appearing, obese Cardiovascular: S1S2 reg, no murmur, positive posterior tibial pulse bilateral, Lungs: Absent breath sounds left, no rhonchi, no rales , no accessory muscle use or conversational dyspnea, chest tube in place left hemithorax with serosanguineous drainage noted in chest tube chamber Abdominal: soft, nontender to palpation, no guarding, no appreciable organomegaly Ext: no gross muscle atrophy, 2+ edema b/l lower extremities, no contractures Neuro: CN II-XI grossly intact, no focal neuro deficits Psych: Alert, oriented, appropriate affect Assessment/Plan: Strep. Viridans empyema s/p Pig tail cath 12/28/22 Severe Sepsis Acute hypoxic respiratory failure -With increasing white blood cell count continue on Levaquin 500 mg IV every 48 hours and vancomycin. Day #7 of antibiotics. Once clinically stable could conisder vanco D/C as typically Strep Viridans has >90% sensitivity to levaquin -Close monitoring of creatinine and vancomycin troughs given acute kidney injury -CT surgery note reviewed: Third dose of LASIX administered, output since last treatment 1.7 L -Pulmonary note reviewed: Possible bronchoscopy tomorrow depending on his condition, follow chest x-ray -Continue with when necessary albuterol and Mucinex Elevated troponin, type II non-STEMI due to sepsis and BRUCE -Await echocardiogram -Continue with aspirin 81 mg daily Hypotension -History of orthostatic hypotension, suspect underlying adrenal insufficiency -Continue Solu-Cortef 50 mg IV every 8 hours, continue with Florinef and Midodrin -Follow blood pressures BRUCE Urinary retention, milka hematuria -Case discussed with nephrology and note reviewed: Lasix 40 mg IV 1 now, continue to monitor renal function, will evaluate for possible myeloma -Patient was evaluated by urology. Continue catheter and Flomax until patient is more mobile Acute on chronic anemia -Patient with a T sat of 18 and ferritin of 475, consistent with possible acute blood loss anemia in conjunction with anemia of chronic disease -Continue with IV iron 3 doses -Follow CBC HX: RA Bipolar disorder HTN Imaging: CT chest: Interval mild reduction in the amount of pleural fluid in the left base, chest tube in good position, mild progression of small right pleural effusion with right basilar atelectasis, suspected narrowing of the left lingular segment and lower bronchi area of consolidation in the left lung could be an basis of postobstructive atelectasis pneumonia or neoplasm not excluded Chest x-rays reviewed by myself on 01/01/23 near complete opacification of the left hemithorax with some sparing in the left upper lobe without tracheal deviation Data Review: Vitals reviewed with temperature 97.8, pulse 91, respirations 20, blood pressure 111/60, O2 sat 95% on 2 L Labs reviewed with blood cell count 24.5, hemoglobin 7.7, platelets 667, chlori de 110, carbon dioxide 20, anion gap 8, BUN 53, creatinine 4.22 (up from 3.90), repeat troponin 0.462, vancomycin 20 DVT prophylaxis: Heparin 5,000 units q8 hours Anticipated discharge date: Pending Clinical Course Anticipated discharge place: Pending Clinical Course This dictation was prepared using [employer] voice recognition software. Though every attempt is made to correct errors during dictation some may still exist. Objective - Vital Signs Vital signs: Vital Signs Temp 97.6 F 01/01/23 16:00 Pulse 98 01/01/23 16:00 Resp 18 01/01/23 16:00 BP 127/77 01/01/23 16:00 Pulse Ox 94 L 01/01/23 16:00 FiO2 Intake & Output 12/31/22 01/01/23 01/01/23 18:59 06:59 18:59 Intake Total 100 100 780 Output Total 1920 470 400 Balance -1820 -370 380 Weight 68.5 kg Intake: Oral 100 100 780 Output: Chest Tube Drainage 1645 70 50 Pleural Catheter Left 1645 70 50 Posterior Chest Urine 275 400 350 Other: Voiding Method Indwelling Catheter Indwelling Catheter Indwelling Catheter - Labs CBC & Chem 7: 01/01/23 09:13 01/01/23 09:13 Labs: Abnormal Lab Results - Last 24 Hours (Table) 01/01/23 01/01/23 01/01/23 Range/Units 09:13 09:13 09:13 WBC 24.5 H (3.8-10.6) k/uL RBC 2.59 L (4.30-5.90) m/uL Hgb 7.7 L (13.0-17.5) gm/dL Hct 25.6 L (39.0-53.0) % MCHC 30.1 L (31.0-37.0) g/dL Plt Count 667 H (150-450) k/uL Chloride 110 H (98-107) mmol/L Carbon Dioxide 20 L (22-30) mmol/L BUN 53 H (9-20) mg/dL Creatinine 4.22 H (0.66-1.25) mg/dL Glucose 129 H (74-99) mg/dL Troponin I 0.462 H* (0.000-0.034) ng/mL Microbiology - Last 24 Hours (Table) 12/30/22 12:30 Gram Stain - Final Sputum Sputum Culture - Final 12/27/22 13:55 Anaerobic Culture - Final Pleural Fluid 12/26/22 12:25 Blood Culture - Final Blood 12/26/22 12:10 Blood Culture - Final Blood
[2023-01-01] MEDS ORDERED: VANCOMYCIN 1,500 MG in SODIUM CHLORIDE 0.9% 500 ML 500 ML IVPB ONE (18:00)
[2023-01-01] MEDS: TAMSULOSIN 0.4 MG CAP.ER.24H PO SCH (20:37)
[2023-01-01] MEDS: DULoxetine HCL 60 MG CAPSULE.DR PO SCH (20:37)
[2023-01-01] MEDS: CYANOCOBALAMIN 500 MCG TAB PO SCH (20:38)
[2023-01-01] MEDS: CHOLECALCIFEROL 25 MCG (1000 IU) TABLET PO SCH (20:38)
--- NOTE | 2023-01-02 07:42 | XR ---
EXAMINATION TYPE: XR chest 1V portable DATE OF EXAM: 01/02/2023 6:43 AM COMPARISON: Chest radiographs from; 01/01/2023 TECHNIQUE: XR chest 1V portable Frontal view of the chest. CLINICAL INDICATION:Male, 82 years old with history of Left pleural effusion; FINDINGS: Lungs/Pleura: Decreased aeration of the left lung with large left pleural effusion. There is no evide nce of right pleural effusion, focal consolidation, or pneumothorax. Pulmonary vascularity: Unremarkable. Heart/mediastinum: Cardiomediastinal silhouette is partially obscured due to overlying and adjacent o pacities. Musculoskeletal: No acute osseous pathology. Other findings: None Lines/Tubes: Thoracotomy tube in the left lower quadrant. IMPRESSION: Decreased aeration with complete left hemithorax opacification.
--- NOTE | 2023-01-02 08:13 | P.PN ---
Subjective Progress Note Date: 01/02/23 Principal diagnosis: Large left-sided pleural effusion, suspected healthcare acquired pneumonia, acute kidney injury secondary to ATN secondary to severe sepsis. Previous medical history of chronic kidney disease stage IIIB with a baseline creatinine of 1.7-1.9, hypertension, prostate disorder, rheumatoid arthritis, GERD, multiple falls from standing, bipolar disorder, anxiety/depression, pneumonia, and previous tobacco dependence POD #5 placement of left pleural pigtail catheter by interventional radiology with 4 instillations of alteplase/dornase The patient was seen and examined sitting up in bed on the cardiac stepdown unit in no acute distress. States his shortness of breath is about the same as yesterday, denies pain. States he is scared for planned treatment, plan is for bronchoscopy today by Dr. Dunaway. Remains on 2 LPM NC with oxygen saturation in the mid 90s. Left pigtail catheter remains with minimal output. CXR reviewed, complete white-out appears again. Objective - Vital Signs Vital signs: Vital Signs Temp 97.5 F L 01/02/23 04:30 Pulse 99 01/02/23 04:30 Resp 20 01/02/23 04:30 BP 87/60 01/02/23 04:30 Pulse Ox 95 01/02/23 04:30 FiO2 Intake & Output 01/01/23 01/02/23 01/02/23 18:59 06:59 18:59 Intake Total 780 Output Total 400 906 Balance 380 -906 Weight 68.5 kg Intake: Oral 780 Output: Chest Tube Drainage 50 6 Pleural Catheter Left 50 6 Posterior Chest Urine 350 900 Other: Voiding Method Indwelling Catheter Indwelling Catheter - Exam CONSTITUTIONAL: Appears comfortable, cooperative, no acute distress RESPIRATORY: Lungs sounds diminished bilaterally, left greater than right. Respirations even, nonlabored. Currently on 2 LPM NC with oxygen saturation 95%. Able to achieve 1000 mL on incentive spirometry. Strong cough. CARDIOVASCULAR: S1, S2 present. Regular rate and rhythm, sinus rhythm on telemetry. Palpable peripheral pulses bilaterally. No edema present. No calf pain or tenderness noted. SCDs present. GASTROINTESTINAL: Abdomen soft, nontender, nondistended. Active bowel sounds present 4 quadrants. Currently NPO for bronchoscopy GENITOURINARY: Posey present draining clear yellow urine, output 1250 mL in the last 24 hours INTEGUMENTARY: Skin is warm and dry with evidence of good perfusion NEUROLOGIC: Cranial nerves II through XII intact MUSKULOSKELETAL: Able to move all extremities, strength equal bilaterally, gait normal PSYCHIATRIC: Alert and oriented to person place and time, appropriate affect, intact judgment and insight INVASIVE LINES AND TUBES: Left sided pigtail catheter remains present, 6 mL output overnight, 30 mL in the last 24 hours - Allied health notes Allied health notes reviewed: nursing - Labs CBC & Chem 7: 01/01/23 09:13 01/01/23 09:13 Labs: Abnormal Lab Results - Last 24 Hours (Table) 12/31/22 01/01/23 01/01/23 Range/Units 07:27 09:13 09:13 WBC (3.8-10.6) k/uL RBC (4.30-5.90) m/uL Hgb (13.0-17.5) gm/dL Hct (39.0-53.0) % MCHC (31.0-37.0) g/dL Plt Count (150-450) k/uL Chloride 110 H (98-107) mmol/L Carbon Dioxide 20 L (22-30) mmol/L BUN 53 H (9-20) mg/dL Creatinine 4.22 H (0.66-1.25) mg/dL Glucose 129 H (74-99) mg/dL Troponin I 0.462 H* (0.000-0.034) ng/mL Total Protein (PEP) 4.3 L (6.2-8.2) d/dL Albumin (PEP) 1.8 L (3.8-4.9) d/dL 01/01/23 Range/Units 09:13 WBC 24.5 H (3.8-10.6) k/uL RBC 2.59 L (4.30-5.90) m/uL Hgb 7.7 L (13.0-17.5) gm/dL Hct 25.6 L (39.0-53.0) % MCHC 30.1 L (31.0-37.0) g/dL Plt Count 667 H (150-450) k/uL Chloride (98-107) mmol/L Carbon Dioxide (22-30) mmol/L BUN (9-20) mg/dL Creatinine (0.66-1.25) mg/dL Glucose (74-99) mg/dL Troponin I (0.000-0.034) ng/mL Total Protein (PEP) (6.2-8.2) d/dL Albumin (PEP) (3.8-4.9) d/dL Microbiology - Last 24 Hours (Table) 12/30/22 12:30 Gram Stain - Final Sputum Sputum Culture - Final 12/27/22 13:55 Anaerobic Culture - Final Pleural Fluid - Imaging and Cardiology Chest x-ray: report reviewed, image reviewed Assessment and Plan Assessment: Large loculated left pleural effusion with near complete opacification of the left lung, status post left-sided thoracentesis and subsequent placement of left-sided pigtail catheter by IR with four doses of alteplase/dornase pleural instillation Possible healthcare acquired pneumonia, with associated complicated parapneumonic effusion/empyema Acute hypoxic respiratory failure, secondary to large left pleural effusion Leukocytosis, secondary to above Acute on chronic kidney disease stage IIIB, baseline creatinine in the range of 1.7-1.9 History of hypertension History of multiple falls from standing Rheumatoid arthritis GERD History of bipolar disorder History of anxiety/depression Incomplete bladder emptying, Posey catheter in place Remote history of smoking dependence, quit smoking over 40 years ago Plan: No lytic instillation today as patient drained very minimal amount in the last 24 hours Patient scheduled for bronchoscopy with Dr. Dunaway today Wean oxygen as tolerated. Encourage use of incentive spirometry 10 times every hour while awake. Antibiotic management and recommendations per primary care/pulmonology, pleural fluid growing Streptococcus Viridans Continue to record strict accurate I's and O's from left chest pigtail catheter Increase activity as tolerated More recommendations to follow based on patient's clinical course
[2023-01-02 08:18] LABS: Hypochromasia Marked; MCH 30.2 pg (25.0-35.0); Macrocytosis Moderate; Mean Platelet Volume 7.3; Platelet Count 587 k/uL (150-450); RBC 2.31 m/uL (4.30-5.90); RDW 15.4 % (11.5-15.5); WBC 18.4 k/uL (3.8-10.6)
[2023-01-02] MEDS: HYDROCORTISONE SUCCINATE 100 MG/2 ML VIAL IV SCH ×2 (08:28→15:41)
[2023-01-02] MEDS: SODIUM FERRIC GLUCONAT-SUCROSE 125 MG in SODIUM CHLORIDE 0.9% 100 ML IVPB SCH (08:28)
[2023-01-02] MEDS: HEPARIN SODIUM,PORCINE/PF 5,000 UNIT/0.5 ML SYRINGE SQ SCH ×2 (08:28→15:40)
[2023-01-02 08:34] LABS: MCV 104.2 fL (80.0-100.0)
[2023-01-02 08:35] LABS: African American GFR (CKD) 14 (>60 ml/min/1.73 sqM); Anion Gap 11 mmol/L; Blood Urea Nitrogen 60 mg/dL (9-20); Calcium 8.5 mg/dL (8.4-10.2); Carbon Dioxide 17 mmol/L (22-30); Chloride 109 mmol/L (98-107); Glucose 97 mg/dL (74-99); Non-African American GFR(CKD) 12 (>60 ml/min/1.73 sqM); Potassium 3.8 mmol/L (3.5-5.1); Sodium 137 mmol/L (137-145)
[2023-01-02] MEDS: MIDODRINE 5 MG TAB PO SCH ×3 (09:27→18:00)
--- NOTE | 2023-01-02 11:00 | CA ---
Transthoracic Echo Report Name: Topher Talavera Age: 82 Gender: M : 1940 Exam Date: 01/02/2023 07:35 Exam Location: [place] [facility] Ht (in): 68 Wt (lb): 151 Ordering Physician: May Mckenna DO Attending/Referring Phys: [id number], Clarisa Patch Worker Yumiko Ibarra [facility] Procedure CPT: Indications: nstemi Cardiac Hx: Technical Quality: Technically difficult study Contrast 1: Total Dose (mL): Contrast 2: Total Dose (mL): MEASUREMENTS (Male / Female) Normal Values 2D ECHO LV Diastolic Diameter PLAX 4.1 cm 4.2 - 5.9 / 3.9 - 5.3 cm LV Systolic Diameter PLAX 2.6 cm IVS Diastolic Thickness 1.2 cm 0.6 - 1.0 / 0.6 - 0.9 cm LVPW Diastolic Thickness 1.3 cm 0.6 - 1.0 / 0.6 - 0.9 cm LV Relative Wall Thickness 0.6 LVOT Diameter 2.3 cm Aortic Root Diameter 4.2 cm Ascending Aorta Diameter 3.9 cm M-MODE Aortic Root Diameter MM 4.2 cm LA Systolic Diameter MM 2.4 cm LA Ao Ratio MM 0.6 AV Cusp Separation MM 2.4 cm DOPPLER AV Peak Velocity 92.7 cm/s AV Peak Gradient 3.4 mmHg AV Mean Velocity 63.9 cm/s AV Mean Gradient 1.9 mmHg AV Velocity Time Integral 14.1 cm LVOT Peak Velocity 89.9 cm/s LVOT Peak Gradient 3.2 mmHg LVOT Velocity Time Integral 15.9 cm LVOT Stroke Volume 65.5 cm??? LVOT Stroke Volume Index 36.1 ml/m??? LVOT Cardiac Index 3354.0 cm???/min???m??? AV Area Cont Eq vti 4.6 cm??? AV Area Cont Eq pk 4.0 cm??? MV Peak Velocity 117.9 cm/s MV Peak Gradient 5.6 mmHg MV Mean Velocity 79.9 cm/s MV Mean Gradient 2.8 mmHg MV Velocity Time Integral 19.9 cm Mitral E Point Velocity 48.1 cm/s Mitral A Point Velocity 95.2 cm/s Mitral E to A Ratio 0.5 MV Deceleration Time 204.5 ms LV E' Lateral Velocity 7.7 cm/s Mitral E to LV E' Lateral Ratio 6.2 LV E' Septal Velocity 4.8 cm/s Mitral E to LV E' Septal Ratio 9.9 TR Peak Velocity 259.0 cm/s TR Peak Gradient 26.8 mmHg Right Atrial Pressure 15.0 mmHg Pulmonary Artery Systolic Pressu 41.8 mmHg Right Ventricular Systolic Press 41.8 mmHg FINDINGS Left Ventricle Moderately increased left ventricular wall thickness. Left ventricular cavity size normal. No obvious regional wall motion abnormalities. Left ventricular ejection fraction is estimated at 55-60%. Right Ventricle Right ventricle not well visualized but appears dilated. Moderate pulmonary hypertension. Right Atrium Right atrium not well visualized. Left Atrium Normal left atrial size. Mitral Valve Mitral valve thickened. Mitral annular calcification. No mitral regurgitation. Aortic Valve Trileaflet aortic valve. Diffuse thickening (sclerosis) of the aortic valve cusps without reduced excursion. No aortic valve stenosis or regurgitation. Tricuspid Valve Tricuspid valve not well visualized. Mild tricuspid regurgitation. Pulmonic Valve Structurally normal pulmonic valve. No pulmonic regurgitation. Pericardium Minimal pericardial effusion (normal variant). Prominent epicardial fat. Left pleural effusion. Aorta Moderate aortic dilatation at the level of the sinuses of valsalva (root). Mildly dilated proximal ascending aorta (tube). CONCLUSIONS Normal LV systolic function Moderate pulmonary hypertension Moderate dilated dictation of the sinus of Valsalva Previewed by: Dr. Gary Figueroa MD (Electronically Signed) Final Date: 02 January 2023 10:59
--- NOTE | 2023-01-02 11:35 | P.PN ---
Subjective Progress Note Date: 01/02/23 Hospital Course: Patient is an 82-year-old male with history of orthostatic hypotension chronically on steroids (possible adrenal insufficiency), chronic kidney disease, GERD, hypertension, prostate disorder presenting from nursing facility with worsening mentation and hypoxia. In the emergency department he underwent an extensive evaluation. Initial vital signs were remarkable for temperature 99.9 and O2 sat of 92% on 4 L. Blood pressure did go down up to 73/49. Labs were remarkable for WBC 35.3, hemoglobin 8.5, sodium 135, bicarb 21, anion gap 14, creatinine 3.71 up from baseline, troponin 0.92, proBNP 5000. Chest x-ray demonstrated white out lung on the left side. Follow-up chest CT demonstrated large loculated left-sided pleural effusion, trace right-sided pleural effusion. Ectatic ascending thoracic aorta at 2.8 cm. Patient was given IV cortisone, IV levofloxacin, Vanco IV fluids in the ED. He was admitted for [facility] sepsis with a Pulmonology consult. Renal function worsened and nephrology was consulted. He underwent thoracentesis which showed exudative pleural effusion. Interventional radiology was consulted and the patient had a pigtail catheter placed on 12/28/22. Catheter was placed to suction. Cultures came back as strep viridans, Cardiothoracic surgery was consulted as he continued to have opacification of the left hemithorax compared TPA instilled on 12/30/22, 12/31 and 01/01. Pending bronchoscopy. Subjective: Patient seen and examined at bedside. Continues to have shortness of breath and cough. Pertinent positives and negatives as discussed above, a complete review of systems was performed and all other systems are negative. Vitals Signs Reviewed. General: nontoxic, no distress, ill-appearing, obese Cardiovascular: S1S2 reg, no murmur, positive posterior tibial pulse bilateral, Lungs: Absent breath sounds left, no rhonchi, no rales , no accessory muscle use or conversational dyspnea, chest tube in place left hemithorax with serosanguineous drainage noted in chest tube chamber Abdominal: soft, nontender to palpation, no guarding, no appreciable organomegaly Ext: no gross muscle atrophy, 2+ edema b/l lower extremities, no contractures Neuro: CN II-XI grossly intact, no focal neuro deficits Psych: Alert, oriented, appropriate affect Data Reviewed Today: Pertinent Labs: WBC 18.4, hemoglobin 7, sodium 137, potassium 3.8, BUN 60, creatinine 4.3 Imaging: Chest x-ray independently interpreted, persistent left-sided opacification, tracheal deviation to the right Echocardiogram report reviewed, shows LVEF normal, moderate pulmonary hypertension Assessment and Plan: Strep. Viridans empyema s/p Pig tail cath 12/28/22 Severe Sepsis Acute hypoxic respiratory failure -White count now decreasing, continue Levaquin and vancomycin -Once clinically stable could conisder vanco D/C as typically Strep Viridans has >90% sensitivity to levaquin -Close monitoring of creatinine and vancomycin troughs given acute kidney injury -CT surgery note reviewed: Pending bronchoscopy -Pulmonary following, Possible bronchoscopy today -Continue with when necessary albuterol and Mucinex Elevated troponin, type II non-STEMI due to sepsis and BRUCE -Echocardiogram does not show any regional wall motion abnormalities, normal LV systolic function -Continue with aspirin 81 mg daily Hypotension History of orthostatic hypotension, suspect underlying adrenal insufficiency -Continue Solu-Cortef 50 mg IV every 8 hours, continue with Florinef and Midodrin -Follow blood pressures BRUCE Urinary retention, milka hematuria -Nephrology following, Lasix given yesterday -Patient was evaluated by urology. Continue catheter and Flomax until patient is more mobile Acute on chronic anemia -Patient with a T sat of 18 and ferritin of 475, consistent with possible acute blood loss anemia in conjunction with anemia of chronic disease -Continue with IV iron 3 doses -Follow CBC HX: RA Bipolar disorder HTN DVT ppx: Subcu heparin Code status: Full code Anticipated discharge place: Pending clinical course Anticipated discharge time: Pending clinical course Objective - Vital Signs Vital signs: Vital Signs Temp 97.6 F 01/02/23 08:00 Pulse 97 01/02/23 08:00 Resp 20 01/02/23 08:00 BP 104/73 01/02/23 08:00 Pulse Ox 97 01/02/23 08:00 FiO2 Intake & Output 01/01/23 01/02/23 01/02/23 18:59 06:59 18:59 Intake Total 780 Output Total 400 906 0 Balance 380 -906 0 Weight 68.5 kg Intake: Oral 780 Output: Chest Tube Drainage 50 6 0 Pleural Catheter Left 50 6 0 Posterior Chest Urine 350 900 Other: Voiding Method Indwelling Catheter Indwelling Catheter Indwelling Catheter - Labs CBC & Chem 7: 01/02/23 07:56 01/02/23 07:56 Labs: Abnormal Lab Results - Last 24 Hours (Table) 12/31/22 01/02/23 01/02/23 Range/Units 07:27 07:56 07:56 WBC 18.4 H (3.8-10.6) k/uL RBC 2.31 L (4.30-5.90) m/uL Hgb 7.0 L (13.0-17.5) gm/dL Hct 24.0 L (39.0-53.0) % MCV 104.2 H D (80.0-100.0) fL MCHC 29.0 L (31.0-37.0) g/dL Plt Count 587 H (150-450) k/uL Chloride 109 H (98-107) mmol/L Carbon Dioxide 17 L (22-30) mmol/L BUN 60 H (9-20) mg/dL Creatinine 4.30 H (0.66-1.25) mg/dL Total Protein (PEP) 4.3 L (6.2-8.2) d/dL Albumin (PEP) 1.8 L (3.8-4.9) d/dL Microbiology - Last 24 Hours (Table) 12/30/22 12:30 Gram Stain - Final Sputum Sputum Culture - Final 12/27/22 13:55 Anaerobic Culture - Final Pleural Fluid
--- NOTE | 2023-01-02 11:41 | P.PN ---
Subjective Progress Note Date: 01/02/23 This is an 82-year-old male patient with a known history of gastroesophageal reflux disease, hypertension, rheumatoid arthritis, lifelong nonsmoker, bipolar disorder, anxiety/depression. He was brought in to the emergency room this morning from [facility] for hypoxia confusion and had been receiving IV fluids over 4 L the past week. Chest x-ray reveals near complete opacification of the left lung. Computed tomography scan of the chest reveals a large loculated left pleural effusion with partial atelectasis/consolidation involving the left upper lobe and lingula. There is complete atelectasis of the left lower lobe. He is currently maintaining O2 saturations in the 90s on 3 L/m per nasal cannula. He is afebrile. Somewhat hypotensive. White count 35.3. Hemoglobin 8.5. Platelets 617. Sodium 135. Potassium 4.6. Bicarb 21. BUN 41. Creatinine 3.71. Glucose 104. Troponin 0.292. ProBNP 5420. The patient is a poor historian. Most of the information is taken from his family at the bedside. He is currently receiving normal saline at 130 ML's per hour. He is given a dose of vancomycin. Progress note dated 12/27/2022. 82-year-old male seen in the emergency department yesterday. He has a known history of GERD, hypertension, rheumatoid arthritis, I probably disorder, anxiety/depression, and was brought to the emergency room from a local [facility], because of hypoxia, confusion, and a chest x-ray which showed a possible pneumonia. In addition, there was a left-sided pleural effusion. Clinically, the patient appears reasonably stable. He is getting saline at 130 mL an hour, is on 3 L of oxygen. His pro-calcitonin level was 1.19. He was placed on vancomycin and Levaquin. The patient's ultrasound did reveal a right-sided pleural effusion, and we've asked interventional radiology to consider ultrasound-guided drainage. White count 30.3, hemoglobin 7.3, hematocrit 23.8, and platelet count 573,000. Sodium 134, potassium 4.4, chlorides 102, CO2 21, BUN 43, creatinine 4.11. Troponins were 0.292, 0.287, and 0.240. N-terminal proBNP was elevated at 5420. Progress note dated 12/28/2022. 82-year-old male seen today in room 369. The patient continues on Levaquin and vancomycin. The patient had a [facility] 750 mL of straw colored fluid was removed. We will asked him to consider doing a pigtail catheter placement, given the fact that the fluid was an exudate, with a high LDH and high protein, the fact that the patient had primarily polymorphonuclear neutrophils in the fluid, and the fluid glucose was only 2. Currently, the patient's on 3 L. He is coughing up purulent sputum. Currently, the patient is on 3 L of oxygen. Not receiving any IV fluids. White count 18.9, which is down from 30.3. Hemoglobin 7.5, hematocrit 24.2, with a platelet count of 541,000. Sodium 135, potassium 3.8, chlorides 106, CO2 21, BUN 45, and creatinine 3.86. The fluid analysis revealed it to be cloudy, with 98% PMNs and 2% lymphocytes. A glucose of less than 2, a total protein of greater than 3.6 g, and an LDH which was 616. Progress note dated 12/29/2022. 82-year-old male seen in room 369. The patient continues on antibiotics in the form of Levaquin and vancomycin. He is getting saline at 70 mL an hour. He is getting nasal O2 at 3 L. Yesterday, interventional radiology placed a small bore catheter into the left pleural space. The patient has had significant drainage. The catheter is noted to be on to suction. Laboratory data today includes a white count of 16.8, hemoglobin 7.1, hematocrit 22.7, and a platelet count of 552,000. Sodium 133, potassium 3.4, chlorides 107, CO2 18, BUN 46, and creatinine 3.70. The fluid was cloudy, and is clearly an exudate. 98% of the white blood cells are PMNs. The glucose of the fluid was very low, less than 2, suggesting an empyema. Progress note dated 12/30/2022. 82-year-old male seen in room 369. The patient continues on Levaquin and vancomycin. Cultures are thus far negative. He is getting 3 L of oxygen by nasal cannula. He is also getting saline at 70 mL an hour. We asked cardiothoracic surgery to see him, so that they can instill, TPA, and alpha dornase, into the chest tube, inserted by interventional radiology. Today's chest x-ray looks a bit better. White count 15.1, hemoglobin 7.6, hematocrit 24.9, and platelet count 558,000. Sodium 136, potassium 4, chlorides 109, CO2 18, BUN 45, and creatinine 3.81. The pleural fluid is showing evidence of Streptococcus viridans. Sensitivities are currently pending. On today's evaluation of 12/31/2022, the patient is being seen for a follow-up. Earlier this morning, the patient coughed out a big chunk of mucus plugging dark greenish yellowish in color. The pleural fluid samples from earlier on 12/27/2022 was consistent with strep viridans and the patient is currently on antibiotics and is currently on IV Levaquin and vancomycin. The vancomycin trough level was 17.4 from yesterday. The white cell count is still elevated at 23.7 with a hemoglobin of 7.2. The BUN is at 45 with a creatinine of 3.9. Earlier this morning, the patient was found to be quite lethargic and weak and at that point the blood gas was done that showed also a pH of 7.39 with a pCO2 of 31 and pO2 of 58 and this was on FiO2 of 32%. He remains hemodynamically stable. Is afebrile for now. He is on 3 L of oxygen by nasal cannula. The last alteplase therapy to his left chest was done yesterday and the output since then has been in the order of 1.8 L of purulent material. Nevertheless, the chest x-ray shows interval worsening of the left sided opacity with volume loss atelectasis and some residual fluid present. There is a concern for mucous plug obstructing left lower lobe bronchus and getting lung reexpansion. On 01/01/2023, the patient is being seen for a follow-up. The patient is a. His Left Chest. The Patient Is Lying down Comfortably in Bed. Is Currently on 3 L of Oxygen by Nasal Cannula. A Repeat CAT Scan of the Chest was done yesterday and it demonstrated interval reduction in the pleural fluid on the left. The pigtail catheter is in a good location. There is persistent consolidation and this is mainly on the left. Small right basal consolidation is also present. Repeat chest x-ray from today shows partial reexpansion of the left upper lobe. The patient was cough and also mucous plugs yesterday. The cough has subsided today. Initial plan was to bronchoscope this patient for airway inspection and this will be postponed total tomorrow. Noted the pleural fluid was positive for Streptococcus viridans and the patient remains on a combination of Levaquin and vancomycin. Noted the patient is receiving alteplase treatment for his pigtail catheter. The pigtail catheter was also tested to wall suction at -20 cm. The output has been 1.7 L over the past 24 hours. In terms of blood work, the white cell count remains elevated at 24 with a hemoglobin of 7.7. Sodium is at 138 potassium is at 3.8. A 53 with a creatinine of 4.2. Troponins at 0.4. Vancomycin trough was 20. Oral intake is poor. On today's evaluation of 04/04/2023, the patient remains on oxygen 2 L nasal cannula. The left-sided pigtail catheter remains in place with minimal amount of output. His last dose of thrombolytic was done yesterday. The patient was supposed to undergo bronchoscopy yesterday and this was canceled as the patient adequate aeration his left upper lobe. Nevertheless a repeat chest x-ray was done this morning and the patient is complete opacification of the left lung. There is complete white out of a left lung and he will need a bronchoscopy to rule out any endobronchial lesions or mucus causing obstruction. He seems to be comfortable on 2 L oxygen nasal cannula. His white cell count today's of 18.4 with a hemoglobin of 7 and a platelet count of 587. BUN is 60 with a creatinine of 4.3 and a potassium level is at 3.8. He seems to be quite debilitated. He remains on the same antibiotic coverage for now and he is receiving a combination of Levaquin and vancomycin. He is on DuoNeb about treatments [id number]. He is nothing by mouth for now. Objective - Vital Signs Vital signs: Vital Signs Temp 97.6 F 01/02/23 08:00 Pulse 97 01/02/23 08:00 Resp 20 01/02/23 08:00 BP 104/73 01/02/23 08:00 Pulse Ox 97 01/02/23 08:00 FiO2 Intake & Output 01/01/23 01/02/23 01/02/23 18:59 06:59 18:59 Intake Total 780 Output Total 400 906 0 Balance 380 -906 0 Weight 68.5 kg Intake: Oral 780 Output: Chest Tube Drainage 50 6 0 Pleural Catheter Left 50 6 0 Posterior Chest Urine 350 900 Other: Voiding Method Indwelling Catheter Indwelling Catheter Indwelling Catheter - Exam No acute distress, oriented 3. Currently on 2 L of oxygen. No overt respiratory distress. HEENT examination is grossly unremarkable. Mucous membranes are moist. No oral lesions. Neck supple. Full range of motion. No adenopathy thyromegaly or neck vein distention. Cardiovascular examination reveals regular rhythm rate. S1-S2 normal. No S3 or S4. No discernible murmur noted. Heart sounds are distant. Lungs reveal diminished left-sided breath sounds. Scattered rhonchi are noted. No wheezes. No crackles. Left-sided chest tube is noted. Abdomen soft bowel sounds are heard. No masses or tenderness. Extremities are intact. No cyanosis clubbing or edema. Skin is without rash or lesion. Neurologic examination is brief but nonfocal. - Labs CBC & Chem 7: 01/02/23 07:56 01/02/23 07:56 Labs: Abnormal Lab Results - Last 24 Hours (Table) 12/31/22 01/02/23 01/02/23 Range/Units 07:27 07:56 07:56 WBC 18.4 H (3.8-10.6) k/uL RBC 2.31 L (4.30-5.90) m/uL Hgb 7.0 L (13.0-17.5) gm/dL Hct 24.0 L (39.0-53.0) % MCV 104.2 H D (80.0-100.0) fL MCHC 29.0 L (31.0-37.0) g/dL Plt Count 587 H (150-450) k/uL Chloride 109 H (98-107) mmol/L Carbon Dioxide 17 L (22-30) mmol/L BUN 60 H (9-20) mg/dL Creatinine 4.30 H (0.66-1.25) mg/dL Total Protein (PEP) 4.3 L (6.2-8.2) d/dL Albumin (PEP) 1.8 L (3.8-4.9) d/dL Microbiology - Last 24 Hours (Table) 12/30/22 12:30 Gram Stain - Final Sputum Sputum Culture - Final 12/27/22 13:55 Anaerobic Culture - Final Pleural Fluid Assessment and Plan Plan: Acute hypoxemic respiratory failure secondary to a large left pleural effusion with near complete opacification of the left lung, suspect healthcare acquired pneumonia, with associated complicated parapneumonic effusion/empyema. Cultures from the pleural fluid are positive for Streptococcus viridans empyema. Maintain on a combination of Levaquin and vancomycin. The patient is showing some partial elevation of the left upper lobe on today's chest x-ray. The amount of pleural fluid in the left has dropped significantly. There is some located effusion left lung base along with ongoing consolidation. The patient has already received a total of 3 doses of alteplase. The output from the pigtail is quite low and the patient is complete opacification of the left lung, and a bronchoscopy will be done to rule out any mucus plugging or endobronchial obstruction preventing the headaches patient's the left lung. Is currently on 2 L of oxygen nasal cannula. He is nothing by mouth. S/P left sided chest tube, placed, 12/28/2022. Leukocytosis secondary to above. The white cell count remains persistently elevated. Acute renal failure, on top of chronic kidney disease stage IIIB at baseline. Troponin leak secondary to above, currently free of any chest pain Hypotension, recovered Lifelong nonsmoker. History of esophageal reflux disease. History of hypertension. History of rheumatoid arthritis. History of anxiety/depression. History of bipolar disorder. detention resident. Plan: The patient has a received total of 3 doses of alteplase Keep the patient pigtail catheter in place There is complete opacification of the left lung and the patient will need a bronchoscopy Renal function is impaired/stable Pleural fluid that showed strep viridans The patient is on a combination of Levaquin and vancomycin Monitor pleural fluid is loculated small in the CAT scan findings, reviewed the CAT scan and there is interval reduction in the amount of pleural fluid and there is also development of small right-sided pleural effusion. It was suspected of the left lower lobe bronchus is quite narrowed and the patient will need a bronchoscopy and airway inspection. Keep the patient on oxygen at 2 L Keep the pigtail catheter in place Thoracic surgeries on the case IV iron Vancomycin levels are adequate We'll continue to follow Full code bronchoscopy today
[2023-01-02] MEDS: guaiFENesin 600 MG TABLET.ER PO SCH ×2 (11:45→20:10)
[2023-01-02] MEDS: DOCUSATE 100 MG CAP PO SCH ×2 (11:45→20:10)
[2023-01-02] MEDS: PANTOPRAZOLE 40 MG TABLET PO SCH (11:46)
[2023-01-02] MEDS: SODIUM BICARBONATE TAB 650 MG TAB PO SCH ×2 (11:46→20:11)
[2023-01-02] MEDS: HYDROcodone/APAP 5-325MG 1 EACH TAB PO PRN (11:46)
[2023-01-02] MEDS: DULoxetine HCL 30 MG CAPSULE.DR PO SCH (11:46)
[2023-01-02] MEDS: lamoTRIgine 100 MG TAB PO SCH ×2 (11:46→20:10)
[2023-01-02] MEDS: ASPIRIN 81 MG PO SCH (11:46)
[2023-01-02] MEDS: ALPRAZolam 0.25 MG TAB PO PRN (11:46)
[2023-01-02] MEDS: FLUDROCORTISONE 0.1 MG TAB PO SCH (11:47)
[2023-01-02 12:11] LABS: Free Kappa Lt Chain Qnt, Serum 11.37 mg/dL (0.33-1.94); Free Lambda Lt Chain Qnt, Seru 24.32 mg/dL (0.57-2.63)
[2023-01-02] MEDS ORDERED: PHENYLEPHRINE-0.9% NACL SYG 1,000 MCG/10 ML SYRINGE ONE (12:59)
[2023-01-02] MEDS ORDERED: LIDOCAINE 2% INJ 20 MG/ML (2 ML VIAL) ONE (12:59)
[2023-01-02] MEDS ORDERED: PROPOFOL 10 MG/ML 20 ML VIAL IV ONE (12:59)
[2023-01-02] MEDS ORDERED: SODIUM CHLORIDE 0.9% 500 ML 500 ML IV ONE (13:22)
[2023-01-02] MEDS: PHENYLEPHRINE-0.9% NACL SYG 1,000 MCG/10 ML SYRINGE IVP ONE ×2 (14:07→14:36)
[2023-01-02] MEDS: FOLIC ACID 1 MG TAB PO SCH (15:40)
[2023-01-02] MEDS: ACETAMINOPHEN TAB 325 MG TAB PO PRN (15:52)
--- NOTE | 2023-01-02 16:19 | XR ---
EXAMINATION TYPE: XR chest 1V portable DATE OF EXAM: 01/02/2023 COMPARISON: 01/02/2023 INDICATION: Post bronchoscopy TECHNIQUE: Single frontal view of the chest is obtained. FINDINGS: The heart size is normal. The pulmonary vasculature is normal. Left lung remains opacified. Catheter is present at the right lung base. No pneumothorax is evident. IMPRESSION: 1. Complete opacification remaining through the left lung. 2. No pneumothorax is evident postbronchoscopy.
--- NOTE | 2023-01-02 16:34 | P.PCN ---
Date of Procedure: 01/02/23 Preoperative Diagnosis: Left lung collapse/empyema, rule out endobronchial tumors Postoperative Diagnosis: Left lower lobe atelectasis Procedure(s) Performed: Bronchoscopy and bronchial lavage of the left lower lobe Anesthesia: MAC Surgeon: Hoang Dunaway Estimated Blood Loss (ml): 0 Pathology: other Condition: stable Disposition: floor Operative Findings: This procedure was done in the endoscopy unit. A consent was obtained and a timeout was done. The patient was medicated by PERSON[employer] COMPUTER NETWORK ENGINEER and the patient was given propofol. The patient was given a full facemask with 100% FiO2. The flexible bronchoscope was easily passed of the left nostril and it was advanced into the posterior pharynx, and then larynx. The examination of the upper airways included the posterior pharynx, larynx, epiglottis, arytenoids, the vocal cords and the vallecula. There was some retained respiratory secretions and upper airways that were suctioned out easily without any major difficulties. The vocal cord function and mobility was within normal limits. A total of 2 mL of 1% lidocaine was applied to the vocal cords and following that the bronchoscope was advanced to the upper trachea. Immediately, it was noticed that the patient has a significant degree of tracheal bronchomalacia as the patient has dynamic obstruction of the airways with coughing. Then membranous tracheal movement anteriorly to completely blood the trachea with coughing maneuvers. Similar degree of tracheal bronchomalacia was seen throughout the airways involving the bilateral mainstem bronchi and the various segments of the upper and lower lobes. Some scant rest or secretions were identified and the trachea that were suctioned out. Airway inspection was completed. The examination of the right mainstem bronchus, right upper lobe bronchus, bronchus intermedius and the right lower lobe bronchus was within normal limits. bronchoscope was then removed to the left and examination of the left side included left mainstem bronchus and there was more rest or secretions pooling in the distal left mainstem bronchus and that were suctioned out. The left upper lobe bronchus with atelectatic and the various segments of the left upper lobe including the apical posterior and anterior segment of the lingular segment were atelectatic. Significant degree of atelectasis was also noted and left lower lobe bronchus. The bronchoscope was wedged into the left lower lobe bronchus. Secretions were suctioned out. No mucous plugs identified. Under aquatic vision, the segments were patent and the left lower lobe and there was no endobronchial tumor identified. A bronchial lavage of the left lower lobe was d one with a total of 80 mL of fluid was infused and 25 mL of dark brownish somewhat purulent material was aspirated. The procedure was completed. The bronchoscope was removed. Residual airway secretions were aspirated on the way out. No complications. The patient was transferred back to his room. Postoperative diagnosis is consistent with pneumonia, tracheal bronchomalacia, atelectasis of the various segments of the left lower lobe and the left upper lobe without evidence of any mucous plugs or endobronchial tumors.
[2023-01-02 17:24] LABS: Gamma Globulin 0.82 d/dL (0.70-1.50)
[2023-01-02] MEDS: MELATONIN 3 MG TABLET PO SCH (20:10)
[2023-01-02] MEDS: TAMSULOSIN 0.4 MG CAP.ER.24H PO SCH (20:10)
[2023-01-02] MEDS: DULoxetine HCL 60 MG CAPSULE.DR PO SCH (20:10)
[2023-01-02] MEDS: CHOLECALCIFEROL 25 MCG (1000 IU) TABLET PO SCH (20:10)
[2023-01-02] MEDS: CYANOCOBALAMIN 500 MCG TAB PO SCH (20:10)
[2023-01-03] MEDS: HEPARIN SODIUM,PORCINE/PF 5,000 UNIT/0.5 ML SYRINGE SQ SCH ×4 (00:55→23:46)
[2023-01-03] MEDS: HYDROCORTISONE SUCCINATE 100 MG/2 ML VIAL IV SCH ×4 (00:56→23:46)
[2023-01-03] MEDS: HYDROcodone/APAP 5-325MG 1 EACH TAB PO PRN ×4 (00:56→22:49)
[2023-01-03 05:38] LABS: Appearance,BF Bloody (Clear); RBC, Body Fluid 837500 /UL (0-2000)
[2023-01-03] MEDS: MIDODRINE 5 MG TAB PO SCH ×3 (06:02→20:20)
[2023-01-03] MEDS: DULoxetine HCL 30 MG CAPSULE.DR PO SCH (06:02)
[2023-01-03 08:19] LABS: Basophils % (A) 0 %; Eosinophils % (A) 0 %; HCT 21.7 % (39.0-53.0); Hypochromasia Slight; Lymphocytes # (A) 1.1 k/uL (1.0-4.8); Lymphocytes % (A) 5 %; MCH 30.4 pg (25.0-35.0); MCHC 31.2 g/dL (31.0-37.0); Macrocytosis Slight; Mean Platelet Volume 7.5; Monocytes # (A) 0.5 k/uL (0-1.0); Monocytes % (A) 2 %; Neutrophils # (A) 21.9 k/uL (1.3-7.7); Neutrophils % (A) 92 %; Platelet Count 677 k/uL (150-450); RBC 2.23 m/uL (4.30-5.90); RDW 15.6 % (11.5-15.5); WBC 23.8 k/uL (3.8-10.6)
[2023-01-03 08:20] LABS: HGB 6.8 gm/dL (13.0-17.5)
[2023-01-03 08:21] LABS: MCV 97.5 fL (80.0-100.0)
--- NOTE | 2023-01-03 08:22 | P.PN ---
Subjective Progress Note Date: 01/03/23 Principal diagnosis: Large left-sided pleural effusion, suspected healthcare acquired pneumonia, acute kidney injury secondary to ATN secondary to severe sepsis. Previous medical history of chronic kidney disease stage IIIB with a baseline creatinine of 1.7-1.9, hypertension, prostate disorder, rheumatoid arthritis, GERD, multiple falls from standing, bipolar disorder, anxiety/depression, pneumonia, and previous tobacco dependence POD #6 placement of left pleural pigtail catheter by interventional radiology with 4 instillations of alteplase/dornase The patient was seen and examined sitting up in bed on the cardiac stepdown unit in no acute distress. States he feels a bit better than yesterday but still short of breath, denies pain. Had bronchoscopy with Dr. Dunaway yesterday which demonstrated trachobronchial malacia and atelectasis left upper and lower lobe. Remains on 2 LPM NC with oxygen saturation in the mid 90s. Left pigtail catheter remains with minimal output. CXR reviewed, no significant change from yesterday. Case discussed between Dr. Paulino and Dr. Dunaway. Objective - Vital Signs Vital signs: Vital Signs Temp 97.7 F 01/02/23 20:00 Pulse 88 01/03/23 04:00 Resp 18 01/03/23 04:00 BP 92/62 01/03/23 04:00 Pulse Ox 95 01/03/23 04:00 FiO2 Intake & Output 01/02/23 01/03/23 01/03/23 18:59 06:59 18:59 Intake Total 200 Output Total 175 530 Balance 25 -530 Intake: IV 200 Output: Chest Tube Drainage 0 10 Pleural Catheter Left 0 10 Posterior Chest Urine 175 520 Other: Voiding Method Indwelling Catheter Indwelling Catheter - Exam CONSTITUTIONAL: Appears comfortable, cooperative, no acute distress RESPIRATORY: Lungs sounds diminished bilaterally, left greater than right. Respirations even, nonlabored. Currently on 2 LPM NC with oxygen saturation 95%. Able to achieve 1000 mL on incentive spirometry. Strong cough. CARDIOVASCULAR: S1, S2 present. Regular rate and rhythm, sinus rhythm on telemetry. Palpable peripheral pulses bilaterally. No edema present. No calf pain or tenderness noted. SCDs present. GASTROINTESTINAL: Abdomen soft, nontender, nondistended. Active bowel sounds present 4 quadrants. Tolerating diet GENITOURINARY: Posey present draining clear yellow urine, output 695 mL in the last 24 hours INTEGUMENTARY: Skin is warm and dry NEUROLOGIC: Cranial nerves II through XII intact MUSKULOSKELETAL: Able to move all extremities, strength equal bilaterally PSYCHIATRIC: Alert and oriented to person place and time INVASIVE LINES AND TUBES: Left sided pigtail catheter remains present, 20 mL o utput in the last 24 hours - Allied health notes Allied health notes reviewed: nursing - Labs CBC & Chem 7: 01/02/23 07:56 01/02/23 07:56 Labs: Abnormal Lab Results - Last 24 Hours (Table) 12/31/22 01/02/23 01/02/23 Range/Units 07:27 07:56 07:56 WBC 18.4 H (3.8-10.6) k/uL RBC 2.31 L (4.30-5.90) m/uL Hgb 7.0 L (13.0-17.5) gm/dL Hct 24.0 L (39.0-53.0) % MCV 104.2 H D (80.0-100.0) fL MCHC 29.0 L (31.0-37.0) g/dL Plt Count 587 H (150-450) k/uL Chloride 109 H (98-107) mmol/L Carbon Dioxide 17 L (22-30) mmol/L BUN 60 H (9-20) mg/dL Creatinine 4.30 H (0.66-1.25) mg/dL [id number] 0.56 H (0.10-0.40) d/dL Fluid Appearance (Clear) Free [place] LC, Quant 11.37 H (0.33-1.94) mg/dL Free Lambda LC, Quant 24.32 H (0.57-2.63) mg/dL 01/02/23 Range/Units 13:16 WBC (3.8-10.6) k/uL RBC (4.30-5.90) m/uL Hgb (13.0-17.5) gm/dL Hct (39.0-53.0) % MCV (80.0-100.0) fL MCHC (31.0-37.0) g/dL Plt Count (150-450) k/uL Chloride (98-107) mmol/L Carbon Dioxide (22-30) mmol/L BUN (9-20) mg/dL Creatinine (0.66-1.25) mg/dL [id number] (0.10-0.40) d/dL Fluid Appearance Bloody A (Clear) Free [place] LC, Quant (0.33-1.94) mg/dL Free Lambda LC, Quant (0.57-2.63) mg/dL - Imaging and Cardiology Chest x-ray: report reviewed, image reviewed Assessment and Plan Assessment: Large loculated left pleural effusion with near complete opacification of the left lung, status post left-sided thoracentesis and subsequent placement of left-sided pigtail catheter by IR with four doses of alteplase/dornase pleural instillation Possible healthcare acquired pneumonia, with associated complicated parapneumonic effusion/empyema Acute hypoxic respiratory failure, secondary to large left pleural effusion Leukocytosis, secondary to above Acute on chronic kidney disease stage IIIB, baseline creatinine in the range of 1.7-1.9 History of hypertension History of multiple falls from standing Rheumatoid arthritis GERD History of bipolar disorder History of anxiety/depression Incomplete bladder emptying, Posey catheter in place Remote history of smoking dependence, quit smoking over 40 years ago Plan: No further lytic instillation Wean oxygen as tolerated. Encourage use of incentive spirometry 10 times every hour while awake. Encourage coughing and deep breathing Antibiotic management and recommendations per primary care/pulmonology, pleural fluid growing Streptococcus Viridans Continue to record strict accurate I's and O's from left chest pigtail catheter Increase activity as tolerated No surgical intervention Will continue to see on an as-needed basis. Please call us with any questions
[2023-01-03] MEDS: guaiFENesin 600 MG TABLET.ER PO SCH ×2 (08:44→20:19)
[2023-01-03] MEDS: ASPIRIN 81 MG PO SCH (08:44)
[2023-01-03] MEDS: ALPRAZolam 0.25 MG TAB PO PRN ×2 (08:44→16:40)
[2023-01-03] MEDS: lamoTRIgine 100 MG TAB PO SCH ×2 (08:44→20:20)
[2023-01-03] MEDS: DOCUSATE 100 MG CAP PO SCH ×2 (08:44→20:19)
[2023-01-03] MEDS: SODIUM BICARBONATE TAB 650 MG TAB PO SCH ×2 (08:44→20:20)
[2023-01-03] MEDS: PANTOPRAZOLE 40 MG TABLET PO SCH (08:44)
[2023-01-03] MEDS: FLUDROCORTISONE 0.1 MG TAB PO SCH (08:45)
[2023-01-03] MEDS: LEVOFLOXACIN 500MG-D5W PMX 500 MG in DEXTROSE/WATER 1 100ML.BAG IVPB SCH (08:45)
[2023-01-03 09:05] LABS: Nucleated Cells, Body Fluid 1300 /UL
[2023-01-03 09:47] LABS: Anion Gap 11 mmol/L; Blood Urea Nitrogen 66 mg/dL (9-20); Calcium 8.5 mg/dL (8.4-10.2); Carbon Dioxide 19 mmol/L (22-30); Chloride 107 mmol/L (98-107); Glucose 99 mg/dL (74-99); Magnesium 2.3 mg/dL (1.6-2.3); Potassium 3.9 mmol/L (3.5-5.1); Sodium 137 mmol/L (137-145)
[2023-01-03 09:52] LABS: Vancomycin,Random 24.2 ug/mL
[2023-01-03 09:57] LABS: African American GFR (CKD) 13 (>60 ml/min/1.73 sqM); Non-African American GFR(CKD) 11 (>60 ml/min/1.73 sqM)
--- NOTE | 2023-01-03 11:54 | CT ---
EXAMINATION TYPE: CT chest wo con DATE OF EXAM: 01/03/2023 COMPARISON: 12/31/2022 HISTORY: empyema CT DLP: 698.[address] of the chest was performed with lung and mediastinal window settings submitted. The la ck of contrast limits evaluation of the vascular, mediastinal and parenchymal structures including th e upper abdomen. LUNGS: Left basilar pleural catheter is in place. There is a large left-sided pleural effusion which has increased since prior examination as there is no aerated lung identified at this time. Collapse o f the left lung is noted. Right-sided pleural effusion moderate in size is unchanged with right basil ar compressive atelectasis. Patchy infiltrate right upper lobe may reflect underlying inflammatory pr ocess. MEDIASTINUM/KATY: Thoracic aorta is of normal caliber with limited evaluation given lack of contrast . The heart is enlarged. No evidence for mediastinal mass. No lymph nodes greater than 1cm. UPPER ABDOMEN: No significant abnormality is seen. OTHER: No significant other abnormality. IMPRESSION: 1. Large left-sided pleural effusion has increased in size as there is virtually no aerated lung estrella ntified at this time. Collapse of the left lung. Left basilar pleural catheter. 2. Stable moderate right-sided pleural effusion. Compressive atelectasis and areas of patchy infiltra te.
[2023-01-03] MEDS ORDERED: FUROSEMIDE 10 MG/ML 10 ML VIAL IV STA (12:34)
--- NOTE | 2023-01-03 12:35 | P.PN ---
Subjective Patient is seen in follow-up for acute kidney injury on chronic kidney disease. Creatinine 4.65 today. Resting in bed. No vomiting or diarrhea. Oral intake poor. On 2 L nasal cannula. Vital signs are stable. General: No acute distress. HEENT: Head exam is unremarkable. On nasal cannula. LUNGS: No audible rhonchi or wheezes. Left sided chest tube noted. HEART: Rate and Rhythm are regular. ABDOMEN: Nontender. EXTREMITITES: No edema. Objective - Vital Signs Vital signs: Vital Signs Temp 97.8 F 01/03/23 08:00 Pulse 96 01/03/23 08:00 Resp 18 01/03/23 08:00 BP 101/66 01/03/23 08:00 Pulse Ox 95 01/03/23 09:24 FiO2 Intake & Output 01/02/23 01/03/23 01/03/23 18:59 06:59 18:59 Intake Total 200 0 Output Total 175 530 Balance 25 -530 0 Intake: IV 200 Oral 0 Output: Chest Tube Drainage 0 10 Pleural Catheter Left 0 10 Posterior Chest Urine 175 520 Other: Voiding Method Indwelling Catheter Indwelling Catheter Indwelling Catheter - Labs CBC & Chem 7: 01/03/23 00:43 01/03/23 07:41 Labs: Abnormal Lab Results - Last 24 Hours (Table) 12/31/22 01/02/23 01/03/23 Range/Units 07:27 13:16 00:43 WBC 23.8 H (3.8-10.6) k/uL RBC 2.23 L (4.30-5.90) m/uL Hgb 6.8 L* (13.0-17.5) gm/dL Hct 21.7 L (39.0-53.0) % RDW 15.6 H (11.5-15.5) % Plt Count 677 H (150-450) k/uL Neutrophils # 21.9 H (1.3-7.7) k/uL Carbon Dioxide (22-30) mmol/L BUN (9-20) mg/dL Creatinine (0.66-1.25) mg/dL Ydyxz-9-Jerofgubu 0.56 H (0.10-0.40) d/dL Fluid Appearance Bloody A (Clear) Fluid RBC [id number] H (0-2000) /uL Crossmatch 01/03/23 01/03/23 Range/Units 07:41 10:03 WBC (3.8-10.6) k/uL RBC (4.30-5.90) m/uL Hgb (13.0-17.5) gm/dL Hct (39.0-53.0) % RDW (11.5-15.5) % Plt Count (150-450) k/uL Neutrophils # (1.3-7.7) k/uL Carbon Dioxide 19 L (22-30) mmol/L BUN 66 H (9-20) mg/dL Creatinine 4.65 H (0.66-1.25) mg/dL Cowsy-7-Zrauyjwfn (0.10-0.40) d/dL Fluid Appearance (Clear) Fluid RBC (0-2000) /uL Crossmatch See Detail Assessment and Plan Plan: Assessment: 1. Acute kidney injury secondary to ATN secondary to severe sepsis. Also has Posey catheter for urinary retention. Mild left hydronephrosis noted on ultrasound. UA from July 2022 fairly benign. Renal function worsening - creatinine 4.65 today. 2. Chronic kidney disease stage IIIB/4 with baseline creatinine in the range of 1.7-1.9. 3. Pneumonia on antibiotics. Underwent thoracentesis this admission. He has a left-sided chest tube. CT shows b/l pleural effusions. 4. Metabolic acidosis secondary to acute kidney injury and IV fluids. On oral bicarb. 5. Hypokalemia from poor intake. Replaced. Stable. 6. Chronic hypotension maintained on Cortef, Florinef as well as midodrine. Stable. 7. Anemia of chronic kidney disease. Iron deficiency noted. s/p iv iron. On Aranesp. Hgb 6.8 today. 8. Urinary retention. Has Posey catheter. On Flomax. Urology following. 9. Acute on chronic diastolic CHF with moderate pulmonary hypertension. Plan: Scheduled to receive a unit of blood today. Lasix 60 mg IV once after blood transfusion. Encouraged oral intake. Maintain IV iron. Avoid nephrotoxins. Continue to monitor renal function and urine output. Monitor vancomycin levels. Dose to be adjusted for renal function. Case discussed with primary team. Hospice will be discussed. Prognosis guarded.
[2023-01-03] MEDS: FOLIC ACID 1 MG TAB PO SCH (12:39)
[2023-01-03] MEDS: MORPHINE SULFATE 4 MG/ML SYRINGE IVP PRN (12:39)
--- NOTE | 2023-01-03 13:05 | P.PN ---
Subjective Progress Note Date: 01/03/23 Patient is an 82-year-old male with history of orthostatic hypotension chronically on steroids (possible adrenal insufficiency), chronic kidney disease, GERD, hypertension, prostate disorder presenting from nursing facility with worsening mentation and hypoxia. In the emergency department he underwent an extensive evaluation. Initial vital signs were remarkable for temperature 99.9 and O2 sat of 92% on 4 L. Blood pressure did go down up to 73/49. Labs were remarkable for WBC 35.3, hemoglobin 8.5, sodium 135, bicarb 21, anion gap 14, creatinine 3.71 up from baseline, troponin 0.92, proBNP 5000. Chest x-ray demonstrated white out lung on the left side. Follow-up chest CT demonstrated large loculated left-sided pleural effusion, trace right-sided pleural effusion. Ectatic ascending thoracic aorta at 2.8 cm. Patient was given IV cortisone, IV levofloxacin, Vanco IV fluids in the ED. He was admitted for [facility] sepsis with a Pulmonology consult. Renal function worsened and nephrology was consulted. He underwent thoracentesis which showed exudative pleural effusion. Interventional radiology was consulted and the patient had a pigtail catheter placed on 12/28/22. Catheter was placed to suction. Cultures came back as strep viridans, Cardiothoracic surgery was consulted as he continued to have opacification of the left hemithorax compared TPA instilled on 12/30/22, 12/31 and 01/01. CT chest on 01/01/23 showed Interval mild reduction in the amount of pleural fluid in the left base, chest tube in good position, mild progression of small right pleural effusion with right basilar atelectasis, suspected narrowing of the left lingular segment and lower bronchi area of consolidation in the left lung could be an basis of postobstructive atelectasis pneumonia or neoplasm not excluded. He underwent bronchoscopy on 01/02/23 which demonstrated atelectasis. Repeat CT of the chest demonstrated continued large left-sided pleural effusion with moderate right sided pleural effusion. Patient seen and examined at bedside. Denies any chest pain. Breathing is stable. Feeling very tired today. Feeling anxious about his hospital stay. Vital signs reviewed General: nontoxic, no distress, ill-appearing, obese Cardiovascular: S1S2 reg, no murmur, positive posterior tibial pulse bilateral, Lungs: Absent breath sounds left, no rhonchi, no rales , no accessory muscle use or conversational dyspnea, chest tube in place left hemithorax with serosanguineous and purulent drainage noted in chest tube chamber Abdominal: soft, nontender to palpation, no guarding, no appreciable organomegaly Ext: no gross muscle atrophy, 1+ edema b/l lower extremities, no contractures Neuro: CN II-XI grossly intact, no focal neuro deficits Psych: Alert, oriented, appropriate affect Assessment/Plan: Strep. Viridans empyema s/p Pig tail cath 12/28/22 Severe Sepsis Acute hypoxic respiratory failure - Levaquin 500 mg IV every 48 hours. Day #9 of antibiotics. D/C vanco given worsening renal failure and >90% sensitivity to levauqin of typical strep Viridians species. -CT surgery note reviewed: Wean O2 as able, no surgical intervention at this time. - Await further pulmonary recommendations -Continue with when necessary albuterol and Mucinex Elevated troponin, type II non-STEMI due to sepsis and BRUCE Moderate pulmonary hypertension -Echo with EF 55% and no wall motion abnormality -Continue with aspirin 81 mg daily Hypotension -History of orthostatic hypotension, suspect underlying adrenal insufficiency -Continue Solu-Cortef 50 mg IV every 8 hours, continue with Florinef and Midodrin -Follow blood pressures BRUCE Urinary retention, milka hematuria -Case discussed with nephrology. Patient continues to have worsening renal fail ure. We discussed discontinuing vancomycin given the high prevalence of susceptibility to fluoroquinolones of his strep [place]'s. We'll continue to monitor CBC and fever profile. -Patient was evaluated by urology. Continue catheter and Flomax until patient is more mobile Acute on chronic anemia -Patient with a T sat of 18 and ferritin of 475, consistent with possible acute blood loss anemia in conjunction with anemia of chronic disease - completed 3 doses of IV iron - 1 unit pRBC today. -Follow CBC - possible elevated Lambda HX: RA Bipolar disorder HTN Poor overall prognosis. Arrange family meeting for tomorrow. Imaging: Chest x-rays reviewed by myself on 01/01/23 near complete opacification of the left hemithorax with some sparing in the left upper lobe without tracheal deviation -CT chest: Large left-sided pleural effusion increased in size with virtually no aeration of the lung at this time, collapsed left lung, left basilar pleural catheter, stable moderate right sided pleural effusion Data Review: Vitals reviewed with temperature 97.8, pulse 91, respirations 20, blood pressure 111/60, O2 sat 95% on 2 L Labs reviewed with blood cell count 24.5, hemoglobin 7.7, platelets 667, chlor estrella 110, carbon dioxide 20, anion gap 8, BUN 53, creatinine 4.22 (up from 3.90), repeat troponin 0.462, vancomycin 20 DVT prophylaxis: Heparin 5,000 units q8 hours Anticipated discharge date: Pending Clinical Course Anticipated discharge place: Pending Clinical Course This dictation was prepared using [employer] voice recognition software. Though every attempt is made to correct errors during dictation some may still exist. Objective - Vital Signs Vital signs: Vital Signs Temp 97.8 F 01/03/23 08:00 Pulse 96 01/03/23 08:00 Resp 18 01/03/23 08:00 BP 101/66 01/03/23 08:00 Pulse Ox 95 01/03/23 09:24 FiO2 Intake & Output 01/02/23 01/03/23 01/03/23 18:59 06:59 18:59 Intake Total 200 0 Output Total 175 530 Balance 25 -530 0 Intake: IV 200 Oral 0 Output: Chest Tube Drainage 0 10 Pleural Catheter Left 0 10 Posterior Chest Urine 175 520 Other: Voiding Method Indwelling Catheter Indwelling Catheter Indwelling Catheter - Labs CBC & Chem 7: 01/03/23 00:43 01/03/23 07:41 Labs: Abnormal Lab Results - Last 24 Hours (Table) 12/31/22 01/02/23 01/03/23 Range/Units 07:27 13:16 00:43 WBC 23.8 H (3.8-10.6) k/uL RBC 2.23 L (4.30-5.90) m/uL Hgb 6.8 L* (13.0-17.5) gm/dL Hct 21.7 L (39.0-53.0) % RDW 15.6 H (11.5-15.5) % Plt Count 677 H (150-450) k/uL Neutrophils # 21.9 H (1.3-7.7) k/uL Carbon Dioxide (22-30) mmol/L BUN (9-20) mg/dL Creatinine (0.66-1.25) mg/dL Ejxbu-3-Qubmhzsdq 0.56 H (0.10-0.40) d/dL Fluid Appearance Bloody A (Clear) Fluid RBC [id number] H (0-2000) /uL Crossmatch 01/03/23 01/03/23 Range/Units 07:41 10:03 WBC (3.8-10.6) k/uL RBC (4.30-5.90) m/uL Hgb (13.0-17.5) gm/dL Hct (39.0-53.0) % RDW (11.5-15.5) % Plt Count (150-450) k/uL Neutrophils # (1.3-7.7) k/uL Carbon Dioxide 19 L (22-30) mmol/L BUN 66 H (9-20) mg/dL Creatinine 4.65 H (0.66-1.25) mg/dL Waign-4-Dzrwnstxo (0.10-0.40) d/dL Fluid Appearance (Clear) Fluid RBC (0-2000) /uL Crossmatch See Detail
--- NOTE | 2023-01-03 14:40 | P.PN ---
Subjective Progress Note Date: 01/03/23 This is an 82-year-old male patient with a known history of gastroesophageal reflux disease, hypertension, rheumatoid arthritis, lifelong nonsmoker, bipolar disorder, anxiety/depression. He was brought in to the emergency room this morning from [facility] for hypoxia confusion and had been receiving IV fluids over 4 L the past week. Chest x-ray reveals near complete opacification of the left lung. Computed tomography scan of the chest reveals a large loculated left pleural effusion with partial atelectasis/consolidation involving the left upper lobe and lingula. There is complete atelectasis of the left lower lobe. He is currently maintaining O2 saturations in the 90s on 3 L/m per nasal cannula. He is afebrile. Somewhat hypotensive. White count 35.3. Hemoglobin 8.5. Platelets 617. Sodium 135. Potassium 4.6. Bicarb 21. BUN 41. Creatinine 3.71. Glucose 104. Troponin 0.292. ProBNP 5420. The patient is a poor historian. Most of the information is taken from his family at the bedside. He is currently receiving normal saline at 130 ML's per hour. He is given a dose of vancomycin. Progress note dated 12/27/2022. 82-year-old male seen in the emergency department yesterday. He has a known history of GERD, hypertension, rheumatoid arthritis, I probably disorder, anxiety/depression, and was brought to the emergency room from a local snf, because of hypoxia, confusion, and a chest x-ray which showed a possible pneumonia. In addition, there was a left-sided pleural effusion. Clinically, the patient appears reasonably stable. He is getting saline at 130 mL an hour, is on 3 L of oxygen. His pro-calcitonin level was 1.19. He was placed on vancomycin and Levaquin. The patient's ultrasound did reveal a right-sided pleural effusion, and we've asked interventional radiology to consider ultrasound-guided drainage. White count 30.3, hemoglobin 7.3, hematocrit 23.8, and platelet count 573,000. Sodium 134, potassium 4.4, chlorides 102, CO2 21, BUN 43, creatinine 4.11. Troponins were 0.292, 0.287, and 0.240. N-terminal proBNP was elevated at 5420. Progress note dated 12/28/2022. 82-year-old male seen today in room 369. The patient continues on Levaquin and vancomycin. The patient had [facility] 750 mL of straw colored fluid was removed. We will asked him to consider doing a pigtail catheter placement, given the fact that the fluid was an exudate, with a high LDH and high protein, the fact that the patient had primarily polymorphonuclear neutrophils in the fluid, and the fluid glucose was only 2. Currently, the patient's on 3 L. He is coughing up purulent sputum. Currently, the patient is on 3 L of oxygen. Not receiving any IV fluids. White count 18.9, which is down from 30.3. Hemoglobin 7.5, hematocrit 24.2, with a platelet count of 541,000. Sodium 135, potassium 3.8, chlorides 106, CO2 21, BUN 45, and creatinine 3.86. The fluid analysis revealed it to be cloudy, with 98% PMNs and 2% lymphocytes. A glucose of less than 2, a total protein of greater than 3.6 g, and an LDH which was 616. Progress note dated 12/29/2022. 82-year-old male seen in room 369. The patient continues on antibiotics in the form of Levaquin and vancomycin. He is getting saline at 70 mL an hour. He is getting nasal O2 at 3 L. Yesterday, interventional radiology placed a small bore catheter into the left pleural space. The patient has had significant drainage. The catheter is noted to be on to suction. Laboratory data today includes a white count of 16.8, hemoglobin 7.1, hematocrit 22.7, and a platelet count of 552,000. Sodium 133, potassium 3.4, chlorides 107, CO2 18, BUN 46, and creatinine 3.70. The fluid was cloudy, and is clearly an exudate. 98% of the white blood cells are PMNs. The glucose of the fluid was very low, less than 2, suggesting an empyema. Progress note dated 12/30/2022. 82-year-old male seen in room 369. The patient continues on Levaquin and vancomycin. Cultures are thus far negative. He is getting 3 L of oxygen by nasal cannula. He is also getting saline at 70 mL an hour. We asked cardiothoracic surgery to see him, so that they can instill, TPA, and alpha dornase, into the chest tube, inserted by interventional radiology. Today's chest x-ray looks a bit better. White count 15.1, hemoglobin 7.6, hematocrit 24.9, and platelet count 558,000. Sodium 136, potassium 4, chlorides 109, CO2 18, BUN 45, and creatinine 3.81. The pleural fluid is showing evidence of Streptococcus viridans. Sensitivities are currently pending. On today's evaluation of 12/31/2022, the patient is being seen for a follow-up. Earlier this morning, the patient coughed out a big chunk of mucus plugging dark greenish yellowish in color. The pleural fluid samples from earlier on 12/27/2022 was consistent with strep viridans and the patient is currently on antibiotics and is currently on IV Levaquin and vancomycin. The vancomycin trough level was 17.4 from yesterday. The white cell count is still elevated at 23.7 with a hemoglobin of 7.2. The BUN is at 45 with a creatinine of 3.9. Earlier this morning, the patient was found to be quite lethargic and weak and at that point the blood gas was done that showed also a pH of 7.39 with a pCO2 of 31 and pO2 of 58 and this was on FiO2 of 32%. He remains hemodynamically stable. Is afebrile for now. He is on 3 L of oxygen by nasal cannula. The last alteplase therapy to his left chest was done yesterday and the output since then has been in the order of 1.8 L of purulent material. Nevertheless, the chest x-ray shows interval worsening of the left sided opacity with volume loss atelectasis and some residual fluid present. There is a concern for mucous plug obstructing left lower lobe bronchus and getting lung reexpansion. On 01/01/2023, the patient is being seen for a follow-up. The patient is a. His Left Chest. The Patient Is Lying down Comfortably in Bed. Is Currently on 3 L of Oxygen by Nasal Cannula. A Repeat CAT Scan of the Chest was done yesterday and it demonstrated interval reduction in the pleural fluid on the left. The pigtail catheter is in a good location. There is persistent consolidation and this is mainly on the left. Small right basal consolidation is also present. Repeat chest x-ray from today shows partial reexpansion of the left upper lobe. The patient was cough and also mucous plugs yesterday. The cough has subsided today. Initial plan was to bronchoscope this patient for airway inspection and this will be postponed total tomorrow. Noted the pleural fluid was positive for Streptococcus viridans and the patient remains on a combination of Levaquin and vancomycin. Noted the patient is receiving alteplase treatment for his pigtail catheter. The pigtail catheter was also tested to wall suction at -20 cm. The output has been 1.7 L over the past 24 hours. In terms of blood work, the white cell count remains elevated at 24 with a hemoglobin of 7.7. Sodium is at 138 potassium is at 3.8. A 53 with a creatinine of 4.2. Troponins at 0.4. Vancomycin trough was 20. Oral intake is poor. On today's evaluation of 04/04/2023, the patient remains on oxygen 2 L nasal cannula. The left-sided pigtail catheter remains in place with minimal amount of output. His last dose of thrombolytic was done yesterday. The patient was supposed to undergo bronchoscopy yesterday and this was canceled as the patient adequate aeration his left upper lobe. Nevertheless a repeat chest x-ray was done this morning and the patient is complete opacification of the left lung. There is complete white out of a left lung and he will need a bronchoscopy to rule out any endobronchial lesions or mucus causing obstruction. He seems to be comfortable on 2 L oxygen nasal cannula. His white cell count today's of 18.4 with a hemoglobin of 7 and a platelet count of 587. BUN is 60 with a creatinine of 4.3 and a potassium level is at 3.8. He seems to be quite debilitated. He remains on the same antibiotic coverage for now and he is receiving a combination of Levaquin and vancomycin. He is on DuoNeb about treatments [id number]. He is nothing by mouth for now. 01/03/2023, the patient is being seen for a follow-up. Noted the patient has a extensive left lung pneumonia/empyema with a pigtail catheter insertion and a total of 3 doses of thrombolytic administration. Output from the pigtail catheter is minimal at this point in time and the patient remains on broad- spectrum antibiotics utilizing a combination of Levaquin and vancomycin. The pleural fluid culture came back positive for Streptococcus viridans. 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 A bronchial lavage of the left lung was done. Nevertheless, there was no anatomic obstruction and the airways were atelectatic yet patent. No mucous chlorides identified. The patient continues to have a white cell count of 23.8. Hemoglobin is down to 6.8. He continues to be chronic kidney disease with a BUN of 66 and a creatinine of 4.5 and sodium levels is 137. He is very weak and debilitated. He has a weak cough. Mobility is very limited and the patient has extensive number of comorbid conditions poor baseline performance of functional status is a snf resident. Objective - Vital Signs Vital signs: Vital Signs Temp 97.8 F 01/03/23 08:00 Pulse 90 01/03/23 12:00 Resp 18 01/03/23 08:00 BP 99/67 01/03/23 12:00 Pulse Ox 96 01/03/23 12:00 FiO2 Intake & Output 01/02/23 01/03/23 01/03/23 18:59 06:59 18:59 Intake Total 200 120 Output Total 175 530 250 Balance 25 -530 -130 Intake: IV 200 Oral 120 Output: Chest Tube Drainage 0 10 Pleural Catheter Left 0 10 Posterior Chest Urine 175 520 250 Other: Voiding Method Indwelling Catheter Indwelling Catheter Indwelling Catheter - Exam No acute distress, oriented 3. Currently on 2 L of oxygen. No overt respiratory distress. HEENT examination is grossly unremarkable. Mucous membranes are moist. No oral lesions. Neck supple. Full range of motion. No adenopathy thyromegaly or neck vein distention. Cardiovascular examination reveals regular rhythm rate. S1-S2 normal. No S3 or S4. No discernible murmur noted. Heart sounds are distant. Lungs reveal diminished left-sided breath sounds. Scattered rhonchi are noted. No wheezes. No crackles. Left-sided chest tube is noted. Abdomen soft bowel sounds are heard. No masses or tenderness. Extremities are intact. No cyanosis clubbing or edema. Skin is without rash or lesion. Neurologic examination is brief but nonfocal. - Labs CBC & Chem 7: 01/03/23 00:43 01/03/23 07:41 Labs: Abnormal Lab Results - Last 24 Hours (Table) 12/31/22 01/02/23 01/03/23 Range/Units 07:27 13:16 00:43 WBC 23.8 H (3.8-10.6) k/uL RBC 2.23 L (4.30-5.90) m/uL Hgb 6.8 L* (13.0-17.5) gm/dL Hct 21.7 L (39.0-53.0) % RDW 15.6 H (11.5-15.5) % Plt Count 677 H (150-450) k/uL Neutrophils # 21.9 H (1.3-7.7) k/uL Carbon Dioxide (22-30) mmol/L BUN (9-20) mg/dL Creatinine (0.66-1.25) mg/dL [id number] 0.56 H (0.10-0.40) d/dL Fluid Appearance Bloody A (Clear) Fluid RBC [id number] H (0-2000) /uL Crossmatch 01/03/23 01/03/23 Range/Units 07:41 10:03 WBC (3.8-10.6) k/uL RBC (4.30-5.90) m/uL Hgb (13.0-17.5) gm/dL Hct (39.0-53.0) % RDW (11.5-15.5) % Plt Count (150-450) k/uL Neutrophils # (1.3-7.7) k/uL Carbon Dioxide 19 L (22-30) mmol/L BUN 66 H (9-20) mg/dL Creatinine 4.65 H (0.66-1.25) mg/dL Euckk-[id number] (0.10-0.40) d/dL Fluid Appearance (Clear) Fluid RBC (0-2000) /uL Crossmatch See Detail Assessment and Plan Plan: Acute hypoxemic respiratory failure secondary to a large left pleural effusion with near complete opacification of the left lung, suspect healthcare acquired pneumonia, with associated complicated parapneumonic effusion/empyema. Cultures from the pleural fluid are positive for Streptococcus viridans empyema. Maintain on a combination of Levaquin and vancomycin. The patient is showing some partial elevation of the left upper lobe on today's chest x-ray. The amount of pleural fluid in the left has dropped significantly. There is some located effusion left lung base along with ongoing consolidation. The patient has already received a total of 3 doses of alteplase. The output from the pigtail is quite low and the patient is complete opacification of the left lung, and a bronchoscopy will be done to rule out any mucus plugging or endobronchial obstruction preventing the headaches patient's the left lung. The patient was admitted total of 3 doses of thrombolytics. Output from the pigtail catheter has significantly dropped. 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 No anatomic obstruction in the left lower lobe. The difference evidence of left lower lobe atelectatic. Some atelectatic findings were also seen in the front segments of the left upper lobe. Ting S/P left sided chest tube, placed, 12/28/2022. Leukocytosis secondary to above. The white cell count remains persistently elevated. Acute renal failure, on top of chronic kidney disease stage IIIB at baseline. Troponin leak secondary to above, currently free of any chest pain Hypotension, recovered Lifelong nonsmoker. History of esophageal reflux disease. History of hypertension. History of rheumatoid arthritis. History of anxiety/depression. History of bipolar disorder. halfway resident. Plan: The patient has a received total of 3 doses of alteplase Output from the pigtail catheter is a minimal for now. Keep the patient pigtail catheter in place The bronchoscopy shows no anatomic obstruction of the various segments and the main bronchi. IV daily. The Patient and Patient Was Found to Have a Large Left-Sided Pleural Effusion Which Is Increased in Size and Virtually There Is No elevation in the left lung and there is complete collapse of the left lung. Obviously the patient is not a good surgical candidate because of his age and comorbidities. I'm going to discuss this case with the cardiothoracic surgeon. Is reasonable to do another alteplase administration. If the tube is plugged and nonfunctioning, I would suggest considering other pigtail catheter insertion. CAT scan of the chest also showed a stable moderate-sized right-sided pleural effusion with compressive atelectatic changes in the right lung base Renal function is impaired Pleural fluid that showed strep viridans The patient is on a combination of Levaquin and vancomycin,. Keep the patient on oxygen at 2 L IV iron Vancomycin levels are adequate We'll continue to follow Full code Overall prognosis is extremely poor. There is a likelihood that the patient may not recover from this pneumonia/empyema. Obviously, as mentioned, mother did surgical candidate for a thoracoscopic evaluation of the left lung/decortication. Would like to share this with the patient and the family members. We'll also have discussions with cardiothoracic team. We'll continue to follow.
[2023-01-03] MEDS: CYANOCOBALAMIN 500 MCG TAB PO SCH (20:20)
[2023-01-03] MEDS: CHOLECALCIFEROL 25 MCG (1000 IU) TABLET PO SCH (20:20)
[2023-01-03] MEDS: DULoxetine HCL 60 MG CAPSULE.DR PO SCH (20:20)
[2023-01-03] MEDS: TAMSULOSIN 0.4 MG CAP.ER.24H PO SCH (20:20)
[2023-01-03] MEDS: MELATONIN 3 MG TABLET PO SCH (20:20)
[2023-01-04 06:35] LABS: Anisocytosis Slight; HCT 24.3 % (39.0-53.0); HGB 7.7 gm/dL (13.0-17.5); Hypochromasia Slight; MCH 30.5 pg (25.0-35.0); MCHC 31.9 g/dL (31.0-37.0); MCV 95.7 fL (80.0-100.0); Mean Platelet Volume 7.6; Platelet Count 569 k/uL (150-450); RBC 2.54 m/uL (4.30-5.90); RDW 16.1 % (11.5-15.5); WBC 19.9 k/uL (3.8-10.6)
[2023-01-04] MEDS: MIDODRINE 5 MG TAB PO SCH ×2 (06:44→12:25)
[2023-01-04] MEDS: DULoxetine HCL 30 MG CAPSULE.DR PO SCH (06:44)
[2023-01-04 07:03] LABS: Potassium 3.4 mmol/L (3.5-5.1)
[2023-01-04 07:04] LABS: Anion Gap 11 mmol/L; Blood Urea Nitrogen 68 mg/dL (9-20); Calcium 8.1 mg/dL (8.4-10.2); Carbon Dioxide 20 mmol/L (22-30); Chloride 106 mmol/L (98-107); Glucose 90 mg/dL (74-99); Sodium 137 mmol/L (137-145)
[2023-01-04 07:09] LABS: African American GFR (CKD) 12 (>60 ml/min/1.73 sqM); Non-African American GFR(CKD) 11 (>60 ml/min/1.73 sqM); Vancomycin,Random 22.8 ug/mL
[2023-01-04] MEDS: SODIUM BICARBONATE TAB 650 MG TAB PO SCH (07:34)
[2023-01-04] MEDS: guaiFENesin 600 MG TABLET.ER PO SCH (07:34)
[2023-01-04] MEDS: DOCUSATE 100 MG CAP PO SCH (07:34)
[2023-01-04] MEDS: HYDROcodone/APAP 5-325MG 1 EACH TAB PO PRN ×2 (07:34→13:28)
[2023-01-04] MEDS: ASPIRIN 81 MG PO SCH (07:34)
[2023-01-04] MEDS: HYDROCORTISONE SUCCINATE 100 MG/2 ML VIAL IV SCH (07:34)
[2023-01-04] MEDS: lamoTRIgine 100 MG TAB PO SCH (07:34)
[2023-01-04] MEDS: PANTOPRAZOLE 40 MG TABLET PO SCH (07:34)
[2023-01-04] MEDS: FLUDROCORTISONE 0.1 MG TAB PO SCH (07:35)
[2023-01-04] MEDS: HEPARIN SODIUM,PORCINE/PF 5,000 UNIT/0.5 ML SYRINGE SQ SCH (07:36)
[2023-01-04 07:46] VITALS: RESP 20; TEMP 97.9
[2023-01-04] MEDS ORDERED: ONDANSETRON 4 MG/2 ML VIAL IVP PRN (09:59)
[2023-01-04] MEDS: MORPHINE SULFATE 4 MG/ML SYRINGE IVP PRN ×2 (10:11→14:25)
[2023-01-04] MEDS ORDERED: POTASSIUM CHLORIDE ER 20 MEQ TAB.ER PO STA (11:29)
[2023-01-04] MEDS ORDERED: FUROSEMIDE 10 MG/ML 10 ML VIAL IV STA (12:06)
--- NOTE | 2023-01-04 12:07 | P.PN ---
Subjective Patient is seen in follow-up for acute kidney injury on chronic kidney disease. Creatinine 4.79 today. Resting in bed. No vomiting or diarrhea. Oral intake poor. On 2 L nasal cannula. Hemoglobin better. Family present at bedside. Vital signs are stable. General: No acute distress. HEENT: Head exam is unremarkable. On nasal cannula. LUNGS: No audible rhonchi or wheezes. Left sided chest tube noted. HEART: Rate and Rhythm are regular. ABDOMEN: Nontender. EXTREMITITES: No edema. Objective - Vital Signs Vital signs: Vital Signs Temp 97.9 F 01/04/23 07:32 Pulse 90 01/04/23 07:32 Resp 20 01/04/23 07:32 BP 116/68 01/04/23 10:09 Pulse Ox 94 L 01/04/23 07:32 FiO2 Intake & Output 01/03/23 01/04/23 01/04/23 18:59 06:59 18:59 Intake Total 120 310 Output Total 250 900 Balance -130 -590 Intake: Oral 120 Blood Product 0 310 Rc As-1 Unit 0 310 [id number] Output: Chest Tube Drainage 50 Pleural Catheter Left 50 Posterior Chest Urine 250 850 Other: Voiding Method Indwelling Catheter Indwelling Catheter Indwelling Catheter - Labs CBC & Chem 7: 01/04/23 06:08 01/04/23 06:08 Labs: Abnormal Lab Results - Last 24 Hours (Table) 01/03/23 01/04/23 01/04/23 Range/Units 10:03 06:08 06:08 WBC 19.9 H (3.8-10.6) k/uL RBC 2.54 L (4.30-5.90) m/uL Hgb 7.7 L (13.0-17.5) gm/dL Hct 24.3 L (39.0-53.0) % RDW 16.1 H (11.5-15.5) % Plt Count 569 H (150-450) k/uL Potassium 3.4 L (3.5-5.1) mmol/L Carbon Dioxide 20 L (22-30) mmol/L BUN 68 H (9-20) mg/dL Creatinine 4.79 H (0.66-1.25) mg/dL Calcium 8.1 L (8.4-10.2) mg/dL Crossmatch See Detail Assessment and Plan Plan: Assessment: 1. Acute kidney injury secondary to ATN secondary to severe sepsis. Also has Posey catheter for urinary retention. Mild left hydronephrosis noted on ultrasound. UA from July 2022 fairly benign. Renal function worsening - creatinine 4.79 today. 2. Chronic kidney disease stage IIIB/4 with baseline creatinine in the range of 1.7-1.9. 3. Pneumonia on antibiotics. Underwent thoracentesis this admission. He has a left-sided chest tube. CT shows b/l pleural effusions. 4. Metabolic acidosis secondary to acute kidney injury and IV fluids. On oral bicarb. 5. Hypokalemia from poor intake and diuresis. 6. Chronic hypotension maintained on Cortef, Florinef as well as midodrine. Stable. 7. Anemia of chronic kidney disease. Iron deficiency noted. s/p iv iron. On Aranesp. Status post blood transfusion this admission. 8. Urinary retention. Has Posey catheter. On Flomax. Urology following. 9. Acute on chronic diastolic CHF with moderate pulmonary hypertension. Plan: Repeat IV Lasix 60 mg once today. Encouraged oral intake. Avoid nephrotoxins. Continue to monitor renal function and urine output. Monitor vancomycin levels. Dose to be adjusted for renal function. Case discussed with primary team. Family meeting today to discuss long-term goals. Prognosis guarded.
[2023-01-04] MEDS: FOLIC ACID 1 MG TAB PO SCH (13:27)
[2023-01-04 13:40] VITALS: BP 107/67; PULSE 102
--- NOTE | 2023-01-04 14:20 | P.PN ---
Subjective Progress Note Date: 01/04/23 This is an 82-year-old male patient with a known history of gastroesophageal reflux disease, hypertension, rheumatoid arthritis, lifelong nonsmoker, bipolar disorder, anxiety/depression. He was brought in to the emergency room this morning from [facility] for hypoxia confusion and had been receiving IV fluids over 4 L the past week. Chest x-ray reveals near complete opacification of the left lung. Computed tomography scan of the chest reveals a large loculated left pleural effusion with partial atelectasis/consolidation involving the left upper lobe and lingula. There is complete atelectasis of the left lower lobe. He is currently maintaining O2 saturations in the 90s on 3 L/m per nasal cannula. He is afebrile. Somewhat hypotensive. White count 35.3. Hemoglobin 8.5. Platelets 617. Sodium 135. Potassium 4.6. Bicarb 21. BUN 41. Creatinine 3.71. Glucose 104. Troponin 0.292. ProBNP 5420. The patient is a poor historian. Most of the information is taken from his family at the bedside. He is currently receiving normal saline at 130 ML's per hour. He is given a dose of vancomycin. Progress note dated 12/27/2022. 82-year-old male seen in the emergency department yesterday. He has a known history of GERD, hypertension, rheumatoid arthritis, I probably disorder, anxiety/depression, and was brought to the emergency room from a local shelter, because of hypoxia, confusion, and a chest x-ray which showed a possible pneumonia. In addition, there was a left-sided pleural effusion. Clinically, the patient appears reasonably stable. He is getting saline at 130 mL an hour, is on 3 L of oxygen. His pro-calcitonin level was 1.19. He was placed on vancomycin and Levaquin. The patient's ultrasound did reveal a right-sided pleural effusion, and we've asked interventional radiology to consider ultrasound-guided drainage. White count 30.3, hemoglobin 7.3, hematocrit 23.8, and platelet count 573,000. Sodium 134, potassium 4.4, chlorides 102, CO2 21, BUN 43, creatinine 4.11. Troponins were 0.292, 0.287, and 0.240. N-terminal proBNP was elevated at 5420. Progress note dated 12/28/2022. 82-year-old male seen today in room 369. The patient continues on Levaquin and vancomycin. The [facility] 750 mL of straw colored fluid was removed. We will asked him to consider doing a pigtail catheter placement, given the fact that the fluid was an exudate, with a high LDH and high protein, the fact that the patient had primarily polymorphonuclear neutrophils in the fluid, and the fluid glucose was only 2. Currently, the patient's on 3 L. He is coughing up purulent sputum. Currently, the patient is on 3 L of oxygen. Not receiving any IV fluids. White count 18.9, which is down from 30.3. Hemoglobin 7.5, hematocrit 24.2, with a platelet count of 541,000. Sodium 135, potassium 3.8, chlorides 106, CO2 21, BUN 45, and creatinine 3.86. The fluid analysis revealed it to be cloudy, with 98% PMNs and 2% lymphocytes. A glucose of less than 2, a total protein of greater than 3.6 g, and an LDH which was 616. Progress note dated 12/29/2022. 82-year-old male seen in room 369. The patient continues on antibiotics in the form of Levaquin and vancomycin. He is getting saline at 70 mL an hour. He is getting nasal O2 at 3 L. Yesterday, interventional radiology placed a small bore catheter into the left pleural space. The patient has had significant drainage. The catheter is noted to be on to suction. Laboratory data today includes a white count of 16.8, hemoglobin 7.1, hematocrit 22.7, and a platelet count of 552,000. Sodium 133, potassium 3.4, chlorides 107, CO2 18, BUN 46, and creatinine 3.70. The fluid was cloudy, and is clearly an exudate. 98% of the white blood cells are PMNs. The glucose of the fluid was very low, less than 2, suggesting an empyema. Progress note dated 12/30/2022. 82-year-old male seen in room 369. The patient continues on Levaquin and vancomycin. Cultures are thus far negative. He is getting 3 L of oxygen by nasal cannula. He is also getting saline at 70 mL an hour. We asked cardiothoracic surgery to see him, so that they can instill, TPA, and alpha dornase, into the chest tube, inserted by interventional radiology. Today's chest x-ray looks a bit better. White count 15.1, hemoglobin 7.6, hematocrit 24.9, and platelet count 558,000. Sodium 136, potassium 4, chlorides 109, CO2 18, BUN 45, and creatinine 3.81. The pleural fluid is showing evidence of Streptococcus viridans. Sensitivities are currently pending. On today's evaluation of 12/31/2022, the patient is being seen for a follow-up. Earlier this morning, the patient coughed out a big chunk of mucus plugging dark greenish yellowish in color. The pleural fluid samples from earlier on 12/27/2022 was consistent with strep viridans and the patient is currently on antibiotics and is currently on IV Levaquin and vancomycin. The vancomycin trough level was 17.4 from yesterday. The white cell count is still elevated at 23.7 with a hemoglobin of 7.2. The BUN is at 45 with a creatinine of 3.9. Earlier this morning, the patient was found to be quite lethargic and weak and at that point the blood gas was done that showed also a pH of 7.39 with a pCO2 of 31 and pO2 of 58 and this was on FiO2 of 32%. He remains hemodynamically stable. Is afebrile for now. He is on 3 L of oxygen by nasal cannula. The last alteplase therapy to his left chest was done yesterday and the output since then has been in the order of 1.8 L of purulent material. Nevertheless, the chest x-ray shows interval worsening of the left sided opacity with volume loss atelectasis and some residual fluid present. There is a concern for mucous plug obstructing left lower lobe bronchus and getting lung reexpansion. On 01/01/2023, the patient is being seen for a follow-up. The patient is a. His Left Chest. The Patient Is Lying down Comfortably in Bed. Is Currently on 3 L of Oxygen by Nasal Cannula. A Repeat CAT Scan of the Chest was done yesterday and it demonstrated interval reduction in the pleural fluid on the left. The pigtail catheter is in a good location. There is persistent consolidation and this is mainly on the left. Small right basal consolidation is also present. Repeat chest x-ray from today shows partial reexpansion of the left upper lobe. The patient was cough and also mucous plugs yesterday. The cough has subsided today. Initial plan was to bronchoscope this patient for airway inspection and this will be postponed total tomorrow. Noted the pleural fluid was positive for Streptococcus viridans and the patient remains on a combination of Levaquin and vancomycin. Noted the patient is receiving alteplase treatment for his pigtail catheter. The pigtail catheter was also tested to wall suction at -20 cm. The output has been 1.7 L over the past 24 hours. In terms of blood work, the white cell count remains elevated at 24 with a hemoglobin of 7.7. Sodium is at 138 potassium is at 3.8. A 53 with a creatinine of 4.2. Troponins at 0.4. Vancomycin trough was 20. Oral intake is poor. On today's evaluation of 04/04/2023, the patient remains on oxygen 2 L nasal cannula. The left-sided pigtail catheter remains in place with minimal amount of output. His last dose of thrombolytic was done yesterday. The patient was supposed to undergo bronchoscopy yesterday and this was canceled as the patient adequate aeration his left upper lobe. Nevertheless a repeat chest x-ray was done this morning and the patient is complete opacification of the left lung. There is complete white out of a left lung and he will need a bronchoscopy to rule out any endobronchial lesions or mucus causing obstruction. He seems to be comfortable on 2 L oxygen nasal cannula. His white cell count today's of 18.4 with a hemoglobin of 7 and a platelet count of 587. BUN is 60 with a creatinine of 4.3 and a potassium level is at 3.8. He seems to be quite debilitated. He remains on the same antibiotic coverage for now and he is receiving a combination of Levaquin and vancomycin. He is on DuoNeb about treatments [id number]. He is nothing by mouth for now. 01/03/2023, the patient is being seen for a follow-up. Noted the patient has a extensive left lung pneumonia/empyema with a pigtail catheter insertion and a total of 3 doses of thrombolytic administration. Output from the pigtail catheter is minimal at this point in time and the patient remains on broad- spectrum antibiotics utilizing a combination of Levaquin and vancomycin. The pleural fluid culture came back positive for Streptococcus viridans. 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 A bronchial lavage of the left lung was done. Nevertheless, there was no anatomic obstruction and the airways were atelectatic yet patent. No mucous chlorides identified. The patient continues to have a white cell count of 23.8. Hemoglobin is down to 6.8. He continues to be chronic kidney disease with a BUN of 66 and a creatinine of 4.5 and sodium levels is 137. He is very weak and debilitated. He has a weak cough. Mobility is very limited and the patient has extensive number of comorbid conditions poor baseline performance of functional status is a shelter resident. 01/04/2023, the patient and his family had a lengthy discussion with the medical team and they opted to proceed with hospice evaluation. Note that I had a lengthy discussion with the family yesterday. I also reviewed the CAT scan of the chest that showed a large left-sided pleural effusion with complete collapse of the left lung. I discussed the possibility of putting a chest tube versus another pigtail catheter. We will had intolerance a pigtail catheter by [facility] radiology and they're was ultimately change in plan with it was decided to proceed with hospice care by patient and family members. The patient remains quite debilitated. The blood work from today shows a BUN of 68 with a creatinine of 4.7 and a sodium level is 137. The white cell count 19.9 with a hemoglobin of 7.7. The patient received a unit of packed RBC yesterday. The patient is currently on 2 L of O2 nasal cannula. He seems to be quite comfortable. As mentioned, his breathing is nonlabored and is quite debilitated. He is unable to ambulate. Oral intake is quite diminished and Lasix was also provided by nephrology. Objective - Vital Signs Vital signs: Vital Signs Temp 97.9 F 01/04/23 07:32 Pulse 102 H 01/04/23 11:00 Resp 20 01/04/23 11:00 BP 107/67 01/04/23 11:00 Pulse Ox 92 L 01/04/23 11:00 FiO2 Intake & Output 01/03/23 01/04/23 01/04/23 18:59 06:59 18:59 Intake Total 120 310 Output Total 250 900 Balance -130 -590 Weight 68.5 kg Intake: Oral 120 Blood Product 0 310 Rc As-1 Unit 0 310 [id number] Output: Chest Tube Drainage 50 Pleural Catheter Left 50 Posterior Chest Urine 250 850 Other: Voiding Method Indwelling Catheter Indwelling Catheter Indwelling Catheter - Exam No acute distress, oriented 3. Currently on 2 L of oxygen. No overt respiratory distress. HEENT examination is grossly unremarkable. Mucous membranes are moist. No oral lesions. Neck supple. Full range of motion. No adenopathy thyromegaly or neck vein d istention. Cardiovascular examination reveals regular rhythm rate. S1-S2 normal. No S3 or S4. No discernible murmur noted. Heart sounds are distant. Lungs reveal diminished left-sided breath sounds. Scattered rhonchi are noted. No wheezes. No crackles. Left-sided chest tube is noted. Abdomen soft bowel sounds are heard. No masses or tenderness. Extremities are intact. No cyanosis clubbing or edema. Skin is without rash or lesion. Neurologic examination is brief but nonfocal. - Labs CBC & Chem 7: 01/04/23 06:08 01/04/23 06:08 Labs: Abnormal Lab Results - Last 24 Hours (Table) 01/03/23 01/04/23 01/04/23 Range/Units 10:03 06:08 06:08 WBC 19.9 H (3.8-10.6) k/uL RBC 2.54 L (4.30-5.90) m/uL Hgb 7.7 L (13.0-17.5) gm/dL Hct 24.3 L (39.0-53.0) % RDW 16.1 H (11.5-15.5) % Plt Count 569 H (150-450) k/uL Potassium 3.4 L (3.5-5.1) mmol/L Carbon Dioxide 20 L (22-30) mmol/L BUN 68 H (9-20) mg/dL Creatinine 4.79 H (0.66-1.25) mg/dL Calcium 8.1 L (8.4-10.2) mg/dL Crossmatch See Detail Microbiology - Last 24 Hours (Table) 01/02/23 13:16 Gram Stain - Preliminary Bronchoalviolar Lavage - Left Assessment and Plan Plan: Acute hypoxemic respiratory failure secondary to a large left pleural effusion with near complete opacification of the left lung, suspect healthcare acquired pneumonia, with associated complicated parapneumonic effusion/empyema. Cultures from the pleural fluid are positive for Streptococcus viridans empyema. Maintain on a combination of Levaquin and vancomycin. The patient is showing some partial elevation of the left upper lobe on today's chest x-ray. The amount of pleural fluid in the left has dropped significantly. There is some located effusion left lung base along with ongoing consolidation. The patient has already received a total of 3 doses of alteplase. The output from the pigtail is quite low and the patient is complete opacification of the left lung, and a bronchoscopy will be done to rule out any mucus plugging or endobronchial obstruction preventing the headaches patient's the left lung. The patient was admitted total of 3 doses of thrombolytics. Output from the pigtail catheter has significantly dropped. 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 No anatomic obstruction in the left lower lobe. The difference evidence of left lower lobe atelectatic. Some atelectatic findings were also seen in the front segments of the left upper lobe. Ting S/P left sided chest tube, placed, 12/28/2022. Leukocytosis secondary to above. The white cell count remains persistently elevated. Acute renal failure, on top of chronic kidney disease stage IIIB at baseline. Troponin leak secondary to above, currently free of any chest pain Hypotension, recovered Lifelong nonsmoker. History of esophageal reflux disease. History of hypertension. History of rheumatoid arthritis. History of anxiety/depression. History of bipolar disorder. residential resident. Plan: The patient has a received total of 3 doses of alteplase Output from the pigtail catheter is a minimal for now. Keep the patient pigtail catheter in place The bronchoscopy shows no anatomic obstruction of the various segments and the main bronchi. IV daily. The Patient and Patient Was Found to Have a Large Left-Sided Pleural Effusion Which Is Increased in Size and Virtually There Is No elevation in the left lung and there is complete collapse of the left lung. Obviously the patient is not a good surgical candidate because of his age and comorbidities. I the next discussion with the cardiothoracic team and the patient obviously is not a candidate for arthroscopic evaluation of the left pleural space. Suggested inserting another pigtail catheter versus chest tube and lightheaded in that direction. Subsequent discussion with the family along with a medical team A change in plan and the patient is to proceed with hospice care. As such, no further intervention is done and it hospice consultation is in place. We'll continue same treatment for now. Treatment will be essentially palliative. His CODE STATUS needs to be also changed.
--- NOTE | 2023-01-04 16:07 | P.PN ---
Progress Note - Text Progress Note Date: 01/04/23 (delayed charting this occured at 1130 am) Advanced Care Planning: Diagnoses: Empyema, sepsis, acute renal failure Discussion: Person(s) present and participating in discussion: Patient, , all of his family Summary: We discussed all of the medical care he is receiving during his hospital stay, imaging, and all procedures along with the fact that he is continuing to have worsening renal function and chest tube output. We discussed that he is not a great candidate for dialysis, he is not a candidate for VATS, and then a larger bore chest tube likely would not follow the problem. After a lengthy discussion patient and family agreed to meet with hospice. A total of 25 minutes of face to face time was spent discussing advanced care planning.
--- NOTE | 2023-01-04 16:12 | P.DS ---
Providers Date of admission: 12/26/22 14:05 Attending physician: Carlo Palomo MD Consults: 12/26/22 14:05 Consult Physician Routine Consulting Provider: Virgil Hernandez Consult Reason/Comments: Pneumonia Do you want consulting provider notified?: Yes 12/27/22 08:27 Consult Physician Routine Consulting Provider: Linden Schmid Consult Reason/Comments: kerline Do you want consulting provider notified?: Yes 12/29/22 08:45 Consult Physician Routine Consulting Provider: Cristobal Lee Consult Reason/Comments: retention/hematuria Do you want consulting provider notified?: Yes 12/29/22 11:53 Consult Physician Routine Consulting Provider: Abimael Paulino Consult Reason/Comments: Alteplase/dornase infusion Do you want consulting provider notified?: Yes Primary care physician: Derick Martinez MD Hospital Course: Discharge Diagnosis: Strep. Viridans empyema s/p Pig tail cath 12/28/22 Severe Sepsis Acute hypoxic respiratory failure Elevated troponin, type II non-STEMI due to sepsis and KERLINE Moderate pulmonary hypertension Hypotension KERLINE Urinary retention, milka hematuria Acute on chronic anemia RA Bipolar disorder HTN Hospital Course: Patient is an 82-year-old male with history of orthostatic hypotension chronically on steroids (possible adrenal insufficiency), chronic kidney disease, GERD, hypertension, prostate disorder presenting from nursing facility with worsening mentation and hypoxia. In the emergency department he underwent an extensive evaluation. Initial vital signs were remarkable for temperature 99.9 and O2 sat of 92% on 4 L. Blood pressure did go down up to 73/49. Labs were remarkable for WBC 35.3, hemoglobin 8.5, sodium 135, bicarb 21, anion gap 14, creatinine 3.71 up from baseline, troponin 0.92, proBNP 5000. Chest x-ray demonstrated white out lung on the left side. Follow-up chest CT demonstrated large loculated left-sided pleural effusion, trace right-sided pleural effusion. Ectatic ascending thoracic aorta at 2.8 cm. Patient was given IV cortisone, IV levofloxacin, Vanco IV fluids in the ED. He was admitted for PNA [facility] sepsis with a Pulmonology consult. Renal function worsened and nephrology was consulted. He underwent thoracentesis which showed exudative pleural effusion. Interventional radiology was consulted and the patient had a pigtail catheter placed on 12/28/22. Catheter was placed to suction. Cultures came back as strep viridans, Cardiothoracic surgery was consulted as he continued to have opacification of the left hemithorax compared TPA instilled on 12/30/22, 12/31 [address] 01/01. CT chest on 01/01/23 showed Interval mild reduction in the amount of pleural fluid in the left base, chest tube in good position, mild progression of small right pleural effusion with right basilar atelectasis, suspected narrowing of the left lingular segment and lower bronchi area of consolidation in the left lung could be an basis of postobstructive atelectasis pneumonia or neoplasm not excluded. He underwent bronchoscopy on 01/02/23 which demonstrated atelectasis. Repeat CT of the chest demonstrated continued large left-sided pleural effusion with moderate right sided pleural effusion. A milka discussion was had with patient and family regarding his lack of response to this infection. After much discussion they elected to sign-on with hospice. Patient subsequently disc harged to inpatient hospice. Patient seen and examined at bedside. He is feeling somewhat weak with decreased appetite. Pain is okay at this point in time but it is worsening overall. Vital signs reviewed and stable. General: nontoxic, no distress, appears at stated age Cardiovascular: S1S2 reg, no murmur, positive posterior tibial pulse bilateral, Lungs: CTA bilateral, no rhonchi, no rales , no accessory muscle use Abdominal: soft, nontender to palpation, no guarding, no appreciable organomegaly Ext: no gross muscle atrophy, no edema b/l lower extremities, no contractures Neuro: CN II-XI grossly intact, no focal neuro deficits Psych: Alert, oriented, appropriate affect A total of 32 minutes of time were spent preparing this complex discharge summary and coordinating care exclusive of prior advance care planning discussion. Patient was discharged on 01/04/23. This dictation was prepared using [employer] voice recognition software. Though every attempt is made to correct errors during dictation some may still exist. Patient Condition at Discharge: Poor Plan - Discharge Summary Discharge Rx Participant: No New Discharge Prescriptions: No Action Folic Acid 1 mg PO DAILY@1400 DULoxetine HCL [Cymbalta] 60 mg PO HS@2000 Aspirin EC [Ecotrin Low Dose] 81 mg PO DAILY@0800 Omeprazole 20 mg PO DAILY@0800 ALPRAZolam [Xanax] 0.25 mg PO BID PRN #6 tab PRN Reason: Anxiety Hydrocortisone [Cortef] 10 mg PO BID@0800,1600 Midodrine HCl [ProAmatine] 10 mg PO TID@0700,1300,1900 Sennosides [Senokot] 8.6 mg PO BID@08,1999 Docusate [Colace] 100 mg PO BID@799,1999 Cyanocobalamin [Vitamin B-12] 500 mcg PO HS Tamsulosin HCl [Flomax] 0.4 mg PO HS polyethylene glycoL 3350 [Miralax] 17 gm PO DAILY@0700 Cholecalciferol [Vitamin D3 (25 Mcg = 1000 Iu)] 50 mcg PO HS Healthshake 1 dose PO TID@0700,1100,1700 bisacodyL 10 mg RECTAL DAILY PRN PRN Reason: Constipation Magnesium Hydroxide [Milk of Magnesia] 2,400 mg PO DAILY PRN PRN Reason: Constipation HYDROcodone/APAP 5-325MG [[place] 5-325] 1 tab PO Q12H PRN PRN Reason: Pain lamoTRIgine [LaMICtal] 100 mg PO BID@08,1999 Melatonin 3 mg PO HS@1999 Fludrocortisone [Florinef] 0.2 mg PO DAILY@0800 DULoxetine HCL [Cymbalta] 30 mg PO DAILY@0700 Ferrous Sulfate [Feosol] 325 mg PO DAILY@1400 HYDROcodone/APAP 5-325MG [[place] 5-325] 1 tab PO QID@,,, Discharge Medication List Aspirin EC [Ecotrin Low Dose] 81 mg PO DAILY@0800 04/12/22 [History] DULoxetine HCL [Cymbalta] 60 mg PO HS@199904/12/22 [History] Folic Acid 1 mg PO DAILY@1400 04/12/22 [History] Omeprazole 20 mg PO DAILY@0800 06/17/22 [History] lamoTRIgine [LaMICtal] 100 mg PO BID@08,199908/11/22 [History] ALPRAZolam [Xanax] 0.25 mg PO BID PRN #6 tab 08/23/22 [Rx] Cyanocobalamin [Vitamin B-12] 500 mcg PO HS 10/24/22 [History] Docusate [Colace] 100 mg PO BID@0800,199910/24/22 [History] Fludrocortisone [Florinef] 0.2 mg PO DAILY@0800 10/24/22 [History] Hydrocortisone [Cortef] 10 mg PO BID@0800,1600 10/24/22 [History] Melatonin 3 mg PO HS@199910/24/22 [History] Midodrine HCl [ProAmatine] 10 mg PO TID@0700,1300,1900 10/24/22 [History] Sennosides [Senokot] 8.6 mg PO BID@0800,199910/24/22 [History] Cholecalciferol [Vitamin D3 (25 Mcg = 1000 Iu)] 50 mcg PO HS 12/26/22 [History] DULoxetine HCL [Cymbalta] 30 mg PO DAILY@0712/26/22 [History] Ferrous Sulfate [Feosol] 325 mg PO DAILY@1400 12/26/22 [History] HYDROcodone/APAP 5-325MG [[place] 5-325] 1 tab PO Q12H PRN 12/26/22 [History] HYDROcodone/APAP 5-325MG [[place] 5-325] 1 tab PO QID@05,11,17,12/26/22 [History] Healthshake 1 dose PO TID@0700,1100,1700 12/26/22 [History] Magnesium Hydroxide [Milk of Magnesia] 2,400 mg PO DAILY PRN 12/26/22 [History] Tamsulosin HCl [Flomax] 0.4 mg PO 12/26/22 [History] bisacodyL 10 mg RECTAL DAILY PRN 12/26/22 [History] polyethylene glycoL 3350 [Miralax] 17 gm PO DAILY@0712/26/22 [History] Follow up Appointment(s)/Referral(s): Derick Martinez MD [Primary Care Provider] - 1-2 days Discharge Disposition: DC/TRNS IP HOSP W/PLND IP READ
== END 2023-01-04 14:59 | disposition hospice, inpatient (51) | DRG 871 ==
LOC: EC 11:54 → SUPCPDRO 11:54 → 3SCARD 14:05
PROVIDERS: ADMIT Student in an Organized Health Care Education/Training Program; ATTEND Student in an Organized Health Care Education/Training Program
PROC: 0W9B3ZX Drainage of Left Pleural Cavity, Percutaneous Approach, Diagnostic (ICD-10-PCS; principal; 2022-12-27)
PROC: 0W9B30Z Drainage of Left Pleural Cavity with Drainage Device, Percutaneous Approach (ICD-10-PCS; 2022-12-28)
PROC: 3E0L3GC Introduction of Other Therapeutic Substance into Pleural Cavity, Percutaneous Approach (ICD-10-PCS; 2022-12-30)
PROC: 0B9J8ZX Drainage of Left Lower Lung Lobe, Via Natural or Artificial Opening Endoscopic, Diagnostic (ICD-10-PCS; 2023-01-02)
PROC: 30233N1 Transfusion of Nonautologous Red Blood Cells into Peripheral Vein, Percutaneous Approach (ICD-10-PCS; 2023-01-03)
DX: A40.1 Sepsis due to streptococcus, group B (principal); I21.A1 Myocardial infarction type 2; J86.9 Pyothorax without fistula; J15.3 Pneumonia due to streptococcus, group B; J96.01 Acute respiratory failure with hypoxia; N17.0 Acute kidney failure with tubular necrosis; I50.33 Acute on chronic diastolic (congestive) heart failure; I13.0 Hypertensive heart and chronic kidney disease with heart failure and stage 1 through stage 4 chronic kidney disease, or unspecified chronic kidney disease; E27.40 Unspecified adrenocortical insufficiency; D62 Acute posthemorrhagic anemia; N13.30 Unspecified hydronephrosis; J44.0 Chronic obstructive pulmonary disease with (acute) lower respiratory infection; J98.11 Atelectasis; R65.20 Severe sepsis without septic shock; I27.20 Pulmonary hypertension, unspecified; D63.1 Anemia in chronic kidney disease; I77.810 Thoracic aortic ectasia; F10.21 Alcohol dependence, in remission; M06.9 Rheumatoid arthritis, unspecified; N18.32 Chronic kidney disease, stage 3b; F31.9 Bipolar disorder, unspecified; Z51.5 Encounter for palliative care; I95.89 Other hypotension; J98.09 Other diseases of bronchus, not elsewhere classified; J39.8 Other specified diseases of upper respiratory tract; I95.1 Orthostatic hypotension; E61.1 Iron deficiency; E87.6 Hypokalemia; Y95 Nosocomial condition; F41.9 Anxiety disorder, unspecified; K21.9 Gastro-esophageal reflux disease without esophagitis; N40.1 Benign prostatic hyperplasia with lower urinary tract symptoms; R39.14 Feeling of incomplete bladder emptying; R29.6 Repeated falls; R31.0 Gross hematuria; Z79.82 Long term (current) use of aspirin; Z79.52 Long term (current) use of systemic steroids; Z79.899 Other long term (current) drug therapy; Z87.01 Personal history of pneumonia (recurrent); Z87.891 Personal history of nicotine dependence; Z91.81 History of falling; Z96.642 Presence of left artificial hip joint; Z71.3 Dietary counseling and surveillance; Z88.0 Allergy status to penicillin; Z91.041 Radiographic dye allergy status
CPT/HCPCS: 31624; 32551; 32555; 36415; 36600; 71045; 71250; 76604; 76770; 76942; 80048; 80053; 80202; 81001; 82150; 82728; 82805; 82945; 83540; 83550; 83605; 83615; 83735; 83880; 83883; 84145; 84157; 84165; 84484; 85025; 85027; 85610; 85730; 86334; 86335; 86850; 86900; 86901; 86920; 87040; 87070; 87075; 87102; 87116; 87205; 87206; 87496; 87498; 87502; 87529; 87634; 87798; 88108; 88305; 89050; 93005; 93306; 94640; 94760; 96361; 96365; 96366; 96367; 96375; 99291

== ENCOUNTER 2023-01-04 14:25 | Inpatient (IN) | payer MEDICAID ==
[2023-01-04] MEDS ORDERED: SCOPOLAMINE 1 MG/72 HR PATCH TRANSDERM PRN (14:29)
[2023-01-04] MEDS ORDERED: ONDANSETRON 4 MG/2 ML VIAL IVP PRN (14:29)
[2023-01-04] MEDS ORDERED: ACETAMINOPHEN TAB 325 MG TAB PO PRN (14:29)
[2023-01-04] MEDS: HYDROmorphone 0.5 MG/0.5 ML SYRINGE IVP PRN ×4 (15:50→22:08)
[2023-01-04] MEDS ORDERED: guaiFENesin 600 MG TABLET.ER PO PRN (16:05)
[2023-01-04] MEDS ORDERED: BENZONATATE 100 MG CAP PO PRN (16:05)
[2023-01-04] MEDS: DRY MOUTH SPRAY 44.3 SPRAY/44.3 ML SPRAY MUCOUS MEM PRN ×2 (16:21→20:14)
[2023-01-04] MEDS: DOCUSATE 100 MG CAP PO SCH (19:45)
[2023-01-04] MEDS: LORazepam 2 MG/ML INJ IV PRN (22:09)
[2023-01-05] MEDS: HYDROmorphone 0.5 MG/0.5 ML SYRINGE IVP PRN ×5 (05:13→19:42)
[2023-01-05] MEDS: DRY MOUTH SPRAY 44.3 SPRAY/44.3 ML SPRAY MUCOUS MEM PRN (05:15)
[2023-01-05] MEDS: DOCUSATE 100 MG CAP PO SCH ×2 (07:44→07:50)
[2023-01-05] MEDS ORDERED: DOCUSATE 100 MG CAP PO PRN (07:56)
[2023-01-05] MEDS ORDERED: HYDROmorphone 2 MG TAB PO PRN (08:09)
--- NOTE | 2023-01-05 09:58 | P.HPIM ---
History of Present Illness H&P Date: 01/05/23 Patient is a 82-year-old male who had a prolonged hospital stay from 12/26 through 01/04 due to strep the urines empyema with complications. Ultimately as all measures had been exhausted and the patient was not a surgical candidate the family and patient elected to sign-on for hospice care. He was subsequently admitted to [facility] hospice on 01/04/23. Patient seen and examined at bedside. His pain is well controlled at this time, he is not feeling anxious, his breathing is doing better than yesterday, he has no other complaints currently. Daughter is at bedside and all questions are answered. Vital signs reviewed General: no distress, appears at stated age Derm: warm, dry Eyes: EOMI, no lid lag, anicteric sclera, pupils equal round reactive to light ENT: Nose and ears atraumatic, no thrush, no pharyngeal erythema Cardiovascular: S1S2 reg, no murmur Lungs: Absent breath sounds on the left, no rhonchi, no rales, no wheeze, no accessory muscle use, chest tube in place with serosanguineous drainage Abdominal: soft, nontender to palpation, no guarding, no appreciable org anomegaly, normal bowel sounds Ext: + gross muscle atrophy, no contractures Neuro: CN II-XII grossly intact, no focal neuro deficits Psych: Alert, oriented, appropriate affect Assessment: Strep. Viridans empyema s/p Pig tail cath 12/28/22 Severe Sepsis Acute hypoxic respiratory failure Elevated troponin, type II non-STEMI due to sepsis and BRUCE Moderate pulmonary hypertension Hypotension BRUCE Urinary retention, milka hematuria Acute on chronic anemia RA Bipolar disorder HTN Plan: -Continue with IV Dilaudid 0.5 mg IV every 2 hours when necessary pain. Patient and family's goal is to hope to transition to home with hospice. Therefore we will start Dilaudid 0.5 mg by mouth every 4 hours to see if we can start moving towards oral pain control -Continue with Ativan 1 mg IV every 6 hours when necessary anxiety -Transition stool softeners to when necessary -Continue to maintain chest tube to suction until patient's ready to go home. Then would recommend to maintain at waterseal -Continue supportive measures. This dictation was prepared using [employer] voice recognition software. Though every attempt is made to correct errors during dictation some may still exist. Past Medical History Past Medical History: GERD/Reflux, Hypertension, Pneumonia, Prostate Disorder, Rheumatoid Arthritis (RA) Additional Past Medical History / Comment(s): Hx Pneumonia X3. BPH. DIVERTICULITIS. Wears a brace. hypotension. Bilateral cataracts. bruce History of Any Multi-Drug Resistant Organisms: None Reported Past Surgical History: Joint Replacement, Orthopedic Surgery Additional Past Surgical History / Comment(s): ORIF RIGHT ELBOW. RIGHT KNEE REPLACED. TRAUMA TO HIP/PELVIS FROM FALLING THROUGH A ROOF (LEFT HIP REPLACED/PELVIC FX). 2nd left hip replacement. Bilateral cataracts removed. Past Anesthesia/Blood Transfusion Reactions: Motion Sickness Past Psychological History: Anxiety, Bipolar, Depression Smoking Status: Former smoker (Quit smoking over 40 years ago) Past Alcohol Use History: None Reported Additional Past Alcohol Use History / Comment(s): SMOKED FOR ABOUT 10 YRS, QUIT WHEN A "PACK OF CIGARETTES COST 55 CENTS". 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 - Past Family History Brother(s) Family Medical History: No Reported History Father Family Medical History: COPD Medications and Allergies Home Medications Medication Instructions Recorded Confirmed Type Aspirin EC [Ecotrin Low Dose] 81 mg PO DAILY@0800 04/12/22 01/04/23 History DULoxetine HCL [Cymbalta] 60 mg PO HS@199904/12/22 01/04/23 History Folic Acid 1 mg PO DAILY@1400 04/12/22 01/04/23 History Omeprazole 20 mg PO DAILY@0800 06/17/22 01/04/23 History lamoTRIgine [LaMICtal] 100 mg PO BID@0800,199908/11/22 01/04/23 History ALPRAZolam [Xanax] 0.25 mg PO BID PRN #6 tab 08/23/22 01/04/23 Rx Cyanocobalamin [Vitamin B-12] 500 mcg PO HS 10/24/22 01/04/23 History Docusate [Colace] 100 mg PO BID@0800,199910/24/22 01/04/23 History Fludrocortisone [Florinef] 0.2 mg PO DAILY@0800 10/24/22 01/04/23 History Hydrocortisone [Cortef] 10 mg PO BID@0800,1600 10/24/22 01/04/23 History Melatonin 3 mg PO HS@199910/24/22 01/04/23 History Midodrine HCl [ProAmatine] 10 mg PO TID@0700,1300,1900 10/24/22 01/04/23 History Sennosides [Senokot] 8.6 mg PO BID@0800,199910/24/22 01/04/23 History Cholecalciferol [Vitamin D3 (25 50 mcg PO HS 12/26/22 01/04/23 History Mcg = 1000 Iu)] DULoxetine HCL [Cymbalta] 30 mg PO DAILY@0700 12/26/22 01/04/23 History Ferrous Sulfate [Feosol] 325 mg PO DAILY@1400 12/26/22 01/04/23 History HYDROcodone/APAP 5-325MG [Cardale 1 tab PO Q12H PRN 12/26/22 01/04/23 History 5-325] HYDROcodone/APAP 5-325MG [Cardale 1 tab PO QID@05,11,,12/26/22 01/04/23 History 5-325] Healthshake 1 dose PO TID@0700,1100,1700 12/26/22 01/04/23 History Magnesium Hydroxide [Milk of 2,400 mg PO DAILY PRN 12/26/22 01/04/23 History Magnesia] Tamsulosin HCl [Flomax] 0.4 mg PO HS 12/26/22 01/04/23 History bisacodyL 10 mg RECTAL DAILY PRN 12/26/22 01/04/23 History polyethylene glycoL 3350 [Miralax] 17 gm PO DAILY@0700 12/26/22 01/04/23 History Allergies Allergy/AdvReac Type Severity Reaction Status Date / Time amoxicillin Allergy Anaphylaxis Verified 01/04/23 19:13 ampicillin Allergy Anaphylaxis Verified 01/04/23 19:13 Iodinated Contrast Media Allergy Anaphylaxis Verified 01/04/23 19:13 [Iodinated Contrast Media - IV Dye] Penicillins Allergy Anaphylaxis, Verified 01/04/23 19:13 Swelling Physical Exam Osteopathic Statement: *. No significant issues noted on an osteopathic structural exam other than those noted in the History and Physical/Consult. Vitals: Vital Signs Temp Pulse Resp BP Pulse Ox 01/05/23 07:06 97.8 F 105 H 19 99/64 92 L 01/05/23 03:27 102 H 20 96/58 96 01/04/23 23:58 97 20 94/54 93 L 01/04/23 20:00 103 H 20 100/57 94 L 01/04/23 16:10 104 H 20 104/66 94 L Intake and Output 01/04/23 01/05/23 01/05/23 22:59 06:59 14:59 Output Total 1950 Balance -1950 Output: Chest Tube Drainage 1050 Chest Tube Left 1050 Urine 900
[2023-01-05] MEDS: HYDROmorphone 2 MG TAB PO PRN ×3 (14:03→21:24)
[2023-01-06] MEDS ORDERED: LORazepam 1 MG TAB PO PRN (07:20)
[2023-01-06] MEDS: HYDROmorphone 2 MG TAB PO PRN ×3 (07:29→18:40)
--- NOTE | 2023-01-06 09:10 | P.PN ---
Subjective Progress Note Date: 01/06/23 Patient is an 82-year-old male who had a prolonged hospital stay from 12/26 through 01/04 due to strep the urines empyema with complications. Ultimately as all measures had been exhausted and the patient was not a surgical candidate the family and patient elected to sign-on for hospice care. He was subsequently admitted to [facility] hospice on 01/04/23. Patient seen and examined at bedside with son present. He is feeling a bit anxious at this time but is not having any complaints of pain.Per son he did well overnight without complaints. Vital signs reviewed General: nontoxic, no distress, appears at stated age Cardiovascular: S1S2 reg, no murmur, positive posterior tibial pulse bilateral, Lungs: Absent breath sounds on the left, no rhonchi, no rales , + accessory muscle use Abdominal: soft, nontender to palpation, no guarding, no appreciable organomegaly Ext: no gross muscle atrophy, no edema b/l lower extremities, no contractures Neuro: CN II-XI grossly intact, no focal neuro deficits Psych: Alert, oriented, appropriate affect Assessment: Strep. Viridans empyema s/p Pig tail cath 12/28/22 Severe Sepsis Acute hypoxic respiratory failure Elevated troponin, type II non-STEMI due to sepsis and BRUCE Moderate pulmonary hypertension Hypotension BRUCE Urinary retention, milka hematuria Acute on chronic anemia RA Bipolar disorder HTN Data Review: Vitals reviewed temp 98.6, pulse 104, RR 18, BP 97/61 with O2 sat 96% on 2L Plan: - increase oral dilaudid to 3 mg every 3 hours prn pain, conitnue IV dilaudid for break through - Add ativan 1 mg PO TID prn anxiety and keep IV ativan This dictation was prepared using [employer] voice recognition software. Though every attempt is made to correct errors during dictation some may still exist. Objective - Vital Signs Vital signs: Vital Signs Temp 98.7 F 01/06/23 08:00 Pulse 104 H 01/06/23 08:00 Resp 18 01/06/23 08:00 BP 97/61 01/06/23 08:00 Pulse Ox 96 01/06/23 08:00 FiO2 Intake & Output 01/05/23 01/06/23 01/06/23 18:59 06:59 18:59 Output Total 500 600 Balance -500 -600 Output: Chest Tube Drainage 0 Chest Tube Left 0 Urine 500 600 Other: Voiding Method Indwelling Catheter
[2023-01-06] MEDS: HYDROmorphone 0.5 MG/0.5 ML SYRINGE IVP PRN ×3 (12:44→20:10)
[2023-01-06] MEDS: guaiFENesin SYRUP 100MG/5ML 200 MG/10 ML CUP PO PRN ×2 (20:08→20:28)
[2023-01-06] MEDS: LORazepam 2 MG/ML INJ IV PRN ×2 (20:11)
[2023-01-06] MEDS: ATROPINE OPHTH SOLN 1% 5ML BTL SUBLINGUAL PRN (20:46)
[2023-01-07] MEDS: HYDROmorphone 0.5 MG/0.5 ML SYRINGE IVP PRN ×5 (00:53→10:23)
[2023-01-07] MEDS: GLYCOPYRROLATE 0.2 MG/ML 2 ML VIAL IVP PRN ×2 (00:57→16:31)
[2023-01-07] MEDS: ATROPINE OPHTH SOLN 1% 5ML BTL SUBLINGUAL PRN ×5 (01:07→20:05)
[2023-01-07] MEDS: LORazepam 2 MG/ML INJ IV PRN ×2 (02:34→08:53)
[2023-01-07] MEDS ORDERED: LORazepam 2 MG/ML INJ IV PRN (09:49)
--- NOTE | 2023-01-07 09:49 | P.PN ---
Subjective Progress Note Date: 01/07/23 Patient is an 82-year-old male who had a prolonged hospital stay from 12/26 through 01/04 due to strep the urines empyema with complications. Ultimately as all measures had been exhausted and the patient was not a surgical candidate the family and patient elected to sign-on for hospice care. He was subsequently admitted to [facility] hospice on 01/04/23. Patient seen and examined at bedside with nurse present. He is no longer responsive and talking, he is having some gurgling. The daughter that stayed overnight with him and he sat up in the middle night was having extreme amount of distress. She reports that every time was allotted is wearing off he again has recurrent distress. Initially the plan had been attempt to transfer to [facility] today, however he is now in active stage of end-of-life care. I discussed with him that he likely would benefit from a drip at this time as he can no longer communicate when he is having distress and this would allow for a more continuous control of pain without aware off in between doses. They're in agreement but would like to wait to initiate the drip until his is present. Vital signs reviewed General: Appears comfortable, appears at stated age Cardiovascular: S1S2 reg, no murmur, positive posterior tibial pulse bilateral, Lungs: Absent breath sounds on the left, no rhonchi, no rales , no accessory muscle use Abdominal: soft, nontender to palpation, no guarding, no appreciable organomegaly Ext: no gross muscle atrophy, no edema b/l lower extremities, no contractures Neuro: CN II-XI grossly intact, no focal neuro deficits Psych: Somnolent, opens eyes to touch Assessment: Strep. Viridans empyema s/p Pig tail cath 12/28/22 Severe Sepsis Acute hypoxic respiratory failure Elevated troponin, type II non-STEMI due to sepsis and BRUCE Moderate pulmonary hypertension Hypotension BRUCE Urinary retention, milka hematuria Acute on chronic anemia RA Bipolar disorder HTN Data Review: Vitals reviewed temp 98.6, pulse 104, RR 18, BP 97/61 with O2 sat 96% on 2L Plan: -Case discussed with family and hospice nurse. Once has arrived plan will be to discontinue all oral pain/ anxiety medications, start morphine drip, continue with IV pushes for breakthrough pain. Patient continues to meet criteria for [facility] hospice. At this point in time we'll continue with his chest tube to suction for comfort. This dictation was prepared using [employer] voice recognition software. Though every attempt is made to correct errors during dictation some may still exist. Objective - Vital Signs Vital signs: Vital Signs Temp 98.4 F 01/07/23 01:15 Pulse 108 H 01/07/23 01:15 Resp 18 01/07/23 01:15 BP 93/60 01/07/23 01:15 Pulse Ox 93 L 01/07/23 01:15 FiO2 Intake & Output 01/06/23 01/07/23 01/07/23 18:59 06:59 18:59 Output Total 502 500 Balance -502 -500 Output: Chest Tube Drainage 2 Chest Tube Left 2 Urine 500 500 Other: Voiding Method Indwelling Catheter
[2023-01-07] MEDS ORDERED: MORPHINE SULFATE (100 MG/2 ML) 100 MG in SODIUM CHLORIDE 0.9% 100 ML IV SCH (11:00)
[2023-01-07 15:47] VITALS: BP 80/45; PULSE 102; RESP 10; TEMP 99
== END 2023-01-07 22:50 | disposition expired | DRG 951 ==
LOC: 3SCARD 15:41 → 4SSUR 01-05 06:50
PROVIDERS: ADMIT Internal Medicine; ATTEND Internal Medicine
DX: Z51.5 Encounter for palliative care (principal); R65.20 Severe sepsis without septic shock; J96.01 Acute respiratory failure with hypoxia; J86.9 Pyothorax without fistula; A40.1 Sepsis due to streptococcus, group B; I21.A1 Myocardial infarction type 2; J15.3 Pneumonia due to streptococcus, group B; N17.9 Acute kidney failure, unspecified; I27.20 Pulmonary hypertension, unspecified; F10.21 Alcohol dependence, in remission; Z66 Do not resuscitate; I95.89 Other hypotension; F31.9 Bipolar disorder, unspecified; M06.9 Rheumatoid arthritis, unspecified; R31.0 Gross hematuria; N40.1 Benign prostatic hyperplasia with lower urinary tract symptoms; R33.8 Other retention of urine; F41.9 Anxiety disorder, unspecified; D64.9 Anemia, unspecified; I10 Essential (primary) hypertension; M62.50 Muscle wasting and atrophy, not elsewhere classified, unspecified site; K21.9 Gastro-esophageal reflux disease without esophagitis; Z79.82 Long term (current) use of aspirin; Z79.899 Other long term (current) drug therapy; Z87.01 Personal history of pneumonia (recurrent); Z87.891 Personal history of nicotine dependence; Z96.642 Presence of left artificial hip joint; Z88.0 Allergy status to penicillin; Z91.041 Radiographic dye allergy status
CPT/HCPCS: 94760